=== PATIENT | female | born 1945 | race Caucasian/White ===

== ENCOUNTER 2024-04-10 10:50 | Outpatient (OUT) | payer MEDICARE, SELFPAY ==
--- OUTSIDE RECORDS SUMMARY | 2024-04-10 11:05 | XMS_ITS | CCD ---
Author Organization [facility] Care Team Providers Care Business Intelligence Analyst Name Role Phone MUSTAPHA SPAIN Referring Unavailable DENNISE RUBIN Primary Care Unavailable AL-NSSHALOM DAY Referring Unavailable WASDENNISE CHACKO Primary Care Unavailable Dennise Rubin Primary Care Provider Dennise Rubin DO Primary Care Provider Unavail able Vivek LORD Referring Unavailable WASDENNISE CHACKO Primary Care Unavailable AL-JARET, SHALOM Teran Referring Unavailable WASDENNISE CHACKO Primary Care Unavailable Schlachter FLOOR INSPECTOR-DEPUTY HARBORMASTER, Malcolm Primary Care Provide r MALCOLM DEJESUS Attending Unavailable MALCOLM DEJESUS Referring Unavailable SCHLACHTER, MALCOLM Primary Care Unavailable LIZZETH LO Attending Unavailable MALCOLM DEJESUS Referring Unavailable SCHLACHTER, MALCOLM Primary Care Unavailable SCHMALCOLM MANJARREZ Attending Unavailable SCHCHIKISCHTERMALCOLM Referring Unavailable SCHLACHTER, MALCOLM Primary Care Unavailable MARTITA, ADALGISA P Admitting Unavailable ADALGISA ANDERS Attending Unavailable LEIA BARGER Referring Unavailable SCHLACHTER, MALCOLM Primary Care Unavailable TORITO SIMMS Consulting Unavailable ALE TRENT Consulting Unavailable DENNISE TOVAR Consulting Unavailable PIERO, RASHMI Consulting Unavailable ADALGISA CRESPO Consulting Unavailable ANALY BUTLER Referring Unavailable SCHLACHTER, MALCOLM Primary Care Unavailable FOZIA MCCORMACK Attending Unavailable SCHLACHTER, MALCOLM Primary Care Unavailable MARGARET QUINN Attending Unavailable MARGARET QUINN Referring Unavailable SCHLACHTER, MALCOLM Primary Care Unavailable HARMEET KANG Attending Unavailable HARMEET KANG Referring Unavailable SCHLACHTER, MALCOLM Primary Care Unavailable POTADALGISA MACARIO P Attending Unavailable ADALGISA ANDERS P Referring Unavailable SCHLACHTER, MALCOLM Primary Care Unavailable BISMARK BUSH Admitting Unavailable BISMARK BUSH Attending Unavailable RED SPANGLER Referring Unavailable SCHLACHTER, MALCOLM Primary Care Unavailable NAILA, LIZZETH G Consulting Unavailable ALE TRENT. Consulting Unavailable TORITO SIMMS Consulting Unavailable DENNISE TOVAR Consulting Unavailable LEIA BARGER Referring Unavailable SCHLACHTER, MALCOLM Primary Care Unavailable RED SPANGLER Referring Unavailable SCHLACHTER, MALCOLM Primary Care Unavailable NAILA, LIZZETH G Attending Unavailable NAILA, LIZZETH G Referring Unavailable SCHLACHTER, MALCOLM Primary Care Unavailable NAILA, LIZZETH G Admitting Unavailable ALE TRENT Consulting Unavailable [facility] Unavailable REYNA, ANGELICA Q Consulting Unavailable SHELIA GREWAL Consulting Unavailable ANGIE FERRER Consulting Unavailable TASHI NAIR Attending Unavailable SCHLACHTER, MALCOLM Primary Care Unavailable NAILA, LIZZETH G Attending Unavailable NAILA, LIZZETH G Referring Unavailable SCHLACHTER, MALCOLM Primary Care Unavailable MARIBELL, ANGELICA Q Referring Unavailable SCHLACHTER, MALCOLM Primary Care Unavailable VERHOFFDAVIDN N Attending Unavailable SCHLACHTER, MALCOLM Referring Unavailable SCHLACHTER, MALCOLM Primary Care Unavailable VERHOFF, LILLIAN N Referring Unavailable SCHLACHTER, MALCOLM Primary Care Unavailable SCHLACHTER, MALCOLM Referring Unavailable SCHLACHTER, MALCOLM Primary Care Unavailable VERHODAVID LUTZN N Attending Unavailable VERHOFF, LILLIAN N Referring Unavailable SCHLACHTER, MALCOLM Primary Care Unavailable SCHLACHTER, MALCOLM Referring Unavailable SCHLACHTER, MALCOLM Primary Care Unavailable VERHOFF, LILLIAN N Attending Unavailable VERHOFF, LILLIAN N Referring Unavailable SCHLACHTER, MALCOLM Primary Care Unavailable SCHLACHTER, MALCOLM Referring Unavailable SCHLACHTER, MALCOLM Primary Care Unavailable SCHLACHTER, MALCOLM Referring Unavailable SCHLACHTER, MALCOLM Primary Care Unavailable SCHLACHTER, MALCOLM Referring Unavailable SCHLACHTER, MALCOLM Primary Care Unavailable SCHLACHTER, MALCOLM Primary Care Unavailable SHAHBAZ SAMANIEGO Attending Unavailable CHARBEL, MUHAMID M Admitting Unavailable [facility] Consulting Unavailable SCHLACHTER, MALCOLM Referring Unavailable SCHLACHTER, MALCOLM Primary Care Unavailable SPANGLER, RED Attending Unavailable SPANGLER, RED Attending Unavailable SPANGLER, RED Referring Unavailable SCHLACHTER, MALCOLM Primary Care Unavailable SPANGLER, RED Attending Unavailable SPANGLER, RED Referring Unavailable SCHLACHTER, MALCOLM Primary Care Unavailable SPANGLER, RED Attending Unavailable SPANGLER, RED Referring Unavailable SCHLACHTER, MALCOLM Primary Care Unavailable NAILA, LIZZETH G Admitting Unavailable NAILA, LIZZETH G Attending Unavailable SCHLACHTER, MALCOLM Primary Care Unavailable SIENNALUISED Attending Unavailable SCHLACHTER, MALCOLM Referring Unavailable SCHLACHTER, MALCOLM Primary Care Unavailable Allergies Allergy Classification Reported Allergen(s) Allergy Type Date of Onset Reaction(s) Facility Angiotensin Converting Enzyme (SULEIMAN) Inhibitors (1 source) Lisinopril Drug Allergy 7 [facility] cloNIDine (1 source) cloNIDine Drug Allergy 7 [facility] Opioid Agonists (2 sources) Codeine Drug Allergy 6 Other (See Comments) [facility] Pentazocine (1 source) Pentazocine Drug Allergy 7 Other (See Comments) [facility] tyloxapol (1 source) tyloxapol Drug Allergy 7 [facility] (14 sources) cloNIDine; Translations: [CLONIDINE] Drug Allergy 7 [place], [place] (14 sources) Codeine; Translations: [CODEINE] Drug Allergy 6 Other (See Comments), Swelling [place], [place] (14 sources) Lisinopril; Translations: [LISINOPRIL] Drug Allergy 7 [place], [place] (14 sources) Pentazocine; Translations: [PENTAZOCINE LACTATE] Drug Allergy 7 Other (See Comments) [place], [place] (14 sources) traMADol; Translations: [TRAMADOL] Drug Allergy 7 Other (See Comments), GI Disturbance [place], [place] (14 sources) tyloxapol; Translations: [TYLOXAPOL] Drug Allergy 7 GI Disturbance [facility] [place] [place] (11 sources) Adhesive agent; Translations: [ADHESIVE] Propensity to adverse reactions to drug 9 Rash [facility] (11 sources) Aspirin / Pentazocine; Translations: [TALWIN COMPOUND] Drug Allergy 7 GI Disturbance [facility] (11 sources) clonazePAM; Translations: [CLONAZEPAM] Drug Allergy 9 Other (See Comments) [facility] Medications Current Medications Medication Drug Class(es) Dates Sig (Normalized) Sig (Original) ALPRAZolam 0.5 mg oral tablet (3 sources) Benzodiazepine Start: 04-12-2017 ALPRAZolam (XANAX) 0.5 MG tablet Take 0.5 mg by mouth. 0 04/12/2017 Active amLODIPine 10 mg oral tablet (4 sources) Dihydropyridine Calcium Channel Ej Start: 04-12-2017 amLODIPine (NORVASC) 10 MG tablet Take 10 mg by mouth 0 04/12/2017 Active ascorbic acid 250 mg oral tablet (11 sources) Vitamin C Start: 01-04-2022 take 1 tablet by mouth in the morning ascorbic acid, vitamin C, (VITAMIN C) 250 mg tablet Take 1 tablet (250 mg total) by mouth in the morning. 30 tablet 0 01/04/2022 Active take 1 tablet by mouth once vivien y Ascorbic Acid (VITAMIN C) 250 MG tablet Take 250 mg by mouth daily 0 Active aspirin 81 mg delayed release oral tablet (11 sources) Platelet Aggregation Inhibitor, Nonsteroidal Anti-inflammatory Drug Start: 01-04-2022 take 1 tablet by mouth in the morning aspirin 81 mg Take 1 tablet (81 mg total) by mouth in the morning. 30 tablet 0 01/04/2022 Active Start: 04-12-2017 aspirin 81 MG tablet Take 81 mg by mouth 0 04/12/2017 Active atorvastatin 20 mg oral tablet (7 sources) HMG-CoA Reductase Inhibitor Start: 03-21-2023 take 1 tablet by mouth in the morning atorvastatin (LIPITOR) 20 mg tablet Take 1 tablet (20 mg total) by mouth in the morning. 90 tablet 1 03/21/2023 Active bumetanide 1 mg oral tablet (3 sources) Loop Diuretic Start: 07-12-2017 bumetanide (BU NORBERT) 1 MG tablet calcium ascorbate 500 mg oral tablet (3 sources) Start: 04-12-2017 Calcium Ascorb ate 500 MG TABS Take 500 mg by mouth 0 04/12/2017 Active carvedilol 12.5 mg oral tablet (11 sources) alpha-Adrenergic Ej, beta-Adrenergic Ej Start: 01-04-2022 take 1 tablet by mouth in the morning, then take 1 tablet by mouth at bedtime, then take 2 tablets by mouth twice daily carvediloL (COREG) 12.5 mg tablet Take 1 tablet (12.5 mg total) by mouth in the morning and 1 tablet (12.5 mg total) before bedtime. take 2 tabs 6.25 mg each twice a day by mouth. 60 tablet 0 01/04/2022 Active take 1 tablet by dasha th twice daily at mealtime carvedilol (COREG) 12.5 MG tablet Take 12.5 mg by mouth 2 times daily (with meals) 0 Active chlorthalidone 25 mg oral tablet (8 sources) Thiazide-like Diuretic Start: 01-04-2022 take 1 tablet by mouth once daily chlorthalidone (HYGROTON) 25 mg tablet Take 1 tablet (25 mg total) by mouth daily. 30 tablet 0 01/04/2022 Active take 1 tablet by mouth once vivien y chlorthalidone (HYGROTON) 25 MG tablet Take 25 mg by mouth daily 0 Active cholecalciferol 1.25 mg oral capsule (4 sources) Vitamin D Cholecalciferol (VITAMIN D3) 52321 units CAPS Take by mouth 0 Active clobetasol propionate 0.5 mg/ml topical cream (7 sources) Corticosteroid Start: 023 clobetasoL (TEMOVATE) 0.05 % cream Apply 1 Application topically in the morning and 1 Application before bedtime. 60 g 5 05/10/2023 Active Docosahexaenoate (3 sources) Start: 017 DOCOSAHEXAENOIC ACID PO Take 1 capsule by mouth 0 04/12/2017 Active docosahexaenoic acid 1000 mg / omega-3 acid ethyl esters (fdc) 300 mg delayed release oral capsule (1 source) take 3000 mg by mouth once daily [place]-3 Fatty Acids (FISH OIL) 1000 MG CPDR Take 3,000 mg by mouth daily 0 Active ergocalciferol 1.25 mg oral capsule (7 sources) Provitamin D2 Compound Start: 022 take 1 capsule by mouth every 30 days, then take 1 capsule by mouth every 30 days ergocalciferol (VITAMIN D2) 1,250 mcg (50,000 unit) capsule Take 1 capsule (50,000 Units total) by mouth every 30 (thirty) days. pt. to take one pill by mouth once every 30 days. 1 capsule 0 01/04/2022 Active ferrous sulfate 325 mg oral tablet (11 sources) Start: 022 take 1 tablet by mouth once daily at breakfast, then take 1 tablet by mouth once daily ferrous sulfate 325 (65 FE) mg tablet Take 1 tablet (325 mg total) by mouth daily with breakfast. pt. to take one tablet daily by mouth 30 tablet 0 01/04/2022 Active take 1 tablet by dasha th once daily at breakfast ferrous sulfate 325 (65 Fe) MG tablet Ta ke 325 mg by mouth daily (with breakfast) 0 Active insulin isophane, human 100 unt/ml injectable suspension (12 sources) Start: 08-08-2023 insulin NPH (H umuLIN N NPH U-100 Insulin) 100 unit/mL injection Indications: 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 disease, with long-term current use of insulin ([facility]) Inject 47 units QAM and 23 units QPM 60 mL 3 08/08/2023 Active Start: 03-05-2023 End: 08-08-2023 insulin NPH isoph U-100 darci n (HumuLIN N NPH Insulin KwikPen) 100 unit/mL (3 mL) insulin pen Indications: 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 disease, with long-term current use of insulin ([facility]) Inject 35 units in the morning and 25 units in the evening as directed by Corettat MTM 30 mL 5 03/05/2023 08/08/2023 Discontinued (Alternate therapy) Start: 04-12-2017 insulin NPH (H UMULIN N;NOVOLIN N) 100 UNIT/ML injection vial Inject 36-56 Units into the skin 0 04/12/2017 Active 24 hr isosorbide mononitrate 30 mg extended release oral tablet (11 sources) Nitrate Vasodilator Start: 09-26-2022 take 1 tablet by mouth twice daily isosorbide mononitrate (IMDUR) 30 mg 24 hr tablet Take 1 tablet (30 mg total) by mouth 2 (two) times a day. 180 tablet 3 09/26/2022 Active take 1 tablet by mouth once vivien y isosorbide mononitrate (IMDUR) 30 MG extended release tablet Take 30 mg by mouth daily 0 Active losartan potassium 25 mg oral tablet (7 sources) Angiotensin 2 Receptor Ej take 4 tablets by mouth in the morning losartan (COZAAR) 25 mg tablet Take 4 tablets (100 mg total) by mouth in the morning. 0 Active nitroglycerin 0.4 mg sublingual tablet (6 sources) Nitrate Vasodilator Start: 08-03-19 24 nitroglycerin (NITROSTAT) 0.[address] 1 tablet (0.4 mg total) under the tongue every 5 (five) minutes as needed for chest pain. 90 tablet 0 08/03/2023 Active omega 0-ant-peb-fish oil (FISH OIL) 1,000 mg (120 mg-180 mg) capsule (7 sources) Start: 07-02-19 20 take 1 capsule by mouth once daily omega 4-dxy-gbu-fish oil (FISH OIL) 1,000 mg (120 mg-180 mg) capsule Take 1 capsule by mouth daily. 90 capsule 1 07/02/2019 Active triamcinolone acetonide 10 mg/ml injectable suspension (2 sources) Corticosteroid triamcinolone (KENALOG) 0.1 % lotion Apply topically 3 times daily Apply topically 3 times daily. 0 Active triamcinolone ac etonide (KENALOG) 10 MG/ML injection Inject 10 mg into the articular space once 0 Active vitamin b6 100 mg oral tablet (11 sources) Start: 07-02-2019 take 1 tablet by mouth once daily pyridoxine, vitamin B6, (B-6) 100 mg tablet Take 1 tablet (100 mg total) by mouth daily. 90 tablet 1 07/02/2019 Active Completed/Discontinued Medications Medication Drug Class(es) Dates Sig (Normalized) Sig (Original) dapagliflozin 10 mg oral tablet (2 sources) Sodium-Glucose Cotransporter 2 Inhibitor Start: 01-02-2023 End: 08-03-2023 take 1 tablet by mouth once daily FARXIGA 10 mg tablet 1 tablet Orally Once a day for 90 days 0 01/02/2023 08/03/2023 Discontinued Problems Active Problems Problem Classification Problem Date Documented Da te Episodic/Chronic Acute and unspecified renal failure (3 sources) Acute kidney failure, unspecified; Translations: [Acute kidney failure, unspecified] Onset: 11-19-2023 Episodic Anxiety disorders (7 sources) Anxiety; Translations: [Anxiety disorder, unspecified] Onset: 04-11-2019 04-11-2019 Chronic Calculus of urinary tract (3 sources) Calculus of kidney; Translations: [Calculus of kidney] Onset: 11-27-2023 Episodic Cancer of colon (14 sources) Malignant tumor of colon; Translations: [Malignant neoplasm of colon, unspecified] Onset: 01-23-2017 Resolved: 08-08-2023 01-23-2017 Chronic Cardiac dysrhythmias (1 source) Cardiac arrhythmia, unspecified; Translations: [Cardiac arrhythmia, unspecified] Onset: 11-19-2023 Chronic Chronic kidney disease (13 sources) Chronic kidney disease; Translations: [Chronic kidney disease, unspecified] Onset: 04-11-2019 04-11-2019 Chronic Chronic kidney disease (3 sources) Chronic kidney disease; Translations: [Chronic kidney disease, stage 3 unspecified] Onset: 04-11-2019 Congestive heart failure; nonhypertensive (1 source) Acute on chronic diastolic (congestive) heart failure; Translations: [Acute on chronic diastolic (congestive) heart failure] Onset: 01-18-2024 Chronic Coronary atherosclerosis and other heart disease (5 sources) Coronary arteriosclerosis; Translations: [Atherosclerotic heart disease of [place] coronary artery without angina pectoris] Onset: 08-03-2023 08-03-2023 Chronic Diabetes mellitus with complications (1 source) Type 2 diabetes mellitus with diabetic chronic kidney disease; Translations: [Type 2 diabetes mellitus with diabetic chronic kidney disease] Onset: 04-11-2019 Chronic Diabetes mellitus without complication (10 sources) Type 2 diabetes mellitus; Translations: [Type 2 diabetes mellitus without complications] Onset: [birth year]1977 04-11-2019 Chronic Diseases of white blood cells (1 source) Decreased white blood cell count, unspecified; Translations: [Decreased white blood cell count, unspecified] Onset: 11-19-2023 Chronic Essential hypertension (11 sources) Hypertensive disorder; Translations: [Essential (primary) hypertension] Onset: 04-11-2019 04-11-2019 Chronic Fluid and electrolyte disorders (2 sources) Hyperkalemia; Translations: [Hyperkalemia] Onset: 11-19-2023 Episodic Genitourinary symptoms and ill-defined conditions (1 source) Presence of urogenital implants; Translations: [Presence of urogenital implants] Onset: 02-12-2024 Chronic Malaise and fatigue (8 sources) Asthenia; Translations: [Weakness] Onset: 02-04-2022 02-04-2022 Episodic Nonspecific chest pain (8 sources) Chest pain; Translations: [Chest pain, unspecified] Onset: 11-06-2022 11-17-2022 Episodic Osteoarthritis (2 sources) Osteoarthritis of left hip joint; Translations: [Unilateral primary osteoarthritis, left hip] Onset: 09-05-2023 09-05-2023 Chronic Other circulatory disease (1 source) Device in situ; Translations: [Presence of other vascular implants and grafts] Onset: 06-13-2016 06-13-2016 Chronic Other lower respiratory disease (1 source) Shortness of breath; Translations: [Shortness of breath] Onset: 12-23-2023 Episodic Other lower respiratory disease (1 source) Shortness of breath Onset: 12-23-2023 Episodic Other nervous system disorders (2 sources) Other chronic pain; Translations: [Other chronic pain] Onset: 08-08-2023 Chronic Other nutritional; endocrine; and metabolic disorders (1 source) Body mass index (BMI) 50.0-59.9, adult; Translations: [Body mass index (BMI) 50.0-59.9, adult] Onset: 10-17-2023 Chronic Other screening for suspected conditions (not mental disorders or infectious disease) (9 sources) Cardiovascular stress test abnormal; Translations: [Abnormal result of other cardiovascular function study] Onset: 11-06-2022 11-06-2022 Episodic Residual codes; unclassified (7 sources) Sleep apnea; Translations: [Sleep apnea, unspecified] 12-02-2019 Chronic Residual codes; unclassified (1 source) Obstructive sleep apnea syndrome; Translations: [Obstructive sleep apnea (adult) (pediatric)] 08-08-2023 Chronic Residual codes; unclassified (1 source) Obstructive sleep apnea (adult) (pediatric); Translations: [Obstructive sleep apnea (adult) (pediatric)] Onset: 12-02-2019 Chronic Residual codes; unclassified (3 sources) Device in situ; Translations: [Port-A-Cath in place] Onset: 06-13-2016 06-13-2016 Respiratory failure; insufficiency; arrest (adult) (2 sources) Acute and chronic respiratory failure with hypoxia; Translations: [Acute and chronic respiratory failure with hypoxia] Onset: 12-23-2023 Chronic Respiratory failure; insufficiency; arrest (adult) (2 sources) Respiratory failure, unspecified with hypoxia; Translations: [Acute respiratory failure with hypoxia] Onset: 12-23-2023 Episodic Septicemia (except in labor) (1 source) Sepsis Onset: 11-19-2023 Episodic Spondylosis; intervertebral disc disorders; other back problems (4 sources) Degeneration of lumbar intervertebral disc; Translations: [Other intervertebral disc degeneration, lumbar region] Onset: 09-05-2023 08-08-2023 Chronic Unclassified (1 source) Weakness - Generalized Onset: 11-19-2023 Unclassified (1 source) ILL Onset: 11-19-2023 Past or Other Problems Problem Classification Problem Date Documented Da te Episodic/Chronic Genitourinary symptoms and ill-defined conditions (7 sources) Asymptomatic microscopic hematuria; Translations: [Asymptomatic microscopic hematuria] Onset: 06-13-2022 08-15-2022 Episodic Mood disorders (7 sources) Mood disorders Onset: 01-23-2023 01-23-2023 Non-Hodgkin`s lymphoma (8 sources) Low grade B-cell lymphoma; Translations: [Unspecified B-cell lymphoma, unspecified site] Onset: 06-25-2005 Resolved: 08-08-2023 Chronic Other aftercare (1 source) penitentiary (current) use of insulin; Translations: [manager terminal (current) use of insulin] Onset: 04-11-2019 Episodic Other injuries and conditions due to external causes (7 sources) History of fall; Translations: [History of falling] Onset: 02-04-2022 02-04-2022 Episodic Other nervous system disorders (7 sources) Abnormal gait; Translations: [Unsteadiness on feet] Onset: 02-04-2022 02-04-2022 Episodic Other non-traumatic joint disorders (4 sources) Pain in right knee; Translations: [Pain in joint, lower leg] Onset: 08-08-2023 08-08-2023 Episodic Other non-traumatic joint disorders (2 sources) Pain in left knee; Translations: [Pain in left knee] Onset: 08-08-2023 Episodic Other nutritional; endocrine; and metabolic disorders (8 sources) Body mass index 40+ - severely obese; Translations: [Body mass index (BMI) 50.0-59.9, adult] Onset: 04-02-2019 Resolved: 01-19-2022 01-19-2022 Chronic Skin and subcutaneous tissue infections (14 sources) Cellulitis of left lower limb; Translations: [Cellulitis of left lower limb] Onset: 09-29-2021 09-29-2021 Episodic Spondylosis; intervertebral disc disorders; other back problems (3 sources) Lumbar radiculopathy; Translations: [Radiculopathy, lumbar region] Onset: 09-05-2023 09-05-2023 Episodic Unclassified (7 sources) Onset: 01-23-2023 Resolved: 08-08-2023 01-23-2023 Results Test Name Value Interpretation Reference Range Facility BASIC METABOLIC PANLon 01-31 Anion gap [Moles/Vol] 12 mmol/L Normal 5-15 [facility] Comment on above: Performed By: #### Kaiden NEWMAN PINR, [id number] #### [facility] ([id number]) [address], [address] [place] [address] Calcium [Mass/Vol] 9.8 mg/dL Normal 8.5-10.5 [facility] Comment on above: Performed By: #### Kaiden NEWMAN PINR, [id number] #### [facility] ([id number]) [address], [address] [place] [address] Chloride [Moles/Vol] 94 mmol/L Low 98-[address] [facility] Comment on above: Performed By: #### Kaiden NEWMAN PINR, [id number] #### [facility] ([id number]) [address], [address] [place] [address] CO2 [Moles/Vol] 30 mmol/L Normal 22-32 [facility] Comment on above: Performed By: #### Kaiden NEWMAN PINR, [id number] #### [facility] ([id number]) [address], [address] [place] [address] Creatinine [Mass/Vol] 3.04 mg/dL High 0.40-1.00 [facility] Comment on above: Result Comment: METH OD TRACEABLE TO IDMS STANDARD Performed By: #### YASMEEN HARDY, [id number] #### [facility] ([id number]) [address], [address] [place] [address] GFR/1.73 sq M.predicted among non-blacks MDRD (S/P/Bld) [Vol rate/Area] 15 mL/min/{1.73_m2} Low >59 [facility] Comment on above: Result Comment: Reported eGFR is based on the CKD-EPI 2020 equation that does not use a race coefficient. Performed By: #### YASMEEN HARDY, [id number] #### [facility] ([id number]) [address], [address] [place] [address] Glucose [Mass/Vol] 200 mg/dL High 65-99 [facility] Comment on above: Performed By: #### YASMEEN HARDY, [id number] #### [facility] ([id number]) [address], [address] [place] [address] Potassium [Moles/Vol] 4.2 mmol/L Normal 3.5-5.0 [facility] Comment on above: Performed By: #### YASMEEN HARDY, [id number] #### [facility] ([id number]) [address], [address] [place] [address] Sodium [Moles/Vol] 136 mmol/L Normal 134-146 [facility] Comment on above: Performed By: #### YASMEEN HARDY, [id number] #### [facility] ([id number]) [address], [address] [place] [address] Urea nitrogen [Mass/Vol] 71 mg/dL High 5-27 [facility] Comment on above: Performed By: #### Kaiden NEWMAN PINR, [id number] #### [facility] ([id number]) [address], [address] [place] [address] CBC AND AUTO DIFFon 02-01-20 24 ABSOLUTE BASOPHIL 0.1 X10E9/L Normal 0.0-0.2 [facility] Comment on above: Performed By: #### Kaiden NEWMAN PINJavi, [id number] #### [facility] ([id number]) [address], [address] [place] [address] Band form neutrophils/100 WBC (Bld) 3.0 % Normal [facility] Comment on above: Performed By: #### YASMEEN HARDY, [id number] #### [facility] ([id number]) [address], [address] [place] [address] Basophils/100 WBC (Bld) 3.0 % Normal [facility] Comment on above: Performed By: #### Kaiden NEWMAN PINR, [id number] #### [facility] ([id number]) [address], [address] [place] [address] Eosinophils (Bld) [#/Vol] 0.3 10*3/uL Normal 0.0-0.4 [facility] Comment on above: Performed By: #### YASMEEN HARDY, 47690-0 #### [facility] ([id number]) [address], [address] [place] [address] Eosinophils/100 WBC (Bld) 13.0 % Normal [facility] Comment on above: Performed By: #### Kaiden NEWMAN PINJavi, 21707-3 #### [facility] ([id number]) [address], [address] [place] [address] Erythrocyte distribution width (RBC) [Ratio] 15.7 % High 11.5-15.0 [facility] Comment on above: Performed By: #### Kaiden NEWMAN YASMEEN, 82647-5 #### [facility] ([id number]) [address], [address] [place] [address] Hematocrit (Bld) [Volume fraction] 27.5 % Low 35-47 [facility] Comment on above: Performed By: #### Kaiden NEWMAN PINR, 12775-0 #### [facility] ([id number]) [address], [address] [place] [address] Hemoglobin (Bld) [Mass/Vol] 9.1 g/dL Low 11.7-15.5 [facility] Comment on above: Performed By: #### YASMEEN HARDY, 75373-6 #### [facility] ([id number]) [address], [address] [place] [address] Lymphocytes (Bld) [#/Vol] 1.0 10*3/uL Normal 1.0-3.5 [facility] Comment on above: Performed By: #### Kaiden NEWMAN PINJavi, 90583-3 #### [facility] ([id number]) [address], [address] [place] [address] Lymphocytes/100 WBC (Bld) 38.0 % Normal [facility] Comment on above: Performed By: #### YASMEEN HARDY, 21809-4 #### [facility] ([id number]) [address], [address] [place] [address] MCH (RBC) [Entitic mass] 30.4 pg Normal 27-34 [facility] Comment on above: Performed By: #### Kaiden NEWMAN PINR, 51402-6 #### [facility] ([id number]) [address], [address] [place] [address] MCHC (RBC) [Mass/Vol] 33.2 g/dL Normal 32-36 [facility] Comment on above: Performed By: #### Kaiden NEWMAN PINJavi, 38210-8 #### [facility] ([id number]) [address], [address] [place] [address] MCV (RBC) [Entitic vol] 91 fL Normal 80-100 [facility] Comment on above: Performed By: #### Kaiden NEWMAN PINR, 08579-2 #### [facility] ([id number]) [address], [address] [place] [address] Monocytes (Bld) [#/Vol] 0.4 10*3/uL Normal 0-0.9 [facility] Comment on above: Performed By: #### Kaiden NEWMAN PINR, 29562-1 #### [facility] ([id number]) [address], [address] [place] [address] Monocytes/100 WBC (Bld) 18.0 % Normal [facility] Comment on above: Performed By: #### Kaiden NEWMAN PINR, 29423-9 #### [facility] ([id number]) [address], [address] [place] [address] Neutrophils (Bld) [#/Vol] 0.7 10*3/uL Low 1.5-6.6 [facility] Comment on above: Performed By: #### Kaiden NEWMAN PINR, 03851-5 #### [facility] ([id number]) [address], [address] [place] [address] Platelet mean volume (Bld) [Entitic vol] 8.4 fL Normal 7-12 [facility] Comment on above: Performed By: #### Kaiden NEWMAN PINR, 58121-5 #### [facility] ([id number]) [address], [address] [place] [address] Platelets (Bld) [#/Vol] 367 10*3/uL Normal 150-450 [facility] Comment on above: Performed By: #### Kaiden NEWMAN, PINR, 12028-0 #### [facility] ([id number]) [address], [address] [place] [address] RBC COUNT 3.00 X10E12/L Low 3.80-5.20 [facility] Comment on above: Performed By: #### YASMEEN HARDY, 23150-8 #### [facility] ([id number]) [address], [address] [place] [address] RBC morphology finding Nom (Bld) NORMAL Normal [facility] Comment on above: Performed By: #### YASMEEN HARDY, 57803-8 #### [facility] ([id number]) [address], [address] [place] [address] SEG NEUTROPHIL 25.0 % Normal [facility] Comment on above: Performed By: #### YASMEEN HARDY, 37376-7 #### [facility] ([id number]) [address], [address] [place] [address] WBC (Bld) [#/Vol] 2.5 10*3/uL Low 4.0-11.0 [facility] Comment on above: Performed By: #### YASMEEN HARDY, 43209-1 #### [facility] ([id number]) [address], [address] [place] [address] Glucose Glucometer (BldC) [M ass/Vol]on 02-01-2024 Glucose [Mass/Vol] 340 mg/dL High 65-99 [facility] Glucose [Mass/Vol] 218 mg/dL High 65-99 [facility] MAGNESIUMon 02-01-2024 Magnesium [Mass/Vol] 2.1 mg/dL Normal 1.8-2.[address] [facility] Comment on above: Performed By: #### Kaiden NEWMAN PINR, 95558-7 #### [facility] ([id number]) [address], [address] [place] [address] Magnesium [Mass/Vol] 1.7 mg/dL Low 1.8-2.[address] [facility] Comment on above: Performed By: #### Kaiden NEWMAN, PINR, 76914-0 #### [facility] ([id number]) [address], [address] [place] [address] Natriuretic peptide B [Mass/ Vol]on 02-01-2024 Natriuretic peptide B (Bld) [Mass/Vol] 73 pg/mL Normal <100.0 [facility] Comment on above: Performed By: #### Kaiden NEWMAN, PINR, 81335-6 #### [facility] ([id number]) [address], [address] [place] [address] PHOSPHORUSon 02-01-2024 Phosphate [Mass/Vol] 4.9 mg/dL Normal 2.4-4.[address] [facility] Comment on above: Performed By: #### Kaiden NEWMAN PINR, 26063-6 #### [facility] ([id number]) [address], [address] [place] [address] BASIC METABOLIC PANLon 01-30 Anion gap [Moles/Vol] 11 mmol/L Normal 5-15 [facility] Comment on above: Performed By: #### Kaiden NEWMAN, PINR, 55721-2 #### [facility] ([id number]) [address], [address] [place] [address] Calcium [Mass/Vol] 9.5 mg/dL Normal 8.5-10.5 [facility] Comment on above: Performed By: #### Kaiden NEWMAN, PINR, 09461-9 #### [facility] ([id number]) [address], [address] [place] [address] Chloride [Moles/Vol] 92 mmol/L Low 98-[address] [facility] Comment on above: Performed By: #### Kaiden NEWMAN, PINR, 38348-7 #### [facility] ([id number]) [address] [place] [address] CO2 [Moles/Vol] 31 mmol/L Normal 22-32 [facility] Comment on above: Performed By: #### YASMEEN HARDY, 63868-6 #### [facility] ([id number]) [address], [address] [place] [address] Creatinine [Mass/Vol] 3.45 mg/dL High 0.40-1.00 [facility] Comment on above: Result Comment: METH OD TRACEABLE TO IDMS STANDARD Performed By: #### YASMEEN HARDY, 15021-4 #### [facility] ([id number]) [address], [address] [place] [address] GFR/1.73 sq M.predicted among non-blacks MDRD (S/P/Bld) [Vol rate/Area] 13 mL/min/{1.73_m2} Low >59 [facility] Comment on above: Result Comment: Reported eGFR is based on the CKD-EPI 2020 equation that does not use a race coefficient. Performed By: #### YASMEEN HARDY, 28509-0 #### [facility] ([id number]) [address], [address] [place] [address] Glucose [Mass/Vol] 237 mg/dL High 65-99 [facility] Comment on above: Performed By: #### YASMEEN HARDY, 86828-3 #### [facility] ([id number]) [address], [address] [place] [address] Potassium [Moles/Vol] 4.6 mmol/L Normal 3.5-5.0 [facility] Comment on above: Performed By: #### CHLOE HARDYR, 81588-0 #### [facility] ([id number]) [address], [address] [place] [address] Sodium [Moles/Vol] 134 mmol/L Normal 134-146 [facility] Comment on above: Performed By: #### Kaiden NEWMAN PINJavi, 62861-7 #### [facility] ([id number]) [address], [address] [place] [address] Urea nitrogen [Mass/Vol] 69 mg/dL High 5-27 [facility] Comment on above: Performed By: #### Kaiden NEWMAN, PINR, 65984-0 #### [facility] ([id number]) [address], [address] [place] [address] CBC AND AUTO DIFFon 01-31-20 24 Band form neutrophils/100 WBC (Bld) 6.0 % Normal [facility] Comment on above: Performed By: #### YASMEEN HARDY, 77800-0 #### [facility] ([id number]) [address], [address] [place] [address] Eosinophils (Bld) [#/Vol] 0.2 10*3/uL Normal 0.0-0.4 [facility] Comment on above: Performed By: #### Kaiden NEWMAN PINR, 04948-7 #### [facility] ([id number]) [address], [address] [place] [address] Eosinophils/100 WBC (Bld) 8.0 % Normal [facility] Comment on above: Performed By: #### Kaiden NEWMAN PINR, 82975-1 #### [facility] ([id number]) [address], [address] [place] [address] Erythrocyte distribution width (RBC) [Ratio] 15.2 % High 11.5-15.0 [facility] Comment on above: Performed By: #### Kaiden NEWMAN PINR, 39203-4 #### [facility] ([id number]) [address], [address] [place] [address] Hematocrit (Bld) [Volume fraction] 27.3 % Low 35-47 [facility] Comment on above: Performed By: #### Kaiden NEWMAN PINR, 65874-1 #### [facility] ([id number]) [address], [address] [place] [address] Hemoglobin (Bld) [Mass/Vol] 9.1 g/dL Low 11.7-15.5 [facility] Comment on above: Performed By: #### Kaiden NEWMAN, PINR, 19377-5 #### [facility] ([id number]) [address], [address] [place] [address] Lymphocytes (Bld) [#/Vol] 0.6 10*3/uL Low 1.0-3.5 [facility] Comment on above: Performed By: #### Kaiden NEWMAN, PINR, 28759-0 #### [facility] ([id number]) [address], [facility] [address] [place] [address] Lymphocytes/100 WBC (Bld) 22.0 % Normal [facility] Comment on above: Performed By: #### Kaiden NEWMAN, PINR, 10734-4 #### [facility] ([id number]) [address] [place] [address] MCH (RBC) [Entitic mass] 30.6 pg Normal 27-34 [facility] Comment on above: Performed By: #### Kaiden NEWMAN, PINR, 87549-6 #### [facility] ([id number]) [address], [address] [place] [address] MCHC (RBC) [Mass/Vol] 33.3 g/dL Normal 32-36 [facility] Comment on above: Performed By: #### Kaiden NEWMAN, PINR, 66509-4 #### [facility] ([id number]) [address], [address] [place] [address] MCV (RBC) [Entitic vol] 92 fL Normal 80-100 [facility] Comment on above: Performed By: #### Kaiden NEWMAN, PINR, 48467-5 #### [facility] ([id number]) [address], [address] [place] [address] Monocytes (Bld) [#/Vol] 0.7 10*3/uL Normal 0-0.9 [facility] Comment on above: Performed By: #### YASMEEN HARDY, 21607-2 #### [facility] ([id number]) [address], [address] [place] [address] Monocytes/100 WBC (Bld) 27.0 % Normal [facility] Comment on above: Performed By: #### YASMEEN HARDY, 22160-2 #### [facility] ([id number]) [address], [address] [place] [address] MYELOCYTE 1.0 % Normal [facility] Comment on above: Performed By: #### YASMEEN HARDY, 82706-0 #### [facility] ([id number]) [address], [address] [place] [address] Neutrophils (Bld) [#/Vol] 1.2 10*3/uL Low 1.5-6.6 [facility] Comment on above: Performed By: #### YASMEEN HARDY, 41626-4 #### [facility] ([id number]) [address], [address] [place] [address] Platelet mean volume (Bld) [Entitic vol] 8.0 fL Normal 7-12 [facility] Comment on above: Performed By: #### YASMEEN HARDY, 75335-2 #### [facility] ([id number]) [address], [address] [place] [address] Platelets (Bld) [#/Vol] 346 10*3/uL Normal 150-450 [facility] Comment on above: Performed By: #### YASMEEN HARDY, 49323-1 #### [facility] ([id number]) [address], [address] [place] [address] RBC COUNT 2.97 X10E12/L Low 3.80-5.20 [facility] Comment on above: Performed By: #### Kaiden NEWMAN PINR, 55419-4 #### [facility] ([id number]) [address], [address] [place] [address] RBC morphology finding Nom (Bld) NORMAL Normal [facility] Comment on above: Performed By: #### Kaiden NEWMAN PINR, 97190-8 #### [facility] ([id number]) [address], [address] [place] [address] SEG NEUTROPHIL 36.0 % Normal [facility] Comment on above: Performed By: #### YASMEEN HARDY, 59118-2 #### [facility] ([id number]) [address], [address] [place] [address] WBC (Bld) [#/Vol] 2.7 10*3/uL Low 4.0-11.0 [facility] Comment on above: Performed By: #### Kaiden NEWMAN PINR, 92779-5 #### [facility] ([id number]) [address] [place] [address] Glucose Glucometer (BldC) [M ass/Vol]on 01-31-2024 Glucose [Mass/Vol] 223 mg/dL High 65-99 [facility] Glucose [Mass/Vol] 198 mg/dL High 65-99 [facility] Glucose [Mass/Vol] 258 mg/dL High 65-99 [facility] Glucose [Mass/Vol] 263 mg/dL High 65-99 [facility] MAGNESIUMon 01-31-2024 Magnesium [Mass/Vol] 1.7 mg/dL Low 1.8-2.[address] [facility] Comment on above: Performed By: #### Kaiden NEWMAN, PINR, 08265-8 #### [facility] ([id number]) [address], [address] [place] [address] Natriuretic peptide B [Mass/ Vol]on 01-31-2024 Natriuretic peptide B (Bld) [Mass/Vol] 111 pg/mL High <100.0 [facility] Comment on above: Performed By: #### Kaiden NEWMAN PINR, 93099-6 #### [facility] ([id number]) [address], [address] [place] [address] PHOSPHORUSon 01-31-2024 Phosphate [Mass/Vol] 5.0 mg/dL High 2.4-4.[address] [facility] Comment on above: Performed By: #### C TRENT PINR, 30747-9 #### [facility] ([id number]) [address] [place] [address] XR CHEST 1 VWon 01-31-2024 XR CHEST 1 VW XR CHEST 1 VW Clinical History: Shortness of breath. Portable Upright chest: 01/31/2024 Comparison: 01/29/2024 Findings: A single portable view of the chest was obtained. Vascular prominence persists with hazy central lung opacity. There is slight improved aeration of the mid lungs with persistent retrocardiac density on the left and a left pleural effusion. No pneumothorax is evident. IMPRESSION: Improving vascular congestion and perihilar infiltrates with persistent left basilar infiltrate and pleural effusion. Finalized by Lizzeth George MD on 01/31/2024 2:38 PM Normal [facility] BASIC METABOLIC PANLon 01-29 Anion gap [Moles/Vol] 12 mmol/L Normal 5-15 [facility] Comment on above: Performed By: #### C TRENT PINR, 17402-6 #### [facility] ([id number]) [address], [address] [place] [address] Calcium [Mass/Vol] 9.7 mg/dL Normal 8.5-10.5 [facility] Comment on above: Performed By: #### Kaiden NEWMAN, PINR, 81622-5 #### [facility] ([id number]) [address], [address] [place] [address] Chloride [Moles/Vol] 92 mmol/L Low 98-[address] [facility] Comment on above: Performed By: #### YASMEEN HARDY, 04515-2 #### [facility] ([id number]) [address], [address] [place] [address] CO2 [Moles/Vol] 30 mmol/L Normal 22-32 [facility] Comment on above: Performed By: #### YASMEEN HARDY, 48230-8 #### [facility] ([id number]) [address], [address] [place] [address] Creatinine [Mass/Vol] 3.91 mg/dL High 0.40-1.00 [facility] Comment on above: Result Comment: METH OD TRACEABLE TO IDMS STANDARD Performed By: #### YASMEEN HARDY, 28410-7 #### [facility] ([id number]) [address], [address] [place] [address] GFR/1.73 sq M.predicted among non-blacks MDRD (S/P/Bld) [Vol rate/Area] 11 mL/min/{1.73_m2} Low >59 [facility] Comment on above: Result Comment: Reported eGFR is based on the CKD-EPI 2020 equation that does not use a race coefficient. Performed By: #### YASMEEN HARDY, 18588-6 #### [facility] ([id number]) [address], [address] [place] [address] Glucose [Mass/Vol] 199 mg/dL High 65-99 [facility] Comment on above: Performed By: #### YASMEEN HARDY, 55275-8 #### [facility] ([id number]) [address], [address] [place] [address] Potassium [Moles/Vol] 4.6 mmol/L Normal 3.5-5.0 [facility] Comment on above: Performed By: #### YASMEEN HARDY, 93862-3 #### [facility] ([id number]) [address], [address] [place] [address] Sodium [Moles/Vol] 134 mmol/L Normal 134-146 [facility] Comment on above: Performed By: #### Kaiden NEWMAN, PINR, 85782-5 #### [facility] ([id number]) [address], [address] [place] [address] Urea nitrogen [Mass/Vol] 67 mg/dL High 5-27 [facility] Comment on above: Performed By: #### Kaiden NEWMAN, PINR, 06689-0 #### [facility] ([id number]) [address], [address] [place] [address] CBC AND AUTO DIFFon 01-30-20 24 ABSOLUTE BASOPHIL 0.1 X10E9/L Normal 0.0-0.2 [facility] Comment on above: Performed By: #### Kaiden NEWMAN, PINR, 42560-7 #### [facility] ([id number]) [address], [address] [place] [address] ABSOLUTE NEUTROPHIL 0.6 X10E9/L Low 1.5-6.[address] [facility] Comment on above: Performed By: #### Kaiden NEWMAN, PINR, 94654-7 #### [facility] ([id number]) [address], [address] [place] [address] Basophils/100 WBC (Bld) 3.3 % Normal [facility] Comment on above: Performed By: #### Kaiden NEWMAN, PINR, 07544-9 #### [facility] ([id number]) [address] [address] [place] [address] Eosinophils (Bld) [#/Vol] 0.3 10*3/uL Normal 0.0-0.4 [facility] Comment on above: Performed By: #### Kaiden NEWMAN, PINR, 68544-1 #### [facility] ([id number]) [address], [address] [place] [address] Eosinophils/100 WBC (Bld) 11.5 % Normal [facility] Comment on above: Performed By: #### Kaiden NEWMAN PINR, 68009-4 #### [facility] ([id number]) [address], [address] [place] [address] Erythrocyte distribution width (RBC) [Ratio] 15.9 % High 11.5-15.0 [facility] Comment on above: Performed By: #### Kaiden NEWMAN PINJavi, 38261-5 #### [facility] ([id number]) [address], [address] [place] [address] Hematocrit (Bld) [Volume fraction] 26.6 % Low 35-47 [facility] Comment on above: Performed By: #### Kaiden NEWMAN PINJavi, 10571-3 #### [facility] ([id number]) [address], [address] [place] [address] Hemoglobin (Bld) [Mass/Vol] 8.7 g/dL Low 11.7-15.5 [facility] Comment on above: Performed By: #### Kaiden NEWMAN PINR, 53385-1 #### [facility] ([id number]) [address] [place] [address] Lymphocytes (Bld) [#/Vol] 0.6 10*3/uL Low 1.0-3.5 [facility] Comment on above: Performed By: #### Kaiden NEWMAN PINR, 94950-4 #### [facility] ([id number]) [address] [place] [address] Lymphocytes/100 WBC (Bld) 28.3 % Normal [facility] Comment on above: Performed By: #### Kaiden NEWMAN PINJavi, 88565-9 #### [facility] ([id number]) [address], [address] [place] [address] MCH (RBC) [Entitic mass] 29.9 pg Normal 27-34 [facility] Comment on above: Performed By: #### YASMEEN HARDY, 15151-2 #### [facility] ([id number]) [address], [address] [place] [address] MCHC (RBC) [Mass/Vol] 32.8 g/dL Normal 32-36 [facility] Comment on above: Performed By: #### Kaiden NEWMAN PINJavi, 34038-2 #### [facility] ([id number]) [address], [address] [place] [address] MCV (RBC) [Entitic vol] 91 fL Normal 80-100 [facility] Comment on above: Performed By: #### YASMEEN HARDY, 20868-6 #### [facility] ([id number]) [address] [place] [address] Monocytes (Bld) [#/Vol] 0.7 10*3/uL Normal 0-0.9 [facility] Comment on above: Performed By: #### Kaiden NEWMAN PINR, [id number] #### [facility] ([id number]) [address], [address] [place] [address] Monocytes/100 WBC (Bld) 30.9 % Normal [facility] Comment on above: Performed By: #### Kaiden NEWMAN PINR, [id number] #### [facility] ([id number]) [address], [address] [place] [address] Neutrophils/100 WBC (Bld) 26.0 % Normal [facility] Comment on above: Performed By: #### Kaiden NEWMAN PINR, [id number] #### [facility] ([id number]) [address], [address] [place] [address] Platelet mean volume (Bld) [Entitic vol] 8.5 fL Normal 7-12 [facility] Comment on above: Performed By: #### YASMEEN HARDY, [id number] #### [facility] ([id number]) [address], [address] [place] [address] Platelets (Bld) [#/Vol] 333 10*3/uL Normal 150-450 [facility] Comment on above: Performed By: #### YASMEEN HARDY, [id number] #### [facility] ([id number]) [address], [address] [place] [address] RBC COUNT 2.92 X10E12/L Low 3.80-5.20 [facility] Comment on above: Performed By: #### YASMEEN HARDY, 01136-7 #### [facility] ([id number]) [address], [address] [place] [address] WBC (Bld) [#/Vol] 2.2 10*3/uL Low 4.0-11.0 [facility] Comment on above: Performed By: #### YASMEEN HARDY, [id number] #### [facility] ([id number]) [address], [address] [place] [address] Glucose Glucometer (BldC) [M ass/Vol]on 01-30-2024 Glucose [Mass/Vol] 239 mg/dL High 65-99 [facility] Glucose [Mass/Vol] 257 mg/dL High 65-99 [facility] Glucose [Mass/Vol] 266 mg/dL High 65-99 [facility] Glucose [Mass/Vol] 209 mg/dL High 65-99 [facility] MAGNESIUMon 01-30-2024 Magnesium [Mass/Vol] 1.8 mg/dL Normal 1.8-2.[address] [facility] Comment on above: Performed By: #### YASMEEN HARDY, 47082-4 #### [facility] ([id number]) [address], [address] [place] [address] Natriuretic peptide B [Mass/ Vol]on 01-30-2024 Natriuretic peptide B (Bld) [Mass/Vol] 124 pg/mL High <100.0 [facility] Comment on above: Performed By: #### YASMEEN HARDY, [id number] #### [facility] ([id number]) [address], [address] [place] [address] PHOSPHORUSon 01-30-2024 Phosphate [Mass/Vol] 5.4 mg/dL High 2.4-4.[address] [facility] Comment on above: Performed By: #### YASMEEN HARDY, 63714-9 #### [facility] ([id number]) [address], [address] [place] [address] VENOUS BLOOD GASon EWELINA'S TEST Normal [facility] Comment on above: Performed By: #### YASMEEN HARDY, 95501-2 #### [facility] ([id number]) [address], [address] [place] [address] Base excess Calc (Bld) [Moles/Vol] 7.0 mmol/L High 0.0-2.0 [facility] Comment on above: Performed By: #### YASMEEN HARDY, 97819-5 #### [facility] ([id number]) [address], [address] [place] [address] Body temperature 98.6 [degF] Normal 37.0 [facility] Comment on above: Performed By: #### Kaiden NEWMAN PINR, 75443-3 #### [facility] ([id number]) [address], [address] [place] [address] HCO3 (Bld) [Moles/Vol] 33.3 mmol/L High 20.0-24.0 [facility] Comment on above: Performed By: #### YASMEEN HARDY, 51872-1 #### [facility] ([id number]) [address] [place] [address] INSP. O2 CONC. 28 % Normal [facility] Comment on above: Performed By: #### C TRENT, PINR, [id number] #### [facility] ([id number]) [address], [address] [place] [address] Oxygen saturation in Blood 80.0 % Low >80.0 [facility] Comment on above: Performed By: #### C TRENT, PINR, 52606-2 #### [facility] ([id number]) [address] [place] [address] OXYGEN SOURCE NC Normal [facility] Comment on above: Performed By: #### Kaiden NEWMAN, PINR, 04851-1 #### [facility] ([id number]) [address] [place] [address] PCO2, VENOUS 52.8 MMHG High 35-50 [facility] Comment on above: Performed By: #### Kaiden NEWMAN, PINR, 32882-3 #### [facility] ([id number]) [address] [place] [address] PH, VENOUS 7.408 Normal 7.320-7.420 [facility] Comment on above: Performed By: #### Kaiden NEWMAN, PINR, 40530-6 #### [facility] ([id number]) [address], [address] [place] [address] PO2, VENOUS 45 MMHG Normal 30-50 [facility] Comment on above: Performed By: #### Kaiden NEWMAN, PINR, 20449-7 #### [facility] ([id number]) [address], [address] [place] [address] SAMPLE SITE N/A Normal [facility] Comment on above: Performed By: #### Kaiden NEWMAN, PINR, 52664-1 #### [facility] ([id number]) [address], [address] [place] [address] SAMPLE TYPE VENOUS Normal [facility] Comment on above: Performed By: #### YASMEEN HARDY, 41064-3 #### [facility] ([id number]) [address], [address] [place] [address] AMMONIAon 01-29-2024 Ammonia (P) [Moles/Vol] 21 umol/L Normal 18-72 [facility] Comment on above: Result Comment: NEW REFERENCE RANGE Performed By: #### YASMEEN HARDY, 65594-3 #### [facility] ([id number]) [address], [address] [place] [address] BASIC METABOLIC PANLon 01-28 Anion gap [Moles/Vol] 11 mmol/L Normal 5-15 [facility] Comment on above: Performed By: #### YASMEEN HARDY, 34104-1 #### [facility] ([id number]) [address], [address] [place] [address] Calcium [Mass/Vol] 9.7 mg/dL Normal 8.5-10.5 [facility] Comment on above: Performed By: #### Kaiden NEWMAN PINR, 36880-4 #### [facility] ([id number]) [address], [address] [place] [address] Chloride [Moles/Vol] 93 mmol/L Low 98-[address] [facility] Comment on above: Performed By: #### Kaiden NEWMAN PINR, 07268-5 #### [facility] ([id number]) [address], [address] [place] [address] CO2 [Moles/Vol] 29 mmol/L Normal 22-32 [facility] Comment on above: Performed By: #### Kaiden NEWMAN PINR, 58037-1 #### [facility] ([id number]) [address], [address] [place] [address] Creatinine [Mass/Vol] 3.80 mg/dL High 0.40-1.00 [facility] Comment on above: Result Comment: METH OD TRACEABLE TO IDMS STANDARD Performed By: #### YASMEEN HARDY, 47630-5 #### [facility] ([id number]) [address], [address] [place] [address] GFR/1.73 sq M.predicted among non-blacks MDRD (S/P/Bld) [Vol rate/Area] 12 mL/min/{1.73_m2} Low >59 [facility] Comment on above: Result Comment: Reported eGFR is based on the CKD-EPI 2020 equation that does not use a race coefficient. Performed By: #### YASMEEN HARDY, 32976-0 #### [facility] ([id number]) [address], [address] [place] [address] Glucose [Mass/Vol] 181 mg/dL High 65-99 [facility] Comment on above: Performed By: #### YASMEEN HARDY, 24975-6 #### [facility] ([id number]) [address], [address] [place] [address] Potassium [Moles/Vol] 4.6 mmol/L Normal 3.5-5.0 [facility] Comment on above: Performed By: #### YASMEEN HARDY, 36878-8 #### [facility] ([id number]) [address] [address] [place] [address] Sodium [Moles/Vol] 133 mmol/L Low 134-146 [facility] Comment on above: Performed By: #### YASMEEN HARDY, 50795-6 #### [facility] ([id number]) [address], [address] [place] [address] Urea nitrogen [Mass/Vol] 63 mg/dL High 5-27 [facility] Comment on above: Performed By: #### YASMEEN HARDY, 43631-5 #### [facility] ([id number]) [address], [address] [place] [address] BLOOD CULTUREon 01-29-2024 Bacteria identified Aer cx Nom (Bld) CULTURE RESULTS NO GROWTH 5 DAYS Normal [facility] Bacteria identified Aer cx Nom (Bld) CULTURE RESULTS NO GROWTH 5 DAYS Normal [facility] CBC AND AUTO DIFFon 01-29-20 24 ABSOLUTE BASOPHIL 0.1 X10E9/L Normal 0.0-0.2 [facility] Comment on above: Performed By: #### YASMEEN HARDY, 49102-1 #### [facility] ([id number]) [address], [address] [place] [address] Band form neutrophils/100 WBC (Bld) 10.9 % Normal [facility] Comment on above: Performed By: #### YASMEEN HARDY, 28779-0 #### [facility] ([id number]) [address], [address] [place] [address] Basophils/100 WBC (Bld) 4.0 % Normal [facility] Comment on above: Performed By: #### YASMEEN HARDY, 96676-4 #### [facility] ([id number]) [address], [address] [place] [address] Eosinophils (Bld) [#/Vol] 0.1 10*3/uL Normal 0.0-0.4 [facility] Comment on above: Performed By: #### YASMEEN HARDY, 26660-2 #### [facility] ([id number]) [address], [address] [place] [address] Eosinophils/100 WBC (Bld) 4.0 % Normal [facility] Comment on above: Performed By: #### YASMEEN HARDY, 98067-4 #### [facility] ([id number]) [address], [address] [place] [address] Erythrocyte distribution width (RBC) [Ratio] 15.9 % High 11.5-15.0 [facility] Comment on above: Performed By: #### Kaiden NEWMAN, PINR, 06651-8 #### [facility] ([id number]) [address], [facility] [address] [place] [address] Hematocrit (Bld) [Volume fraction] 25.5 % Low 35-47 [facility] Comment on above: Performed By: #### Kaiden NEWMAN PINR, 73933-7 #### [facility] ([id number]) [address], [facility] [address] [place] [address] Hemoglobin (Bld) [Mass/Vol] 8.6 g/dL Low 11.7-15.5 [facility] Comment on above: Performed By: #### Kaiden NEWMAN PINR, 57468-1 #### [facility] ([id number]) [address], [address] [place] [address] Lymphocytes (Bld) [#/Vol] 0.6 10*3/uL Low 1.0-3.5 [facility] Comment on above: Performed By: #### Kaiden NEWMAN, PINR, 13580-0 #### [facility] ([id number]) [address], [address] [place] [address] Lymphocytes/100 WBC (Bld) 24.8 % Normal [facility] Comment on above: Performed By: #### Kaiden NEWMAN PINR, 14425-2 #### [facility] ([id number]) [address], [address] [place] [address] MCH (RBC) [Entitic mass] 30.7 pg Normal 27-34 [facility] Comment on above: Performed By: #### Kaiden NEWMAN, PINR, 57125-9 #### [facility] ([id number]) [address], [address] [place] [address] MCHC (RBC) [Mass/Vol] 33.6 g/dL Normal 32-36 [facility] Comment on above: Performed By: #### YASMEEN HARDY, 28719-2 #### [facility] ([id number]) [address], [address] [place] [address] MCV (RBC) [Entitic vol] 92 fL Normal 80-100 [facility] Comment on above: Performed By: #### YASMEEN HARDY, 90565-4 #### [facility] ([id number]) [address], [address] [place] [address] Metamyelocytes/100 WBC (Bld) 1.0 % Normal [facility] Comment on above: Performed By: #### YASMEEN HARDY, 66268-8 #### [facility] ([id number]) [address], [address] [place] [address] Monocytes (Bld) [#/Vol] 0.6 10*3/uL Normal 0-0.9 [facility] Comment on above: Performed By: #### YASMEEN HARDY, 91012-9 #### [facility] ([id number]) [address], [address] [place] [address] Monocytes/100 WBC (Bld) 27.6 % Normal [facility] Comment on above: Performed By: #### YASMEEN HARDY, 08227-2 #### [facility] ([id number]) [address], [address] [place] [address] Neutrophils (Bld) [#/Vol] 0.9 10*3/uL Low 1.5-6.6 [facility] Comment on above: Performed By: #### YASMEEN HARDY, 42752-4 #### [facility] ([id number]) [address], [address] [place] [address] Platelet mean volume (Bld) [Entitic vol] 8.8 fL Normal 7-12 [facility] Comment on above: Performed By: #### Kaiden NEWMAN PINR, 61655-2 #### [facility] ([id number]) [address], [address] [place] [address] Platelets (Bld) [#/Vol] 313 10*3/uL Normal 150-450 [facility] Comment on above: Performed By: #### Kaiden NEWMAN PINR, 41707-3 #### [facility] ([id number]) [address], [facility] [address] [place] [address] RBC COUNT 2.79 X10E12/L Low 3.80-5.20 [facility] Comment on above: Performed By: #### Kaiden NEWMAN PINR, 97074-5 #### [facility] ([id number]) [address], [address] [place] [address] SEG NEUTROPHIL 27.7 % Normal [facility] Comment on above: Performed By: #### Kaiden NEWMAN PINR, 24026-2 #### [facility] ([id number]) [address], [address] [place] [address] STOMATOCYTE 2+ Abnormal NONE [facility] Comment on above: Performed By: #### Kaiden NEWMAN PINR, 78010-6 #### [facility] ([id number]) [address], [address] [place] [address] WBC (Bld) [#/Vol] 2.3 10*3/uL Low 4.0-11.0 [facility] Comment on above: Performed By: #### Kaiden NEWMAN, PINR, 81398-8 #### [facility] ([id number]) [address], [address] [place] [address] CT BRAIN WO CONTon 4 CT BRAIN WO CONT CT BRAIN WO CONT HISTORY: A 78-year-old female with the history of the confusion and altered mental status. EXAM/TECHNIQUE: Multidetector spiral CT scan of brain is performed. Multiplanar reconstruction images are reformatted. All CT scans at this facility use dose modulation, iterative reconstruction, and/or weight based dosing when appropriate to reduce radiation dose to as low as reasonably achievable. COMPARISON: Comparison is made with prior CT scan of the brain of 10/24/2021 and MRI examination of the brain of 10/26/2021. FINDINGS: There is generalize cortical atrophy. Ventricular system is normal in size and configuration for the patient's age and generalized atrophy. There is no evidence of intracranial hemorrhage or acute pathology. Again noted a lobulated extra-axial hyperdense mass in the frontal interhemispheric region. It measures 2.2 x 1.9 x 1.7 cm in size. Appearance is consistent with a meningioma. There is mass effect on the adjacent brain parenchyma without evidence of edema. The cerebellum and brainstem are unremarkable. No mass effect, midline shift of the structures or extra-axial fluid collections are noted. The calvarium is intact. The visualized paranasal sinuses are clear. There is a opacification of the mastoid air cells suggestive of chronic mastoiditis. IMPRESSION: * No evidence of intracranial hemorrhage or acute pathology. * Again noted stable 2.2 x 1.9 x 1.7 cm extra-axial hyperdense mass in the frontal interhemispheric region. Appearance is consistent with meningioma. * Bilateral chronic mastoiditis or effusion. Finalized by Camden Lee MD on 01/29/2024 7:50 PM Normal [facility] Glucose Glucometer (dC) [M ass/Vol]on 01-29-2024 Glucose [Mass/Vol] 213 mg/dL High 65-99 [facility] Glucose [Mass/Vol] 200 mg/dL High 65-99 [facility] Glucose [Mass/Vol] 268 mg/dL High 65-99 [facility] Glucose [Mass/Vol] 195 mg/dL High 65-99 [facility] MAGNESIUMon 01-29-2024 Magnesium [Mass/Vol] 1.9 mg/dL Normal 1.8-2.[address] [facility] Comment on above: Performed By: #### C TRENT, PINR, 89810-0 #### [facility] ([id number]) [address], [address] [place] [address] Natriuretic peptide B [Mass/ Vol]on 01-29-2024 Natriuretic peptide B (Bld) [Mass/Vol] 170 pg/mL High <100.0 [facility] Comment on above: Performed By: #### YASMEEN HARDY, 70527-2 #### [facility] ([id number]) [address], [address] [place] [address] PHOSPHORUSon 01-29-2024 Phosphate [Mass/Vol] 4.7 mg/dL Normal 2.4-4.[address] [facility] Comment on above: Performed By: #### YASMEEN HARDY, 74613-7 #### [facility] ([id number]) [address], [address] [place] [address] URINE CULTUREon 01-29-2024 Bacteria identified Cx Nom (U) CULTURE RESULTS 50,000 to 100,000 ORGANISMS/mL CITROBACTER BRAAKII 50,000 to 100,000 ORGANISMS/mL ENTEROCOCCUS FAECALIS [ S = SUSCEPTIBLE R = RESISTANT I = INTERMEDIATE S-DO = Susceptible-dose dependent NS = Non-suscceptible NO = No Interpretation ] Organism: CITROBACTER BRAAKII Antibiotic Interpretation ROMI Status CEFAZOLIN R >=64 F CEFEPIME S <=0.12 F CEFTRIAXONE R >=64 F CIPROFLOXACIN R >=4 F GENTAMICIN R >=16 F LEVOFLOXACIN R >=8 F NITROFURANTOIN S 32 F PIPERACIL/TAZOBACTAM R 32 F TOBRAMYCIN I 4 F TRIMETH/SULFAMETHOXAZ OLE R >=16/304 F [ S = SUSCEPTIBLE R = RESISTANT I = INTERMEDIATE S-DO = Susceptible-dose dependent NS = Non-suscceptible NO = No Interpretation ] Organism: ENTEROCOCCUS FAECALIS Antibiotic Interpretation ROMI Status AMPICILLIN S <=2 F LEVOFLOXACIN S 1 F NITROFURANTOIN S <=16 F VANCOMYCIN S 2 F Susceptible [facility] Comment on above: Performed By: #### YASMEEN HARDY, 29391-4 #### [facility] ([id number]) [address], [address] [place] [address] XR CHEST 1 VWon 01-29-2024 XR CHEST 1 VW XR CHEST 1 VW XR CHEST 1 VW History: Short of breath. Congestion. Follow-up. Chest pain. Renal disease One view study. Comparison: 01/25/2024 Impression: * No significant interval change.Cardiac silhouette remains enlarged. Congestive features persist. There is no pneumothorax. Study is hampered by portable technique and body habitus. Overall, stable exam Finalized by Maite Medel MD on 01/29/2024 2:05 PM Normal [facility] BASIC METABOLIC PANLon 01-27 Anion gap [Moles/Vol] 8 mmol/L Normal 5-15 [facility] Comment on above: Performed By: #### YASMEEN HARDY, 97333-7 #### [facility] ([id number]) [address], [address] [place] [address] Calcium [Mass/Vol] 9.6 mg/dL Normal 8.5-10.5 [facility] Comment on above: Performed By: #### YASMEEN HARDY, 95999-6 #### [facility] ([id number]) [address], [address] [place] [address] Chloride [Moles/Vol] 96 mmol/L Low 98-[address] [facility] Comment on above: Performed By: #### YASMEEN HARDY, 62135-6 #### [facility] ([id number]) [address], [address] [place] [address] CO2 [Moles/Vol] 31 mmol/L Normal 22-32 [facility] Comment on above: Performed By: #### YASMEEN HARDY, 73760-1 #### [facility] ([id number]) [address], [address] [place] [address] Creatinine [Mass/Vol] 3.75 mg/dL High 0.40-1.00 [facility] Comment on above: Result Comment: METH OD TRACEABLE TO IDMS STANDARD Performed By: #### Kaiden NEWMAN PINR, 14212-6 #### [facility] ([id number]) [address], [address] [place] [address] GFR/1.73 sq M.predicted among non-blacks MDRD (S/P/Bld) [Vol rate/Area] 12 mL/min/{1.73_m2} Low >59 [facility] Comment on above: Result Comment: Reported eGFR is based on the CKD-EPI 2020 equation that does not use a race coefficient. Performed By: #### Kaiden NEWMAN PINR, 45992-7 #### [facility] ([id number]) [address], [address] [place] [address] Glucose [Mass/Vol] 147 mg/dL High 65-99 [facility] Comment on above: Performed By: #### Kaiden NEWMAN PINR, 54969-3 #### [facility] ([id number]) [address] [place] [address] Potassium [Moles/Vol] 4.8 mmol/L Normal 3.5-5.0 [facility] Comment on above: Performed By: #### Kaiden NEWMAN PINR, 00174-0 #### [facility] ([id number]) [address], [address] [place] [address] Sodium [Moles/Vol] 135 mmol/L Normal 134-146 [facility] Comment on above: Performed By: #### Kaiden NEWMAN PINR, 09058-1 #### [facility] ([id number]) [address], [address] [place] [address] Urea nitrogen [Mass/Vol] 62 mg/dL High 5-27 [facility] Comment on above: Performed By: #### Kaiden NEWMAN, PINR, 71602-6 #### [facility] ([id number]) [address], [address] [place] [address] CBC AND AUTO DIFFon 01-28-20 24 Band form neutrophils/100 WBC (Bld) 4.0 % Normal [facility] Comment on above: Performed By: #### Kaiden NEWMAN PINR, 20419-9 #### [facility] ([id number]) [address], [facility] [address] [place] [address] Eosinophils (Bld) [#/Vol] 0.1 10*3/uL Normal 0.0-0.4 [facility] Comment on above: Performed By: #### Kaiden NEWMAN PINJavi, 08971-7 #### [facility] ([id number]) [address], [facility] [address] [place] [address] Eosinophils/100 WBC (Bld) 4.0 % Normal [facility] Comment on above: Performed By: #### YASMEEN HARDY, 34430-5 #### [facility] ([id number]) [address], [facility] [address] [place] [address] Erythrocyte distribution width (RBC) [Ratio] 16.0 % High 11.5-15.0 [facility] Comment on above: Performed By: #### Kaiden NEWMAN PINR, 74556-4 #### [facility] ([id number]) [address] [address] [place] [address] Hematocrit (Bld) [Volume fraction] 25.3 % Low 35-47 [facility] Comment on above: Performed By: #### Kaiden NEWMAN PINR, 42168-2 #### [facility] ([id number]) [address], [facility] [address] [place] [address] Hemoglobin (Bld) [Mass/Vol] 8.6 g/dL Low 11.7-15.5 [facility] Comment on above: Performed By: #### Kaiden NEWMAN PINR, 75495-5 #### [facility] ([id number]) [address], [facility] [address] [place] [address] Lymphocytes (Bld) [#/Vol] 1.0 10*3/uL Normal 1.0-3.5 [facility] Comment on above: Performed By: #### YASMEEN HARDY, 61257-5 #### [facility] ([id number]) [address] [place] [address] Lymphocytes/100 WBC (Bld) 39.0 % Normal [facility] Comment on above: Performed By: #### YASMEEN HARDY, 92356-8 #### [facility] ([id number]) [address], [address] [place] [address] MCH (RBC) [Entitic mass] 31.2 pg Normal 27-34 [facility] Comment on above: Performed By: #### YASMEEN HARDY, 75061-3 #### [facility] ([id number]) [address], [address] [place] [address] MCHC (RBC) [Mass/Vol] 34.0 g/dL Normal 32-36 [facility] Comment on above: Performed By: #### YASMEEN HARDY, 06033-7 #### [facility] ([id number]) [address] [place] [address] MCV (RBC) [Entitic vol] 92 fL Normal 80-100 [facility] Comment on above: Performed By: #### YASMEEN HARDY, 20800-8 #### [facility] ([id number]) [address] [place] [address] Monocytes (Bld) [#/Vol] 0.6 10*3/uL Normal 0-0.9 [facility] Comment on above: Performed By: #### YASMEEN HARDY, 15590-0 #### [facility] ([id number]) [address], [address] [place] [address] Monocytes/100 WBC (Bld) 27.0 % Normal [facility] Comment on above: Performed By: #### Kaiden NEWMAN PINR, [id number] #### [facility] ([id number]) [address], [address] [place] [address] Neutrophils (Bld) [#/Vol] 0.7 10*3/uL Low 1.5-6.6 [facility] Comment on above: Performed By: #### Kaiden NEWMAN PINR, 03875-0 #### [facility] ([id number]) [address], [address] [place] [address] Platelet mean volume (Bld) [Entitic vol] 8.3 fL Normal 7-12 [facility] Comment on above: Performed By: #### YASMEEN HARDY, 61760-8 #### [facility] ([id number]) [address], [address] [place] [address] Platelets (Bld) [#/Vol] 303 10*3/uL Normal 150-450 [facility] Comment on above: Performed By: #### YASMEEN HARDY, 01684-9 #### [facility] ([id number]) [address], [address] [place] [address] RBC COUNT 2.76 X10E12/L Low 3.80-5.20 [facility] Comment on above: Performed By: #### Kaiden NEWMAN PINR, 32261-6 #### [facility] ([id number]) [address], [address] [place] [address] RBC morphology finding Nom (Bld) NORMAL Normal [facility] Comment on above: Performed By: #### Kaiden NEWMAN PINR, 79514-2 #### [facility] ([id number]) [address], [address] [place] [address] SEG NEUTROPHIL 26.0 % Normal [facility] Comment on above: Performed By: #### C YASMEEN NEWMAN, 60717-9 #### [facility] ([id number]) [address], [address] [place] [address] WBC (Bld) [#/Vol] 2.4 10*3/uL Low 4.0-11.0 [facility] Comment on above: Performed By: #### YASMEEN HARDY, 51030-5 #### [facility] ([id number]) [address], [address] [place] [address] Creatinine (U) [Mass/Vol]on 01-28-2024 URINE CREATININE,RDM 24.28 mg/dL Normal [facility] Comment on above: Performed By: #### YASMEEN HARYD, 63231-1 #### [facility] ([id number]) [address], [address] [place] [address] Glucose Glucometer (BldC) [M ass/Vol]on 01-28-2024 Glucose [Mass/Vol] 243 mg/dL High 65-99 [facility] Glucose [Mass/Vol] 210 mg/dL High 65-99 [facility] Glucose [Mass/Vol] 241 mg/dL High 65-99 [facility] Glucose [Mass/Vol] 167 mg/dL High 65-99 [facility] Glucose [Mass/Vol] 150 mg/dL High 65-99 [facility] MAGNESIUMon 01-28-2024 Magnesium [Mass/Vol] 2.1 mg/dL Normal 1.8-2.[address] [facility] Comment on above: Performed By: #### YASMEEN HARDY, 24245-8 #### [facility] ([id number]) [address], [address] [place] [address] PHOSPHORUSon 01-28-2024 Phosphate [Mass/Vol] 4.5 mg/dL Normal 2.4-4.[address] [facility] Comment on above: Performed By: #### YASMEEN HARDY, 57565-0 #### [facility] ([id number]) [address], [address] [place] [address] PROTEIN CREAT RATIOon 2023 U/PRO/ZOOLOGY PROFESSOR RATIO CALC 2.57 High <0.[address] [facility] Comment on above: Result Comment: Neph rotic Syndrome is associated with ratios >3.5 Performed By: #### Kaiden BC, PINR, 08779-3 #### [facility] ([id number]) [address], [address] [place] [address] URINE CREATININE,RDM 24.12 mg/dL Normal [facility] Comment on above: Performed By: #### Kaiden NEWMAN, PINR, 47841-5 #### [facility] ([id number]) [address], [address] [place] [address] RANDOM URINE PROTEINon 01-27 RANDOM URINE PROTEIN 620 mg/L High <[address] [facility] Comment on above: Performed By: #### Kaiden NEWMAN, PINR, 95873-1 #### [facility] ([id number]) [address], [address] [place] [address] URINALYSISon 01-28-2024 Bilirubin Ql (U) Negative Normal NEG [facility] Comment on above: Performed By: #### Kaiden BC, PINR, 50818-6 #### [facility] ([id number]) [address], [address] [place] [address] BLOOD/HGB Large Abnormal NEG [facility] Comment on above: Performed By: #### Kaiden BC, PINR, 58938-0 #### [facility] ([id number]) [address], [address] [place] [address] Color (U) YELLOW Normal YELLOW [facility] Comment on above: Performed By: #### Kaiden BC, PINR, 19125-8 #### [facility] ([id number]) [address], [address] [place] [address] Glucose Ql (U) Negative Normal NEG [facility] Comment on above: Performed By: #### Kaiden NEWMAN, PINR, 96570-4 #### [facility] ([id number]) [address], [address] [place] [address] Ketones Ql (U) Negative Normal NEG [facility] Comment on above: Performed By: #### Kaiden NEWMAN, PINR, 89027-4 #### [facility] ([id number]) [address], [address] [place] [address] Leukocyte esterase Test strip Ql (U) Large Abnormal NEG [facility] Comment on above: Performed By: #### Kaiden NEWMAN PINR, 42923-1 #### [facility] ([id number]) [address], [address] [place] [address] Nitrite Ql (U) Positive Abnormal NEG [facility] Comment on above: Performed By: #### Kaiden NEWMAN PINR, 41217-7 #### [facility] ([id number]) [address], [address] [place] [address] pH (U) 6.5 [pH] Normal 5.0-8.5 [facility] Comment on above: Performed By: #### Kaiden NEWMAN, PINR, 36333-7 #### [facility] ([id number]) [address], [address] [place] [address] Protein Ql (U) 50 mg/dL Abnormal NEG [facility] Comment on above: Performed By: #### Kaiden NEWMAN, PINR, 05532-7 #### [facility] ([id number]) [address], [address] [place] [address] R.B.CELLS 174 /hpf High 0-5 [facility] Comment on above: Performed By: #### Kaiden NEWMAN, PINR, 00319-7 #### [facility] ([id number]) [address], [address] [place] [address] Specific gravity (U) [Rel density] 1.008 Normal 1.003-1.035 [facility] Comment on above: Performed By: #### Kaiden NEWMAN PINR, 11847-4 #### [facility] ([id number]) [address], [address] [place] [address] TURBIDITY HAZY Abnormal CLEAR [facility] Comment on above: Performed By: #### Kaiden NEWMAN PINR, 24196-9 #### [facility] ([id number]) [address], [address] [place] [address] Urobilinogen (U) [Mass/Vol] mg/dL Normal <1.1 [facility] Comment on above: Performed By: #### Kaiden NEWMAN PINR, 90109-9 #### [facility] ([id number]) [address], [address] [place] [address] W.B.CELLS 232 /hpf High 0-5 [facility] Comment on above: Performed By: #### Kaiden NEWMAN PINR, 45970-3 #### [facility] ([id number]) [address], [address] [place] [address] URINE SODIUM,RANDOMon 2023 Sodium (U) [Moles/Vol] 104 mmol/L Normal [facility] Comment on above: Performed By: #### Kaiden NEWMAN PINR, 47708-9 #### [facility] ([id number]) [address], [address] [place] [address] BASIC METABOLIC PANLon 01-26 Anion gap [Moles/Vol] 11 mmol/L Normal 5-15 [facility] Comment on above: Performed By: #### C BCA, BMP, 66824-7, 2777-1 ####[facility] ([id number])[address], [address], [place] [address] Calcium [Mass/Vol] 9.5 mg/dL Normal 8.5-10.5 [facility] Comment on above: Performed By: #### C DAVID PAGE, , 2776-06 ####[facility] ([id number])[address], [address], [place] [address] Chloride [Moles/Vol] 95 mmol/L Low 98-[address] [facility] Comment on above: Performed By: #### C DAVID PAGE, , 2776-06 ####[facility] ([id number])[address], [address] [address] CO2 [Moles/Vol] 28 mmol/L Normal 22-32 [facility] Comment on above: Performed By: #### C DAVID PAGE, , 2776-06 ####[facility] ([id number])[address], [address], [place] [address] Creatinine [Mass/Vol] 3.52 mg/dL High 0.40-1.00 [facility] Comment on above: Result Comment: METH OD TRACEABLE TO IDMS STANDARD Performed By: #### C DAVID PAGE, , 2776-06 ####[facility] ([id number])[address], [address] [address] GFR/1.73 sq M.predicted among non-blacks MDRD (S/P/Bld) [Vol rate/Area] 13 mL/min/{1.73_m2} Low >59 [facility] Comment on above: Result Comment: Reported eGFR is based on the CKD-EPI 2020 equation that does not use a race coefficient. Performed By: #### C DAVID PAGE, , 2776-06 ####[facility] ([id number])[address], [address], [place] [address] Glucose [Mass/Vol] 204 mg/dL High 65-99 [facility] Comment on above: Performed By: #### C CAMILO, BMP, , 2776-06 ####[facility] ([id number])[address], [address] [address] Potassium [Moles/Vol] 5.0 mmol/L Normal 3.5-5.0 [facility] Comment on above: Performed By: #### C CAMILO, BMP, , 2776-06 ####[facility] ([id number])[address], [address] [address] Sodium [Moles/Vol] 134 mmol/L Normal 134-146 [facility] Comment on above: Performed By: #### C CAMILO, BMP, , 2776-06 ####[facility] ([id number])[address] [address] [address] Urea nitrogen [Mass/Vol] 61 mg/dL High 5-27 [facility] Comment on above: Performed By: #### C CAMILO, BMP, , 2776-06 ####[facility] ([id number])[address] [address] [address] CBC AND AUTO DIFFon 01-27-20 24 ABSOLUTE BASOPHIL 0.0 X10E9/L Normal 0.0-0.2 [facility] Comment on above: Performed By: #### C CAMILO, BMP, , 2776-06 ####[facility] ([id number])[address] [address] [place] [address] Basophils/100 WBC (Bld) 1.0 % Normal [facility] Comment on above: Performed By: #### C BCA, BMP, , 2776-06 ####[facility] ([id number])[address] [address] [address] Eosinophils (Bld) [#/Vol] 0.4 10*3/uL Normal 0.0-0.4 [facility] Comment on above: Performed By: #### C CAMILO, [place], , 2776-06 ####[facility] ([id number])[address] [address] Eosinophils/100 WBC (Bld) 12.0 % Normal [facility] Comment on above: Performed By: #### C CAMILO, [place], , 2776-06 ####[facility] ([id number])[address] [address] Erythrocyte distribution width (RBC) [Ratio] 15.6 % High 11.5-15.0 [facility] Comment on above: Performed By: #### C CAMILO, [place], , 2776-06 ####[facility] ([id number])[address] [address] Hematocrit (Bld) [Volume fraction] 27.9 % Low 35-47 [facility] Comment on above: Performed By: #### C CAMILO, [place], , 2776-06 ####[facility] ([id number])[address] [address] Hemoglobin (Bld) [Mass/Vol] 9.1 g/dL Low 11.7-15.5 [facility] Comment on above: Performed By: #### C CAMILO, [place], , 2776-06 ####[facility] ([id number])[address] [address] Lymphocytes (Bld) [#/Vol] 0.8 10*3/uL Low 1.0-3.5 [facility] Comment on above: Performed By: #### C CAMILO, BMP, , 2776-06 ####[facility] ([id number])[address] [address] Lymphocytes/100 WBC (Bld) 25.0 % Normal [facility] Comment on above: Performed By: #### C CAMILO BMP, , 2776-06 ####[facility] ([id number])[address] [address] MCH (RBC) [Entitic mass] 30.2 pg Normal 27-34 [facility] Comment on above: Performed By: #### C CAMILO, BMP, , 2776-06 ####[facility] ([id number])[address] [address] MCHC (RBC) [Mass/Vol] 32.6 g/dL Normal 32-36 [facility] Comment on above: Performed By: #### C CAMILO, BMP, , 2776-06 ####[facility] ([id number])[address] [address] MCV (RBC) [Entitic vol] 93 fL Normal 80-100 [facility] Comment on above: Performed By: #### Kaiden PAGE, BMP, , 2776-06 ####[facility] ([id number])[address] [address] [place] [address] Monocytes (Bld) [#/Vol] 0.8 10*3/uL Normal 0-0.9 [facility] Comment on above: Performed By: #### C CAMILO, BMP, , 2776-06 ####[facility] ([id number])[address] [address] [address] Monocytes/100 WBC (Bld) 27.0 % Normal [facility] Comment on above: Performed By: #### C CAMILO, BMP, , 2776-06 ####[facility] ([id number])[address] [address] MYELOCYTE 1.0 % Normal [facility] Comment on above: Performed By: #### C CAMILO, BMP, , 2776-06 ####[facility] ([id number])[address], [place] [address] Neutrophils (Bld) [#/Vol] 1.1 10*3/uL Low 1.5-6.6 [facility] Comment on above: Performed By: #### C CAMILO, BMP, , 2776-06 ####[facility] ([id number])[address] [address] [place] [address] Platelet mean volume (Bld) [Entitic vol] 8.3 fL Normal 7-12 [facility] Comment on above: Performed By: #### Kaiden PAGE, BMP, , 2776-06 ####[facility] ([id number])[address] [address] [place] [address] Platelets (Bld) [#/Vol] 331 10*3/uL Normal 150-450 [facility] Comment on above: Performed By: #### Kaiden PAGE, BMP, , 2776-06 ####[facility] ([id number])[address] [address] [place] [address] RBC COUNT 3.02 X10E12/L Low 3.80-5.20 [facility] Comment on above: Performed By: #### Kaiden PAGE, BMP, , 2776-06 ####[facility] ([id number])[address], [place] [address] RBC morphology finding Nom (Bld) NORMAL Normal [facility] Comment on above: Performed By: #### Kaiden PAGE, BMP, , 2776-06 ####[facility] ([id number])[address] [address] [place] [address] SEG NEUTROPHIL 34.0 % Normal [facility] Comment on above: Performed By: #### C DAVID PAGE, , 2776-06 ####[facility] ([id number])[address], [address] [place] [address] WBC (Bld) [#/Vol] 3.1 10*3/uL Low 4.0-11.0 [facility] Comment on above: Performed By: #### C DAVID PAGE, , 2776-06 ####[facility] ([id number])[address], [address] [place] [address] Glucose Glucometer (BldC) [M ass/Vol]on 01-27-2024 Glucose [Mass/Vol] 154 mg/dL High 65-99 [facility] Glucose [Mass/Vol] 213 mg/dL High 65-99 [facility] Glucose [Mass/Vol] 225 mg/dL High 65-99 [facility] Glucose [Mass/Vol] 183 mg/dL High 65-99 [facility] MAGNESIUMon 01-27-2024 Magnesium [Mass/Vol] 2.1 mg/dL Normal 1.8-2.[address] [facility] Comment on above: Performed By: #### C DAVID PAGE, , 2776-06 ####[facility] ([id number])[address], [address] [place] [address] PHOSPHORUSon 01-27-2024 Phosphate [Mass/Vol] 4.6 mg/dL Normal 2.4-4.[address] [facility] Comment on above: Performed By: #### C DAVID PAGE, , 2776-06 ####[facility] ([id number])[address], [address] [place] [address] BASIC METABOLIC PANLon 01-25 Anion gap [Moles/Vol] 11 mmol/L Normal 5-15 [facility] Comment on above: Performed By: #### C DAVID PAGE, , 2776-06 ####[facility] ([id number])[address] [address] [place] [address] Calcium [Mass/Vol] 9.6 mg/dL Normal 8.5-10.5 [facility] Comment on above: Performed By: #### C BCA, BMP, , 2776-06 ####[facility] ([id number])[address] [address] Chloride [Moles/Vol] 94 mmol/L Low 98-[address] [facility] Comment on above: Performed By: #### C BCA, BMP, , 2776-06 ####[facility] ([id number])[address] [address] [place] [address] CO2 [Moles/Vol] 30 mmol/L Normal 22-32 [facility] Comment on above: Performed By: #### C BCA, BMP, , 2776-06 ####[facility] ([id number])[address] [address] Creatinine [Mass/Vol] 3.30 mg/dL High 0.40-1.00 [facility] Comment on above: Result Comment: METH OD TRACEABLE TO IDMS STANDARD Performed By: #### C BCA, BMP, , 2776-06 ####[facility] ([id number])[address] [address] GFR/1.73 sq M.predicted among non-blacks MDRD (S/P/Bld) [Vol rate/Area] 14 mL/min/{1.73_m2} Low >59 [facility] Comment on above: Result Comment: Reported eGFR is based on the CKD-EPI 2020 equation that does not use a race coefficient. Performed By: #### C BCA, BMP, , 2776-06 ####[facility] ([id number])[address] [address] Glucose [Mass/Vol] 224 mg/dL High 65-99 [facility] Comment on above: Performed By: #### C DAVID PAGE, , 2776-06 ####[facility] ([id number])[address] [address] Potassium [Moles/Vol] 4.7 mmol/L Normal 3.5-5.0 [facility] Comment on above: Performed By: #### C CAMILO, DAVID, , 2776-06 ####[facility] ([id number])[address] [address] Sodium [Moles/Vol] 135 mmol/L Normal 134-146 [facility] Comment on above: Performed By: #### C CAMILO, BMP, , 2776-06 ####[facility] ([id number])[address], [address] [place] [address] Urea nitrogen [Mass/Vol] 55 mg/dL High 5-27 [facility] Comment on above: Performed By: #### C CAMILO, BMP, , 2776-06 ####[facility] ([id number])[address], [address] [place] [address] CBC AND AUTO DIFFon 01-26-20 24 ABSOLUTE BASOPHIL 0.1 X10E9/L Normal 0.0-0.2 [facility] Comment on above: Performed By: #### C CAMILO, BMP, , 2776-06 ####[facility] ([id number])[address], [address] [place] [address] ABSOLUTE NEUTROPHIL 1.7 X10E9/L Normal 1.5-6.[address] [facility] Comment on above: Performed By: #### C CAMILO, BMP, 26208-82776-06 ####[facility] ([id number])[address] [address] Basophils/100 WBC (Bld) 1.9 % Normal [facility] Comment on above: Performed By: #### C CAMILO, BMP, , 2776-06 ####[facility] ([id number])[address] [address] Eosinophils (Bld) [#/Vol] 0.4 10*3/uL Normal 0.0-0.4 [facility] Comment on above: Performed By: #### C CAMILO, BMP, , 2776-06 ####[facility] ([id number])[address] [address] Eosinophils/100 WBC (Bld) 9.2 % Normal [facility] Comment on above: Performed By: #### C CAMILO, [place], , 2776-06 ####[facility] ([id number])[address] [address] [address] Erythrocyte distribution width (RBC) [Ratio] 15.8 % High 11.5-15.0 [facility] Comment on above: Performed By: #### C CAMILO, BMP, , 2776-06 ####[facility] ([id number])[address] [place] [address] Hematocrit (Bld) [Volume fraction] 28.5 % Low 35-47 [facility] Comment on above: Performed By: #### C CAMILO, BMP, , 2776-06 ####[facility] ([id number])[address] [place] [address] Hemoglobin (Bld) [Mass/Vol] 9.3 g/dL Low 11.7-15.5 [facility] Comment on above: Performed By: #### C BCA, BMP, , 2776-06 ####[facility] ([id number])[address] [address] [place] [address] Lymphocytes (Bld) [#/Vol] 0.8 10*3/uL Low 1.0-3.5 [facility] Comment on above: Performed By: #### C CAMILO, [place], , 2776-06 ####[facility] ([id number])[address] [address] [place] [address] Lymphocytes/100 WBC (Bld) 19.7 % Normal [facility] Comment on above: Performed By: #### Kaiden PAGE, [place], , 2776-06 ####[facility] ([id number])[address] [address] MCH (RBC) [Entitic mass] 30.0 pg Normal 27-34 [facility] Comment on above: Performed By: #### Kaiden PAGE [place], , 2776-06 ####[facility] ([id number])[address] [address] MCHC (RBC) [Mass/Vol] 32.8 g/dL Normal 32-36 [facility] Comment on above: Performed By: #### DAVID Richey BCA, , 2776-06 ####[facility] ([id number])[address] [address] MCV (RBC) [Entitic vol] 92 fL Normal 80-100 [facility] Comment on above: Performed By: #### Kaiden PAGE, [place], , 2776-06 ####[facility] ([id number])[address] [address] [place] [address] Monocytes (Bld) [#/Vol] 1.1 10*3/uL High 0-0.9 [facility] Comment on above: Performed By: #### C BCA, BMP, , 2776-06 ####[facility] ([id number])[address] [place] [address] Monocytes/100 WBC (Bld) 27.0 % Normal [facility] Comment on above: Performed By: #### C BCA, BMP, , 2776-06 ####[facility] ([id number])[address] [place] [address] Neutrophils/100 WBC (Bld) 42.2 % Normal [facility] Comment on above: Performed By: #### C BCA, BMP, , 2776-06 ####[facility] ([id number])[address], [address] [address] Platelet mean volume (Bld) [Entitic vol] 8.3 fL Normal 7-12 [facility] Comment on above: Performed By: #### C BCA, BMP, , 2776-06 ####[facility] ([id number])[address] [address] [place] [address] Platelets (Bld) [#/Vol] 398 10*3/uL Normal 150-450 [facility] Comment on above: Performed By: #### Kaiden BCA, BMP, , 2776-06 ####[facility] ([id number])[address], [address] [place] [address] RBC COUNT 3.12 X10E12/L Low 3.80-5.20 [facility] Comment on above: Performed By: #### C BCA, BMP, , 2776-06 ####[facility] ([id number])[address], [address] [place] [address] WBC (Bld) [#/Vol] 4.0 10*3/uL Normal 4.0-11.0 [facility] Comment on above: Performed By: #### C DAVID PAGE, , 2776-06 ####[facility] ([id number])[address], [address] [place] [address] Glucose Glucometer (BldC) [M ass/Vol]on 01-26-2024 Glucose [Mass/Vol] 252 mg/dL High 65-99 [facility] Glucose [Mass/Vol] 240 mg/dL High 65-99 [facility] Glucose [Mass/Vol] 241 mg/dL High 65-99 [facility] Glucose [Mass/Vol] 194 mg/dL High 65-99 [facility] MAGNESIUMon 01-26-2024 Magnesium [Mass/Vol] 2.2 mg/dL Normal 1.8-2.[address] [facility] Comment on above: Performed By: #### C DAVID PAGE, , 2776-06 ####[facility] ([id number])[address], [address] [address] PHOSPHORUSon 01-26-2024 Phosphate [Mass/Vol] 3.9 mg/dL Normal 2.4-4.[address] [facility] Comment on above: Performed By: #### DAVID Richey BCA, , 2776-06 ####[facility] ([id number])[address], [address] [place] [address] BASIC METABOLIC PANLon 01-24 Anion gap [Moles/Vol] 10 mmol/L Normal 5-15 [facility] Comment on above: Performed By: #### DAVID Richey BCA, , 2776-06 ####[facility] ([id number])[address], [address] [place] [address] Calcium [Mass/Vol] 9.3 mg/dL Normal 8.5-10.5 [facility] Comment on above: Performed By: #### DAVID Richey BCA, , 2776-06 ####[facility] ([id number])[address], [address] [address] Chloride [Moles/Vol] 95 mmol/L Low 98-[address] [facility] Comment on above: Performed By: #### C BCA, BMP, , 2776-06 ####[facility] ([id number])[address] [address] [address] CO2 [Moles/Vol] 29 mmol/L Normal 22-32 [facility] Comment on above: Performed By: #### C BCA, BMP, , 2776-06 ####[facility] ([id number])[address] [address] [place] [address] Creatinine [Mass/Vol] 2.97 mg/dL High 0.40-1.00 [facility] Comment on above: Result Comment: METH OD TRACEABLE TO IDMS STANDARD Performed By: #### C BCA, BMP, , 2776-06 ####[facility] ([id number])[address] [address] GFR/1.73 sq M.predicted among non-blacks MDRD (S/P/Bld) [Vol rate/Area] 16 mL/min/{1.73_m2} Low >59 [facility] Comment on above: Result Comment: Reported eGFR is based on the CKD-EPI 2020 equation that does not use a race coefficient. Performed By: #### C BCA, BMP, , 2776-06 ####[facility] ([id number])[address] [address] [address] Glucose [Mass/Vol] 233 mg/dL High 65-99 [facility] Comment on above: Performed By: #### C BCA, BMP, , 2776-06 ####[facility] ([id number])[address] [address] Potassium [Moles/Vol] 4.2 mmol/L Normal 3.5-5.0 [facility] Comment on above: Performed By: #### C DAVID PAGE, , 2776-06 ####[facility] ([id number])[address] [address] Sodium [Moles/Vol] 134 mmol/L Normal 134-146 [facility] Comment on above: Performed By: #### C CAMILO, DAVID, , 2776-06 ####[facility] ([id number])[address] [address] Urea nitrogen [Mass/Vol] 51 mg/dL High 5-27 [facility] Comment on above: Performed By: #### C CAMILO, DAVID, , 2776-06 ####[facility] ([id number])[address] [address] CBC AND AUTO DIFFon 01-25-20 24 Eosinophils (Bld) [#/Vol] 0.1 10*3/uL Normal 0.0-0.4 [facility] Comment on above: Performed By: #### Kaiden PAGE, BMP, , 2776-06 ####[facility] ([id number])[address] [address] Eosinophils/100 WBC (Bld) 4.0 % Normal [facility] Comment on above: Performed By: #### C CAMILO, BMP, , 2776-06 ####[facility] ([id number])[address] [address] Erythrocyte distribution width (RBC) [Ratio] 15.2 % High 11.5-15.0 [facility] Comment on above: Performed By: #### Kaiden PAGE, BMP, , 2776-06 ####[facility] ([id number])[address] [address] [place] [address] Hematocrit (Bld) [Volume fraction] 27.8 % Low 35-47 [facility] Comment on above: Performed By: #### C CAMILO, BMP, , 2776-06 ####[facility] ([id number])[address] [address] [place] [address] Hemoglobin (Bld) [Mass/Vol] 9.1 g/dL Low 11.7-15.5 [facility] Comment on above: Performed By: #### C CAMILO, BMP, , 2776-06 ####[facility] ([id number])[address] [address] [place] [address] Lymphocytes (Bld) [#/Vol] 1.1 10*3/uL Normal 1.0-3.5 [facility] Comment on above: Performed By: #### Kaiden PAGE, BMP, , 2776-06 ####[facility] ([id number])[address] [address] Lymphocytes/100 WBC (Bld) 34.0 % Normal [facility] Comment on above: Performed By: #### Kaiden PAGE, BMP, , 2776-06 ####[facility] ([id number])[address] [address] [place] [address] MCH (RBC) [Entitic mass] 30.1 pg Normal 27-34 [facility] Comment on above: Performed By: #### Kaiden PAGE, BMP, , 2776-06 ####[facility] ([id number])[address] [address] [place] [address] MCHC (RBC) [Mass/Vol] 32.8 g/dL Normal 32-36 [facility] Comment on above: Performed By: #### Kaiden BCA, BMP, , 2776-06 ####[facility] ([id number])[address], [address] [place] [address] MCV (RBC) [Entitic vol] 92 fL Normal 80-100 [facility] Comment on above: Performed By: #### C DAVID PAGE, , 2776-06 ####[facility] ([id number])[address], [address] [place] [address] Monocytes (Bld) [#/Vol] 0.7 10*3/uL Normal 0-0.9 [facility] Comment on above: Performed By: #### Kaiden PAGE, BMP, , 2776-06 ####[facility] ([id number])[address], [address] [address] Monocytes/100 WBC (Bld) 21.0 % Normal [facility] Comment on above: Performed By: #### Kaiden PAGE, BMP, , 2776-06 ####[facility] ([id number])[address], [address] [place] [address] Neutrophils (Bld) [#/Vol] 1.4 10*3/uL Low 1.5-6.6 [facility] Comment on above: Performed By: #### DAVID Richey BCA, , 2776-06 ####[facility] ([id number])[address], [address] [place] [address] Platelet mean volume (Bld) [Entitic vol] 8.0 fL Normal 7-12 [facility] Comment on above: Performed By: #### Kaiden PAGE, BMP, , 2776-06 ####[facility] ([id number])[address], [address] [place] [address] Platelets (Bld) [#/Vol] 361 10*3/uL Normal 150-450 [facility] Comment on above: Performed By: #### C CAMILO, BMP, , 2776-06 ####[facility] ([id number])[address], [address] [place] [address] POLYCHROMASIA 1+ Abnormal NONE [facility] Comment on above: Performed By: #### Kaiden PAGE, BMP, , 2776-06 ####[facility] ([id number])[address], [address] [place] [address] RBC COUNT 3.03 X10E12/L Low 3.80-5.20 [facility] Comment on above: Performed By: #### Kaiden PAGE, BMP, , 2776-06 ####[facility] ([id number])[address], [address] [place] [address] SEG NEUTROPHIL 41.0 % Normal [facility] Comment on above: Performed By: #### Kaiden PAGE, [place], , 2776-06 ####[facility] ([id number])[address], [address] [place] [address] WBC (Bld) [#/Vol] 3.3 10*3/uL Low 4.0-11.0 [facility] Comment on above: Performed By: #### Kaiden PAGE, BMP, , 2776-06 ####[facility] ([id number])[address], [address] [place] [address] Glucose Glucometer (BldC) [M ass/Vol]on 01-25-2024 Glucose [Mass/Vol] 253 mg/dL High 65-99 [facility] Glucose [Mass/Vol] 288 mg/dL High 65-99 [facility] Glucose [Mass/Vol] 278 mg/dL High 65-99 [facility] Glucose [Mass/Vol] 244 mg/dL High 65-99 [facility] MAGNESIUMon 01-25-2024 Magnesium [Mass/Vol] 2.3 mg/dL Normal 1.8-2.[address] [facility] Comment on above: Performed By: #### 1 9123-9 ####[facility] ([id number])[address], [address] [place] [address] Magnesium [Mass/Vol] 1.9 mg/dL Normal 1.8-2.[address] [facility] Comment on above: Performed By: #### C BCA, BMP, 43[address]-7, 2777-1 ####[facility] ([id number])[address] [address] PHOSPHORUSon 01-25-2024 Phosphate [Mass/Vol] 3.4 mg/dL Normal 2.4-4.[address] [facility] Comment on above: Performed By: #### C BCA, BMP, 77908-5, 2777-1 ####[facility] ([id number])[address], [address] [place] [address] US RETROPERITONEAL COMPLETEo n 01-25-2024 US RETROPERITONEAL COMPLETE US RETROPERITONEAL COMPLETE EXAM: Complete retroperitoneal ultrasound. HISTORY: Renal failure.. COMPARISON: 01/23/2024. TECHNIQUE: Transabdominal sonography was performed of the kidneys. 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 The left kidney is normal in size and echogenicity. There is no evidence of mass, dilated collecting structures, or perinephric fluid collection. Left renal cortex is 11 mm in thickness. 2 echogenic foci are seen in the mid left kidney with no definite shadowing measuring 4 mm each and likely represent small renal stones. Bladder appears grossly unremarkable but not fully distended with left ureteral jet not seen.. IMPRESSION: Unremarkable left renal ultrasound except for 2 small nonobstructive renal calculi. 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 Cardiac silhouette is unchanged. Mild congestion and edema. Small left and trace right pleural effusions. No pneumothorax. IMPRESSION: * No significant interval change. Finalized by Jeff Trujillo MD on 01/25/2024 10:02 AM Normal [facility] BASIC METABOLIC PANLon 01-23 Anion gap [Moles/Vol] 9 mmol/L Normal 5-15 [facility] Comment on above: Performed By: #### C TRENT, BMP #### [facility] ([id number]) [address], [address] [place] [address] Calcium [Mass/Vol] 8.7 mg/dL Normal 8.5-10.5 [facility] Comment on above: Performed By: #### Kaiden NEWMAN, BMP #### [facility] ([id number]) [address], [address] [place] [address] Chloride [Moles/Vol] 96 mmol/L Low 98-[address] [facility] Comment on above: Performed By: #### C TRENT, BMP #### [facility] ([id number]) [address], [address] [place] [address] CO2 [Moles/Vol] 29 mmol/L Normal 22-32 [facility] Comment on above: Performed By: #### Kaiden NEWMAN, BMP #### [facility] ([id number]) [address], [address] [place] [address] Creatinine [Mass/Vol] 2.13 mg/dL High 0.40-1.00 [facility] Comment on above: Result Comment: METH OD TRACEABLE TO IDMS STANDARD Performed By: #### C TRENT, BMP #### [facility] ([id number]) [address], [address] [place] [address] GFR/1.73 sq M.predicted among non-blacks MDRD (S/P/Bld) [Vol rate/Area] 23 mL/min/{1.73_m2} Low >59 [facility] Comment on above: Result Comment: Reported eGFR is based on the CKD-EPI 2020 equation that does not use a race coefficient. Performed By: #### Kaiden NEWMAN, BMP #### [facility] ([id number]) [address], [address] [place] [address] Glucose [Mass/Vol] 209 mg/dL High 65-99 [facility] Comment on above: Performed By: #### Kaiden NEWMAN, BMP #### [facility] ([id number]) [address] [address] [place] [address] Potassium [Moles/Vol] 4.1 mmol/L Normal 3.5-5.0 [facility] Comment on above: Performed By: #### Kaiden NEWMAN, BMP #### [facility] ([id number]) [address] [address] [place] [address] Sodium [Moles/Vol] 134 mmol/L Normal 134-146 [facility] Comment on above: Performed By: #### Kaiden NEWMAN, BMP #### [facility] ([id number]) [address] [address] [place] [address] Urea nitrogen [Mass/Vol] 42 mg/dL High 5-27 [facility] Comment on above: Performed By: #### Kaiden NEWMAN, BMP #### [facility] ([id number]) [address] [address] [place] [address] CBC AND AUTO DIFFon 01-24-20 24 ABSOLUTE BASOPHIL 0.1 X10E9/L Normal 0.0-0.2 [facility] Comment on above: Performed By: #### Kaiden NEWMAN, BMP #### [facility] ([id number]) [address] [address] [place] [address] ABSOLUTE NEUTROPHIL 1.0 X10E9/L Low 1.5-6.[address] [facility] Comment on above: Performed By: #### C BC, BMP #### [facility] ([id number]) [address], [address] [place] [address] Basophils/100 WBC (Bld) 2.1 % Normal [facility] Comment on above: Performed By: #### C BC, BMP #### [facility] ([id number]) [address], [address] [place] [address] Eosinophils (Bld) [#/Vol] 0.5 10*3/uL High 0.0-0.4 [facility] Comment on above: Performed By: #### C TRENT, BMP #### [facility] ([id number]) [address], [address] [place] [address] Eosinophils/100 WBC (Bld) 15.1 % Normal [facility] Comment on above: Performed By: #### C TRENT, BMP #### [facility] ([id number]) [address], [address] [place] [address] Erythrocyte distribution width (RBC) [Ratio] 15.2 % High 11.5-15.0 [facility] Comment on above: Performed By: #### C TRENT, BMP #### [facility] ([id number]) [address], [address] [place] [address] Hematocrit (Bld) [Volume fraction] 27.5 % Low 35-47 [facility] Comment on above: Performed By: #### C BC, BMP #### [facility] ([id number]) [address], [address] [place] [address] Hemoglobin (Bld) [Mass/Vol] 8.9 g/dL Low 11.7-15.5 [facility] Comment on above: Performed By: #### C BC, BMP #### [facility] ([id number]) [address], [address] [place] [address] Lymphocytes (Bld) [#/Vol] 0.8 10*3/uL Low 1.0-3.5 [facility] Comment on above: Performed By: #### C TRENT, BMP #### [facility] ([id number]) [address] [place] [address] Lymphocytes/100 WBC (Bld) 27.0 % Normal [facility] Comment on above: Performed By: #### C TRENT, BMP #### [facility] ([id number]) [address], [facility] [address] [place] [address] MCH (RBC) [Entitic mass] 29.5 pg Normal 27-34 [facility] Comment on above: Performed By: #### Kaiden NEWMAN, BMP #### [facility] ([id number]) [address] [place] [address] MCHC (RBC) [Mass/Vol] 32.5 g/dL Normal 32-36 [facility] Comment on above: Performed By: #### Kaiden NEWMAN, BMP #### [facility] ([id number]) [address], [address] [place] [address] MCV (RBC) [Entitic vol] 91 fL Normal 80-100 [facility] Comment on above: Performed By: #### Kaiden NEWMAN, BMP #### [facility] ([id number]) [address] [place] [address] Monocytes (Bld) [#/Vol] 0.7 10*3/uL Normal 0-0.9 [facility] Comment on above: Performed By: #### Kaiden NEWMAN, BMP #### [facility] ([id number]) [address] [place] [address] Monocytes/100 WBC (Bld) 22.2 % Normal [facility] Comment on above: Performed By: #### Kaiden NEWMAN, BMP #### [facility] ([id number]) [address], [address] [place] [address] Neutrophils/100 WBC (Bld) 33.6 % Normal [facility] Comment on above: Performed By: #### Kaiden NEWMAN, BMP #### [facility] ([id number]) [address], [address] [place] [address] Platelet mean volume (Bld) [Entitic vol] 8.1 fL Normal 7-12 [facility] Comment on above: Performed By: #### Kaiden NEWMAN, BMP #### [facility] ([id number]) [address], [address] [place] [address] Platelets (Bld) [#/Vol] 352 10*3/uL Normal 150-450 [facility] Comment on above: Performed By: #### Kaiden NEWMAN, BMP #### [facility] ([id number]) [address] [place] [address] RBC COUNT 3.02 X10E12/L Low 3.80-5.20 [facility] Comment on above: Performed By: #### Kaiden NEWMAN, BMP #### [facility] ([id number]) [address], [address] [place] [address] WBC (Bld) [#/Vol] 3.1 10*3/uL Low 4.0-11.0 [facility] Comment on above: Performed By: #### Kaiden NEWMAN, BMP #### [facility] ([id number]) [address], [address] [place] [address] Glucose Glucometer (dC) [M ass/Vol]on 01-24-2024 Glucose [Mass/Vol] 253 mg/dL High 65-99 [facility] Glucose [Mass/Vol] 266 mg/dL High 65-99 [facility] Glucose [Mass/Vol] 246 mg/dL High 65-99 [facility] Glucose [Mass/Vol] 197 mg/dL High 65-99 [facility] Glucose [Mass/Vol] 218 mg/dL High 65-99 [facility] MAGNESIUMon 01-24-2024 Magnesium [Mass/Vol] 2.0 mg/dL Normal 1.8-2.[address] [facility] Comment on above: Performed By: #### 1 9123-9 ####[facility] ([id number])[address] [address] Magnesium [Mass/Vol] 1.8 mg/dL Normal 1.8-2.[address] [facility] Comment on above: Performed By: #### C BC, BMP #### [facility] ([id number]) [address] [place] [address] PHOSPHORUSon 01-24-2024 Phosphate [Mass/Vol] 2.8 mg/dL Normal 2.4-4.[address] [facility] Comment on above: Performed By: #### C BC, BMP #### [facility] ([id number]) [address], [address] [place] [address] US RETROPERITONEAL COMPLETEo n 01-24-2024 US RETROPERITONEAL COMPLETE US RETROPERITONEAL COMPLETE ULTRASOUND RETROPERITONEAL COMPLETE CLINICAL HISTORY: Acute renal failure COMPARISON: Retroperitoneal ultrasound 04/13/2011, CT abdomen pelvis 12/23/2023 Technique: Multiple real-time grayscale images in transverse and sagittal projections. Color Doppler, and Doppler spectral analysis was performed. FINDINGS: Evaluation is compromised by diminished 100 windows underpenetration. The right kidney is surgically absent. No demonstrated abnormality in the right renal fossa. The left kidney measures 14.3 x 6.6 x 7.9 cm. Renal cortex measures 0.3 cm. No demonstrated mass, calculus or hydronephrosis given poor acoustic windows secondary to body habitus. Urinary bladder decompressed by Jiménez catheter. IMPRESSION: * Unremarkable sonographic appearance of the left kidney within the limitations of this examination. Approved by Resident Shay Caal DO on 01/24/2024 1:39 AM I, Job Gama MD have personally reviewed the image(s) and agree with and/or edited the report Finalized by Job Gama MD on 01/24/2024 1:42 AM Normal [facility] BASIC METABOLIC PANLon 01-22 Anion gap [Moles/Vol] 9 mmol/L Normal 5-15 [facility] Comment on above: Performed By: #### C TRENT, BMP #### [facility] ([id number]) [address], [address] [place] [address] Calcium [Mass/Vol] 9.0 mg/dL Normal 8.5-10.5 [facility] Comment on above: Performed By: #### C TRENT, BMP #### [facility] ([id number]) [address], [address] [place] [address] Chloride [Moles/Vol] 97 mmol/L Low 98-[address] [facility] Comment on above: Performed By: #### C TRENT, BMP #### [facility] ([id number]) [address], [address] [place] [address] CO2 [Moles/Vol] 29 mmol/L Normal 22-32 [facility] Comment on above: Performed By: #### C TRENT, BMP #### [facility] ([id number]) [address], [address] [place] [address] Creatinine [Mass/Vol] 1.68 mg/dL High 0.40-1.00 [facility] Comment on above: Result Comment: METH OD TRACEABLE TO IDMS STANDARD Performed By: #### C TRENT, BMP #### [facility] ([id number]) [address], [address] [place] [address] GFR/1.73 sq M.predicted among non-blacks MDRD (S/P/Bld) [Vol rate/Area] 31 mL/min/{1.73_m2} Low >59 [facility] Comment on above: Result Comment: Reported eGFR is based on the CKD-EPI 2020 equation that does not use a race coefficient. Performed By: #### C TRENT, BMP #### [facility] ([id number]) [address], [address] [place] [address] Glucose [Mass/Vol] 220 mg/dL High 65-99 [facility] Comment on above: Performed By: #### C TRENT, BMP #### [facility] ([id number]) [address] [place] [address] Potassium [Moles/Vol] 3.8 mmol/L Normal 3.5-5.0 [facility] Comment on above: Performed By: #### C TRENT, BMP #### [facility] ([id number]) [address] [facility] [address] Sodium [Moles/Vol] 135 mmol/L Normal 134-146 [facility] Comment on above: Performed By: #### Kaiden NEWMAN, BMP #### [facility] ([id number]) [address] [place] [address] Urea nitrogen [Mass/Vol] 43 mg/dL High 5-27 [facility] Comment on above: Performed By: #### C TRENT, BMP #### [facility] ([id number]) [address] [facility] [place] [address] CBC AND AUTO DIFFon 01-23-20 24 ABSOLUTE BASOPHIL 0.0 X10E9/L Normal 0.0-0.2 [facility] Comment on above: Performed By: #### C TRENT, BMP #### [facility] ([id number]) [address] [place] [address] Band form neutrophils/100 WBC (Bld) 2.0 % Normal [facility] Comment on above: Performed By: #### C TRENT, BMP #### [facility] ([id number]) [address] [place] [address] Basophils/100 WBC (Bld) 1.0 % Normal [facility] Comment on above: Performed By: #### C TRENT, BMP #### [facility] ([id number]) [address] [address] [place] [address] Eosinophils (Bld) [#/Vol] 0.3 10*3/uL Normal 0.0-0.4 [facility] Comment on above: Performed By: #### C TRENT, BMP #### [facility] ([id number]) [address], [facility] [address] [place] [address] Eosinophils/100 WBC (Bld) 11.0 % Normal [facility] Comment on above: Performed By: #### C TRENT, BMP #### [facility] ([id number]) [address] [address] [place] [address] Erythrocyte distribution width (RBC) [Ratio] 15.1 % High 11.5-15.0 [facility] Comment on above: Performed By: #### C TRENT, BMP #### [facility] ([id number]) [address] [address] [place] [address] Hematocrit (Bld) [Volume fraction] 25.9 % Low 35-47 [facility] Comment on above: Performed By: #### C TRENT, BMP #### [facility] ([id number]) [address] [address] [place] [address] Hemoglobin (Bld) [Mass/Vol] 8.5 g/dL Low 11.7-15.5 [facility] Comment on above: Performed By: #### C TRENT, BMP #### [facility] ([id number]) [address] [address] [place] [address] Lymphocytes (Bld) [#/Vol] 0.8 10*3/uL Low 1.0-3.5 [facility] Comment on above: Performed By: #### C TRENT, BMP #### [facility] ([id number]) [address] [place] [address] Lymphocytes/100 WBC (Bld) 31.0 % Normal [facility] Comment on above: Performed By: #### C TRENT, BMP #### [facility] ([id number]) [address] [place] [address] MCH (RBC) [Entitic mass] 29.9 pg Normal 27-34 [facility] Comment on above: Performed By: #### C TRENT, BMP #### [facility] ([id number]) [address] [place] [address] MCHC (RBC) [Mass/Vol] 32.8 g/dL Normal 32-36 [facility] Comment on above: Performed By: #### C TRENT, BMP #### [facility] ([id number]) [address], [address] [place] [address] MCV (RBC) [Entitic vol] 91 fL Normal 80-100 [facility] Comment on above: Performed By: #### Kaiden NEWMAN, BMP #### [facility] ([id number]) [address], [address] [place] [address] Monocytes (Bld) [#/Vol] 0.6 10*3/uL Normal 0-0.9 [facility] Comment on above: Performed By: #### C TRENT, BMP #### [facility] ([id number]) [address] [place] [address] Monocytes/100 WBC (Bld) 21.0 % Normal [facility] Comment on above: Performed By: #### C TRENT, BMP #### [facility] ([id number]) [address], [address] [place] [address] Neutrophils (Bld) [#/Vol] 1.0 10*3/uL Low 1.5-6.6 [facility] Comment on above: Performed By: #### C TRENT, BMP #### [facility] ([id number]) [address], [address] [place] [address] Platelet mean volume (Bld) [Entitic vol] 8.0 fL Normal 7-12 [facility] Comment on above: Performed By: #### C TRENT, BMP #### [facility] ([id number]) [address] [place] [address] Platelets (Bld) [#/Vol] 349 10*3/uL Normal 150-450 [facility] Comment on above: Performed By: #### C TRENT, BMP #### [facility] ([id number]) [address] [place] [address] POLYCHROMASIA 1+ Abnormal NONE [facility] Comment on above: Performed By: #### Kaiden NEWMAN, BMP #### [facility] ([id number]) [address], [address] [place] [address] RBC COUNT 2.85 X10E12/L Low 3.80-5.20 [facility] Comment on above: Performed By: #### Kaiden NEWMAN, BMP #### [facility] ([id number]) [address] [place] [address] SEG NEUTROPHIL 34.0 % Normal [facility] Comment on above: Performed By: #### Kaiden NEWMAN, BMP #### [facility] ([id number]) [address] [place] [address] WBC (Bld) [#/Vol] 2.7 10*3/uL Low 4.0-11.0 [facility] Comment on above: Performed By: #### Kaiden NEWMAN, BMP #### [facility] ([id number]) [address] [place] [address] Glucose Glucometer (BldC) [M ass/Vol]on 01-23-2024 Glucose [Mass/Vol] 243 mg/dL High 65-99 [facility] Glucose [Mass/Vol] 264 mg/dL High 65-99 [facility] Glucose [Mass/Vol] 228 mg/dL High 65-99 [facility] Glucose [Mass/Vol] 221 mg/dL High 65-99 [facility] XR CHEST 1 VWon 01-23-2024 XR CHEST 1 VW XR CHEST 1 VW Single view chest History:Shortness of breath Difficulty breathing, shortness of breath Comparison: 01/22/2024 Findings: Single portable view of the chest. Small bilateral pleural effusions and mild vascular congestion and interstitial edema. Atherosclerotic thoracic aorta. No large effusion or pneumothorax. Impression: Small bilateral pleural effusions and mild vascular congestion and interstitial edema bilateral lower lung atelectasis versus pneumonia, stable. Finalized by Job Gama MD on 01/23/2024 10:11 PM Normal [facility] BASIC METABOLIC PANLon 01-21 Anion gap [Moles/Vol] 10 mmol/L Normal 5-15 [facility] Comment on above: Performed By: #### C CAMILO BMP, , HA1C ####[facility] ([id number])[address], [address] [place] [address] Calcium [Mass/Vol] 9.3 mg/dL Normal 8.5-10.5 [facility] Comment on above: Performed By: #### C CAMILO BMP, , HA1C ####[facility] ([id number])[address] [address] Chloride [Moles/Vol] 102 mmol/L Normal 98-[address] [facility] Comment on above: Performed By: #### C BCA BMP, , HA1C ####[facility] ([id number])[address], [address] [address] CO2 [Moles/Vol] 26 mmol/L Normal 22-32 [facility] Comment on above: Performed By: #### C BCA, BMP, , HA1C ####[facility] ([id number])[address] [address] [address] Creatinine [Mass/Vol] 1.43 mg/dL High 0.40-1.00 [facility] Comment on above: Result Comment: METH OD TRACEABLE TO IDMS STANDARD Performed By: #### C CAMILO BMP, , HA1C ####[facility] ([id number])[address] [address] [address] GFR/1.73 sq M.predicted among non-blacks MDRD (S/P/Bld) [Vol rate/Area] 37 mL/min/{1.73_m2} Low >59 [facility] Comment on above: Result Comment: Reported eGFR is based on the CKD-EPI 2020 equation that does not use a race coefficient. Performed By: #### C BCA, BMP, , HA1C ####[facility] ([id number])[address] [address] [place] [address] Glucose [Mass/Vol] 163 mg/dL High 65-99 [facility] Comment on above: Performed By: #### C CAMILO, BMP, , HA1C ####[facility] ([id number])[address] [address] [address] Potassium [Moles/Vol] 3.9 mmol/L Normal 3.5-5.0 [facility] Comment on above: Performed By: #### C BCA, BMP, , HA1C ####[facility] ([id number])[address] [address] [place] [address] Sodium [Moles/Vol] 138 mmol/L Normal 134-146 [facility] Comment on above: Performed By: #### C BCA, BMP, , HA1C ####[facility] ([id number])[address] [place] [address] Urea nitrogen [Mass/Vol] 42 mg/dL High 5-27 [facility] Comment on above: Performed By: #### C CAMILO BMP, , HA1C ####[facility] ([id number])[address] [address] CBC AND AUTO DIFFon 01-22-20 24 ABSOLUTE BASOPHIL 0.0 X10E9/L Normal 0.0-0.2 [facility] Comment on above: Performed By: #### C CAMILO BMP, , HA1C ####[facility] ([id number])[address] [address] Band form neutrophils/100 WBC (Bld) 5.0 % Normal [facility] Comment on above: Performed By: #### Kaiden PAGE BMP, , HA1C ####[facility] ([id number])[address] [address] [place] [address] Basophils/100 WBC (Bld) 1.0 % Normal [facility] Comment on above: Performed By: #### Kaiden PAGE, BMP, , HA1C ####[facility] ([id number])[address] [address] Eosinophils (Bld) [#/Vol] 0.3 10*3/uL Normal 0.0-0.4 [facility] Comment on above: Performed By: #### C CAMILO, BMP, , HA1C ####[facility] ([id number])[address] [address] Eosinophils/100 WBC (Bld) 13.0 % Normal [facility] Comment on above: Performed By: #### Kaiden BCA, BMP, , HA1C ####[facility] ([id number])[address] [address] Erythrocyte distribution width (RBC) [Ratio] 15.6 % High 11.5-15.0 [facility] Comment on above: Performed By: #### C CAMILO [place], , HA1C ####[facility] ([id number])[address] [address] Hematocrit (Bld) [Volume fraction] 25.0 % Low 35-47 [facility] Comment on above: Performed By: #### C CAMILO [place], , HA1C ####[facility] ([id number])[address] [address] Hemoglobin (Bld) [Mass/Vol] 8.7 g/dL Low 11.7-15.5 [facility] Comment on above: Performed By: #### C CAMILO [place], , HA1C ####[facility] ([id number])[address] [address] Lymphocytes (Bld) [#/Vol] 0.8 10*3/uL Low 1.0-3.5 [facility] Comment on above: Performed By: #### C CAMILO [place], , HA1C ####[facility] ([id number])[address] [address] Lymphocytes/100 WBC (Bld) 34.0 % Normal [facility] Comment on above: Performed By: #### C CAMILO [place], , HA1C ####[facility] ([id number])[address] [address] MCH (RBC) [Entitic mass] 31.8 pg Normal 27-34 [facility] Comment on above: Performed By: #### C CAMILO [place], , HA1C ####[facility] ([id number])[address] [place] [address] MCHC (RBC) [Mass/Vol] 34.9 g/dL Normal 32-36 [facility] Comment on above: Performed By: #### DAVID Richey BCA, , HA1C ####[facility] ([id number])[address] [address] MCV (RBC) [Entitic vol] 91 fL Normal 80-100 [facility] Comment on above: Performed By: #### C DAVID PAGE, , HA1C ####[facility] ([id number])[address] [address] [address] Monocytes (Bld) [#/Vol] 0.7 10*3/uL Normal 0-0.9 [facility] Comment on above: Performed By: #### DAVID Richey BCA, , HA1C ####[facility] ([id number])[address] [address] [address] Monocytes/100 WBC (Bld) 30.0 % Normal [facility] Comment on above: Performed By: #### DAVID Richey BCA, , HA1C ####[facility] ([id number])[address] [address] [address] MYELOCYTE 1.0 % Normal [facility] Comment on above: Performed By: #### DAVID Richey BCA, , HA1C ####[facility] ([id number])[address] [address] [address] Neutrophils (Bld) [#/Vol] 0.5 10*3/uL Low 1.5-6.6 [facility] Comment on above: Performed By: #### DAVID Richey BCA, , HA1C ####[facility] ([id number])[address] [address] Platelet mean volume (Bld) [Entitic vol] 8.1 fL Normal 7-12 [facility] Comment on above: Performed By: #### C DAVID PAGE, , HA1C ####[facility] ([id number])[address] [address] Platelets (Bld) [#/Vol] 334 10*3/uL Normal 150-450 [facility] Comment on above: Performed By: #### C DAVID PAGE, , HA1C ####[facility] ([id number])[address], [facility] [address] [address] RBC COUNT 2.74 X10E12/L Low 3.80-5.20 [facility] Comment on above: Performed By: #### DAVID Richey BCA, , HA1C ####[facility] ([id number])[address] [address] RBC morphology finding Nom (Bld) NORMAL Normal [facility] Comment on above: Performed By: #### DAVID Richey BCA, , HA1C ####[facility] ([id number])[address] [address] [address] SEG NEUTROPHIL 16.0 % Normal [facility] Comment on above: Performed By: #### DAVID Richey BCA, , HA1C ####[facility] ([id number])[address] [address] [address] WBC (Bld) [#/Vol] 2.3 10*3/uL Low 4.0-11.0 [facility] Comment on above: Performed By: #### DAVID Richey BCA, , HA1C ####[facility] ([id number])[address] [address] [address] Glucose Glucometer (BldC) [M ass/Vol]on 01-22-2024 Glucose [Mass/Vol] 239 mg/dL High 65-99 [facility] Glucose [Mass/Vol] 263 mg/dL High 65-99 [facility] Glucose [Mass/Vol] 214 mg/dL High 65-99 [facility] Glucose [Mass/Vol] 154 mg/dL High 65-99 [facility] HGB A1C (GLYCO-HGB)on 2023 Glucose [Mass/Vol] 128 mg/dL Normal [facility] Comment on above: Performed By: #### C TRENT, BMP #### [facility] ([id number]) [address] [address] HbA1c (Bld) [Mass fraction] 6.1 % High 4.4-5.6 [facility] Comment on above: Result Comment: NOTE ADA Guidelines Result HgbA1c Normal : less than 5.7 % Prediabetes : 5.7 % to 6.4 % Diabetes : > 6.4 % Use with caution in patients with abnormal hemoglobin variants as the half-life of red blood cells and in vivo glycation rates are affected. Performed By: #### Kaiden NEWMAN, BMP #### [facility] ([id number]) [address] [address] MAGNESIUMon 01-22-2024 Magnesium [Mass/Vol] 2.1 mg/dL Normal 1.8-2.[address] [facility] Comment on above: Performed By: #### C TRENT, BMP #### [facility] ([id number]) [address] [address] Magnesium [Mass/Vol] 1.5 mg/dL Low 1.8-2.[address] [facility] Comment on above: Performed By: #### Kaiden NEWMAN, BMP #### [facility] ([id number]) [address] [address] [place] [address] XR CHEST 1 VWon 01-22-2024 XR CHEST 1 VW XR CHEST 1 VW XR CHEST 1 VW History: Dyspnea. Renal disease. Diabetes. Hypertension One view study. Comparison: 01/20/2024 Impression: * Increase in the size of the left pleural effusion. Congestive features remain. Underlying pulmonary edema persists. Consider consultation for thoracentesis. No comment regarding the nonaerated lung can't be made. Continued follow-up is requested. No pneumothorax is noted. Finalized by Maite Medel MD on 01/22/2024 11:12 AM Normal [facility] BASIC METABOLIC PANLon 01-20 Anion gap [Moles/Vol] 9 mmol/L Normal 5-15 [facility] Comment on above: Performed By: #### C CAMILO [place], ####[facility] ([id number])[address], [address] [place] [address] Calcium [Mass/Vol] 9.4 mg/dL Normal 8.5-10.5 [facility] Comment on above: Performed By: #### C CAMILO [place], ####[facility] ([id number])[address], [address] [place] [address] Chloride [Moles/Vol] 108 mmol/L Normal 98-[address] [facility] Comment on above: Performed By: #### C CAMILO [place], ####[facility] ([id number])[address] [place] [address] CO2 [Moles/Vol] 22 mmol/L Normal 22-32 [facility] Comment on above: Performed By: #### C CAMILO [place], ####[facility] ([id number])[address], [address] [place] [address] Creatinine [Mass/Vol] 1.65 mg/dL High 0.40-1.00 [facility] Comment on above: Result Comment: METH OD TRACEABLE TO IDMS STANDARD Performed By: #### C DAVID PAGE, ####[facility] ([id number])[address] [address] GFR/1.73 sq M.predicted among non-blacks MDRD (S/P/Bld) [Vol rate/Area] 31 mL/min/{1.73_m2} Low >59 [facility] Comment on above: Result Comment: Reported eGFR is based on the CKD-EPI 2020 equation that does not use a race coefficient. Performed By: #### C DAVID PAGE, ####[facility] ([id number])[address] [address] Glucose [Mass/Vol] 97 mg/dL Normal 65-99 [facility] Comment on above: Performed By: #### DAVID Richey BCA, ####[facility] ([id number])[address] [address] [place] [address] Potassium [Moles/Vol] 4.2 mmol/L Normal 3.5-5.0 [facility] Comment on above: Performed By: #### Kaiden PAGE [place], ####[facility] ([id number])[address] [address] [place] [address] Sodium [Moles/Vol] 139 mmol/L Normal 134-146 [facility] Comment on above: Performed By: #### Kaiden PAGE [place], ####[facility] ([id number])[address] [address] [place] [address] Urea nitrogen [Mass/Vol] 50 mg/dL High 5-27 [facility] Comment on above: Performed By: #### Kaiden PAGE [place], ####[facility] ([id number])[address] [address] CBC AND AUTO DIFFon 01-21-20 24 ABSOLUTE BASOPHIL 0.0 X10E9/L Normal 0.0-0.2 [facility] Comment on above: Performed By: #### C DAVID PAGE, ####[facility] ([id number])[address] [place] [address] ABSOLUTE NEUTROPHIL 0.3 X10E9/L Low 1.5-6.[address] [facility] Comment on above: Performed By: #### DAVID Richey BCA, ####[facility] ([id number])[address] [address] Basophils/100 WBC (Bld) 1.9 % Normal [facility] Comment on above: Performed By: #### DAVID Richey BCA, ####[facility] ([id number])[address] [address] Eosinophils (Bld) [#/Vol] 0.2 10*3/uL Normal 0.0-0.4 [facility] Comment on above: Performed By: #### DAVID Richey BCA, ####[facility] ([id number])[address] [address] Eosinophils/100 WBC (Bld) 9.3 % Normal [facility] Comment on above: Performed By: #### DAVID Richey BCA, ####[facility] ([id number])[address] [address] [address] Erythrocyte distribution width (RBC) [Ratio] 15.4 % High 11.5-15.0 [facility] Comment on above: Performed By: #### DAVID Richey BCA, ####[facility] ([id number])[address] [place] [address] Hematocrit (Bld) [Volume fraction] 25.2 % Low 35-47 [facility] Comment on above: Performed By: #### C CAMILO [place], ####[facility] ([id number])[address] [address] [place] [address] Hemoglobin (Bld) [Mass/Vol] 8.4 g/dL Low 11.7-15.5 [facility] Comment on above: Performed By: #### DAVID Richey BCA, ####[facility] ([id number])[address] [address] [place] [address] Lymphocytes (Bld) [#/Vol] 0.8 10*3/uL Low 1.0-3.5 [facility] Comment on above: Performed By: #### DAVID Richey BCA, ####[facility] ([id number])[address] [address] Lymphocytes/100 WBC (Bld) 36.4 % Normal [facility] Comment on above: Performed By: #### Kaiden PAGE [place], ####[facility] ([id number])[address] [address] MCH (RBC) [Entitic mass] 30.9 pg Normal 27-34 [facility] Comment on above: Performed By: #### DAVID Richey BCA, ####[facility] ([id number])[address] [address] MCHC (RBC) [Mass/Vol] 33.4 g/dL Normal 32-36 [facility] Comment on above: Performed By: #### Kaiden PAGE BMP, ####[facility] ([id number])[address] [address] MCV (RBC) [Entitic vol] 93 fL Normal 80-100 [facility] Comment on above: Performed By: #### DAVID Richey BCA, ####[facility] ([id number])[address], [place] [address] Monocytes (Bld) [#/Vol] 0.9 10*3/uL Normal 0-0.9 [facility] Comment on above: Performed By: #### DAVID Richey BCA, ####[facility] ([id number])[address] [place] [address] Monocytes/100 WBC (Bld) 39.8 % Normal [facility] Comment on above: Performed By: #### Kaiden PAGE, BMP, ####[facility] ([id number])[address] [place] [address] Neutrophils/100 WBC (Bld) 12.6 % Normal [facility] Comment on above: Performed By: #### Kaiden PAGE, BMP, ####[facility] ([id number])[address] [place] [address] Platelet mean volume (Bld) [Entitic vol] 7.9 fL Normal 7-12 [facility] Comment on above: Performed By: #### Kaiden PAGE, BMP, ####[facility] ([id number])[address] [address] [place] [address] Platelets (Bld) [#/Vol] 326 10*3/uL Normal 150-450 [facility] Comment on above: Performed By: #### Kaiden PAGE, BMP, ####[facility] ([id number])[address], [place] [address] RBC COUNT 2.71 X10E12/L Low 3.80-5.20 [facility] Comment on above: Performed By: #### Kaiden PAGE, BMP, ####[facility] ([id number])[address], [place] [address] WBC (Bld) [#/Vol] 2.2 10*3/uL Low 4.0-11.0 [facility] Comment on above: Performed By: #### C CAMILO, DAVID, ####[facility] ([id number])[address], [address] [place] [address] Glucose Glucometer (BldC) [M ass/Vol]on 01-21-2024 Glucose [Mass/Vol] 210 mg/dL High 65-99 [facility] Glucose [Mass/Vol] 196 mg/dL High 65-99 [facility] Glucose [Mass/Vol] 179 mg/dL High 65-99 [facility] Glucose [Mass/Vol] 137 mg/dL High 65-99 [facility] MAGNESIUMon 01-21-2024 Magnesium [Mass/Vol] 2.2 mg/dL Normal 1.8-2.[address] [facility] Comment on above: Performed By: #### C CAMILO, DAVID, ####[facility] ([id number])[address], [address] [place] [address] BASIC METABOLIC PANLon 01-19 Anion gap [Moles/Vol] 10 mmol/L Normal 5-15 [facility] Comment on above: Performed By: #### 3 2132-06, DAVID, ####[facility] ([id number])[address], [address] [place] [address] Calcium [Mass/Vol] 9.4 mg/dL Normal 8.5-10.5 [facility] Comment on above: Performed By: #### 3 2132-06, DAVID, ####[facility] ([id number])[address], [address] [address] Chloride [Moles/Vol] 108 mmol/L Normal 98-[address] [facility] Comment on above: Performed By: #### 3 2132-06, DAVID, ####[facility] ([id number])[address], [address] [place] [address] CO2 [Moles/Vol] 21 mmol/L Low 22-32 [facility] Comment on above: Performed By: #### 3 2132-06, DAVID, ####[facility] ([id number])[address], [address] [place] [address] Creatinine [Mass/Vol] 1.86 mg/dL High 0.40-1.00 [facility] Comment on above: Result Comment: METH OD TRACEABLE TO IDMS STANDARD Performed By: #### 3 2132-06, DAVID, ####[facility] ([id number])[address] [address] [place] [address] GFR/1.73 sq M.predicted among non-blacks MDRD (S/P/Bld) [Vol rate/Area] 27 mL/min/{1.73_m2} Low >59 [facility] Comment on above: Result Comment: Reported eGFR is based on the CKD-EPI 2020 equation that does not use a race coefficient. Performed By: #### 3 2132-06, DAVID, ####[facility] ([id number])[address] [address] [place] [address], [place] [address] Glucose [Mass/Vol] 89 mg/dL Normal 65-99 [facility] Comment on above: Performed By: #### 3 2132-06, DAVID, ####[facility] ([id number])[address] [address] [place] [address] Potassium [Moles/Vol] 4.7 mmol/L Normal 3.5-5.0 [facility] Comment on above: Performed By: #### 3 2132-06, DAVID, ####[facility] ([id number])[address], [place] [address] Sodium [Moles/Vol] 139 mmol/L Normal 134-146 [facility] Comment on above: Performed By: #### 3 2132-, BMP, ####[facility] ([id number])[address], [place] [address] Urea nitrogen [Mass/Vol] 49 mg/dL High 5-27 [facility] Comment on above: Performed By: #### 3 2132-, BMP, ####[facility] ([id number])[address], [place] [address] Anion gap [Moles/Vol] 8 mmol/L Normal 5-15 [facility] Comment on above: Performed By: #### Kaiden NEWMAN PINR, 14846-4 #### [facility] ([id number]) [address], [address] [place] [address] Calcium [Mass/Vol] 9.1 mg/dL Normal 8.5-10.5 [facility] Comment on above: Performed By: #### Kaiden NEWMAN PINR, 99171-0 #### [facility] ([id number]) [address], [address] [place] [address] Chloride [Moles/Vol] 110 mmol/L High 98-[address] [facility] Comment on above: Performed By: #### Kaiden NEWMAN PINR, 63289-5 #### [facility] ([id number]) [address], [address] [place] [address] CO2 [Moles/Vol] 20 mmol/L Low 22-32 [facility] Comment on above: Performed By: #### Kaiden NEWMAN PINR, 76574-4 #### [facility] ([id number]) [address], [address] [place] [address] Creatinine [Mass/Vol] 2.08 mg/dL High 0.40-1.00 [facility] Comment on above: Result Comment: METH OD TRACEABLE TO IDMS STANDARD Performed By: #### YASMEEN HARDY, 16322-1 #### [facility] ([id number]) [address], [address] [place] [address] GFR/1.73 sq M.predicted among non-blacks MDRD (S/P/Bld) [Vol rate/Area] 24 mL/min/{1.73_m2} Low >59 [facility] Comment on above: Result Comment: Reported eGFR is based on the CKD-EPI 2020 equation that does not use a race coefficient. Performed By: #### YASMEEN HARDY, 00042-7 #### [facility] ([id number]) [address], [address] [place] [address] Glucose [Mass/Vol] 122 mg/dL High 65-99 [facility] Comment on above: Performed By: #### YASMEEN HARDY, 70629-4 #### [facility] ([id number]) [address], [address] [place] [address] Potassium [Moles/Vol] 5.5 mmol/L High 3.5-5.0 [facility] Comment on above: Performed By: #### YASMEEN HARDY, 91241-6 #### [facility] ([id number]) [address] [place] [address] Sodium [Moles/Vol] 138 mmol/L Normal 134-146 [facility] Comment on above: Performed By: #### YASMEEN HARDY, 67173-8 #### [facility] ([id number]) [address], [address] [place] [address] Urea nitrogen [Mass/Vol] 59 mg/dL High 5-27 [facility] Comment on above: Performed By: #### YASMEEN HARDY, 83487-7 #### [facility] ([id number]) [address], [address] [place] [address] COMPLETE BLOOD COUNTon 01-19 Erythrocyte distribution width (RBC) [Ratio] 15.8 % High 11.5-15.0 [facility] Comment on above: Performed By: #### Kaiden NEWMAN, PINR, 60989-5 #### [facility] ([id number]) [address], [facility] [address] [place] [address] Hematocrit (Bld) [Volume fraction] 26.1 % Low 35-47 [facility] Comment on above: Performed By: #### Kaiden NEWMAN PINR, 92916-4 #### [facility] ([id number]) [address] [address] [place] [address] Hemoglobin (Bld) [Mass/Vol] 8.4 g/dL Low 11.7-15.5 [facility] Comment on above: Performed By: #### Kaiden NEWMAN PINR, 35429-0 #### [facility] ([id number]) [address], [facility] [address] [place] [address] MCH (RBC) [Entitic mass] 29.7 pg Normal 27-34 [facility] Comment on above: Performed By: #### Kaiden NEWMAN, PINR, 14634-6 #### [facility] ([id number]) [address], [address] [place] [address] MCHC (RBC) [Mass/Vol] 32.1 g/dL Normal 32-36 [facility] Comment on above: Performed By: #### Kaiden NEWMAN PINR, 38841-9 #### [facility] ([id number]) [address] [address] [place] [address] MCV (RBC) [Entitic vol] 93 fL Normal 80-100 [facility] Comment on above: Performed By: #### Kaiden NEWMAN, PINR, 19113-1 #### [facility] ([id number]) [address], [address] [place] [address] Platelet mean volume (Bld) [Entitic vol] 7.8 fL Normal 7-12 [facility] Comment on above: Performed By: #### YASMEEN HARDY, 99801-7 #### [facility] ([id number]) [address], [address] [place] [address] Platelets (Bld) [#/Vol] 345 10*3/uL Normal 150-450 [facility] Comment on above: Performed By: #### YASMEEN HARDY, 56140-9 #### [facility] ([id number]) [address], [address] [place] [address] RBC COUNT 2.82 X10E12/L Low 3.80-5.20 [facility] Comment on above: Performed By: #### YASMEEN HARDY, 02775-4 #### [facility] ([id number]) [address], [address] [place] [address] WBC (Bld) [#/Vol] 2.3 10*3/uL Low 4.0-11.0 [facility] Comment on above: Performed By: #### Kaiden NEWMAN PINR, 75467-7 #### [facility] ([id number]) [address], [address] [place] [address] Glucose Glucometer (dC) [M ass/Vol]on 01-20-2024 Glucose [Mass/Vol] 90 mg/dL Normal 65-99 [facility] Glucose [Mass/Vol] 87 mg/dL Normal 65-99 [facility] Glucose [Mass/Vol] 120 mg/dL High 65-99 [facility] Glucose [Mass/Vol] 137 mg/dL High 65-99 [facility] Glucose [Mass/Vol] 159 mg/dL High 65-99 [facility] Glucose [Mass/Vol] 158 mg/dL High 65-99 [facility] Glucose [Mass/Vol] 175 mg/dL High 65-99 [facility] Glucose [Mass/Vol] 223 mg/dL High 65-99 [facility] Glucose [Mass/Vol] 260 mg/dL High 65-99 [facility] Glucose [Mass/Vol] 140 mg/dL High 65-99 [facility] Lactate (P aleksandar) [Moles/Vol]o n 01-20-2024 LACTATE W/REFLEX 0.7 mmol/L Normal 0.4-2.0 [facility] Comment on above: Result Comment: Result did not trigger repeat Lactate, re-order if needed. Performed By: #### 3 2132-, [place], ####[facility] ([id number])[address], [address] [place] [address] MAGNESIUMon 01-20-2024 Magnesium [Mass/Vol] 1.3 mg/dL Low 1.8-2.[address] [facility] Comment on above: Performed By: #### 3 2132-, [place], ####[facility] ([id number])[address], [address] [place] [address] POTASSIUMon 01-20-2024 Potassium [Moles/Vol] 4.4 mmol/L Normal 3.5-5.0 [facility] Comment on above: Performed By: #### 2 823-3 ####[facility] ([id number])[address], [address] [place] [address] Potassium [Moles/Vol] 4.1 mmol/L Normal 3.5-5.0 [facility] Comment on above: Performed By: #### C BC, PINR, 08289-3 #### [facility] ([id number]) [address], [address] [place] [address] XR ABDOMEN AP 1 VWon 01-19-2 024 XR ABDOMEN AP 1 VW XR ABDOMEN AP 1 VW Abdomen: HISTORY: Abdominal pain and nausea. 4 views of the abdomen were obtained. Left double-J stent in place. Bowel gas pattern nonspecific. No free air. No obvious bowel distention. IMPRESSION: No acute findings. Finalized by Alexis Luna MD on 01/20/2024 7:08 PM Normal [facility] XR CHEST 1 VWon 01-20-2024 XR CHEST 1 VW XR CHEST 1 VW XR CHEST 1 VW HISTORY: Hypoxia COMPARISON: 12/30/2023 TECHNIQUE: Single AP upright view of the chest obtained. FINDINGS: Cardiomegaly with pulmonary vasculature congestion. Patchy bilateral airspace opacities. Small right pleural effusion and possible small left pleural effusion, although the left costophrenic angle is not fully included in the [id number]. No pneumothorax. IMPRESSION: * Cardiomegaly with pulmonary vasculature congestion and right pleural effusion may represent sequelae of congestive heart failure. * Multifocal bilateral patchy airspace opacities may represent atelectasis, edema, or pneumonia. Approved by Resident Angie Noe DO on 01/20/2024 10:35 AM IJob have personally reviewed the image(s) and agree with and/or edited the report Finalized by Job Yeung on 01/20/2024 10:52 AM Normal [facility] BASIC METABOLIC PANLon 01-18 Anion gap [Moles/Vol] 11 mmol/L Normal 5-15 [facility] Comment on above: Performed By: #### C TRENT PINR, [id number] #### [facility] ([id number]) [address], [address] [place] [address] Calcium [Mass/Vol] 9.1 mg/dL Normal 8.5-10.5 [facility] Comment on above: Performed By: #### C TRENT PINR, 47128-8 #### [facility] ([id number]) [address], [address] [place] [address] Chloride [Moles/Vol] 108 mmol/L Normal 98-[address] [facility] Comment on above: Performed By: #### C TRENT PINR, 11341-9 #### [facility] ([id number]) [address], [address] [place] [address] CO2 [Moles/Vol] 19 mmol/L Low 22-32 [facility] Comment on above: Performed By: #### YASMEEN HARDY, 04927-3 #### [facility] ([id number]) [address], [address] [place] [address] Creatinine [Mass/Vol] 2.75 mg/dL High 0.40-1.00 [facility] Comment on above: Result Comment: METH OD TRACEABLE TO IDMS STANDARD Performed By: #### YASMEEN HARDY, 22043-9 #### [facility] ([id number]) [address], [address] [place] [address] GFR/1.73 sq M.predicted among non-blacks MDRD (S/P/Bld) [Vol rate/Area] 17 mL/min/{1.73_m2} Low >59 [facility] Comment on above: Result Comment: Reported eGFR is based on the CKD-EPI 2020 equation that does not use a race coefficient. Performed By: #### YASMEEN HARDY, 98369-5 #### [facility] ([id number]) [address], [address] [place] [address] Glucose [Mass/Vol] 182 mg/dL High 65-99 [facility] Comment on above: Performed By: #### YASMEEN HARDY, 63933-2 #### [facility] ([id number]) [address], [address] [place] [address] Potassium [Moles/Vol] 5.4 mmol/L High 3.5-5.0 [facility] Comment on above: Performed By: #### YASMEEN HARDY, 57865-5 #### [facility] ([id number]) [address], [address] [place] [address] Sodium [Moles/Vol] 138 mmol/L Normal 134-146 [facility] Comment on above: Performed By: #### Kaiden NEWMAN PINR, 16481-5 #### [facility] ([id number]) [address], [address] [place] [address] Urea nitrogen [Mass/Vol] 66 mg/dL High 5-27 [facility] Comment on above: Performed By: #### Kaiden NEWMAN PINR, 84256-5 #### [facility] ([id number]) [address], [address] [place] [address] COMPLETE BLOOD COUNTon 01-18 Erythrocyte distribution width (RBC) [Ratio] 15.6 % High 11.5-15.0 [facility] Comment on above: Performed By: #### Kaiden NEWMAN PINR, 89333-9 #### [facility] ([id number]) [address], [address] [place] [address] Hematocrit (Bld) [Volume fraction] 26.2 % Low 35-47 [facility] Comment on above: Performed By: #### Kaiden NEWMAN PINR, 44592-0 #### [facility] ([id number]) [address], [address] [place] [address] Hemoglobin (Bld) [Mass/Vol] 8.4 g/dL Low 11.7-15.5 [facility] Comment on above: Performed By: #### Kaiden NEWMAN PINR, 89922-6 #### [facility] ([id number]) [address], [address] [place] [address] MCH (RBC) [Entitic mass] 29.8 pg Normal 27-34 [facility] Comment on above: Performed By: #### Kaiden NEWMAN PINR, 93831-4 #### [facility] ([id number]) [address], [address] [place] [address] MCHC (RBC) [Mass/Vol] 32.1 g/dL Normal 32-36 [facility] Comment on above: Performed By: #### Kaiden NEWMAN PINR, 21368-4 #### [facility] ([id number]) [address], [address] [place] [address] MCV (RBC) [Entitic vol] 93 fL Normal 80-100 [facility] Comment on above: Performed By: #### Kaiden NEWMAN PINR, 13983-4 #### [facility] ([id number]) [address], [facility] [address] [place] [address] Platelet mean volume (Bld) [Entitic vol] 8.1 fL Normal 7-12 [facility] Comment on above: Performed By: #### Kaiden NEWMAN PINJavi, 27628-2 #### [facility] ([id number]) [address], [address] [place] [address] Platelets (Bld) [#/Vol] 334 10*3/uL Normal 150-450 [facility] Comment on above: Performed By: #### Kaiden NEWMAN PINR, 75283-5 #### [facility] ([id number]) [address], [facility] [address] [place] [address] RBC COUNT 2.82 X10E12/L Low 3.80-5.20 [facility] Comment on above: Performed By: #### Kaiden NEWMAN PINR, 27588-8 #### [facility] ([id number]) [address], [facility] [address] [place] [address] WBC (Bld) [#/Vol] 2.5 10*3/uL Low 4.0-11.0 [facility] Comment on above: Performed By: #### Kaiden NEWMAN PINR, 28981-6 #### [facility] ([id number]) [address], [address] [place] [address] Glucose Glucometer (BldC) [M ass/Vol]on 01-19-2024 Glucose [Mass/Vol] 153 mg/dL High 65-99 [facility] Glucose [Mass/Vol] 167 mg/dL High 65-99 [facility] Glucose [Mass/Vol] 193 mg/dL High 65-99 [facility] Glucose [Mass/Vol] 213 mg/dL High 65-99 [facility] Glucose [Mass/Vol] 208 mg/dL High 65-99 [facility] Glucose [Mass/Vol] 215 mg/dL High 65-99 [facility] POTASSIUMon 01-19-2024 Potassium [Moles/Vol] 5.1 mmol/L High 3.5-5.0 [facility] Comment on above: Performed By: #### YASMEEN HARDY, 15804-4 #### [facility] ([id number]) [address], [address] [place] [address] Potassium [Moles/Vol] 5.1 mmol/L High 3.5-5.0 [facility] Comment on above: Performed By: #### YASMEEN HARDY, 28561-0 #### [facility] ([id number]) [address], [address] [place] [address] Potassium [Moles/Vol] 5.2 mmol/L High 3.5-5.0 [facility] Comment on above: Performed By: #### YASMEEN HARDY, 90195-2 #### [facility] ([id number]) [address] [place] [address] Potassium [Moles/Vol] 5.5 mmol/L High 3.5-5.0 [facility] Comment on above: Performed By: #### AYSMEEN HARDY, 33165-7 #### [facility] ([id number]) [address] [place] [address] BASIC METABOLIC PANLon 01-17 Anion gap [Moles/Vol] 10 mmol/L Normal 5-15 [facility] Comment on above: Performed By: #### Kaiden NEWMAN, BMP #### [facility] ([id number]) [address], [address] [place] [address] Calcium [Mass/Vol] 8.8 mg/dL Normal 8.5-10.5 [facility] Comment on above: Performed By: #### C TRENT, BMP #### [facility] ([id number]) [address], [address] [place] [address] Chloride [Moles/Vol] 108 mmol/L Normal 98-[address] [facility] Comment on above: Performed By: #### C TRENT, BMP #### [facility] ([id number]) [address], [address] [place] [address] CO2 [Moles/Vol] 20 mmol/L Low 22-32 [facility] Comment on above: Performed By: #### C TRENT, BMP #### [facility] ([id number]) [address], [address] [place] [address] Creatinine [Mass/Vol] 3.21 mg/dL High 0.40-1.00 [facility] Comment on above: Result Comment: METH OD TRACEABLE TO IDMS STANDARD Performed By: #### C TRENT, BMP #### [facility] ([id number]) [address], [address] [place] [address] GFR/1.73 sq M.predicted among non-blacks MDRD (S/P/Bld) [Vol rate/Area] 14 mL/min/{1.73_m2} Low >59 [facility] Comment on above: Result Comment: Reported eGFR is based on the CKD-EPI 2020 equation that does not use a race coefficient. Performed By: #### C TRENT, BMP #### [facility] ([id number]) [address], [address] [place] [address] Glucose [Mass/Vol] 116 mg/dL High 65-99 [facility] Comment on above: Performed By: #### C TRENT, BMP #### [facility] ([id number]) [address], [address] [place] [address] Potassium [Moles/Vol] 4.9 mmol/L Normal 3.5-5.0 [facility] Comment on above: Performed By: #### C BC, BMP #### [facility] ([id number]) [address], [address] [place] [address] Sodium [Moles/Vol] 138 mmol/L Normal 134-146 [facility] Comment on above: Performed By: #### C TRENT, BMP #### [facility] ([id number]) [address], [address] [place] [address] Urea nitrogen [Mass/Vol] 64 mg/dL High 5-27 [facility] Comment on above: Performed By: #### C TRENT, BMP #### [facility] ([id number]) [address] [place] [address] COMPLETE BLOOD COUNTon 01-17 Erythrocyte distribution width (RBC) [Ratio] 15.6 % High 11.5-15.0 [facility] Comment on above: Performed By: #### C TRENT, BMP #### [facility] ([id number]) [address], [address] [place] [address] Hematocrit (Bld) [Volume fraction] 26.0 % Low 35-47 [facility] Comment on above: Performed By: #### C TRENT, BMP #### [facility] ([id number]) [address], [address] [place] [address] Hemoglobin (Bld) [Mass/Vol] 8.7 g/dL Low 11.7-15.5 [facility] Comment on above: Performed By: #### C TRENT, BMP #### [facility] ([id number]) [address], [address] [place] [address] MCH (RBC) [Entitic mass] 30.7 pg Normal 27-34 [facility] Comment on above: Performed By: #### C TRENT, BMP #### [facility] ([id number]) [address] [place] [address] MCHC (RBC) [Mass/Vol] 33.6 g/dL Normal 32-36 [facility] Comment on above: Performed By: #### C TRENT, BMP #### [facility] ([id number]) [address], [address] [place] [address] MCV (RBC) [Entitic vol] 91 fL Normal 80-100 [facility] Comment on above: Performed By: #### Kaiden NEWMAN, BMP #### [facility] ([id number]) [address], [address] [place] [address] Platelet mean volume (Bld) [Entitic vol] 8.1 fL Normal 7-12 [facility] Comment on above: Performed By: #### Kaiden NEWMAN, BMP #### [facility] ([id number]) [address] [place] [address] Platelets (Bld) [#/Vol] 348 10*3/uL Normal 150-450 [facility] Comment on above: Performed By: #### Kaiden NEWMAN, BMP #### [facility] ([id number]) [address] [place] [address] RBC COUNT 2.84 X10E12/L Low 3.80-5.20 [facility] Comment on above: Performed By: #### C TRENT, BMP #### [facility] ([id number]) [address], [address] [place] [address] WBC (Bld) [#/Vol] 3.5 10*3/uL Low 4.0-11.0 [facility] Comment on above: Performed By: #### Kaiden NEWMAN, BMP #### [facility] ([id number]) [address] [place] [address] Erythrocyte distribution width (RBC) [Ratio] 15.6 % High 11.5-15.0 [facility] Comment on above: Performed By: #### Kaiden NEWMAN, PINR, 31599-4 #### [facility] ([id number]) [address] [place] [address] Hematocrit (Bld) [Volume fraction] 28.5 % Low 35-47 [facility] Comment on above: Performed By: #### Kaiden NEWMAN, PINR, 64182-9 #### [facility] ([id number]) [address], [address] [place] [address] Hemoglobin (Bld) [Mass/Vol] 9.5 g/dL Low 11.7-15.5 [facility] Comment on above: Performed By: #### Kaiden NEWMAN, PINR, 98476-1 #### [facility] ([id number]) [address], [address] [place] [address] MCH (RBC) [Entitic mass] 30.5 pg Normal 27-34 [facility] Comment on above: Performed By: #### Kaiden NEWMAN, PINR, [id number] #### [facility] ([id number]) [address], [address] [place] [address] MCHC (RBC) [Mass/Vol] 33.2 g/dL Normal 32-36 [facility] Comment on above: Performed By: #### Kaiden NEWMAN, PINR, 80785-4 #### [facility] ([id number]) [address], [address] [place] [address] MCV (RBC) [Entitic vol] 92 fL Normal 80-100 [facility] Comment on above: Performed By: #### Kaiden NEWMAN, PINR, 85589-8 #### [facility] ([id number]) [address], [address] [place] [address] Platelet mean volume (Bld) [Entitic vol] 7.8 fL Normal 7-12 [facility] Comment on above: Performed By: #### C CHLOE NEWMANR, 03054-2 #### [facility] ([id number]) [address] [address] Platelets (Bld) [#/Vol] 402 10*3/uL Normal 150-450 [facility] Comment on above: Performed By: #### Kaiden NEWMAN PINR, 45903-4 #### [facility] ([id number]) [address] [address] RBC COUNT 3.10 X10E12/L Low 3.80-5.20 [facility] Comment on above: Performed By: #### CHLOE HARDYR, 75266-9 #### [facility] ([id number]) [address] [address] WBC (Bld) [#/Vol] 2.7 10*3/uL Low 4.0-11.0 [facility] Comment on above: Performed By: #### Kaiden NEWMAN PINR, 88925-4 #### [facility] ([id number]) [address] [address] [place] FLUOROSCOPY UP TO 1 HOURo n 01-18-2024 FL FLUOROSCOPY UP TO 1 HOUR FL FLUOROSCOPY UP TO 1 HOUR History: left perc neph and stent exchange. Exam/Technique: This dictation is to confirm the use of intraoperative fluoroscopy by the primary service. Total fluoro time: 29 seconds , cumulative air Kerma radiation dose 13.81 mGy and images. Images obtained at the different phase of the surgical procedure with placement of the percutaneous nephrostomy catheter with large percutaneous sheath for ureteroscope and final placement of 30 Namibian sheath with satisfactory position of the anchoring disc No radiologist was present during the procedure. IMPRESSION: Please refer to the operative note for clinical correlation. Finalized by Geovanna Warner MD on 01/18/2024 5:30 PM Normal [facility] Glucose Glucometer (BldC) [M ass/Vol]on 01-18-2024 Glucose [Mass/Vol] 222 mg/dL High 65-99 [facility] Glucose [Mass/Vol] 145 mg/dL High 65-99 [facility] Glucose [Mass/Vol] 92 mg/dL Normal 65-99 [facility] IR NEPHROURETERAL CATH LT + NGRAM + S AND Ion 01-18-2024 IR NEPHROURETERAL CATH LT + NGRAM + S AND I IR NEPHROURETERAL CATH LT + NGRAM + S&I 1. Ultrasound guided puncture of left renal collecting system. 2. Left nephrostogram 3. Fluoroscopic guided placement of left 5 Namibian nephroureteral catheter. CLINICAL INDICATION: Ureteral obstruction secondary to renal calculus. Patient presents for left ureteral access in preparation for nephro lithotomy. CONSENT: The risks, benefits, and expectations of the procedure were eplained to the patient who signed a written consent. SEDATION: 100 mcg fentanyl. 10 mL 1% lidocaine. PROCEDURE: All elements of maximal sterile barrier techniques followed including: cap and mask and sterile gown and sterile gloves and a large sterile sheet and hand hygiene and 2% chlorhexidine for cutaneous antiseptics; in addition, sterile ultrasound techniques including sterile gel and sterile probe per hospital policy followed. Patient received 2 g Ancef intravenously within one hour of the procedure starting time. the patient was placed on the fluoroscopy table in the prone position, and the left flank was prepped and draped in a sterile fashion. Evaluation of the left kidney with ultrasound is mild hydronephrosis Ultrasound revealed a good window for percutaneous access . Therefore, the skin was infiltrated with 1% lidocaine, and a small skin ron with an 11 blade was made. Using real-time ultrasound guidance A 21-gauge Chiba needle was advanced percutaneously into a posterior calyx of the left kidney during direct ultrasound needle visualization, and an ultrasound sales representative aircraft image was obtained and saved in PACS. An 018 wire was successfully introduced through the needle into the renal pelvis, then over the wire, the tract was dilated using an AccuStick set and the dilator was placed in the left renal pelvis. Contrast was injected confirming positioning. Therefore, over a Bentson wire, a 5 Namibian Kumpe catheter was suggested central collecting system. Kumpe catheter and Bentson wire were advanced through the ureter into the bladder. A fluoroscopic spot image was obtained and saved in PACS. The catheter was sutured to the skin with 2.0 Prolene sutures and connected to dependent drainage Reference Air Kerma = 153 mGy Fluoroscopy time: 3.1 minutes Saved images: 2 Estimated blood loss: Minimal Respiratory Therapy Aide: None. Complications: None. IMPRESSION: Successful fluoroscopic guided placement of left 5 Namibian nephroureteral catheter in preparation for nephrolithotomy. Finalized by Bolivar Whitfield on 01/18/2024 1:40 PM Normal [facility] KIDNEY STONE ANALYSISon 12-24 RESULT COMMENT See Note Normal [facility] Comment on above: Result Comment: NOTE For stones containing calcium oxalate, calcium phosphate, and/or uric acid, a 24 hr urinary supersaturation test may help detect underlying risk factors for this type of stone formation and provide guidance for a stone prevention strategy. ADDITIONAL INFORMATION This test was developed and its performance characteristics determined by [facility] in a manner consistent with CLIA requirements. This test has not been cleared or approved by the U.S. Food and Drug Administration. Test Performed by: [place] [address] Pathology Teacher: Tera Logan Ph.D.; CLIA# [id number] SOURCE: LEFT KIDNEY STONES Normal [facility] Stone Interpretation 100% Uric acid. Normal [facility] PROTIME AND INRon 01-18-2024 INR Coag (PPP) [Relative time] 1.1 {INR} Normal 0.8-1.1 [facility] Comment on above: Performed By: #### C TRENT, PINR, [id number] #### [facility] ([id number]) [address], [address] [place] [address] PT Coag (PPP) [Time] 13.0 s Normal 9.8-13.[address] [facility] Comment on above: Performed By: #### C BC, PINR, 94671-1 #### [facility] ([id number]) [address], [address] [place] [address] aPTT Coag (PPP) [Time]on aPTT Coag (Bld) [Time] 30 s Normal 26-37 [facility] Comment on above: Performed By: #### C BC, PINR, 72363-2 #### [facility] ([id number]) [address], [address] [place] [address] CBC AND AUTO DIFFon 01-02-20 ABSOLUTE BASOPHIL 0.1 X10E9/L Normal 0.0-0.2 [facility] Comment on above: Performed By: #### 3 274-8, CBCA, CMP, 7-6, 74156-4, 28762-2 #### [facility] ([id number]) [address] [place] [address] Basophils/100 WBC (Bld) 3.0 % Normal [facility] Comment on above: Performed By: #### 3 274-8, CBCA, CMP, 2156-6, 32776-3, 73593-9 #### [facility] ([id number]) [address] [place] [address] Eosinophils (Bld) [#/Vol] 0.7 10*3/uL High 0.0-0.4 [facility] Comment on above: Performed By: #### 3 274-8, CBCA, CMP, 7-6, 21985-6, 96790-4 #### [facility] ([id number]) [address] [place] [address] Eosinophils/100 WBC (Bld) 21.8 % Normal [facility] Comment on above: Performed By: #### 3 274-8, CBCA, CMP, 7-6, 82572-2, 98203-3 #### [facility] ([id number]) [address] [place] [address] Erythrocyte distribution width (RBC) [Ratio] 14.8 % Normal 11.5-15.0 [facility] Comment on above: Performed By: #### 3 274-8, CBCA, CMP, 2157-6, 77801-8, 86370-9 #### [facility] ([id number]) [address] [place] [address] Hematocrit (Bld) [Volume fraction] 26.7 % Low 35-47 [facility] Comment on above: Performed By: #### 3 274-8, CBCA, CMP, 2157-6, 38642-0, 59871-0 #### [facility] ([id number]) [address] [place] [address] Hemoglobin (Bld) [Mass/Vol] 9.0 g/dL Low 11.7-15.5 [facility] Comment on above: Performed By: #### 3 274-8, CBCA, CMP, 2157-6, 43808-2, 40722-9 #### [facility] ([id number]) [address] [place] [address] Lymphocytes (Bld) [#/Vol] 0.9 10*3/uL Low 1.0-3.5 [facility] Comment on above: Performed By: #### 3 274-8, CBCA, CMP, 2157-6, 16690-1, 30356-0 #### [facility] ([id number]) [address] [place] [address] Lymphocytes/100 WBC (Bld) 26.7 % Normal [facility] Comment on above: Performed By: #### 3 274-8, CBCA, CMP, 2157-6, 77259-7, 26082-5 #### [facility] ([id number]) [address] [place] [address] MCH (RBC) [Entitic mass] 31.1 pg Normal 27-34 [facility] Comment on above: Performed By: #### 3 274-8, CBCA, CMP, 2157-6, 57230-4, 21998-3 #### [facility] ([id number]) [address] [place] [address] MCHC (RBC) [Mass/Vol] 33.8 g/dL Normal 32-36 [facility] Comment on above: Performed By: #### 3 274-8, CBCA, CMP, 7-6, 91542-8, 77832-5 #### [facility] ([id number]) [address] [place] [address] MCV (RBC) [Entitic vol] 92 fL Normal 80-100 [facility] Comment on above: Performed By: #### 3 274-8, CBCA, CMP, 7-6, 56611-8, 92830-6 #### [facility] ([id number]) [address] [place] [address] Monocytes (Bld) [#/Vol] 0.5 10*3/uL Normal 0-0.9 [facility] Comment on above: Performed By: #### 3 274-8, CBCA, CMP, 7-6, 87653-4, 83736-8 #### [facility] ([id number]) [address] [place] [address] Monocytes/100 WBC (Bld) 14.9 % Normal [facility] Comment on above: Performed By: #### 3 274-8, CBCA, CMP, 2156-6, 55700-9, 34697-9 #### [facility] ([id number]) [address] [place] [address] Neutrophils (Bld) [#/Vol] 1.1 10*3/uL Low 1.5-6.6 [facility] Comment on above: Performed By: #### 3 274-8, CBCA, CMP, 2156-6, 80548-0, 52673-1 #### [facility] ([id number]) [address] [place] [address] Platelet mean volume (Bld) [Entitic vol] 8.3 fL Normal 7-12 [facility] Comment on above: Performed By: #### 3 274-8, CBCA, CMP, 7-6, 48756-4, 10597-2 #### [facility] ([id number]) [address] [place] [address] Platelets (Bld) [#/Vol] 322 10*3/uL Normal 150-450 [facility] Comment on above: Performed By: #### 3 274-8, CBCA, CMP, 2157-6, 34979-5, 71616-5 #### [facility] ([id number]) [address] [place] [address] RBC COUNT 2.91 X10E12/L Low 3.80-5.20 [facility] Comment on above: Performed By: #### 3 274-8, CBCA, CMP, 2157-6, 29954-6, 92839-9 #### [facility] ([id number]) [address] [place] [address] RBC morphology finding Nom (Bld) REVIEWED Normal [facility] Comment on above: Performed By: #### 3 274-8, CBCA, CMP, 2157-6, 88409-9, 13824-2 #### [facility] ([id number]) [address] [place] [address] SEG NEUTROPHIL 33.6 % Normal [facility] Comment on above: Performed By: #### 3 274-8, CBCA, CMP, 2157-6, 51710-3, 13012-0 #### [facility] ([id number]) [address] [place] [address] WBC (Bld) [#/Vol] 3.4 10*3/uL Low 4.0-11.0 [facility] Comment on above: Performed By: #### 3 274-8, CBCA, CMP, 2157-6, 05415-2, 90322-3 #### [facility] ([id number]) [address] [place] [address] COMPREHENSIVE METABOLIC PANE Gurdeep 01-02-2024 Albumin [Mass/Vol] 2.6 g/dL Low 3.2-5.3 [facility] Comment on above: Performed By: #### 3 274-8, CBCA, CMP, 2157-6, 89115-2, 44059-0 #### [facility] ([id number]) [address] [place] [address] ALP [Catalytic activity/Vol] 37 U/L Low 39-130 [facility] Comment on above: Performed By: #### 3 274-8, CBCA, CMP, 2157-6, 28083-8, 90297-4 #### [facility] ([id number]) [address] [place] [address] ALT [Catalytic activity/Vol] 20 U/L Normal 0-31 [facility] Comment on above: Performed By: #### 3 274-8, CBCA, CMP, 2157-6, 80214-7, 83679-3 #### [facility] ([id number]) [address] [place] [address] Anion gap [Moles/Vol] 9 mmol/L Normal 5-15 [facility] Comment on above: Performed By: #### 3 274-8, CBCA, CMP, 2157-6, 78085-5, 94601-7 #### [facility] ([id number]) [address] [place] [address] AST [Catalytic activity/Vol] 20 U/L Normal 0-41 [facility] Comment on above: Performed By: #### 3 274-8, CBCA, CMP, 2157-6, 69269-8, 73882-9 #### [facility] ([id number]) [address] [place] [address] Bilirubin [Mass/Vol] 0.8 mg/dL Normal 0.3-1.2 [facility] Comment on above: Performed By: #### 3 274-8, CBCA, CMP, 2157-6, 93978-6, 95443-3 #### [facility] ([id number]) [address] [place] [address] Calcium [Mass/Vol] 8.9 mg/dL Normal 8.5-10.5 [facility] Comment on above: Performed By: #### 3 274-8, CBCA, CMP, 2157-6, 82755-1, 87642-1 #### [facility] ([id number]) [address] [place] [address] Chloride [Moles/Vol] 101 mmol/L Normal 98-109 [facility] Comment on above: Performed By: #### 3 274-8, CBCA, CMP, 7-6, 51961-3, 18372-3 #### [facility] ([id number]) [address] [place] [address] CO2 [Moles/Vol] 28 mmol/L Normal 22-32 [facility] Comment on above: Performed By: #### 3 274-8, CBCA, CMP, 7-6, 43703-5, 93381-1 #### [facility] ([id number]) [address] [place] [address] Creatinine [Mass/Vol] 1.64 mg/dL High 0.40-1.00 [facility] Comment on above: Result Comment: METH OD TRACEABLE TO IDMS STANDARD Performed By: #### 3 274-8, CBCA, CMP, 2156-6, 50266-8, 00555-4 #### [facility] ([id number]) [address] [place] [address] GFR/1.73 sq M.predicted among non-blacks MDRD (S/P/Bld) [Vol rate/Area] 32 mL/min/{1.73_m2} Low >59 [facility] Comment on above: Result Comment: Reported eGFR is based on the CKD-EPI 1 equation that does not use a race coefficient. Performed By: #### 3 274-8, CBCA, CMP, 7-6, 49110-4, 57711-7 #### [facility] ([id number]) [address] [place] [address] Glucose [Mass/Vol] 163 mg/dL High 65-99 [facility] Comment on above: Performed By: #### 3 274-8, CBCA, CMP, 2157-6, 99699-9, 85026-9 #### [facility] ([id number]) [address] [place] [address] Potassium [Moles/Vol] 4.0 mmol/L Normal 3.5-5.0 [facility] Comment on above: Performed By: #### 3 274-8, CBCA, CMP, 2156-6, 47995-1, 92640-2 #### [facility] ([id number]) [address] [place] [address] Protein [Mass/Vol] 6.0 g/dL Normal 6.0-8.0 [facility] Comment on above: Performed By: #### 3 274-8, CBCA, CMP, 2156-, 49416-4, 10086-3 #### [facility] ([id number]) [address] [place] [address] Sodium [Moles/Vol] 138 mmol/L Normal 134-146 [facility] Comment on above: Performed By: #### 3 274-8, CBCA, CMP, 2156-, 10259-3, 03324-9 #### [facility] ([id number]) [address] [place] [address] Urea nitrogen [Mass/Vol] 63 mg/dL High 5-27 [facility] Comment on above: Performed By: #### 3 274-8, CBCA, CMP, 2156-, 64734-3, 18029-9 #### [facility] ([id number]) [address] [place] [address] Glucose Glucometer (dC) [M ass/Vol]on 01-02-2024 Glucose [Mass/Vol] 249 mg/dL High 65-99 [facility] Glucose [Mass/Vol] 201 mg/dL High 65-99 [facility] Glucose [Mass/Vol] 171 mg/dL High 65-99 [facility] MAGNESIUMon 01-02-2024 Magnesium [Mass/Vol] 2.0 mg/dL Normal 1.8-2.6 [facility] Comment on above: Performed By: #### 3 274-8, CBCA, CMP, 2156-6, 79665-2, 00898-4 #### [facility] ([id number]) [address] [place] [address] CBC AND AUTO DIFFon 01-01-20 24 ABSOLUTE BASOPHIL 0.2 X10E9/L Normal 0.0-0.2 [facility] Comment on above: Performed By: #### 3 274-8, CBCA, CMP, 2156-, 47566-8, 65416-9 #### [facility] ([id number]) [address] [place] [address] ABSOLUTE NEUTROPHIL 1.3 X10E9/L Low 1.5-6.6 [facility] Comment on above: Performed By: #### 3 274-8, CBCA, CMP, 2156-, 44632-0, 31005-2 #### [facility] ([id number]) [address] [place] [address] Basophils/100 WBC (Bld) 4.5 % Normal [facility] Comment on above: Performed By: #### 3 274-8, CBCA, CMP, 2156-, 41624-2, 86694-5 #### [facility] ([id number]) [address] [place] [address] Eosinophils (Bld) [#/Vol] 0.6 10*3/uL High 0.0-0.4 [facility] Comment on above: Performed By: #### 3 274-8, CBCA, CMP, 7-6, 23670-6, 44788-2 #### [facility] ([id number]) [address] [place] [address] Eosinophils/100 WBC (Bld) 15.7 % Normal [facility] Comment on above: Performed By: #### 3 274-8, CBCA, CMP, 2156-6, 21143-6, 08139-9 #### [facility] ([id number]) [address] [place] [address] Erythrocyte distribution width (RBC) [Ratio] 15.0 % Normal 11.5-15.0 [facility] Comment on above: Performed By: #### 3 274-8, CBCA, CMP, 2157-6, 99920-5, 55525-3 #### [facility] ([id number]) [address] [place] [address] Hematocrit (Bld) [Volume fraction] 29.3 % Low 35-47 [facility] Comment on above: Performed By: #### 3 274-8, CBCA, CMP, 2157-6, 02482-3, 43472-2 #### [facility] ([id number]) [address] [place] [address] Hemoglobin (Bld) [Mass/Vol] 9.6 g/dL Low 11.7-15.5 [facility] Comment on above: Performed By: #### 3 274-8, CBCA, CMP, 7-6, 33210-1, 86010-9 #### [facility] ([id number]) [address] [place] [address] Lymphocytes (Bld) [#/Vol] 1.0 10*3/uL Normal 1.0-3.5 [facility] Comment on above: Performed By: #### 3 274-8, CBCA, CMP, 7-6, 38481-0, 86428-2 #### [facility] ([id number]) [address] [place] [address] Lymphocytes/100 WBC (Bld) 25.5 % Normal [facility] Comment on above: Performed By: #### 3 274-8, CBCA, CMP, 2157-6, 39026-7, 40977-3 #### [facility] ([id number]) [address] [place] [address] MCH (RBC) [Entitic mass] 30.3 pg Normal 27-34 [facility] Comment on above: Performed By: #### 3 274-8, CBCA, CMP, 2157-6, 86818-4, 61229-0 #### [facility] ([id number]) [address] [place] [address] MCHC (RBC) [Mass/Vol] 32.9 g/dL Normal 32-36 [facility] Comment on above: Performed By: #### 3 274-8, CBCA, CMP, 2157-6, 75340-9, 90199-5 #### [facility] ([id number]) [address] [place] [address] MCV (RBC) [Entitic vol] 92 fL Normal 80-100 [facility] Comment on above: Performed By: #### 3 274-8, CBCA, CMP, 2157-6, 84386-0, 33826-1 #### [facility] ([id number]) [address] [place] [address] Monocytes (Bld) [#/Vol] 0.8 10*3/uL Normal 0-0.9 [facility] Comment on above: Performed By: #### 3 274-8, CBCA, CMP, 2157-6, 97961-4, 62320-8 #### [facility] ([id number]) [address] [place] [address] Monocytes/100 WBC (Bld) 20.4 % Normal [facility] Comment on above: Performed By: #### 3 274-8, CBCA, CMP, 2157-6, 45150-6, 35034-0 #### [facility] ([id number]) [address] [place] [address] Neutrophils/100 WBC (Bld) 33.9 % Normal [facility] Comment on above: Performed By: #### 3 274-8, CBCA, CMP, 2157-6, 61172-5, 22508-1 #### [facility] ([id number]) [address] [place] [address] Platelet mean volume (Bld) [Entitic vol] 8.3 fL Normal 7-12 [facility] Comment on above: Performed By: #### 3 274-8, CBCA, CMP, 2157-6, 20135-6, 08669-9 #### [facility] ([id number]) [address] [place] [address] Platelets (Bld) [#/Vol] 355 10*3/uL Normal 150-450 [facility] Comment on above: Performed By: #### 3 274-8, CBCA, CMP, 2157-6, 01769-5, 11575-4 #### [facility] ([id number]) [address] [place] [address] RBC COUNT 3.18 X10E12/L Low 3.80-5.20 [facility] Comment on above: Performed By: #### 3 274-8, CBCA, CMP, 2157-6, 21787-7, 51138-8 #### [facility] ([id number]) [address] [place] [address] RBC morphology finding Nom (Bld) REVIEWED Normal [facility] Comment on above: Performed By: #### 3 274-8, CBCA, CMP, 2157-6, 22370-9, 61821-2 #### [facility] ([id number]) [address] [place] [address] WBC (Bld) [#/Vol] 3.8 10*3/uL Low 4.0-11.0 [facility] Comment on above: Performed By: #### 3 274-8, CBCA, CMP, 2157-6, 91032-2, 48254-0 #### [facility] ([id number]) [address] [place] [address] COMPREHENSIVE METABOLIC PANE Gurdeep 01-01-2024 Albumin [Mass/Vol] 2.7 g/dL Low 3.2-5.3 [facility] Comment on above: Performed By: #### 3 274-8, CBCA, CMP, 2157-6, 96536-7, 90939-3 #### [facility] ([id number]) [address] [place] [address] ALP [Catalytic activity/Vol] 40 U/L Normal 39-130 [facility] Comment on above: Performed By: #### 3 274-8, CBCA, CMP, 2157-6, 21328-0, 47730-4 #### [facility] ([id number]) [address] [place] [address] ALT [Catalytic activity/Vol] 21 U/L Normal 0-31 [facility] Comment on above: Performed By: #### 3 274-8, CBCA, CMP, 2156-6, 91200-4, 39370-6 #### [facility] ([id number]) [address] [place] [address] Anion gap [Moles/Vol] 9 mmol/L Normal 5-15 [facility] Comment on above: Performed By: #### 3 274-8, CBCA, CMP, 2156-, 19682-4, 71440-7 #### [facility] ([id number]) [address] [place] [address] AST [Catalytic activity/Vol] 18 U/L Normal 0-41 [facility] Comment on above: Performed By: #### 3 274-8, CBCA, CMP, 2156-, 02892-9, 64599-5 #### [facility] ([id number]) [address] [place] [address] Bilirubin [Mass/Vol] 0.4 mg/dL Normal 0.3-1.2 [facility] Comment on above: Performed By: #### 3 274-8, CBCA, CMP, 2156-, 30934-6, 65874-9 #### [facility] ([id number]) [address] [place] [address] Calcium [Mass/Vol] 9.1 mg/dL Normal 8.5-10.5 [facility] Comment on above: Performed By: #### 3 274-8, CBCA, CMP, 2156-, , 60470-5 #### [facility] ([id number]) [address] [place] [address] Chloride [Moles/Vol] 102 mmol/L Normal 98-109 [facility] Comment on above: Performed By: #### 3 274-8, CBCA, CMP, 2156-, 58695-6, 66560-7 #### [facility] ([id number]) [address] [place] [address] CO2 [Moles/Vol] 27 mmol/L Normal 22-32 [facility] Comment on above: Performed By: #### 3 274-8, CBCA, CMP, 2157-6, 05644-4, 61162-5 #### [facility] ([id number]) [address] [place] [address] Creatinine [Mass/Vol] 1.45 mg/dL High 0.40-1.00 [facility] Comment on above: Result Comment: METH OD TRACEABLE TO IDMS STANDARD Performed By: #### 3 274-8, CBCA, CMP, 2156-6, 25233-3, 16431-7 #### [facility] ([id number]) [address] [place] [address] GFR/1.73 sq M.predicted among non-blacks MDRD (S/P/Bld) [Vol rate/Area] 37 mL/min/{1.73_m2} Low >59 [facility] Comment on above: Result Comment: Reported eGFR is based on the CKD-EPI 2020 equation that does not use a race coefficient. Performed By: #### 3 274-8, CBCA, CMP, 7-6, 77653-7, 33665-1 #### [facility] ([id number]) [address] [place] [address] Glucose [Mass/Vol] 142 mg/dL High 65-99 [facility] Comment on above: Performed By: #### 3 274-8, CBCA, CMP, 7-6, 13483-4, 42151-3 #### [facility] ([id number]) [address] [place] [address] Potassium [Moles/Vol] 4.1 mmol/L Normal 3.5-5.0 [facility] Comment on above: Performed By: #### 3 274-8, CBCA, CMP, 2156-6, 42089-9, 13464-5 #### [facility] ([id number]) [address] [place] [address] Protein [Mass/Vol] 6.3 g/dL Normal 6.0-8.0 [facility] Comment on above: Performed By: #### 3 274-8, CBCA, CMP, 7-6, 59477-5, 25835-7 #### [facility] ([id number]) [address] [place] [address] Sodium [Moles/Vol] 138 mmol/L Normal 134-146 [facility] Comment on above: Performed By: #### 3 274-8, CBCA, CMP, 2156-6, 57578-8, 40845-6 #### [facility] ([id number]) [address] [place] [address] Urea nitrogen [Mass/Vol] 56 mg/dL High 5-27 [facility] Comment on above: Performed By: #### 3 274-8, CBCA, CMP, 2156-, 28000-4, 55768-4 #### [facility] ([id number]) [address] [place] [address] Glucose Glucometer (dC) [M ass/Vol]on 01-01-2024 Glucose [Mass/Vol] 246 mg/dL High 65-99 [facility] Glucose [Mass/Vol] 313 mg/dL High 65-99 [facility] Glucose [Mass/Vol] 266 mg/dL High 65-99 [facility] Glucose [Mass/Vol] 158 mg/dL High 65-99 [facility] MAGNESIUMon 01-01-2024 Magnesium [Mass/Vol] 2.1 mg/dL Normal 1.8-2.6 [facility] Comment on above: Performed By: #### 3 274-8, CBCA, CMP, 2156-, 41592-8, 65735-7 #### [facility] ([id number]) [address] [place] [address] Magnesium [Mass/Vol] 1.7 mg/dL Low 1.8-2.6 [facility] Comment on above: Performed By: #### 3 274-8, CBCA, CMP, 7-6, 10943-4, 18637-4 #### [facility] ([id number]) [address] [place] [address] CBC AND AUTO DIFFon 12-31-19 24 ABSOLUTE BASOPHIL 0.2 X10E9/L Normal 0.0-0.2 [facility] Comment on above: Performed By: #### 3 274-8, CBCA, CMP, 2156-, 43973-0, 45271-1 #### [facility] ([id number]) [address] [place] [address] Basophilic stippling LM Ql (Bld) 1+ Abnormal NONE [facility] Comment on above: Performed By: #### 3 274-8, CBCA, CMP, 2156-, 20516-4, 65703-8 #### [facility] ([id number]) [address] [place] [address] Basophils/100 WBC (Bld) 5.8 % Normal [facility] Comment on above: Performed By: #### 3 274-8, CBCA, CMP, 2156-, 82316-3, 06323-2 #### [facility] ([id number]) [address] [place] [address] Eosinophils (Bld) [#/Vol] 0.4 10*3/uL Normal 0.0-0.4 [facility] Comment on above: Performed By: #### 3 274-8, CBCA, CMP, 7-6, 19557-3, 13499-4 #### [facility] ([id number]) [address] [place] [address] Eosinophils/100 WBC (Bld) 9.7 % Normal [facility] Comment on above: Performed By: #### 3 274-8, CBCA, CMP, 7-6, 57605-0, 24795-5 #### [facility] ([id number]) [address] [place] [address] Erythrocyte distribution width (RBC) [Ratio] 15.1 % High 11.5-15.0 [facility] Comment on above: Performed By: #### 3 274-8, CBCA, CMP, 2156-, 54499-7, 35744-5 #### [facility] ([id number]) [address] [place] [address] Hematocrit (Bld) [Volume fraction] 28.1 % Low 35-47 [facility] Comment on above: Performed By: #### 3 274-8, CBCA, CMP, 2156-6, 33036-7, 00017-6 #### [facility] ([id number]) [address] [place] [address] Hemoglobin (Bld) [Mass/Vol] 9.3 g/dL Low 11.7-15.5 [facility] Comment on above: Performed By: #### 3 274-8, CBCA, CMP, 2156-6, 26355-9, 83864-8 #### [facility] ([id number]) [address] [place] [address] LYMPHOCYTE, ATYPICAL 1.0 % Normal [facility] Comment on above: Performed By: #### 3 274-8, CBCA, CMP, 2156-, 01563-0, 52759-5 #### [facility] ([id number]) [address] [place] [address] Lymphocytes (Bld) [#/Vol] 0.9 10*3/uL Low 1.0-3.5 [facility] Comment on above: Performed By: #### 3 274-8, CBCA, CMP, 2156-, 24625-4, 75741-3 #### [facility] ([id number]) [address] [place] [address] Lymphocytes/100 WBC (Bld) 21.4 % Normal [facility] Comment on above: Performed By: #### 3 274-8, CBCA, CMP, 2157-6, 48717-8, 34189-2 #### [facility] ([id number]) [address] [place] [address] MCH (RBC) [Entitic mass] 30.2 pg Normal 27-34 [facility] Comment on above: Performed By: #### 3 274-8, CBCA, CMP, 2157-6, 66713-0, 90056-8 #### [facility] ([id number]) [address] [place] [address] MCHC (RBC) [Mass/Vol] 33.0 g/dL Normal 32-36 [facility] Comment on above: Performed By: #### 3 274-8, CBCA, CMP, 2157-6, 93363-5, 39856-8 #### [facility] ([id number]) [address] [place] [address] MCV (RBC) [Entitic vol] 91 fL Normal 80-100 [facility] Comment on above: Performed By: #### 3 274-8, CBCA, CMP, 7-6, 63044-3, 98673-5 #### [facility] ([id number]) [address] [place] [address] Monocytes (Bld) [#/Vol] 0.6 10*3/uL Normal 0-0.9 [facility] Comment on above: Performed By: #### 3 274-8, CBCA, CMP, 2157-6, 67499-9, 68355-4 #### [facility] ([id number]) [address] [place] [address] Monocytes/100 WBC (Bld) 15.5 % Normal [facility] Comment on above: Performed By: #### 3 274-8, CBCA, CMP, 2157-6, 79982-1, 97177-7 #### [facility] ([id number]) [address] [place] [address] MYELOCYTE 1.0 % Normal [facility] Comment on above: Performed By: #### 3 274-8, CBCA, CMP, 2157-6, 73508-2, 50116-9 #### [facility] ([id number]) [address] [place] [address] Neutrophils (Bld) [#/Vol] 1.8 10*3/uL Normal 1.5-6.6 [facility] Comment on above: Performed By: #### 3 274-8, CBCA, CMP, 2157-6, 48025-0, 65955-2 #### [facility] ([id number]) [address] [place] [address] Platelet mean volume (Bld) [Entitic vol] 8.1 fL Normal 7-12 [facility] Comment on above: Performed By: #### 3 274-8, CBCA, CMP, 2157-6, 75184-8, 89345-1 #### [facility] ([id number]) [address] [place] [address] Platelets (Bld) [#/Vol] 359 10*3/uL Normal 150-450 [facility] Comment on above: Performed By: #### 3 274-8, CBCA, CMP, 2157-6, 70528-3, 75644-9 #### [facility] ([id number]) [address] [place] [address] RBC COUNT 3.07 X10E12/L Low 3.80-5.20 [facility] Comment on above: Performed By: #### 3 274-8, CBCA, CMP, 2157-6, 93887-1, 04670-0 #### [facility] ([id number]) [address] [place] [address] SEG NEUTROPHIL 45.6 % Normal [facility] Comment on above: Performed By: #### 3 274-8, CBCA, CMP, 2157-6, 23457-0, 24466-4 #### [facility] ([id number]) [address] [place] [address] WBC (Bld) [#/Vol] 4.0 10*3/uL Normal 4.0-11.0 [facility] Comment on above: Performed By: #### 3 274-8, CBCA, CMP, 2157-6, 16453-3, 23699-1 #### [facility] ([id number]) [address] [place] [address] COMPREHENSIVE METABOLIC PANE Gurdeep 12-31-2023 Albumin [Mass/Vol] 2.5 g/dL Low 3.2-5.3 [facility] Comment on above: Performed By: #### 3 274-8, CBCA, CMP, 2157-6, 82153-3, 50848-7 #### [facility] ([id number]) [address] [place] [address] ALP [Catalytic activity/Vol] 36 U/L Low 39-130 [facility] Comment on above: Performed By: #### 3 274-8, CBCA, CMP, 2157-6, 57578-2, 29951-0 #### [facility] ([id number]) [address] [place] [address] ALT [Catalytic activity/Vol] 21 U/L Normal 0-31 [facility] Comment on above: Performed By: #### 3 274-8, CBCA, CMP, 2157-6, 74454-2, 43780-4 #### [facility] ([id number]) [address] [place] [address] Anion gap [Moles/Vol] 7 mmol/L Normal 5-15 [facility] Comment on above: Performed By: #### 3 274-8, CBCA, CMP, 2157-6, 45985-8, 28067-5 #### [facility] ([id number]) [address] [place] [address] AST [Catalytic activity/Vol] 18 U/L Normal 0-41 [facility] Comment on above: Performed By: #### 3 274-8, CBCA, CMP, 2157-6, 23155-1, 57819-3 #### [facility] ([id number]) [address] [place] [address] Bilirubin [Mass/Vol] 0.4 mg/dL Normal 0.3-1.2 [facility] Comment on above: Performed By: #### 3 274-8, CBCA, CMP, 2157-6, 49632-7, 36433-3 #### [facility] ([id number]) [address] [place] [address] Calcium [Mass/Vol] 9.2 mg/dL Normal 8.5-10.5 [facility] Comment on above: Performed By: #### 3 274-8, CBCA, CMP, 7-6, 76321-6, 48673-2 #### [facility] ([id number]) [address] [place] [address] Chloride [Moles/Vol] 105 mmol/L Normal 98-109 [facility] Comment on above: Performed By: #### 3 274-8, CBCA, CMP, 2156-6, 69102-1, 58579-9 #### [facility] ([id number]) [address] [place] [address] CO2 [Moles/Vol] 28 mmol/L Normal 22-32 [facility] Comment on above: Performed By: #### 3 274-8, CBCA, CMP, 2156-6, 61840-6, 77148-8 #### [facility] ([id number]) [address] [place] [address] Creatinine [Mass/Vol] 1.41 mg/dL High 0.40-1.00 [facility] Comment on above: Result Comment: METH OD TRACEABLE TO IDMS STANDARD Performed By: #### 3 274-8, CBCA, CMP, 7-6, 02494-8, 19744-6 #### [facility] ([id number]) [address] [place] [address] GFR/1.73 sq M.predicted among non-blacks MDRD (S/P/Bld) [Vol rate/Area] 38 mL/min/{1.73_m2} Low >59 [facility] Comment on above: Result Comment: Reported eGFR is based on the CKD-EPI 2020 equation that does not use a race coefficient. Performed By: #### 3 274-8, CBCA, CMP, 2157-6, 33429-8, 68976-3 #### [facility] ([id number]) [address] [place] [address] Glucose [Mass/Vol] 127 mg/dL High 65-99 [facility] Comment on above: Performed By: #### 3 274-8, CBCA, CMP, 2157-6, 89292-0, 28299-0 #### [facility] ([id number]) [address] [place] [address] Potassium [Moles/Vol] 4.0 mmol/L Normal 3.5-5.0 [facility] Comment on above: Performed By: #### 3 274-8, CBCA, CMP, 7-6, 84388-4, 96716-7 #### [facility] ([id number]) [address] [place] [address] Protein [Mass/Vol] 6.2 g/dL Normal 6.0-8.0 [facility] Comment on above: Performed By: #### 3 274-8, CBCA, CMP, 2156-6, 69226-6, 35022-1 #### [facility] ([id number]) [address] [place] [address] Sodium [Moles/Vol] 140 mmol/L Normal 134-146 [facility] Comment on above: Performed By: #### 3 274-8, CBCA, CMP, 2157-6, 09776-1, 34736-5 #### [facility] ([id number]) [address] [place] [address] Urea nitrogen [Mass/Vol] 58 mg/dL High 5-27 [facility] Comment on above: Performed By: #### 3 274-8, CBCA, CMP, 2156-6, 28210-4, 42296-6 #### [facility] ([id number]) [address] [place] [address] Glucose Glucometer (BldC) [M ass/Vol]on 12-31-2023 Glucose [Mass/Vol] 238 mg/dL High 65-99 [facility] Glucose [Mass/Vol] 315 mg/dL High 65-99 [facility] Glucose [Mass/Vol] 200 mg/dL High 65-99 [facility] Glucose [Mass/Vol] 133 mg/dL High 65-99 [facility] MAGNESIUMon 12-31-2023 Magnesium [Mass/Vol] 2.1 mg/dL Normal 1.8-2.6 [facility] Comment on above: Performed By: #### 3 274-8, CBCA, CMP, 2156-, , 07564-5 #### [facility] ([id number]) [address] [place] [address] Natriuretic peptide B [Mass/ Vol]on 12-31-2023 Natriuretic peptide B (Bld) [Mass/Vol] 216 pg/mL High <100.0 [facility] Comment on above: Performed By: #### 3 274-8, CBCA, CMP, 2156-, , 09982-4 #### [facility] ([id number]) [address] [place] [address] Procalcitonin IA [Mass/Vol]o n 12-31-2023 PROCALCITONIN 0.29 ng/mL High <0.05 [facility] Comment on above: Result Comment: NOTE <0.50 ng/mL - Low risk of severe sepsis and/or septic shock. <2.00 ng/mL - Recommend retesting within 6-24 hours. >2.00 ng/mL - High risk of sepsis and/or septic shock. Performed By: #### 3 274-8, CBCA, CMP, 2156-, , 57514-6 #### [facility] ([id number]) [address] [place] [address] CBC AND AUTO DIFFon 12-30-19 ABSOLUTE BASOPHIL 0.0 X10E9/L Normal 0.0-0.2 [facility] Comment on above: Performed By: #### 3 274-8, CBCA, CMP, 2156-, 54221-4, 34769-5 #### [facility] ([id number]) [address] [place] [address] ABSOLUTE NEUTROPHIL 3.2 X10E9/L Normal 1.5-6.6 [facility] Comment on above: Performed By: #### 3 274-8, CBCA, CMP, 7-6, 14481-6, 12695-6 #### [facility] ([id number]) [address] [place] [address] Basophils/100 WBC (Bld) 0.3 % Normal [facility] Comment on above: Performed By: #### 3 274-8, CBCA, CMP, 7-6, 02968-8, 45962-5 #### [facility] ([id number]) [address] [place] [address] Eosinophils (Bld) [#/Vol] 0.3 10*3/uL Normal 0.0-0.4 [facility] Comment on above: Performed By: #### 3 274-8, CBCA, CMP, 7-6, 24252-6, 29784-2 #### [facility] ([id number]) [address] [place] [address] Eosinophils/100 WBC (Bld) 5.5 % Normal [facility] Comment on above: Performed By: #### 3 274-8, CBCA, CMP, 7-6, 40591-4, 23086-2 #### [facility] ([id number]) [address] [place] [address] Erythrocyte distribution width (RBC) [Ratio] 14.6 % Normal 11.5-15.0 [facility] Comment on above: Performed By: #### 3 274-8, CBCA, CMP, 7-6, 72870-0, 57985-8 #### [facility] ([id number]) [address] [place] [address] Hematocrit (Bld) [Volume fraction] 26.4 % Low 35-47 [facility] Comment on above: Performed By: #### 3 274-8, CBCA, CMP, 2157-6, 02226-3, 37995-5 #### [facility] ([id number]) [address] [place] [address] Hemoglobin (Bld) [Mass/Vol] 8.8 g/dL Low 11.7-15.5 [facility] Comment on above: Performed By: #### 3 274-8, CBCA, CMP, 2157-6, 32099-3, 58307-6 #### [facility] ([id number]) [address] [place] [address] Lymphocytes (Bld) [#/Vol] 1.1 10*3/uL Normal 1.0-3.5 [facility] Comment on above: Performed By: #### 3 274-8, CBCA, CMP, 2157-6, 80064-3, 93078-9 #### [facility] ([id number]) [address] [place] [address] Lymphocytes/100 WBC (Bld) 19.9 % Normal [facility] Comment on above: Performed By: #### 3 274-8, CBCA, CMP, 2157-6, 66595-3, 51756-7 #### [facility] ([id number]) [address] [place] [address] MCH (RBC) [Entitic mass] 30.6 pg Normal 27-34 [facility] Comment on above: Performed By: #### 3 274-8, CBCA, CMP, 2157-6, 92928-6, 98979-7 #### [facility] ([id number]) [address] [place] [address] MCHC (RBC) [Mass/Vol] 33.4 g/dL Normal 32-36 [facility] Comment on above: Performed By: #### 3 274-8, CBCA, CMP, 2157-6, 23655-3, 84539-0 #### [facility] ([id number]) [address] [place] [address] MCV (RBC) [Entitic vol] 92 fL Normal 80-100 [facility] Comment on above: Performed By: #### 3 274-8, CBCA, CMP, 2157-6, 07301-1, 76867-5 #### [facility] ([id number]) [address] [place] [address] Monocytes (Bld) [#/Vol] 0.8 10*3/uL Normal 0-0.9 [facility] Comment on above: Performed By: #### 3 274-8, CBCA, CMP, 2157-6, 66381-9, 00257-9 #### [facility] ([id number]) [address] [place] [address] Monocytes/100 WBC (Bld) 14.9 % Normal [facility] Comment on above: Performed By: #### 3 274-8, CBCA, CMP, 2157-6, 59909-0, 69675-2 #### [facility] ([id number]) [address] [place] [address] Neutrophils/100 WBC (Bld) 59.4 % Normal [facility] Comment on above: Performed By: #### 3 274-8, CBCA, CMP, 2157-6, 05223-2, 93072-4 #### [facility] ([id number]) [address] [place] [address] Platelet mean volume (Bld) [Entitic vol] 8.3 fL Normal 7-12 [facility] Comment on above: Performed By: #### 3 274-8, CBCA, CMP, 2157-6, 93544-2, 37402-1 #### [facility] ([id number]) [address] [place] [address] Platelets (Bld) [#/Vol] 359 10*3/uL Normal 150-450 [facility] Comment on above: Performed By: #### 3 274-8, CBCA, CMP, 2157-6, 29797-4, 43216-9 #### [facility] ([id number]) [address] [place] [address] RBC COUNT 2.88 X10E12/L Low 3.80-5.20 [facility] Comment on above: Performed By: #### 3 274-8, CBCA, CMP, 2157-6, 32791-4, 81272-7 #### [facility] ([id number]) [address] [place] [address] WBC (Bld) [#/Vol] 5.3 10*3/uL Normal 4.0-11.0 [facility] Comment on above: Performed By: #### 3 274-8, CBCA, CMP, 2157-6, 94781-9, 17633-1 #### [facility] ([id number]) [address] [place] [address] COMPREHENSIVE METABOLIC PANE [facility] 12-30-2023 Albumin [Mass/Vol] 2.5 g/dL Low 3.2-5.3 [facility] Comment on above: Performed By: #### 3 274-8, CBCA, CMP, 7-6, 25611-7, 09914-4 #### [facility] ([id number]) [address] [place] [address] ALP [Catalytic activity/Vol] 37 U/L Low 39-130 [facility] Comment on above: Performed By: #### 3 274-8, CBCA, CMP, 2157-6, 50020-0, 24072-7 #### [facility] ([id number]) [address] [place] [address] ALT [Catalytic activity/Vol] 23 U/L Normal 0-31 [facility] Comment on above: Performed By: #### 3 274-8, CBCA, CMP, 2157-6, 29735-6, 54397-7 #### [facility] ([id number]) [address] [place] [address] Anion gap [Moles/Vol] 4 mmol/L Low 5-15 [facility] Comment on above: Performed By: #### 3 274-8, CBCA, CMP, 2157-6, 52410-5, 73733-5 #### [facility] ([id number]) [address] [place] [address] AST [Catalytic activity/Vol] 21 U/L Normal 0-41 [facility] Comment on above: Performed By: #### 3 274-8, CBCA, CMP, 7-6, 87652-5, 22227-9 #### [facility] ([id number]) [address] [place] [address] Bilirubin [Mass/Vol] 0.2 mg/dL Low 0.3-1.2 [facility] Comment on above: Performed By: #### 3 274-8, CBCA, CMP, 2156-6, 61996-7, 89701-5 #### [facility] ([id number]) [address] [place] [address] Calcium [Mass/Vol] 9.1 mg/dL Normal 8.5-10.5 [facility] Comment on above: Performed By: #### 3 274-8, CBCA, CMP, 7-6, 11560-8, 30769-6 #### [facility] ([id number]) [address] [place] [address] Chloride [Moles/Vol] 107 mmol/L Normal 98-109 [facility] Comment on above: Performed By: #### 3 274-8, CBCA, CMP, 2156-6, 12331-9, 64215-5 #### [facility] ([id number]) [address] [place] [address] CO2 [Moles/Vol] 28 mmol/L Normal 22-32 [facility] Comment on above: Performed By: #### 3 274-8, CBCA, CMP, 2156-, 38944-1, 98286-9 #### [facility] ([id number]) [address] [place] [address] Creatinine [Mass/Vol] 1.55 mg/dL High 0.40-1.00 [facility] Comment on above: Result Comment: METH OD TRACEABLE TO IDMS STANDARD Performed By: #### 3 274-8, CBCA, CMP, 2157-6, 28569-5, 39267-9 #### [facility] ([id number]) [address] [place] [address] GFR/1.73 sq M.predicted among non-blacks MDRD (S/P/Bld) [Vol rate/Area] 34 mL/min/{1.73_m2} Low >59 [facility] Comment on above: Result Comment: Reported eGFR is based on the CKD-EPI 2020 equation that does not use a race coefficient. Performed By: #### 3 274-8, CBCA, CMP, 2157-6, 36786-7, 46881-1 #### [facility] ([id number]) [address] [place] [address] Glucose [Mass/Vol] 164 mg/dL High 65-99 [facility] Comment on above: Performed By: #### 3 274-8, CBCA, CMP, 2156-6, 93579-0, 57166-2 #### [facility] ([id number]) [address] [place] [address] Potassium [Moles/Vol] 4.1 mmol/L Normal 3.5-5.0 [facility] Comment on above: Performed By: #### 3 274-8, CBCA, CMP, 2157-6, 74510-1, 24483-6 #### [facility] ([id number]) [address] [place] [address] Protein [Mass/Vol] 6.1 g/dL Normal 6.0-8.0 [facility] Comment on above: Performed By: #### 3 274-8, CBCA, CMP, 2156-6, 34242-7, 72559-6 #### [facility] ([id number]) [address] [place] [address] Sodium [Moles/Vol] 139 mmol/L Normal 134-146 [facility] Comment on above: Performed By: #### 3 274-8, CBCA, CMP, 2156-6, 53800-3, 53632-7 #### [facility] ([id number]) [address] [place] [address] Urea nitrogen [Mass/Vol] 62 mg/dL High 5-27 [facility] Comment on above: Performed By: #### 3 274-8, CBCA, CMP, 2157-6, 73528-5, 33665-6 #### [facility] ([id number]) [address] [place] [address] Glucose Glucometer (dC) [M ass/Vol]on 12-30-2023 Glucose [Mass/Vol] 142 mg/dL High 65-99 [facility] Glucose [Mass/Vol] 236 mg/dL High 65-99 [facility] Glucose [Mass/Vol] 169 mg/dL High 65-99 [facility] Glucose [Mass/Vol] 168 mg/dL High 65-99 [facility] LEGIONELLA URINE AGon 2023 L. pneumophila Ag IA Ql (U) LEGIONELLA URINE AG Negative (qualifier value) NEGATIVE FOR L.PNEUMOPHILA SEROGROUP 1 ANTIGEN Normal [facility] Comment on above: Performed By: #### 3 274-8, CBCA, CMP, 2156-11, 98273-8, 11309-0 #### [facility] ([id number]) [address] [place] [address] MAGNESIUMon 12-30-2023 Magnesium [Mass/Vol] 2.5 mg/dL Normal 1.8-2.6 [facility] Comment on above: Performed By: #### 3 274-8, CBCA, CMP, 2156-, 59595-1, 51898-6 #### [facility] ([id number]) [address] [place] [address] Magnesium [Mass/Vol] 1.6 mg/dL Low 1.8-2.6 [facility] Comment on above: Performed By: #### 3 274-8, CBCA, CMP, 2156-, 69372-3, 45079-9 #### [facility] ([id number]) [address] [place] [address] S PNEUMONIAE AG Uon 12-30-19 S. pneumoniae Ag Ql (U) Negative Normal NEG [facility] Comment on above: Performed By: #### 3 274-8, CBCA, CMP, 2156-11, 32908-8, 15518-2 #### [facility] ([id number]) [address] [place] [address] URINALYSISon 12-30-2023 Bilirubin Ql (U) Negative Normal NEG [facility] Comment on above: Performed By: #### 3 274-8, CBCA, CMP, 2157-6, 18337-7, 32163-5 #### [facility] ([id number]) [address] [place] [address] BLOOD/HGB Large Abnormal NEG [facility] Comment on above: Performed By: #### 3 274-8, CBCA, CMP, 2157-6, 96676-9, 11746-8 #### [facility] ([id number]) [address] [place] [address] Color (U) PINK Abnormal YELLOW [facility] Comment on above: Performed By: #### 3 274-8, CBCA, CMP, 2157-6, 64282-9, 40615-7 #### [facility] ([id number]) [address] [place] [address] Glucose Ql (U) Negative Normal [facility] Comment on above: Performed By: #### 3 274-8, CBCA, CMP, 2157-6, 51396-3, 57860-0 #### [facility] ([id number]) [address] [place] [address] Ketones Ql (U) Negative Normal NEG [facility] Comment on above: Performed By: #### 3 274-8, CBCA, CMP, 2157-6, 26334-6, 02157-4 #### [facility] ([id number]) [address] [place] [address] Leukocyte esterase Test strip Ql (U) Large Abnormal NEG [facility] Comment on above: Performed By: #### 3 274-8, CBCA, CMP, 2157-6, 02178-0, 52012-8 #### [facility] ([id number]) [address] [place] [address] Nitrite Ql (U) Negative Normal NEG [facility] Comment on above: Performed By: #### 3 274-8, CBCA, CMP, 2157-6, 89373-0, 67762-8 #### [facility] ([id number]) [address] [place] [address] pH (U) 5.5 [pH] Normal 5.0-8.5 [facility] Comment on above: Performed By: #### 3 274-8, CBCA, CMP, 2157-6, 68805-2, 85347-5 #### [facility] ([id number]) [address] [place] [address] Protein Ql (U) Negative Normal NEG [facility] Comment on above: Performed By: #### 3 274-8, CBCA, CMP, 7-6, 76712-2, 79109-6 #### [facility] ([id number]) [address] [place] [address] R.B.CELLS >100 High 0-5 [facility] Comment on above: Performed By: #### 3 274-8, CBCA, CMP, 7-6, 26868-3, 00572-3 #### [facility] ([id number]) [address] [place] [address] Specific gravity (U) [Rel density] 1.010 Normal 1.003-1.035 [facility] Comment on above: Performed By: #### 3 274-8, CBCA, CMP, 7-6, 38562-4, 98234-7 #### [facility] ([id number]) [address] [place] [address] SQUAMOUS EPITHELIUM 4 /hpf Normal 0-5 [facility] Comment on above: Performed By: #### 3 274-8, CBCA, CMP, 2157-6, 96087-9, 65024-1 #### [facility] ([id number]) [address] [place] [address] TRANSITIONAL EPITH 1 /hpf High 0 [facility] Comment on above: Performed By: #### 3 274-8, CBCA, CMP, 2157-6, 03824-3, 71983-8 #### [facility] ([id number]) [address] [place] [address] TURBIDITY HAZY Abnormal CLEAR [facility] Comment on above: Performed By: #### 3 274-8, CBCA, CMP, 2157-6, 92390-6, 73367-8 #### [facility] ([id number]) [address] [place] [address] Urobilinogen Qn (U) 0.2 {Yan'U}/dL Normal <1.1 [facility] Comment on above: Performed By: #### 3 274-8, CBCA, CMP, 7-6, 19348-2, 33709-7 #### [facility] ([id number]) [address] [place] [address] W.B.CELLS 45 /hpf High 0-5 [facility] Comment on above: Performed By: #### 3 274-8, CBCA, CMP, 2157-6, 55927-1, 71539-2 #### [facility] ([id number]) [address] [place] [address] URINE CULTUREon 12-30-2023 Bacteria identified Cx Nom (U) CULTURE RESULTS NO GROWTH AT <1000 CFU/mL Normal [facility] Comment on above: Performed By: #### 3 274-8, CBCA, CMP, 7-6, 31438-9, 23265-5 #### [facility] ([id number]) [address] [place] [address] XR CHEST 1 VWon 12-30-2023 XR CHEST 1 VW XR CHEST 1 VW Single view chest History:follow-up; shortness of breath Difficulty breathing, shortness of breath Comparison: 12/28/2023 Findings: Single portable view of the chest. Mild vascular congestion and edema. There is right mid and right lower lung and left lower lung atelectasis or pneumonia. Small pleural effusions. Impression: No significant interval change. Finalized by Job Gama MD on 12/30/2023 2:10 PM Normal [facility] CBC AND AUTO DIFFon 12-29-19 24 ABSOLUTE BASOPHIL 0.0 X10E9/L Normal 0.0-0.2 [facility] Comment on above: Performed By: #### 3 274-8, CBCA, CMP, 2157-6, 56451-4, 20762-8 #### [facility] ([id number]) [address] [place] [address] ABSOLUTE NEUTROPHIL 3.8 X10E9/L Normal 1.5-6.6 [facility] Comment on above: Performed By: #### 3 274-8, CBCA, CMP, 7-6, 33340-6, 30540-9 #### [facility] ([id number]) [address] [place] [address] Basophils/100 WBC (Bld) 0.5 % Normal [facility] Comment on above: Performed By: #### 3 274-8, CBCA, CMP, 2156-6, 98728-1, 59659-6 #### [facility] ([id number]) [address] [place] [address] Eosinophils (Bld) [#/Vol] 0.0 10*3/uL Normal 0.0-0.4 [facility] Comment on above: Performed By: #### 3 274-8, CBCA, CMP, 7-6, 26862-9, 28930-6 #### [facility] ([id number]) [address] [place] [address] Eosinophils/100 WBC (Bld) 0.2 % Normal [facility] Comment on above: Performed By: #### 3 274-8, CBCA, CMP, 7-6, 40343-7, 04414-5 #### [facility] ([id number]) [address] [place] [address] Erythrocyte distribution width (RBC) [Ratio] 14.3 % Normal 11.5-15.0 [facility] Comment on above: Performed By: #### 3 274-8, CBCA, CMP, 7-6, 86928-5, 61549-5 #### [facility] ([id number]) [address] [place] [address] Hematocrit (Bld) [Volume fraction] 27.3 % Low 35-47 [facility] Comment on above: Performed By: #### 3 274-8, CBCA, CMP, 2157-6, 66524-4, 51173-9 #### [facility] ([id number]) [address] [place] [address] Hemoglobin (Bld) [Mass/Vol] 9.0 g/dL Low 11.7-15.5 [facility] Comment on above: Performed By: #### 3 274-8, CBCA, CMP, 7-6, 99765-0, 26482-9 #### [facility] ([id number]) [address] [place] [address] Lymphocytes (Bld) [#/Vol] 0.7 10*3/uL Low 1.0-3.5 [facility] Comment on above: Performed By: #### 3 274-8, CBCA, CMP, 2157-6, 42878-2, 27225-9 #### [facility] ([id number]) [address] [place] [address] Lymphocytes/100 WBC (Bld) 13.9 % Normal [facility] Comment on above: Performed By: #### 3 274-8, CBCA, CMP, 2157-6, 65008-5, 71891-1 #### [facility] ([id number]) [address] [place] [address] MCH (RBC) [Entitic mass] 30.3 pg Normal 27-34 [facility] Comment on above: Performed By: #### 3 274-8, CBCA, CMP, 7-6, 05250-9, 07620-9 #### [facility] ([id number]) [address] [place] [address] MCHC (RBC) [Mass/Vol] 33.0 g/dL Normal 32-36 [facility] Comment on above: Performed By: #### 3 274-8, CBCA, CMP, 2157-6, 31777-8, 05838-3 #### [facility] ([id number]) [address] [place] [address] MCV (RBC) [Entitic vol] 92 fL Normal 80-100 [facility] Comment on above: Performed By: #### 3 274-8, CBCA, CMP, 2157-6, 52604-5, 02789-3 #### [facility] ([id number]) [address] [place] [address] Monocytes (Bld) [#/Vol] 0.6 10*3/uL Normal 0-0.9 [facility] Comment on above: Performed By: #### 3 274-8, CBCA, CMP, 2157-6, 91319-1, 93711-9 #### [facility] ([id number]) [address] [place] [address] Monocytes/100 WBC (Bld) 11.8 % Normal [facility] Comment on above: Performed By: #### 3 274-8, CBCA, CMP, 2157-6, 76781-4, 60045-7 #### [facility] ([id number]) [address] [place] [address] Neutrophils/100 WBC (Bld) 73.6 % Normal [facility] Comment on above: Performed By: #### 3 274-8, CBCA, CMP, 2157-6, 12788-8, 34996-3 #### [facility] ([id number]) [address] [place] [address] Platelet mean volume (Bld) [Entitic vol] 8.4 fL Normal 7-12 [facility] Comment on above: Performed By: #### 3 274-8, CBCA, CMP, 2157-6, 66710-3, 95509-5 #### [facility] ([id number]) [address] [place] [address] Platelets (Bld) [#/Vol] 352 10*3/uL Normal 150-450 [facility] Comment on above: Performed By: #### 3 274-8, CBCA, CMP, 2157-6, 32381-9, 40613-2 #### [facility] ([id number]) [address] [place] [address] RBC COUNT 2.97 X10E12/L Low 3.80-5.20 [facility] Comment on above: Performed By: #### 3 274-8, CBCA, CMP, 7-6, 37277-6, 83785-6 #### [facility] ([id number]) [address] [place] [address] WBC (Bld) [#/Vol] 5.2 10*3/uL Normal 4.0-11.0 [facility] Comment on above: Performed By: #### 3 274-8, CBCA, CMP, 7-6, 05503-2, 78756-5 #### [facility] ([id number]) [address] [place] [address] COMPREHENSIVE METABOLIC PANE Gurdeep 12-29-2023 Albumin [Mass/Vol] 2.5 g/dL Low 3.2-5.3 [facility] Comment on above: Performed By: #### 3 274-8, CBCA, CMP, 7-6, 78263-8, 88948-6 #### [facility] ([id number]) [address] [place] [address] ALP [Catalytic activity/Vol] 35 U/L Low 39-130 [facility] Comment on above: Performed By: #### 3 274-8, CBCA, CMP, 2157-6, 05479-9, 69683-1 #### [facility] ([id number]) [address] [place] [address] ALT [Catalytic activity/Vol] 20 U/L Normal 0-31 [facility] Comment on above: Performed By: #### 3 274-8, CBCA, CMP, 2157-6, 13095-7, 64347-7 #### [facility] ([id number]) [address] [place] [address] Anion gap [Moles/Vol] 6 mmol/L Normal 5-15 [facility] Comment on above: Performed By: #### 3 274-8, CBCA, CMP, 7-6, 30914-8, 86248-3 #### [facility] ([id number]) [address] [place] [address] AST [Catalytic activity/Vol] 17 U/L Normal 0-41 [facility] Comment on above: Performed By: #### 3 274-8, CBCA, CMP, 2156-6, 84162-8, 48573-4 #### [facility] ([id number]) [address] [place] [address] Bilirubin [Mass/Vol] 0.4 mg/dL Normal 0.3-1.2 [facility] Comment on above: Performed By: #### 3 274-8, CBCA, CMP, 2156-6, 84270-9, 51213-3 #### [facility] ([id number]) [address] [place] [address] Calcium [Mass/Vol] 9.1 mg/dL Normal 8.5-10.5 [facility] Comment on above: Performed By: #### 3 274-8, CBCA, CMP, 2156-6, 46460-1, 99274-7 #### [facility] ([id number]) [address] [place] [address] Chloride [Moles/Vol] 106 mmol/L Normal 98-109 [facility] Comment on above: Performed By: #### 3 274-8, CBCA, CMP, 7-6, 68948-3, 74325-5 #### [facility] ([id number]) [address] [place] [address] CO2 [Moles/Vol] 26 mmol/L Normal 22-32 [facility] Comment on above: Performed By: #### 3 274-8, CBCA, CMP, 2157-6, 56670-7, 44898-0 #### [facility] ([id number]) [address] [place] [address] Creatinine [Mass/Vol] 1.45 mg/dL High 0.40-1.00 [facility] Comment on above: Result Comment: METH OD TRACEABLE TO IDMS STANDARD Performed By: #### 3 274-8, CBCA, CMP, 2156-, 20489-2, 15868-2 #### [facility] ([id number]) [address] [place] [address] GFR/1.73 sq M.predicted among non-blacks MDRD (S/P/Bld) [Vol rate/Area] 37 mL/min/{1.73_m2} Low >59 [facility] Comment on above: Result Comment: Reported eGFR is based on the CKD-EPI 2020 equation that does not use a race coefficient. Performed By: #### 3 274-8, CBCA, CMP, 2156-, , 30925-2 #### [facility] ([id number]) [address] [place] [address] Glucose [Mass/Vol] 236 mg/dL High 65-99 [facility] Comment on above: Performed By: #### 3 274-8, CBCA, CMP, 2156-, 20033-2, 83163-5 #### [facility] ([id number]) [address] [place] [address] Potassium [Moles/Vol] 4.4 mmol/L Normal 3.5-5.0 [facility] Comment on above: Performed By: #### 3 274-8, CBCA, CMP, 2156-, 96561-0, 56074-5 #### [facility] ([id number]) [address] [place] [address] Protein [Mass/Vol] 6.3 g/dL Normal 6.0-8.0 [facility] Comment on above: Performed By: #### 3 274-8, CBCA, CMP, 2156-, 33104-3, 05648-5 #### [facility] ([id number]) [address] [place] [address] Sodium [Moles/Vol] 138 mmol/L Normal 134-146 [facility] Comment on above: Performed By: #### 3 274-8, CBCA, CMP, 2157-6, 55601-5, 00601-7 #### [facility] ([id number]) [address] [place] [address] Urea nitrogen [Mass/Vol] 59 mg/dL High 5-27 [facility] Comment on above: Performed By: #### 3 274-8, CBCA, CMP, 2156-6, 35738-2, 73002-3 #### [facility] ([id number]) [address] [place] [address] Glucose Glucometer (BldC) [M ass/Vol]on 12-29-2023 Glucose [Mass/Vol] 252 mg/dL High 65-99 [facility] Glucose [Mass/Vol] 233 mg/dL High 65-99 [facility] Glucose [Mass/Vol] 183 mg/dL High 65-99 [facility] Glucose [Mass/Vol] 222 mg/dL High 65-99 [facility] MAGNESIUMon 12-29-2023 Magnesium [Mass/Vol] 1.9 mg/dL Normal 1.8-2.6 [facility] Comment on above: Performed By: #### 3 274-8, CBCA, CMP, 7-6, 77570-5, 12985-3 #### [facility] ([id number]) [address] [place] [address] XR ABDOMEN AP 1 VWon 024 XR ABDOMEN AP 1 VW XR ABDOMEN AP 1 VW HISTORY: Constipation, recent stent placement COMPARISON: Abdominal x-ray 05/26/2013, CT abdomen and pelvis 12/23/2023 FINDINGS: AP supine views of the abdomen were obtained. Left ureteral stent is present. Nonobstructive bowel gas pattern. No significant dilated loops of bowel. Moderate stool burden. Multiple surgical clips in the right upper quadrant. Airspace opacities in the right and left lung bases. Trace bilateral pleural effusions. IMPRESSION: * Multifocal airspace disease concerning for pneumonia. * Trace bilateral pleural effusions * Nonobstructive bowel gas pattern with moderate stool burden. Finalized by Jeff Trujillo MD on 12/29/2023 8:45 PM Normal [facility] CBC AND AUTO DIFFon 12-28-19 ABSOLUTE BASOPHIL 0.0 X10E9/L Normal 0.0-0.2 [facility] Comment on above: Performed By: #### 3 274-8, CBCA, CMP, 2156-, 22330-0, 36097-7 #### [facility] ([id number]) [address] [place] [address] ABSOLUTE NEUTROPHIL 3.6 X10E9/L Normal 1.5-6.6 [facility] Comment on above: Performed By: #### 3 274-8, CBCA, CMP, 2156-, 33151-3, 38939-8 #### [facility] ([id number]) [address] [place] [address] Basophils/100 WBC (Bld) 0.5 % Normal [facility] Comment on above: Performed By: #### 3 274-8, CBCA, CMP, 2156-, 80118-0, 83117-2 #### [facility] ([id number]) [address] [place] [address] Eosinophils (Bld) [#/Vol] 0.0 10*3/uL Normal 0.0-0.4 [facility] Comment on above: Performed By: #### 3 274-8, CBCA, CMP, 2156-, 15311-7, 29711-8 #### [facility] ([id number]) [address] [place] [address] Eosinophils/100 WBC (Bld) 0.1 % Normal [facility] Comment on above: Performed By: #### 3 274-8, CBCA, CMP, 2156-, 68010-3, 11991-4 #### [facility] ([id number]) [address] [place] [address] Erythrocyte distribution width (RBC) [Ratio] 14.5 % Normal 11.5-15.0 [facility] Comment on above: Performed By: #### 3 274-8, CBCA, CMP, 7-6, 45837-6, 74742-5 #### [facility] ([id number]) [address] [place] [address] Hematocrit (Bld) [Volume fraction] 28.0 % Low 35-47 [facility] Comment on above: Performed By: #### 3 274-8, CBCA, CMP, 7-6, 96444-4, 54493-3 #### [facility] ([id number]) [address] [place] [address] Hemoglobin (Bld) [Mass/Vol] 9.2 g/dL Low 11.7-15.5 [facility] Comment on above: Performed By: #### 3 274-8, CBCA, CMP, 7-6, 00699-7, 19833-2 #### [facility] ([id number]) [address] [place] [address] Lymphocytes (Bld) [#/Vol] 0.4 10*3/uL Low 1.0-3.5 [facility] Comment on above: Performed By: #### 3 274-8, CBCA, CMP, 7-6, 20745-3, 17040-7 #### [facility] ([id number]) [address] [place] [address] Lymphocytes/100 WBC (Bld) 10.1 % Normal [facility] Comment on above: Performed By: #### 3 274-8, CBCA, CMP, 7-6, 64435-5, 62155-3 #### [facility] ([id number]) [address] [place] [address] MCH (RBC) [Entitic mass] 30.4 pg Normal 27-34 [facility] Comment on above: Performed By: #### 3 274-8, CBCA, CMP, 7-6, 39492-7, 54301-5 #### [facility] ([id number]) [address] [place] [address] MCHC (RBC) [Mass/Vol] 32.8 g/dL Normal 32-36 [facility] Comment on above: Performed By: #### 3 274-8, CBCA, CMP, 2157-6, 57150-8, 18939-7 #### [facility] ([id number]) [address] [place] [address] MCV (RBC) [Entitic vol] 93 fL Normal 80-100 [facility] Comment on above: Performed By: #### 3 274-8, CBCA, CMP, 2157-6, 10711-7, 59893-3 #### [facility] ([id number]) [address] [place] [address] Monocytes (Bld) [#/Vol] 0.1 10*3/uL Normal 0-0.9 [facility] Comment on above: Performed By: #### 3 274-8, CBCA, CMP, 2157-6, 97691-7, 18041-3 #### [facility] ([id number]) [address] [place] [address] Monocytes/100 WBC (Bld) 2.1 % Normal [facility] Comment on above: Performed By: #### 3 274-8, CBCA, CMP, 2157-6, 02273-9, 40339-0 #### [facility] ([id number]) [address] [place] [address] Neutrophils/100 WBC (Bld) 87.2 % Normal [facility] Comment on above: Performed By: #### 3 274-8, CBCA, CMP, 2157-6, 06475-4, 56549-5 #### [facility] ([id number]) [address] [place] [address] Platelet mean volume (Bld) [Entitic vol] 8.4 fL Normal 7-12 [facility] Comment on above: Performed By: #### 3 274-8, CBCA, CMP, 2157-6, 11179-5, 20687-0 #### [facility] ([id number]) [address] [place] [address] Platelets (Bld) [#/Vol] 307 10*3/uL Normal 150-450 [facility] Comment on above: Performed By: #### 3 274-8, CBCA, CMP, 2157-6, 50160-6, 06343-2 #### [facility] ([id number]) [address] [place] [address] RBC COUNT 3.03 X10E12/L Low 3.80-5.20 [facility] Comment on above: Performed By: #### 3 274-8, CBCA, CMP, 2157-6, 29120-6, 95823-0 #### [facility] ([id number]) [address] [place] [address] WBC (Bld) [#/Vol] 4.1 10*3/uL Normal 4.0-11.0 [facility] Comment on above: Performed By: #### 3 274-8, CBCA, CMP, 2157-6, 66632-6, 42524-2 #### [facility] ([id number]) [address] [place] [address] COMPREHENSIVE METABOLIC PANE [facility] 12-28-2023 Albumin [Mass/Vol] 2.4 g/dL Low 3.2-5.3 [facility] Comment on above: Performed By: #### 3 274-8, CBCA, CMP, 2157-6, 82070-5, 83276-8 #### [facility] ([id number]) [address] [place] [address] ALP [Catalytic activity/Vol] 36 U/L Low 39-130 [facility] Comment on above: Performed By: #### 3 274-8, CBCA, CMP, 2157-6, 08865-6, 63175-0 #### [facility] ([id number]) [address] [place] [address] ALT [Catalytic activity/Vol] 21 U/L Normal 0-31 [facility] Comment on above: Performed By: #### 3 274-8, CBCA, CMP, 2157-6, 64903-9, 20908-0 #### [facility] ([id number]) [address] [place] [address] Anion gap [Moles/Vol] 9 mmol/L Normal 5-15 [facility] Comment on above: Performed By: #### 3 274-8, CBCA, CMP, 2157-6, 08794-0, 71196-7 #### [facility] ([id number]) [address] [place] [address] AST [Catalytic activity/Vol] 17 U/L Normal 0-41 [facility] Comment on above: Performed By: #### 3 274-8, CBCA, CMP, 2157-6, 19001-7, 68261-5 #### [facility] ([id number]) [address] [place] [address] Bilirubin [Mass/Vol] 0.5 mg/dL Normal 0.3-1.2 [facility] Comment on above: Performed By: #### 3 274-8, CBCA, CMP, 2157-6, 13050-7, 14276-1 #### [facility] ([id number]) [address] [place] [address] Calcium [Mass/Vol] 8.9 mg/dL Normal 8.5-10.5 [facility] Comment on above: Performed By: #### 3 274-8, CBCA, CMP, 2157-6, 77599-8, 39088-0 #### [facility] ([id number]) [address] [place] [address] Chloride [Moles/Vol] 107 mmol/L Normal 98-109 [facility] Comment on above: Performed By: #### 3 274-8, CBCA, CMP, 2157-6, 13173-9, 98974-1 #### [facility] ([id number]) [address] [place] [address] CO2 [Moles/Vol] 21 mmol/L Low 22-32 [facility] Comment on above: Performed By: #### 3 274-8, CBCA, CMP, 2157-6, 64607-5, 20373-2 #### [facility] ([id number]) [address] [place] [address] Creatinine [Mass/Vol] 1.77 mg/dL High 0.40-1.00 [facility] Comment on above: Result Comment: METH OD TRACEABLE TO IDMS STANDARD Performed By: #### 3 274-8, CBCA, CMP, 2157-6, 62582-7, 63399-5 #### [facility] ([id number]) [address] [place] [address] GFR/1.73 sq M.predicted among non-blacks MDRD (S/P/Bld) [Vol rate/Area] 29 mL/min/{1.73_m2} Low >59 [facility] Comment on above: Result Comment: Reported eGFR is based on the CKD-EPI 2020 equation that does not use a race coefficient. Performed By: #### 3 274-8, CBCA, CMP, 2157-6, 98627-3, 02843-8 #### [facility] ([id number]) [address] [place] [address] Glucose [Mass/Vol] 243 mg/dL High 65-99 [facility] Comment on above: Performed By: #### 3 274-8, CBCA, CMP, 2157-6, 77584-6, 66584-3 #### [facility] ([id number]) [address] [place] [address] Potassium [Moles/Vol] 5.0 mmol/L Normal 3.5-5.0 [facility] Comment on above: Performed By: #### 3 274-8, CBCA, CMP, 2157-6, 13296-5, 83993-8 #### [facility] ([id number]) [address] [place] [address] Protein [Mass/Vol] 6.4 g/dL Normal 6.0-8.0 [facility] Comment on above: Performed By: #### 3 274-8, CBCA, CMP, 2157-6, 76225-7, 00673-6 #### [facility] ([id number]) [address] [place] [address] Sodium [Moles/Vol] 137 mmol/L Normal 134-146 [facility] Comment on above: Performed By: #### 3 274-8, CBCA, CMP, 2156-11, , 95812-7 #### [facility] ([id number]) [address] [place] [address] Urea nitrogen [Mass/Vol] 51 mg/dL High 5-27 [facility] Comment on above: Performed By: #### 3 274-8, CBCA, CMP, 2156-11, , 38678-2 #### [facility] ([id number]) [address] [place] [address] Fibrin D-dimer DDU (PPP) [Ma ss/Vol]on 12-28-2023 D DIMER 870 ng/mL DDU High <255 [facility] Comment on above: Result Comment: Results >=255ng/mL DDU: Results may be indicative of the presence of VTE. The use of the Wells score and further diagnostic tests should be considered. Elevated D-Dimer levels can also be associated with DIC, neoplasm, , trauma and liver disease. Elevated levels of rheumatoid factor may lead to an overestimation of the D-Dimer level. Performed By: #### 3 274-8, CBCA, CMP, 2156-11, , 84768-9 #### [facility] ([id number]) [address] [place] [address] Glucose Glucometer (BldC) [M ass/Vol]on 12-28-2023 Glucose [Mass/Vol] 354 mg/dL High 65-99 [facility] Glucose [Mass/Vol] 375 mg/dL High 65-99 [facility] Glucose [Mass/Vol] 292 mg/dL High 65-99 [facility] Glucose [Mass/Vol] 277 mg/dL High 65-99 [facility] MAGNESIUMon 12-28-2023 Magnesium [Mass/Vol] 2.0 mg/dL Normal 1.8-2.6 [facility] Comment on above: Performed By: #### 3 274-8, CBCA, CMP, 2156-6, 84898-1, 23864-8 #### [facility] ([id number]) [address] [facility] [place] [address] NM VENTILATION PERFUSION EDDIE G SCANon 12-28-2023 NM VENTILATION PERFUSION LUNG SCAN NM VENTILATION PERFUSION LUNG SCAN HISTORY: A 78-year-old female with the history of the cough, diabetes, hypertension, hypoxemia and increase in oxygen demand. Positive D-dimer test. PE is suspected. TECHNIQUE: Radionuclide pulmonary ventilation and perfusion imaging. COMPARISON: Comparison is made with chest radiograph of 12/28/2023.. FINDINGS: The ventilation study is performed by using 0.8 mCi of technetium 99m DTPA aerosol inhalation. There is a heterogeneous uptake in both lungs. No ventilation defects are identified. The pulmonary perfusion imaging is performed in multiple projections after the intravenous administration of 6.0mCi of technetium 99m MAA. There is heterogeneous uptake in both lungs. No segmental or lobar perfusion defects are seen. Chest radiographs reveal bilateral pleural effusions and parenchymal opacities in the medial lower lung stevens. There are no VQ mismatched defects. IMPRESSION: * Overall probability of pulmonary embolization is low. * Bilateral pleural effusions and parenchymal opacities in the lower lungs on the chest radiographs performed on the same day. Finalized by Camden Lee MD on 12/28/2023 4:06 PM Normal [facility] XR CHEST 2 VWSon 12-28-2023 XR CHEST 2 VWS XR CHEST 2 VWS Clinical history: Increased oxygen demand. Comparisons: 11/12/2023 through 12/27/2023. Findings: AP upright and lateral chest radiograph obtained 2:36 PM. Heart size is mildly enlarged and pulmonary vasculature is increased with venous redistribution to the upper lungs. There are small to moderate bilateral pleural effusions with central and lower lung airspace disease. No pneumothorax. I believe a left-sided PICC is now present, tip of which terminates at the expected location of RA/SVC junction IMPRESSION: 1. Persistent congestive changes as above. Finalized by Sanjiv Dye MD on 12/28/2023 2:56 PM Normal [facility] CBC AND AUTO DIFFon 12-27-19 24 ABSOLUTE BASOPHIL 0.1 X10E9/L Normal 0.0-0.2 [facility] Comment on above: Performed By: #### Kaiden PAGE [facility], ####[facility] ([id number])[address] [place] [address] ABSOLUTE NEUTROPHIL 3.7 X10E9/L Normal 1.5-6.6 [facility] Comment on above: Performed By: #### Kaiden PAGE [facility], ####[facility] ([id number])[address] [place] [address] Basophils/100 WBC (Bld) 1.2 % Normal [facility] Comment on above: Performed By: #### Kaiden PAGE [facility], ####[facility] ([id number])[address] [place] [address] Eosinophils (Bld) [#/Vol] 0.3 10*3/uL Normal 0.0-0.4 [facility] Comment on above: Performed By: #### Kaiden PAGE [facility], ####[facility] ([id number])[address] [place] [address] Eosinophils/100 WBC (Bld) 4.7 % Normal [facility] Comment on above: Performed By: #### Kaiden PAGE, [facility], ####[facility] ([id number])[address] [place] [address] Erythrocyte distribution width (RBC) [Ratio] 14.9 % Normal 11.5-15.0 [facility] Comment on above: Performed By: #### Kaiden PAGE, [facility], ####[facility] ([id number])[address] [place] [address] Hematocrit (Bld) [Volume fraction] 28.8 % Low 35-47 [facility] Comment on above: Performed By: #### Kaiden BCA, [facility], ####[facility] ([id number])[address] [place] [address] Hemoglobin (Bld) [Mass/Vol] 9.6 g/dL Low 11.7-15.5 [facility] Comment on above: Performed By: #### C CAMILO [facility], ####[facility] ([id number])[address] [place] [address] Lymphocytes (Bld) [#/Vol] 0.8 10*3/uL Low 1.0-3.5 [facility] Comment on above: Performed By: #### Kaiden PAGE [facility], ####[facility] ([id number])[address] [place] [address] Lymphocytes/100 WBC (Bld) 14.3 % Normal [facility] Comment on above: Performed By: #### Kaiden PAGE [facility], ####[facility] ([id number])[address] [place] [address] MCH (RBC) [Entitic mass] 30.7 pg Normal 27-34 [facility] Comment on above: Performed By: #### Kaiden PAGE [facility], ####[facility] ([id number])[address] [place] [address] MCHC (RBC) [Mass/Vol] 33.5 g/dL Normal 32-36 [facility] Comment on above: Performed By: #### Kaiden PAGE [facility], ####[facility] ([id number])[address] [place] [address] MCV (RBC) [Entitic vol] 92 fL Normal 80-100 [facility] Comment on above: Performed By: #### C CAMILO [facility], ####[facility] ([id number])[address] [place] [address] Monocytes (Bld) [#/Vol] 0.8 10*3/uL Normal 0-0.9 [facility] Comment on above: Performed By: #### Kaiden PAGE, [facility], ####[facility] ([id number])[address] [place] [address] Monocytes/100 WBC (Bld) 14.0 % Normal [facility] Comment on above: Performed By: #### C CAMILO CMP, ####[facility] ([id number])[address] [place] [address] Neutrophils/100 WBC (Bld) 65.8 % Normal [facility] Comment on above: Performed By: #### Kaiden PAGE CMP, ####[facility] ([id number])[address] [place] [address] Platelet mean volume (Bld) [Entitic vol] 8.7 fL Normal 7-12 [facility] Comment on above: Performed By: #### Kaiden PAGE CMP, ####[facility] ([id number])[address] [place] [address] Platelets (Bld) [#/Vol] 314 10*3/uL Normal 150-450 [facility] Comment on above: Performed By: #### Kaiden PAGE CMP, ####[facility] ([id number])[address] [place] [address] RBC COUNT 3.14 X10E12/L Low 3.80-5.20 [facility] Comment on above: Performed By: #### Kaiden PAGE, CMP, ####[facility] ([id number])[address] [place] [address] WBC (Bld) [#/Vol] 5.6 10*3/uL Normal 4.0-11.0 [facility] Comment on above: Performed By: #### C CAMILO, CMP, ####[facility] ([id number])[address] [place] [address] COMPREHENSIVE METABOLIC PANE Gurdeep 12-27-2023 Albumin [Mass/Vol] 2.5 g/dL Low 3.2-5.3 [facility] Comment on above: Performed By: #### Kaiden BCA, CMP, ####[facility] ([id number])[address] [place] [address] ALP [Catalytic activity/Vol] 36 U/L Low 39-130 [facility] Comment on above: Performed By: #### C BCA, CMP, ####[facility] ([id number])[address] [facility] [place] [address] ALT [Catalytic activity/Vol] 25 U/L Normal 0-31 [facility] Comment on above: Performed By: #### C BCA, CMP, ####[facility] ([id number])[address] [facility] [place] [address] Anion gap [Moles/Vol] 2 mmol/L Low 5-15 [facility] Comment on above: Performed By: #### C BCA, [facility], ####[facility] ([id number])[address] [facility] [address] AST [Catalytic activity/Vol] 21 U/L Normal 0-41 [facility] Comment on above: Performed By: #### C BCA, [facility], ####[facility] ([id number])[address] [facility] [address] Bilirubin [Mass/Vol] 0.5 mg/dL Normal 0.3-1.2 [facility] Comment on above: Performed By: #### C BCA, CMP, ####[facility] ([id number])[address] [place] [place] [address] Calcium [Mass/Vol] 8.6 mg/dL Normal 8.5-10.5 [facility] Comment on above: Performed By: #### C BCA, [facility], ####[facility] ([id number])[address] [facility] [place] [address] Chloride [Moles/Vol] 112 mmol/L High 98-109 [facility] Comment on above: Performed By: #### C BCA, CMP, ####[facility] ([id number])[address] [facility] [place] [address] CO2 [Moles/Vol] 24 mmol/L Normal 22-32 [facility] Comment on above: Performed By: #### C CAMILO [facility], ####[facility] ([id number])[address] [place] [address] Creatinine [Mass/Vol] 1.77 mg/dL High 0.40-1.00 [facility] Comment on above: Result Comment: METH OD TRACEABLE TO IDMS STANDARD Performed By: #### C CAMILO [facility], ####[facility] ([id number])[address] [place] [address] GFR/1.73 sq M.predicted among non-blacks MDRD (S/P/Bld) [Vol rate/Area] 29 mL/min/{1.73_m2} Low >59 [facility] Comment on above: Result Comment: Reported eGFR is based on the CKD-EPI 2020 equation that does not use a race coefficient. Performed By: #### C CAMILO [facility], ####[facility] ([id number])[address] [place] [address] Glucose [Mass/Vol] 178 mg/dL High 65-99 [facility] Comment on above: Performed By: #### C CAMILO [facility], ####[facility] ([id number])[address] [place] [address] Potassium [Moles/Vol] 4.3 mmol/L Normal 3.5-5.0 [facility] Comment on above: Performed By: #### C CAMILO [facility], ####[facility] ([id number])[address] [place] [address] Protein [Mass/Vol] 6.3 g/dL Normal 6.0-8.0 [facility] Comment on above: Performed By: #### C CAMILO [facility], ####[facility] ([id number])[address] [place] [address] Sodium [Moles/Vol] 138 mmol/L Normal 134-146 [facility] Comment on above: Performed By: #### C SARATH PAGE, 76391-8 ####[facility] ([id number])[address] [place] [address] Urea nitrogen [Mass/Vol] 50 mg/dL High 5-27 [facility] Comment on above: Performed By: #### C SARATH PAGE, 02144-7 ####[facility] ([id number])[address] [place] [address] Glucose Glucometer (BldC) [M ass/Vol]on 12-27-2023 Glucose [Mass/Vol] 151 mg/dL High 65-99 [facility] Glucose [Mass/Vol] 167 mg/dL High 65-99 [facility] Glucose [Mass/Vol] 258 mg/dL High 65-99 [facility] Glucose [Mass/Vol] 171 mg/dL High 65-99 [facility] MAGNESIUMon 12-27-2023 Magnesium [Mass/Vol] 2.0 mg/dL Normal 1.8-2.6 [facility] Comment on above: Performed By: #### 1 9123-9 ####[facility] ([id number])[address] [place] [address] Magnesium [Mass/Vol] 1.8 mg/dL Normal 1.8-2.6 [facility] Comment on above: Performed By: #### C SARATH PAGE, 73131-8 ####[facility] ([id number])[address] [place] [address] XR CHEST 2 VWSon 12-27-2023 XR CHEST 2 VWS XR CHEST 2 VWS Chest 2 views History: increased SOB Comparison: 12/26/2023 Findings: Chest 2 views. Mild vascular congestion edema with small bilateral pleural effusions with bilateral lower lung atelectasis versus pneumonia. Evaluation is compromised by technique. Impression: Small bilateral pleural effusions with mild vascular congestion and edema and bilateral lower lung atelectasis versus pneumonia. Finalized by Job Gama MD on 12/27/2023 5:42 AM Normal [facility] XR HAND LT 2 VWSon 4 XR HAND LT 2 VWS XR HAND LT 2 VWS XR HAND LT 2 VWS Clinical history:pain Comparison: 08/11/2003 Findings: Severe degenerative changes of the first carpometacarpal joint. There is osteopenia demineralization with scattered interphalangeal joint degenerative changes. Impression: Degenerative changes most process of the first carpometacarpal joint. No acute process. Finalized by Job Gama MD on 12/27/2023 4:41 PM Normal [facility] CBC AND AUTO DIFFon 12-26-19 24 ABSOLUTE BASOPHIL 0.0 X10E9/L Normal 0.0-0.2 [facility] Comment on above: Performed By: #### C CAMILO [facility], ####[facility] ([id number])[address] [place] [address] ABSOLUTE NEUTROPHIL 3.2 X10E9/L Normal 1.5-6.6 [facility] Comment on above: Performed By: #### C CAMILO [facility], ####[facility] ([id number])[address] [place] [address] Basophils/100 WBC (Bld) 1.0 % Normal [facility] Comment on above: Performed By: #### C CAMILO [facility], ####[facility] ([id number])[address] [place] [address] Eosinophils (Bld) [#/Vol] 0.3 10*3/uL Normal 0.0-0.4 [facility] Comment on above: Performed By: #### C CAMILO, [facility], ####[facility] ([id number])[address] [place] [address] Eosinophils/100 WBC (Bld) 5.6 % Normal [facility] Comment on above: Performed By: #### C CAMILO, [facility], ####[facility] ([id number])[address] [place] [address] Erythrocyte distribution width (RBC) [Ratio] 14.7 % Normal 11.5-15.0 [facility] Comment on above: Performed By: #### Kaiden PAGE [facility], ####[facility] ([id number])[address] [place] [address] Hematocrit (Bld) [Volume fraction] 25.7 % Low 35-47 [facility] Comment on above: Performed By: #### Kaiden PAGE [facility], ####[facility] ([id number])[address] [place] [address] Hemoglobin (Bld) [Mass/Vol] 8.5 g/dL Low 11.7-15.5 [facility] Comment on above: Performed By: #### Kaiden PAGE [facility], ####[facility] ([id number])[address] [place] [address] Lymphocytes (Bld) [#/Vol] 0.9 10*3/uL Low 1.0-3.5 [facility] Comment on above: Performed By: #### Kaiden PAGE [facility], ####[facility] ([id number])[address] [place] [address] Lymphocytes/100 WBC (Bld) 17.2 % Normal [facility] Comment on above: Performed By: #### Kaiden PAGE [facility], ####[facility] ([id number])[address] [place] [address] MCH (RBC) [Entitic mass] 30.6 pg Normal 27-34 [facility] Comment on above: Performed By: #### Kaiden PAGE [facility], ####[facility] ([id number])[address] [place] [address] MCHC (RBC) [Mass/Vol] 33.1 g/dL Normal 32-36 [facility] Comment on above: Performed By: #### Kaiden PAGE [facility], ####[facility] ([id number])[address] [place] [address] MCV (RBC) [Entitic vol] 93 fL Normal 80-100 [facility] Comment on above: Performed By: #### Kaiden PAGE [facility], ####[facility] ([id number])[address] [place] [address] Monocytes (Bld) [#/Vol] 0.7 10*3/uL Normal 0-0.9 [facility] Comment on above: Performed By: #### Kaiden PAGE [facility], ####[facility] ([id number])[address] [place] [address] Monocytes/100 WBC (Bld) 14.1 % Normal [facility] Comment on above: Performed By: #### Kaiden PAGE [facility], ####[facility] ([id number])[address] [place] [address] Neutrophils/100 WBC (Bld) 62.1 % Normal [facility] Comment on above: Performed By: #### Kaiden PAGE [facility], ####[facility] ([id number])[address] [place] [address] Platelet mean volume (Bld) [Entitic vol] 8.2 fL Normal 7-12 [facility] Comment on above: Performed By: #### Kaiden PAGE [facility], ####[facility] ([id number])[address] [place] [address] Platelets (Bld) [#/Vol] 265 10*3/uL Normal 150-450 [facility] Comment on above: Performed By: #### Kaiden PAGE [facility], ####[facility] ([id number])[address] [place] [address] RBC COUNT 2.78 X10E12/L Low 3.80-5.20 [facility] Comment on above: Performed By: #### Kaiden PAGE, [facility], ####[facility] ([id number])[address] [place] [address] WBC (Bld) [#/Vol] 5.2 10*3/uL Normal 4.0-11.0 [facility] Comment on above: Performed By: #### C BCA, CMP, ####[facility] ([id number])[address] [place] [address] COMPREHENSIVE METABOLIC PANE Gurdeep 12-26-2023 Albumin [Mass/Vol] 2.3 g/dL Low 3.2-5.3 [facility] Comment on above: Performed By: #### C BCA, CMP, ####[facility] ([id number])[address] [place] [address] ALP [Catalytic activity/Vol] 37 U/L Low 39-130 [facility] Comment on above: Performed By: #### C BCA, CMP, ####[facility] ([id number])[address] [place] [address] ALT [Catalytic activity/Vol] 24 U/L Normal 0-31 [facility] Comment on above: Performed By: #### C BCA, CMP, ####[facility] ([id number])[address] [place] [address] Anion gap [Moles/Vol] 2 mmol/L Low 5-15 [facility] Comment on above: Performed By: #### C BCA, CMP, ####[facility] ([id number])[address] [place] [address] AST [Catalytic activity/Vol] 26 U/L Normal 0-41 [facility] Comment on above: Performed By: #### C BCA, CMP, ####[facility] ([id number])[address] [place] [address] Bilirubin [Mass/Vol] 0.4 mg/dL Normal 0.3-1.2 [facility] Comment on above: Performed By: #### C BCA, CMP, ####[facility] ([id number])[address] [place] [address] Calcium [Mass/Vol] 8.3 mg/dL Low 8.5-10.5 [facility] Comment on above: Performed By: #### C CAMILO [facility], ####[facility] ([id number])[address] [place] [address] Chloride [Moles/Vol] 112 mmol/L High 98-109 [facility] Comment on above: Performed By: #### C CAMILO [facility], ####[facility] ([id number])[address] [place] [address] CO2 [Moles/Vol] 24 mmol/L Normal 22-32 [facility] Comment on above: Performed By: #### C CAMILO [facility], ####[facility] ([id number])[address] [place] [address] Creatinine [Mass/Vol] 1.73 mg/dL High 0.40-1.00 [facility] Comment on above: Result Comment: METH OD TRACEABLE TO IDMS STANDARD Performed By: #### C CAMILO [facility], ####[facility] ([id number])[address] [place] [address] GFR/1.73 sq M.predicted among non-blacks MDRD (S/P/Bld) [Vol rate/Area] 30 mL/min/{1.73_m2} Low >59 [facility] Comment on above: Result Comment: Reported eGFR is based on the CKD-EPI 1 equation that does not use a race coefficient. Performed By: #### C CAMILO [facility], ####[facility] ([id number])[address] [place] [address] Glucose [Mass/Vol] 173 mg/dL High 65-99 [facility] Comment on above: Performed By: #### C CAMILO [facility], ####[facility] ([id number])[address] [place] [address] Potassium [Moles/Vol] 4.3 mmol/L Normal 3.5-5.0 [facility] Comment on above: Performed By: #### C CAMILO [facility], ####[facility] ([id number])[address] [place] [address] Protein [Mass/Vol] 5.9 g/dL Low 6.0-8.0 [facility] Comment on above: Performed By: #### Kaiden PAGE [facility], ####[facility] ([id number])[address] [place] [address] Sodium [Moles/Vol] 138 mmol/L Normal 134-146 [facility] Comment on above: Performed By: #### Kaiden PAGE [facility], ####[facility] ([id number])[address] [place] [address] Urea nitrogen [Mass/Vol] 52 mg/dL High 5-27 [facility] Comment on above: Performed By: #### Kaiden PAGE CMP, ####[facility] ([id number])[address] [place] [address] Glucose Glucometer (BldC) [M ass/Vol]on 12-26-2023 Glucose [Mass/Vol] 194 mg/dL High 65-99 [facility] Glucose [Mass/Vol] 229 mg/dL High 65-99 [facility] Glucose [Mass/Vol] 208 mg/dL High 65-99 [facility] Glucose [Mass/Vol] 196 mg/dL High 65-99 [facility] MAGNESIUMon 12-26-2023 Magnesium [Mass/Vol] 2.0 mg/dL Normal 1.8-2.6 [facility] Comment on above: Performed By: #### C SARATH PAGE, ####[facility] ([id number])[address] [place] [address] XR CHEST 2 VWSon 12-26-2023 XR CHEST 2 VWS XR CHEST 2 VWS CLINICAL INFORMATION: . left thorocentesis follow up. TECHNIQUE/PROCEDURE: Two view chest. COMPARISON: 12/23/2023 FINDINGS: No tracheal deviation. Enlarged cardiac silhouette. Bilateral pleural effusions similar to the prior study. No pneumothorax. Vascular congestion/edema. IMPRESSION: * Bilateral pleural effusions with no postprocedural pneumothorax. * Vascular congestion/edema. Finalized by Siddhartha Grossman MD on 12/26/2023 9:02 AM Normal [facility] BF CELL CT AND DIFFon 2023 BODY FLUID COMMENT Interpreta t ion-------- Normal [facility] Comment on above: Result Comment: Refe rence values for this fluid type are undefined, as fluid accumulation is considered abnormal. Performed By: #### B FCT ####[facility] ([id number])[address] [address] FLUID CLARITY HAZY Normal [facility] Comment on above: Performed By: #### B FCT ####[facility] ([id number])[address] [address] [address] FLUID COLOR MARTA Normal [facility] Comment on above: Performed By: #### B FCT ####[facility] ([id number])[address] [address] FLUID EOSINOPHIL 1 % Normal [facility] Comment on above: Performed By: #### B FCT ####[facility] ([id number])[address] [address] FLUID LYMPHOCYTE 85 % Normal [facility] Comment on above: Performed By: #### B FCT ####[facility] ([id number])[address], [address] [address] FLUID MESOTHELIAL 1 % Normal [facility] Comment on above: Performed By: #### B FCT ####[facility] ([id number])[address], [address] [address] FLUID NEUTROPHILS 6 % Normal [facility] Comment on above: Performed By: #### B FCT ####[facility] ([id number])[address], [address] [place] [address] 8414 /uL Normal [facility] Comment on above: Performed By: #### B FCT ####[facility] ([id number])[address], [address] [address] FLUID SPECIMEN TYPE PLEURAL FLUID Normal [facility] Comment on above: Result Comment: LEFT Corrected on 12/24 AT 1845: Previously reported as LEFT PLEURAL FLUID Performed By: #### B FCT ####[facility] ([id number])[address], [address] [address] MACROPHAGES 7 % Normal [facility] Comment on above: Performed By: #### B FCT ####[facility] ([id number])[address], [address] [address] 53 /uL Normal [facility] Comment on above: Performed By: #### B FCT ####[facility] ([id number])[address], [address] [place] [address] CBC AND AUTO DIFFon 12-25-19 24 ABSOLUTE BASOPHIL 0.1 X10E9/L Normal 0.0-0.2 [facility] Comment on above: Performed By: #### C BCA, PINR, 67873-8, CMP, 06791-8 ####[facility] ([id number])[address] [place] [address] Basophils/100 WBC (Bld) 3.9 % Normal [facility] Comment on above: Performed By: #### C BCA, PINR, 87584-2, CMP, 11379-5 ####[facility] ([id number])[address] [place] [address] Eosinophils (Bld) [#/Vol] 0.1 10*3/uL Normal 0.0-0.4 [facility] Comment on above: Performed By: #### C BCA, PINR, , CMP, ####[facility] ([id number])[address] [place] [address] Eosinophils/100 WBC (Bld) 3.9 % Normal [facility] Comment on above: Performed By: #### C BCA, PINR, , [facility], ####[facility] ([id number])[address] [place] [address] Erythrocyte distribution width (RBC) [Ratio] 14.9 % Normal 11.5-15.0 [facility] Comment on above: Performed By: #### C BCA, PINR, , [facility], ####[facility] ([id number])[address] [place] [address] Hematocrit (Bld) [Volume fraction] 25.1 % Low 35-47 [facility] Comment on above: Performed By: #### C BCA, PINR, , [facility], ####[facility] ([id number])[address] [place] [address] Hemoglobin (Bld) [Mass/Vol] 8.4 g/dL Low 11.7-15.5 [facility] Comment on above: Performed By: #### Kaiden BCA, PINR, , [facility], ####[facility] ([id number])[address] [place] [address] HYPOCHROMIA 1+ Abnormal NONE [facility] Comment on above: Performed By: #### C BCA, PINR, , CMP, ####[facility] ([id number])[address] [place] [address] Lymphocytes (Bld) [#/Vol] 0.8 10*3/uL Low 1.0-3.5 [facility] Comment on above: Performed By: #### C BCA, PINR, 06456-4, CMP, ####[facility] ([id number])[address] [place] [address] Lymphocytes/100 WBC (Bld) 21.6 % Normal [facility] Comment on above: Performed By: #### C BCA, PINR, 78377-3, CMP, ####[facility] ([id number])[address] [place] [address] MCH (RBC) [Entitic mass] 30.9 pg Normal 27-34 [facility] Comment on above: Performed By: #### C BCA, PINR, 42682-5, CMP, ####[facility] ([id number])[address] [place] [address] MCHC (RBC) [Mass/Vol] 33.6 g/dL Normal 32-36 [facility] Comment on above: Performed By: #### C BCA, PINR, 91464-2, CMP, ####[facility] ([id number])[address] [place] [address] MCV (RBC) [Entitic vol] 92 fL Normal 80-100 [facility] Comment on above: Performed By: #### C BCA, PINR, 60432-7, CMP, ####[facility] ([id number])[address] [place] [address] Monocytes (Bld) [#/Vol] 0.5 10*3/uL Normal 0-0.9 [facility] Comment on above: Performed By: #### C BCA, PINR, 36750-2, CMP, ####[facility] ([id number])[address] [place] [address] Monocytes/100 WBC (Bld) 14.7 % Normal [facility] Comment on above: Performed By: #### C BCA, PINR, 41188-8, CMP, ####[facility] ([id number])[address] [place] [address] Neutrophils (Bld) [#/Vol] 2.0 10*3/uL Normal 1.5-6.6 [facility] Comment on above: Performed By: #### C BCA, PINR, 94855-8, CMP, ####[facility] ([id number])[address] [place] [address] Platelet mean volume (Bld) [Entitic vol] 8.4 fL Normal 7-12 [facility] Comment on above: Performed By: #### C BCA, PINR, 74571-8, CMP, ####[facility] ([id number])[address] [place] [address] Platelets (Bld) [#/Vol] 271 10*3/uL Normal 150-450 [facility] Comment on above: Performed By: #### C BCA, PINR, 30580-0, CMP, ####[facility] ([id number])[address] [place] [address] RBC COUNT 2.73 X10E12/L Low 3.80-5.20 [facility] Comment on above: Performed By: #### C BCA, PINR, 12229-0, CMP, ####[facility] ([id number])[address] [place] [address] SEG NEUTROPHIL 55.9 % Normal [facility] Comment on above: Performed By: #### C BCA, PINR, 88508-8, CMP, ####[facility] ([id number])[address] [place] [address] WBC (Bld) [#/Vol] 3.5 10*3/uL Low 4.0-11.0 [facility] Comment on above: Performed By: #### C BCA, PINR, 19780-9, CMP, ####[facility] ([id number])[address] [place] [address] COMPREHENSIVE METABOLIC PANE Gurdeep 12-25-2023 Albumin [Mass/Vol] 2.2 g/dL Low 3.2-5.3 [facility] Comment on above: Performed By: #### 3 274-8 #### [facility] ([id number]) [address] [place] [address] ALP [Catalytic activity/Vol] 35 U/L Low 39-130 [facility] Comment on above: Performed By: #### 3 274-8 #### [facility] ([id number]) [address] [place] [address] ALT [Catalytic activity/Vol] 22 U/L Normal 0-31 [facility] Comment on above: Performed By: #### 3 274-8 #### [facility] ([id number]) [address] [place] [address] Anion gap [Moles/Vol] 4 mmol/L Low 5-15 [facility] Comment on above: Performed By: #### 3 274-8 #### [facility] ([id number]) [address] [place] [address] AST [Catalytic activity/Vol] 24 U/L Normal 0-41 [facility] Comment on above: Performed By: #### 3 274-8 #### [facility] ([id number]) [address] [place] [address] Bilirubin [Mass/Vol] 0.4 mg/dL Normal 0.3-1.2 [facility] Comment on above: Performed By: #### 3 274-8 #### [facility] ([id number]) [address] [place] [address] Calcium [Mass/Vol] 8.2 mg/dL Low 8.5-10.5 [facility] Comment on above: Performed By: #### 3 274-8 #### [facility] ([id number]) [address] [place] [address] Chloride [Moles/Vol] 111 mmol/L High 98-109 [facility] Comment on above: Performed By: #### 3 274-8 #### [facility] ([id number]) [address] [place] [address] CO2 [Moles/Vol] 23 mmol/L Normal 22-32 [facility] Comment on above: Performed By: #### 3 274-8 #### [facility] ([id number]) [address] [place] [address] Creatinine [Mass/Vol] 1.94 mg/dL High 0.40-1.00 [facility] Comment on above: Result Comment: METH OD TRACEABLE TO IDMS STANDARD Performed By: #### 3 274-8 #### [facility] ([id number]) [address] [place] [address] GFR/1.73 sq M.predicted among non-blacks MDRD (S/P/Bld) [Vol rate/Area] 26 mL/min/{1.73_m2} Low >59 [facility] Comment on above: Result Comment: Reported eGFR is based on the CKD-EPI 2020 equation that does not use a race coefficient. Performed By: #### 3 274-8 #### [facility] ([id number]) [address] [place] [address] Glucose [Mass/Vol] 179 mg/dL High 65-99 [facility] Comment on above: Performed By: #### 3 274-8 #### [facility] ([id number]) [address] [place] [address] Potassium [Moles/Vol] 4.2 mmol/L Normal 3.5-5.0 [facility] Comment on above: Performed By: #### 3 274-8 #### [facility] ([id number]) [address] [place] [address] Protein [Mass/Vol] 5.7 g/dL Low 6.0-8.0 [facility] Comment on above: Performed By: #### 3 274-8 #### [facility] ([id number]) [address] [place] [address] Sodium [Moles/Vol] 138 mmol/L Normal 134-146 [facility] Comment on above: Performed By: #### 3 274-8 #### [facility] ([id number]) [address] [place] [address] Urea nitrogen [Mass/Vol] 48 mg/dL High 5-27 [facility] Comment on above: Performed By: #### 3 274-8 #### [facility] ([id number]) [address] [place] [address] Cytologyon 12-25-2023 Cytology Normal [facility] Comment on above: Result Comment: [facility] [address] [place] [address] Cytology Consultation Patient Name:RIAZ KEARNEY:1945 (Age: 78)Gender:FTaken:4Reported:01/04/2024 13:06Physician(s):Parris Mccarthy [employer]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 Rec. #:[id number]: #[id number] Final Cytologic Diagnosis Left pleural fluid: No malignant cells identified. k/01/04/2024 Interpretation performed at [facility], [address] [place] [address], License number: [id number].Electronically Signed Out By La Nena Soliz MD Clinical History Pleural effusion/PNA LLL. Hypoxic respiratory failure (CMS-HCC) (J96.91). Gross Description Received was 500 mL of bloody fluid unfixed labeled as [place], left pleural fluid . CytoLyt added in lab. Specimen placed in formalin at 10:00 and had a total fixation time of 15 hours. 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[employer] Fee Code(s): 1; 88646, 59405 FERRITINon 12-25-2023 Ferritin [Mass/Vol] 785 ng/mL High 11-307 [facility] Comment on above: Performed By: #### 3 274-8 #### [facility] ([id number]) [address] [place] [address] FLUID CULTUREon 12-25-2023 Bacteria identified Aer cx Nom (Body fld) GRAM STAIN WHITE BLOOD CELLS PRESENT NO ORGANISMS SEEN ON CONCENTRATED SMEAR CULTURE RESULTS NO GROWTH 5 DAYS Normal [facility] Comment on above: Performed By: #### 6 10-6 ####[facility] ([id number])[address], [address] [address] FLUID GLUCOSEon 12-25-2023 FLUID GLUCOSE 190 mg/dL Normal [facility] Comment on above: Result Comment: The reference interval and other method performance specifications are unavailable for this body fluid. Comparison of this result to serum or plasma is recommended. Performed By: #### 3 274-8 #### [facility] ([id number]) [address] [place] [address] GLU SPECIMEN TYPE PLEURAL FLUID Normal [facility] Comment on above: Result Comment: LEFT Corrected on 12/24 AT 1845: Previously reported as LEFT PLEURAL FLUID Performed By: #### 3 274-8 #### [facility] ([id number]) [address] [place] [address] FLUID LDHon 12-25-2023 FLUID LDH 95 U/L Normal [facility] Comment on above: Result Comment: The reference interval and other method performance specifications are unavailable for this body fluid. Comparison of this result to serum or plasma is recommended. Performed By: #### F GLU, FLD, FTP ####[facility] ([id number])[address], [address] [address] LD SPECIMEN TYPE PLEURAL FLUID Normal [facility] Comment on above: Result Comment: LEFT Corrected on 12/24 AT 1845: Previously reported as LEFT PLEURAL FLUID Performed By: #### F GLU, FLD, FTP ####[facility] ([id number])[address] [address] FLUID T. PROTEINon 4 FLUID TOT. PROTEIN 2.0 g/dL Normal [facility] Comment on above: Result Comment: The reference interval and other method performance specifications are unavailable for this body fluid. Comparison of this result to serum or plasma is recommended. Performed By: #### F GLU, FLD, FTP ####[facility] ([id number])[address], [address] [place] [address] TP SPECIMEN TYPE PLEURAL FLUID Normal [facility] Comment on above: Result Comment: LEFT Corrected on 12/24 AT 1845: Previously reported as LEFT PLEURAL FLUID Performed By: #### F GLU FLD, FTP ####[facility] ([id number])[address], [address] [address] Glucose Glucometer (BldC) [M ass/Vol]on 12-25-2023 Glucose [Mass/Vol] 221 mg/dL High 65-99 [facility] Glucose [Mass/Vol] 302 mg/dL High 65-99 [facility] Glucose [Mass/Vol] 211 mg/dL High 65-99 [facility] Glucose [Mass/Vol] 166 mg/dL High 65-99 [facility] IRON PROFILEon 12-25-2023 Iron [Mass/Vol] 29 ug/dL Low 50-170 [facility] Comment on above: Performed By: #### 3 274-8 #### [facility] ([id number]) [address] [place] [address] IRON BINDING 188 ug/dL Low 250-425 [facility] Comment on above: Performed By: #### 3 274-8 #### [facility] ([id number]) [place] [address] IRON SATURATION 15 % SATURATION Normal 15-50 [facility] Comment on above: Performed By: #### 3 274-8 #### [facility] ([id number]) [address] [place] [address] MAGNESIUMon 12-25-2023 Magnesium [Mass/Vol] 2.1 mg/dL Normal 1.8-2.6 [facility] Comment on above: Performed By: #### 3 274-8 #### [facility] ([id number]) [address] [place] [address] PROTIME AND INRon 12-25-2023 INR Coag (PPP) [Relative time] 1.1 {INR} Normal 0.8-1.1 [facility] Comment on above: Performed By: #### C BCA, PINR, 98817-1, CMP, 68359-9 ####[facility] ([id number])[address] [place] [address] PT Coag (PPP) [Time] 13.2 s Normal 9.8-13.2 [facility] Comment on above: Performed By: #### C BCA, PINR, 40337-9, CMP, 76216-6 ####[facility] ([id number])[address] [place] [address] aPTT Coag (PPP) [Time]on aPTT Coag (Bld) [Time] 30 s Normal 26-[address] [facility] Comment on above: Performed By: #### C BCA, PINR, 48737-2, CMP, 31852-3 ####[facility] ([id number])[address] [place] [address] CBC AND AUTO DIFFon 12-24-19 24 ABSOLUTE BASOPHIL 0.1 X10E9/L Normal 0.0-0.2 [facility] Comment on above: Performed By: #### 3 274-8, CBCA, CMP, 2156-11, 46644-1, 51276-6 #### [facility] ([id number]) [address] [place] [address] ABSOLUTE NEUTROPHIL 2.6 X10E9/L Normal 1.5-6.6 [facility] Comment on above: Performed By: #### 3 274-8, CBCA, CMP, 2156-11, 68311-7, 29173-9 #### [facility] ([id number]) [address] [place] [address] Basophils/100 WBC (Bld) 1.4 % Normal [facility] Comment on above: Performed By: #### 3 274-8, CBCA, CMP, 2157-6, 59495-0, 04507-2 #### [facility] ([id number]) [address] [place] [address] Eosinophils (Bld) [#/Vol] 0.1 10*3/uL Normal 0.0-0.4 [facility] Comment on above: Performed By: #### 3 274-8, CBCA, CMP, 2157-6, 71766-7, 10688-1 #### [facility] ([id number]) [address] [place] [address] Eosinophils/100 WBC (Bld) 2.4 % Normal [facility] Comment on above: Performed By: #### 3 274-8, CBCA, CMP, 2157-6, 31790-4, 31059-1 #### [facility] ([id number]) [address] [place] [address] Erythrocyte distribution width (RBC) [Ratio] 14.7 % Normal 11.5-15.0 [facility] Comment on above: Performed By: #### 3 274-8, CBCA, CMP, 2157-6, 51384-1, 54027-9 #### [facility] ([id number]) [address] [place] [address] Hematocrit (Bld) [Volume fraction] 27.4 % Low 35-47 [facility] Comment on above: Performed By: #### 3 274-8, CBCA, CMP, 2157-6, 82881-6, 04499-2 #### [facility] ([id number]) [address] [place] [address] Hemoglobin (Bld) [Mass/Vol] 9.1 g/dL Low 11.7-15.5 [facility] Comment on above: Performed By: #### 3 274-8, CBCA, CMP, 2157-6, 07293-3, 85226-7 #### [facility] ([id number]) [address] [place] [address] Lymphocytes (Bld) [#/Vol] 0.7 10*3/uL Low 1.0-3.5 [facility] Comment on above: Performed By: #### 3 274-8, CBCA, CMP, 2156-, 25630-7, 39328-7 #### [facility] ([id number]) [address] [place] [address] Lymphocytes/100 WBC (Bld) 16.5 % Normal [facility] Comment on above: Performed By: #### 3 274-8, CBCA, CMP, 2156-, 29326-2, 38544-7 #### [facility] ([id number]) [address] [place] [address] MCH (RBC) [Entitic mass] 30.8 pg Normal 27-34 [facility] Comment on above: Performed By: #### 3 274-8, CBCA, CMP, 2156-6, 12604-0, 05783-4 #### [facility] ([id number]) [address] [place] [address] MCHC (RBC) [Mass/Vol] 33.4 g/dL Normal 32-36 [facility] Comment on above: Performed By: #### 3 274-8, CBCA, CMP, 2156-, 34968-5, 42499-3 #### [facility] ([id number]) [address] [place] [address] MCV (RBC) [Entitic vol] 92 fL Normal 80-100 [facility] Comment on above: Performed By: #### 3 274-8, CBCA, CMP, 2156-, 13692-7, 77615-8 #### [facility] ([id number]) [address] [place] [address] Monocytes (Bld) [#/Vol] 0.8 10*3/uL Normal 0-0.9 [facility] Comment on above: Performed By: #### 3 274-8, CBCA, CMP, 2157-6, 23441-2, 22002-0 #### [facility] ([id number]) [address] [place] [address] Monocytes/100 WBC (Bld) 18.5 % Normal [facility] Comment on above: Performed By: #### 3 274-8, CBCA, CMP, 2157-6, 94614-6, 09223-4 #### [facility] ([id number]) [address] [place] [address] Neutrophils/100 WBC (Bld) 61.2 % Normal [facility] Comment on above: Performed By: #### 3 274-8, CBCA, CMP, 2157-6, 48881-0, 30947-9 #### [facility] ([id number]) [address] [place] [address] Platelet mean volume (Bld) [Entitic vol] 8.3 fL Normal 7-12 [facility] Comment on above: Performed By: #### 3 274-8, CBCA, CMP, 2157-6, 27735-5, 47915-0 #### [facility] ([id number]) [address] [place] [address] Platelets (Bld) [#/Vol] 265 10*3/uL Normal 150-450 [facility] Comment on above: Performed By: #### 3 274-8, CBCA, CMP, 2157-6, 26950-3, 79442-8 #### [facility] ([id number]) [address] [place] [address] RBC COUNT 2.97 X10E12/L Low 3.80-5.20 [facility] Comment on above: Performed By: #### 3 274-8, CBCA, CMP, 2157-6, 59839-4, 47192-8 #### [facility] ([id number]) [address] [place] [address] RBC morphology finding Nom (Bld) REVIEWED Normal [facility] Comment on above: Performed By: #### 3 274-8, CBCA, CMP, 2157-6, 24317-4, 78194-6 #### [facility] ([id number]) [address] [place] [address] WBC (Bld) [#/Vol] 4.3 10*3/uL Normal 4.0-11.0 [facility] Comment on above: Performed By: #### 3 274-8, CBCA, CMP, 2157-6, 10898-4, 41605-6 #### [facility] ([id number]) [address] [place] [address] COMPREHENSIVE METABOLIC PANE Gurdeep 12-24-2023 Albumin [Mass/Vol] 2.5 g/dL Low 3.2-5.3 [facility] Comment on above: Performed By: #### 3 274-8, CBCA, CMP, 2157-6, 73929-3, 84478-4 #### [facility] ([id number]) [address] [place] [address] ALP [Catalytic activity/Vol] 38 U/L Low 39-130 [facility] Comment on above: Performed By: #### 3 274-8, CBCA, CMP, 2157-6, 61073-1, 61980-8 #### [facility] ([id number]) [address] [place] [address] ALT [Catalytic activity/Vol] 19 U/L Normal 0-31 [facility] Comment on above: Performed By: #### 3 274-8, CBCA, CMP, 2157-6, 65439-8, 37537-8 #### [facility] ([id number]) [address] [place] [address] Anion gap [Moles/Vol] 9 mmol/L Normal 5-15 [facility] Comment on above: Performed By: #### 3 274-8, CBCA, CMP, 2157-6, 62992-1, 89665-8 #### [facility] ([id number]) [address] [place] [address] AST [Catalytic activity/Vol] 19 U/L Normal 0-41 [facility] Comment on above: Performed By: #### 3 274-8, CBCA, CMP, 2156-6, 82519-4, 09466-5 #### [facility] ([id number]) [address] [place] [address] Bilirubin [Mass/Vol] 0.6 mg/dL Normal 0.3-1.2 [facility] Comment on above: Performed By: #### 3 274-8, CBCA, CMP, 2156-, 35110-8, 77236-6 #### [facility] ([id number]) [address] [place] [address] Calcium [Mass/Vol] 8.6 mg/dL Normal 8.5-10.5 [facility] Comment on above: Performed By: #### 3 274-8, CBCA, CMP, 2156-6, 37339-2, 23558-0 #### [facility] ([id number]) [address] [place] [address] Chloride [Moles/Vol] 111 mmol/L High 98-109 [facility] Comment on above: Performed By: #### 3 274-8, CBCA, CMP, 2156-6, 19365-3, 59138-9 #### [facility] ([id number]) [address] [place] [address] CO2 [Moles/Vol] 20 mmol/L Low 22-32 [facility] Comment on above: Performed By: #### 3 274-8, CBCA, CMP, 2156-6, 41566-8, 81738-1 #### [facility] ([id number]) [address] [place] [address] Creatinine [Mass/Vol] 1.82 mg/dL High 0.40-1.00 [facility] Comment on above: Result Comment: METH OD TRACEABLE TO IDMS STANDARD Performed By: #### 3 274-8, CBCA, CMP, 2157-6, 91507-9, 99862-6 #### [facility] ([id number]) [address] [place] [address] GFR/1.73 sq M.predicted among non-blacks MDRD (S/P/Bld) [Vol rate/Area] 28 mL/min/{1.73_m2} Low >59 [facility] Comment on above: Result Comment: Reported eGFR is based on the CKD-EPI 2020 equation that does not use a race coefficient. Performed By: #### 3 274-8, CBCA, CMP, 7-6, 40237-1, 86506-3 #### [facility] ([id number]) [address] [place] [address] Glucose [Mass/Vol] 61 mg/dL Low 65-99 [facility] Comment on above: Performed By: #### 3 274-8, CBCA, CMP, 2156-, 14133-2, 53207-7 #### [facility] ([id number]) [address] [place] [address] Potassium [Moles/Vol] 4.4 mmol/L Normal 3.5-5.0 [facility] Comment on above: Performed By: #### 3 274-8, CBCA, CMP, 2156-6, 21914-5, 28593-1 #### [facility] ([id number]) [address] [place] [address] Protein [Mass/Vol] 6.2 g/dL Normal 6.0-8.0 [facility] Comment on above: Performed By: #### 3 274-8, CBCA, CMP, 2156-6, 61782-7, 45670-6 #### [facility] ([id number]) [address] [place] [address] Sodium [Moles/Vol] 140 mmol/L Normal 134-146 [facility] Comment on above: Performed By: #### 3 274-8, CBCA, CMP, 215-6, 22563-6, 86282-9 #### [facility] ([id number]) [address] [place] [address] Urea nitrogen [Mass/Vol] 49 mg/dL High 5-27 [facility] Comment on above: Performed By: #### 3 274-8, CBCA, CMP, 2156-11, , 15971-8 #### [facility] ([id number]) [address] [place] [address] Glucose Glucometer (BldC) [M ass/Vol]on 12-24-2023 Glucose [Mass/Vol] 178 mg/dL High 65-99 [facility] Glucose [Mass/Vol] 146 mg/dL High 65-99 [facility] Glucose [Mass/Vol] 129 mg/dL High 65-99 [facility] Glucose [Mass/Vol] 90 mg/dL Normal 65-99 [facility] Glucose [Mass/Vol] 60 mg/dL Low 65-99 [facility] MAGNESIUMon 12-24-2023 Magnesium [Mass/Vol] 2.1 mg/dL Normal 1.8-2.6 [facility] Comment on above: Performed By: #### 1 9123-9 ####[facility] ([id number])[address] [place] [address] Magnesium [Mass/Vol] 1.5 mg/dL Low 1.8-2.6 [facility] Comment on above: Performed By: #### 3 274-8, CBCA, CMP, 2156-11, , 45677-5 #### [facility] ([id number]) [address] [place] [address] Procalcitonin IA [Mass/Vol]o n 12-24-2023 PROCALCITONIN 0.62 ng/mL High <0.05 [facility] Comment on above: Result Comment: NOTE <0.50 ng/mL - Low risk of severe sepsis and/or septic shock. <2.00 ng/mL - Recommend retesting within 6-24 hours. >2.00 ng/mL - High risk of sepsis and/or septic shock. Performed By: #### C BCA, CMP, , 08071-4 ####[facility] ([id number])[address] [place] [address] ARTERIAL BLOOD GASon 024 EWELINA'S TEST Pass Normal [facility] Comment on above: Performed By: #### A BG ####[facility] ([id number])[address] [place] [address], [place] [address] BASE,DEFICIT 4.0 MMOL/L High 0.0-2.0 [facility] Comment on above: Performed By: #### A BG ####[facility] ([id number])[address] [place] [address], [place] [address] Body temperature 98.6 [degF] Normal 37.0 [facility] Comment on above: Performed By: #### A BG ####[facility] ([id number])[address] [place] [address] [place] [address] HCO3 (Bld) [Moles/Vol] 21.4 mmol/L Low 22-26 [facility] Comment on above: Performed By: #### A BG ####[facility] ([id number])[address] [place] [address], [place] [address] INSP. O2 CONC. 45 % Normal [facility] Comment on above: Performed By: #### A BG ####[facility] ([id number])[address] [place] [address], [place] [address] Oxygen (Bld) [Partial pressure] 75 mm[Hg] Low 80-100 [facility] Comment on above: Performed By: #### A BG ####[facility] ([id number])[address] [place] [address] [place] [address] Oxygen saturation in Blood 94.0 % Normal >90 [facility] Comment on above: Performed By: #### A BG ####[facility] ([id number])[address] [place] [address], [place] [address] OXYGEN SOURCE NPPV Normal [facility] Comment on above: Performed By: #### A BG ####[facility] ([id number])[address] [place] [address] [place] [address] PCO2 39.3 MMHG Normal 35-45 [facility] Comment on above: Performed By: #### A BG ####[facility] ([id number])[address] [place] [address] pH (Bld) 7.343 [pH] Low 7.350-7.450 [facility] Comment on above: Performed By: #### A BG ####[facility] ([id number])[address] [place] [address] SAMPLE SITE LRad Normal [facility] Comment on above: Performed By: #### A BG ####[facility] ([id number])[address] [place] [address] SAMPLE TYPE ARTERIAL Normal [facility] Comment on above: Performed By: #### A BG ####[facility] ([id number])[address] [place] [address] BLOOD CULTUREon 12-23-2023 Bacteria identified Aer cx Nom (Bld) SPECIMEN NOTES SUBOPTIMAL VOLUME OF BLOOD COLLECTED, RESULTS MAY BE AFFECTED. CULTURE RESULTS NO GROWTH 5 DAYS Normal [facility] Comment on above: Performed By: #### 1 7928-3 ####[facility] ([id number])[address], [address] [address] Bacteria identified Aer cx Nom (Bld) SPECIMEN NOTES SUBOPTIMAL VOLUME OF BLOOD COLLECTED, RESULTS MAY BE AFFECTED. CULTURE RESULTS NO GROWTH 5 DAYS Normal [facility] Comment on above: Performed By: #### 1 7928-3 ####[facility] ([id number])[address], [address] [place] [address] CBC AND AUTO DIFFon 12-23-19 24 ABSOLUTE BASOPHIL 0.1 X10E9/L Normal 0.0-0.2 [facility] Comment on above: Performed By: #### M ALBU #### [facility] ([id number]) [address], [address] [place] [address] ABSOLUTE NEUTROPHIL 4.9 X10E9/L Normal 1.5-6.6 [facility] Comment on above: Performed By: #### M ALBU #### [facility] ([id number]) [address], [address] [place] [address] Basophils/100 WBC (Bld) 1.0 % Normal [facility] Comment on above: Performed By: #### M ALBU #### [facility] ([id number]) [address], [address] [place] [address] Eosinophils (Bld) [#/Vol] 0.1 10*3/uL Normal 0.0-0.4 [facility] Comment on above: Performed By: #### M ALBU #### [facility] ([id number]) [address], [address] [place] [address] Eosinophils/100 WBC (Bld) 1.8 % Normal [facility] Comment on above: Performed By: #### M ALBU #### [facility] ([id number]) [address], [address] [place] [address] Erythrocyte distribution width (RBC) [Ratio] 14.8 % Normal 11.5-15.0 [facility] Comment on above: Performed By: #### M ALBU #### [facility] ([id number]) [address], [address] [place] [address] Hematocrit (Bld) [Volume fraction] 29.8 % Low 35-47 [facility] Comment on above: Performed By: #### M ALBU #### [facility] ([id number]) [address], [address] [place] [address] Hemoglobin (Bld) [Mass/Vol] 10.0 g/dL Low 11.7-15.5 [facility] Comment on above: Performed By: #### M ALBU #### [facility] ([id number]) [address], [address] [place] [address] Lymphocytes (Bld) [#/Vol] 0.9 10*3/uL Low 1.0-3.5 [facility] Comment on above: Performed By: #### M ALBU #### [facility] ([id number]) [address], [address] [place] [address] Lymphocytes/100 WBC (Bld) 12.9 % Normal [facility] Comment on above: Performed By: #### M ALBU #### [facility] ([id number]) [address], [address] [place] [address] MCH (RBC) [Entitic mass] 30.4 pg Normal 27-34 [facility] Comment on above: Performed By: #### M ALBU #### [facility] ([id number]) [address], [address] [place] [address] MCHC (RBC) [Mass/Vol] 33.4 g/dL Normal 32-36 [facility] Comment on above: Performed By: #### M ALBU #### [facility] ([id number]) [address], [address] [place] [address] MCV (RBC) [Entitic vol] 91 fL Normal 80-100 [facility] Comment on above: Performed By: #### M ALBU #### [facility] ([id number]) [address], [address] [place] [address] Monocytes (Bld) [#/Vol] 1.1 10*3/uL High 0-0.9 [facility] Comment on above: Performed By: #### M ALBU #### [facility] ([id number]) [address], [address] [place] [address] Monocytes/100 WBC (Bld) 14.9 % Normal [facility] Comment on above: Performed By: #### M ALBU #### [facility] ([id number]) [address], [address] [place] [address] Neutrophils/100 WBC (Bld) 69.4 % Normal [facility] Comment on above: Performed By: #### M ALBU #### [facility] ([id number]) [address], [address] [place] [address] Platelet mean volume (Bld) [Entitic vol] 8.0 fL Normal 7-12 [facility] Comment on above: Performed By: #### M ALBU #### [facility] ([id number]) [address], [address] [place] [address] Platelets (Bld) [#/Vol] 348 10*3/uL Normal 150-450 [facility] Comment on above: Performed By: #### M ALBU #### [facility] ([id number]) [address], [address] [place] [address] RBC COUNT 3.27 X10E12/L Low 3.80-5.20 [facility] Comment on above: Performed By: #### M ALBU #### [facility] ([id number]) [address], [address] [place] [address] WBC (Bld) [#/Vol] 7.1 10*3/uL Normal 4.0-11.0 [facility] Comment on above: Performed By: #### M ALBU #### [facility] ([id number]) [address], [address] [place] [address] COMPREHENSIVE METABOLIC PANE Gurdeep 12-23-2023 Albumin [Mass/Vol] 2.8 g/dL Low 3.2-5.3 [facility] Comment on above: Performed By: #### M ALBU #### [facility] ([id number]) [address], [address] [place] [address] ALP [Catalytic activity/Vol] 45 U/L Normal 39-130 [facility] Comment on above: Performed By: #### M ALBU #### [facility] ([id number]) [address], [address] [place] [address] ALT [Catalytic activity/Vol] 26 U/L Normal 0-31 [facility] Comment on above: Performed By: #### M ALBU #### [facility] ([id number]) [address], [address] [place] [address] Anion gap [Moles/Vol] 4 mmol/L Low 5-15 [facility] Comment on above: Performed By: #### M ALBU #### [facility] ([id number]) [address], [address] [place] [address] AST [Catalytic activity/Vol] 22 U/L Normal 0-41 [facility] Comment on above: Performed By: #### M ALBU #### [facility] ([id number]) [address], [address] [place] [address] Bilirubin [Mass/Vol] 0.5 mg/dL Normal 0.3-1.2 [facility] Comment on above: Performed By: #### M ALBU #### [facility] ([id number]) [address], [address] [place] [address] Calcium [Mass/Vol] 8.6 mg/dL Normal 8.5-10.5 [facility] Comment on above: Performed By: #### M ALBU #### [facility] ([id number]) [address], [address] [place] [address] Chloride [Moles/Vol] 112 mmol/L High 98-109 [facility] Comment on above: Performed By: #### M ALBU #### [facility] ([id number]) [address], [address] [place] [address] CO2 [Moles/Vol] 23 mmol/L Normal 22-32 [facility] Comment on above: Performed By: #### M ALBU #### [facility] ([id number]) [address], [address] [place] [address] Creatinine [Mass/Vol] 2.07 mg/dL High 0.40-1.00 [facility] Comment on above: Result Comment: METH OD TRACEABLE TO IDMS STANDARD Performed By: #### M ALBU #### [facility] ([id number]) [address], [address] [place] [address] GFR/1.73 sq M.predicted among non-blacks MDRD (S/P/Bld) [Vol rate/Area] 24 mL/min/{1.73_m2} Low >59 [facility] Comment on above: Result Comment: Reported eGFR is based on the CKD-EPI 2020 equation that does not use a race coefficient. Performed By: #### M ALBU #### [facility] ([id number]) [address], [address] [place] [address] Glucose [Mass/Vol] 58 mg/dL Low 65-99 [facility] Comment on above: Performed By: #### M ALBU #### [facility] ([id number]) [address] [place] [address] Potassium [Moles/Vol] 4.3 mmol/L Normal 3.5-5.0 [facility] Comment on above: Performed By: #### M ALBU #### [facility] ([id number]) [address], [address] [place] [address] Protein [Mass/Vol] 6.9 g/dL Normal 6.0-8.0 [facility] Comment on above: Performed By: #### M ALBU #### [facility] ([id number]) [address] [place] [address] Sodium [Moles/Vol] 139 mmol/L Normal 134-146 [facility] Comment on above: Performed By: #### M ALBU #### [facility] ([id number]) [address] [place] [address] Urea nitrogen [Mass/Vol] 54 mg/dL High - [facility] Comment on above: Performed By: #### M ALBU #### [facility] ([id number]) [address] [place] [address] CT ABDOMEN AND PELVIS WO CON Ton 12-23-2023 CT ABDOMEN AND PELVIS WO CONT CT ABDOMEN AND PELVIS WO CONT CLINICAL INFORMATION: Abdominal/flank pain, stone suspected. TECHNIQUE: CT Abdomen and Pelvis without intravenous contrast. All CT scans at this facility use dose modulation, iterative reconstruction, and/or weight based dosing when appropriate to reduce radiation dose to as low as reasonably achievable. COMPARISON: 11/19/2023 FINDINGS: Lung bases: Left larger than right effusions with moderate burden of nonspecific airspace disease left lung base. Bony structures: T11 anterior wedge compression noted not significant change from previous. Abdomen: Prior cholecystectomy. Trace subcapsular fluid along the anterior liver margin. No gross biliary dilatation. The pancreas, spleen and left adrenal gland are stable. Prior right nephrectomy. Stable 2 cm calculus left renal pelvis with mild calyceal prominence similar to previous. Interval placement of double-J ureteral stent. No calculi along the course of the ureter. Nonobstructive bowel gas pattern. No free air. Left abdomen ostomy site appears uncomplicated. Additional right periumbilical abdominal wall hernia containing uncomplicated large bowel. No obvious bowel inflammation or distention. Pelvis: Poor definition of the anorectal complex. Difficult to exclude inflammation or fluid collection. Urinary bladder is decompressed with a Jiménez catheter in place. Atherosclerotic disease of normal size aorta. No retroperitoneal hematoma or adenopathy. IMPRESSION: * Progressive left basilar airspace density and effusion compared to previous month. * Persistent 2 cm calculus left renal pelvis with mild caliectasis. Ureteral stents in place. * Poor definition of the anorectal complex. Potentially redundant bowel however difficult to exclude inflammation or fluid collection. Finalized by Cruzito Dubose DO on 12/23/2023 12:57 PM Normal [facility] CT CHEST WO CONTon 4 CT CHEST WO CONT CT CHEST WO CONT CT CHEST WO CONT CLINICAL INFORMATION: 78 years old Female with shortness of breath. TECHNIQUE/PROCEDURE: CT chest without intravenous contrast. All CT scans at this facility use dose modulation, iterative reconstruction, and/or weight based dosing when appropriate to reduce radiation dose to as low as reasonably achievable. Some structures are not well evaluated due to the lack of IV contrast. Computer aided detection for pulmonary nodules?was performed utilizing [employer] software.? COMPARISON: CT chest dated 06/03/[address] abdomen pelvis dated 11/19/2023. FINDINGS: Diagnostic quality: Satisfactory Lower neck: Unremarkable. Mediastinum: Unremarkable. Central airways: Patent. Lung: No pneumothorax. Moderate sized left pleural effusion with near complete atelectasis of the left lower lobe and moderate atelectasis of the left upper lobe. Small right pleural effusion with mild adjacent compressive atelectasis of the right lower lobe. Pulmonary artery: Non-ectatic pulmonary trunk. Intraluminal evaluation is compromised due to lack of IV contrast. Aorta: Unremarkable. Three-vessel aortic arch. Intraluminal evaluation is compromised due to lack of IV contrast. Cardiac: Heavy calcification of the coronary vessels. Chest wall: Unremarkable. Osseous: Greater than 50% vertebral body height loss of the T11 vertebral body unchanged from exam dated 11/19/2023. Upper abdomen: Please see report for same day CT abdomen pelvis for evaluation of those structures. IMPRESSION: * Significant loss of left lung volume with moderate sized left pleural effusion and near complete atelectasis/consolida tion of the left lower lobe and moderate atelectasis of the left upper lobe. * Small right pleural effusion. Approved by Resident Siddhartha Valentine DO on 12/23/2023 12:33 PM Geovanna Medellin MD have personally reviewed the image(s) and agree with and/or edited the report Finalized by Geovanna Warner MD on 12/23/2023 1:19 PM Normal [facility] Glucose Glucometer (BldC) [M ass/Vol]on 12-23-2023 Glucose [Mass/Vol] 70 mg/dL Normal 65-99 [facility] Glucose [Mass/Vol] 44 mg/dL Critically low 65-99 [facility] LIPASEon 12-23-2023 Lipase [Catalytic activity/Vol] 24 U/L Normal 17-40 [facility] Comment on above: Performed By: #### C CAMILO CMP, 3040-3, 02723-3, 33852-2, 97383- 4 ####[facility] ([id number])[address] [place] [address] Lactate (P aleksandar) [Moles/Vol]o n 12-23-2023 LACTATE W/REFLEX 0.5 mmol/L Normal 0.4-2.0 [facility] Comment on above: Result Comment: Result did not trigger repeat Lactate, re-order if needed. Performed By: #### C CAMILO CMP, 3040-3, 23760-3, 16707-8, 58500-2 ####[facility] ([id number])[address] [place] [address] Natriuretic peptide B [Mass/ Vol]on 12-23-2023 Natriuretic peptide B (Bld) [Mass/Vol] 595 pg/mL High <100.0 [facility] Comment on above: Performed By: #### C CAMILO, CMP, 3040-3, 12010-4, 88296-9, 41625- 4 ####[facility] ([id number])[address] [place] [address] SARS/FLU A+B/RSV by NAAT/Mol ecularon 12-23-2023 SARS/FLU A+B/RSV by NAAT/Molecular FLU A PCR Negative (qualifier value) FLU B PCR Negative (qualifier value) RSV by PCR Negative (qualifier value) SARS CoV 2 Not detected (qualifier value) NOTE The Xpert Xpress SARS-CoV-2/Flu/RSV Plus test is a rapid, multiplexed real-time RT-PCR test intended for the simultaneous qualitative detection and differentiation of SARS-CoV-2, influenza A, influenza B and respiratory syncytial virus (RSV) viral RNA from individuals suspected of respiratory viral infection consistent with COVID-19 by their healthcare provider. This test has not been validated in asymptomatic patients. The Xpert Xpress SARS-CoV-2 test is intended for use by qualified and trained operators who are performing tests using either [employer] or [employer] systems and is limited to laboratories that meet the CLIA requirements to perform high and moderate complexity tests. The Xpert Xpress SARS-CoV-2/Flu/RSV Plus is only for use under the Food and Drug Administration's Emergency Use Authorization. Results are for the simultaneous detection and differentiation of SARS-CoV-2, influenza A, influenza B and RSV nucleic acids in clinical specimens. SARS-CoV-2, influenza A, influenza B and RSV RNA identified by this test are generally detectable in upper respiratory samples during the acute phase of infection. Positive results are indicative of the presence of the identified virus, but do not rule out bacterial infection or co-infection with other pathogens not detected by this test. Clinical correlation with patient history and other diagnostic information is necessary to determine patient infection status. The agent detected may not be the definite cause of disease. Negative results do not preclude SARS-CoV-2, influenza A, influenza B and RSV infection and should not be used as the sole basis for treatment or other patient management decisions. Negative results must be combined with clinical observations, patient history and epidemiological information. An Invalid result may occur with specimen-associated inhibition unable to be resolved with specimen repeat. Fact Sheet for Healthcare Providers: https://www.fda.gov/m edia/028496/download Fact Sheet for Patients: https://www.fda.gov/m edia/364448/download Normal [facility] Comment on above: Performed By: #### C OVFLR ####[facility] ([id number])[address] [place] [address] Troponin I.cardiac High sens itivity method [Mass/Vol]on 12-23-2023 1 HOUR TROP I, HIGH SENSITIVITY 22 ng/L High <16 [facility] Comment on above: Result Comment: Elevations of hs-Troponin may be due to causes other than myocardial ischemia. Recommend serial hs-Troponin testing be performed. For the initial evaluation and management of chest pain patients, refer to the algorithms linked below. Emergency Patient: [email or web address] Inpatient: [email or web address] Performed By: #### 8 9579-7 ####[facility] ([id number])[address] [place] [address] TROPONIN I, HIGH SENSITIVITY 24 ng/L High <16 [facility] Comment on above: Result Comment: Elevations of hs-Troponin may be due to causes other than myocardial ischemia. Recommend serial hs-Troponin testing be performed. For the initial evaluation and management of chest pain patients, refer to the algorithms linked below. Emergency Patient: [email or web address] Inpatient: [email or web address] Performed By: #### C BCA, CMP, 3040-3, 03813-1, 87791-0, 20045-2 ####[facility] ([id number])[address] [place] [address] URINE CULTUREon 12-23-2023 Bacteria identified Cx Nom (U) CULTURE RESULTS >100,000 ORGANISMS/mL ESCHERICHIA COLI 50,000 to 100,000 ORGANISMS/mL ESCHERICHIA COLI VARIANT [ S = SUSCEPTIBLE R = RESISTANT I = INTERMEDIATE S-DO = Susceptible-dose dependent NS = Non-suscceptible NO = No Interpretation ] Organism: ESCHERICHIA COLI Antibiotic Interpretation ROMI Status AMPICILLIN S 8 F AMP/SULBACTAM S 8/4 F CEFAZOLIN S <=4 F CEFTRIAXONE S <=1 F CIPROFLOXACIN R >=4 F GENTAMICIN S <=1 F LEVOFLOXACIN R >=8 F NITROFURANTOIN S <=16 F TOBRAMYCIN S <=1 F TRIMETH/SULFAMETHOXAZ OLE S <=/19 F [ S = SUSCEPTIBLE R = RESISTANT I = INTERMEDIATE S-DO = Susceptible-dose dependent NS = Non-suscceptible NO = No Interpretation ] Organism: ESCHERICHIA COLI Antibiotic Interpretation ROMI Status PIPERACIL/TAZOBACTAM S F [ S = SUSCEPTIBLE R = RESISTANT I = INTERMEDIATE S-DO = Susceptible-dose dependent NS = Non-suscceptible NO = No Interpretation ] Organism: ESCHERICHIA COLI Antibiotic Interpretation ROMI Status AMPICILLIN S 4 F AMP/SULBACTAM S 4/2 F CEFAZOLIN S <=4 F CEFTRIAXONE S <=1 F CIPROFLOXACIN R >=4 F GENTAMICIN S <=1 F LEVOFLOXACIN R >=8 F NITROFURANTOIN S <=16 F PIPERACIL/TAZOBACTAM S <=4 F TOBRAMYCIN S <=1 F TRIMETH/SULFAMETHOXAZ OLE S <=07/13 F Susceptible [facility] Comment on above: Performed By: #### 6 30-4 ####[facility] ([id number])[address], [place] [address] URN MACROSCOPIC NURon 2023 BILIRUBIN CALE Negative Normal NEG [facility] Comment on above: Performed By: #### M ALBU #### [facility] ([id number]) [address], [address] [place] [address] BLOOD/HGB CALE MODERATE Abnormal NEG [facility] Comment on above: Performed By: #### M ALBU #### [facility] ([id number]) [address] [place] [address] GLUCOSE CALE Negative Normal NEG [facility] Comment on above: Performed By: #### M ALBU #### [facility] ([id number]) [address] [place] [address] KETONES CALE Negative Normal NEG [facility] Comment on above: Performed By: #### M ALBU #### [facility] ([id number]) [address], [address] [place] [address] LEUKOCYTE ESTERASE CALE Large Abnormal NEG Pr [facility] Comment on above: Performed By: #### M ALBU #### [facility] ([id number]) [address], [address] [place] [address] NITRITE CALE Positive Abnormal NEG [facility] Comment on above: Performed By: #### M ALBU #### [facility] ([id number]) [address], [address] [place] [address] PH CALE 5.5 Normal 5.0-8.5 [facility] Comment on above: Performed By: #### M ALBU #### [facility] ([id number]) [address], [address] [place] [address] PROTEIN CALE 100 mg/dL Abnormal NEG [facility] Comment on above: Performed By: #### M ALBU #### [facility] ([id number]) [address], [address] [place] [address] SPECIFIC GRAVITY CALE 1.025 Normal 1.003-1.035 [facility] Comment on above: Performed By: #### M ALBU #### [facility] ([id number]) [address], [address] [place] [address] UROBILINOGEN CALE 0.2 eu/dL Normal <1.1 [facility] Comment on above: Performed By: #### M ALBU #### [facility] ([id number]) [address], [address] [place] [address] XR CHEST 1 VWon 12-23-2023 XR CHEST 1 VW XR CHEST 1 VW XR CHEST 1 VW REASON FOR EXAM: 78 years old Female with shortness of breath. TECHNIQUE: Single portable AP view of the chest. COMPARISON: Chest radiograph dated 11/12/2023. FINDINGS: Mediastinum is unchanged. Mild calcific Heavy calcification of the aortic arch. No pneumothorax. Congested central pulmonary vasculature with prominent interstitial lung markings. Consolidative opacity in the left mid and lower lung. Mild opacity in the right lower lung, similar previous exam. Small left pleural effusion. IMPRESSION: * Lingular/left basilar opacities, suspicious for pneumonia in the appropriate context. Follow-up to resolution recommended. * Similar right perihilar/basilar opacities. Background interstitial edema with small effusions. . Approved by Resident Siddhartha Valentine DO on 12/23/2023 11:43 AM IJob MD have personally reviewed the image(s) and agree with and/or edited the report Finalized by Job Luna MD on 12/23/2023 11:52 AM Normal [facility] CBC AND AUTO DIFFon 11-24-19 24 Band form neutrophils/100 WBC (Bld) 1.9 % Normal [facility] Comment on above: Performed By: #### 3 274-8, CBCA, CMP, 7-6, 83335-8, 28375-3 #### [facility] ([id number]) [address] [place] [address] Eosinophils (Bld) [#/Vol] 0.7 10*3/uL High 0.0-0.4 [facility] Comment on above: Performed By: #### 3 274-8, CBCA, CMP, 2157-6, 89176-1, 57152-5 #### [facility] ([id number]) [address] [place] [place] [address] Eosinophils/100 WBC (Bld) 9.5 % Normal [facility] Comment on above: Performed By: #### 3 274-8, CBCA, CMP, 2157-6, 44144-0, 91430-1 #### [facility] ([id number]) [address] [place] [place] [address] Erythrocyte distribution width (RBC) [Ratio] 13.7 % Normal 11.5-15.0 [facility] Comment on above: Performed By: #### 3 274-8, CBCA, CMP, 2157-6, 67655-5, 03901-9 #### [facility] ([id number]) [address] [place] [address] Hematocrit (Bld) [Volume fraction] 30.4 % Low 35-47 [facility] Comment on above: Performed By: #### 3 274-8, CBCA, CMP, 2157-6, 30233-4, 31115-0 #### [facility] ([id number]) [address] [place] [address] Hemoglobin (Bld) [Mass/Vol] 10.3 g/dL Low 11.7-15.5 [facility] Comment on above: Performed By: #### 3 274-8, CBCA, CMP, 7-6, 53688-3, 07775-2 #### [facility] ([id number]) [address] [place] [address] Lymphocytes (Bld) [#/Vol] 0.3 10*3/uL Low 1.0-3.5 [facility] Comment on above: Performed By: #### 3 274-8, CBCA, CMP, 2157-6, 43206-5, 28907-0 #### [facility] ([id number]) [address] [place] [address] Lymphocytes/100 WBC (Bld) 4.8 % Normal [facility] Comment on above: Performed By: #### 3 274-8, CBCA, CMP, 2157-6, 91060-4, 86635-8 #### [facility] ([id number]) [address] [place] [address] MCH (RBC) [Entitic mass] 31.2 pg Normal 27-34 [facility] Comment on above: Performed By: #### 3 274-8, CBCA, CMP, 2157-6, 47611-8, 57022-1 #### [facility] ([id number]) [address] [place] [address] MCHC (RBC) [Mass/Vol] 33.9 g/dL Normal 32-36 [facility] Comment on above: Performed By: #### 3 274-8, CBCA, CMP, 2157-6, 97530-7, 45165-2 #### [facility] ([id number]) [address] [place] [address] MCV (RBC) [Entitic vol] 92 fL Normal 80-100 [facility] Comment on above: Performed By: #### 3 274-8, CBCA, CMP, 2157-6, 44202-1, 17823-9 #### [facility] ([id number]) [address] [place] [address] Metamyelocytes/100 WBC (Bld) 1.0 % Normal [facility] Comment on above: Performed By: #### 3 274-8, CBCA, CMP, 2157-6, 88567-3, 82565-2 #### [facility] ([id number]) [address] [place] [address] Monocytes (Bld) [#/Vol] 0.6 10*3/uL Normal 0-0.9 [facility] Comment on above: Performed By: #### 3 274-8, CBCA, CMP, 2157-6, 27757-0, 71289-0 #### [facility] ([id number]) [address] [place] [address] Monocytes/100 WBC (Bld) 8.6 % Normal [facility] Comment on above: Performed By: #### 3 274-8, CBCA, CMP, 2157-6, 49011-0, 25949-8 #### [facility] ([id number]) [address] [place] [address] MYELOCYTE 1.9 % Normal [facility] Comment on above: Performed By: #### 3 274-8, CBCA, CMP, 2157-6, 72519-2, 81751-9 #### [facility] ([id number]) [address] [place] [address] Neutrophils (Bld) [#/Vol] 5.2 10*3/uL Normal 1.5-6.6 [facility] Comment on above: Performed By: #### 3 274-8, CBCA, CMP, 2157-6, 73080-3, 31060-1 #### [facility] ([id number]) [address] [place] [address] Platelet mean volume (Bld) [Entitic vol] 9.3 fL Normal 7-12 [facility] Comment on above: Performed By: #### 3 274-8, CBCA, CMP, 2157-6, 54085-4, 87732-0 #### [facility] ([id number]) [address] [place] [address] Platelets (Bld) [#/Vol] 143 10*3/uL Low 150-450 [facility] Comment on above: Performed By: #### 3 274-8, CBCA, CMP, 2157-6, 18804-6, 30270-9 #### [facility] ([id number]) [address] [place] [address] PROMYELOCYTE 1.0 % Normal [facility] Comment on above: Performed By: #### 3 274-8, CBCA, CMP, 2157-6, 48461-1, 88145-2 #### [facility] ([id number]) [address] [place] [address] RBC COUNT 3.31 X10E12/L Low 3.80-5.20 [facility] Comment on above: Performed By: #### 3 274-8, CBCA, CMP, 2157-6, 62263-5, 10753-9 #### [facility] ([id number]) [address] [place] [address] SEG NEUTROPHIL 71.3 % Normal [facility] Comment on above: Performed By: #### 3 274-8, CBCA, CMP, 2157-6, 06633-9, 53154-8 #### [facility] ([id number]) [address] [place] [address] WBC (Bld) [#/Vol] 7.2 10*3/uL Normal 4.0-11.0 [facility] Comment on above: Performed By: #### 3 274-8, CBCA, CMP, 2157-6, 99605-0, 74423-7 #### [facility] ([id number]) [address] [place] [address] COMPREHENSIVE METABOLIC PANE Gurdeep 11-24-2023 Albumin [Mass/Vol] 2.3 g/dL Low 3.2-5.3 [facility] Comment on above: Performed By: #### 3 274-8, CBCA, CMP, 2157-6, 06937-5, 43931-1 #### [facility] ([id number]) [address] [place] [address] ALP [Catalytic activity/Vol] 42 U/L Normal 39-130 [facility] Comment on above: Performed By: #### 3 274-8, CBCA, CMP, 2157-6, 04822-9, 71737-7 #### [facility] ([id number]) [address] [place] [address] ALT [Catalytic activity/Vol] 32 U/L High 0-31 [facility] Comment on above: Performed By: #### 3 274-8, CBCA, CMP, 2157-6, 54962-6, 88332-2 #### [facility] ([id number]) [address] [place] [address] Anion gap [Moles/Vol] 6 mmol/L Normal 5-15 [facility] Comment on above: Performed By: #### 3 274-8, CBCA, CMP, 2157-6, 16310-2, 52095-6 #### [facility] ([id number]) [address] [place] [address] AST [Catalytic activity/Vol] 16 U/L Normal 0-41 [facility] Comment on above: Performed By: #### 3 274-8, CBCA, CMP, 2157-6, 41503-4, 18905-4 #### [facility] ([id number]) [address] [place] [address] Bilirubin [Mass/Vol] 0.8 mg/dL Normal 0.3-1.2 [facility] Comment on above: Performed By: #### 3 274-8, CBCA, CMP, 2157-6, 95268-6, 53399-1 #### [facility] ([id number]) [address] [place] [address] Calcium [Mass/Vol] 8.4 mg/dL Low 8.5-10.5 [facility] Comment on above: Performed By: #### 3 274-8, CBCA, CMP, 2157-6, 44637-5, 55556-7 #### [facility] ([id number]) [address] [place] [address] Chloride [Moles/Vol] 108 mmol/L Normal 98-109 [facility] Comment on above: Performed By: #### 3 274-8, CBCA, CMP, 2157-6, 83592-8, 24009-2 #### [facility] ([id number]) [address] [place] [address] CO2 [Moles/Vol] 25 mmol/L Normal 22-32 [facility] Comment on above: Performed By: #### 3 274-8, CBCA, CMP, 7-6, 35676-9, 15308-2 #### [facility] ([id number]) [address] [place] [address] Creatinine [Mass/Vol] 1.48 mg/dL High 0.40-1.00 [facility] Comment on above: Result Comment: METH OD TRACEABLE TO IDMS STANDARD Performed By: #### 3 274-8, CBCA, CMP, 2157-6, 00005-8, 65862-9 #### [facility] ([id number]) [address] [place] [address] GFR/1.73 sq M.predicted among non-blacks MDRD (S/P/Bld) [Vol rate/Area] 36 mL/min/{1.73_m2} Low >59 [facility] Comment on above: Result Comment: Reported eGFR is based on the CKD-EPI 2020 equation that does not use a race coefficient. Performed By: #### 3 274-8, CBCA, CMP, 2157-6, 44771-2, 18920-0 #### [facility] ([id number]) [address] [place] [address] Glucose [Mass/Vol] 186 mg/dL High 65-99 [facility] Comment on above: Performed By: #### 3 274-8, CBCA, CMP, 2157-6, 82418-4, 55703-3 #### [facility] ([id number]) [address] [place] [address] Potassium [Moles/Vol] 3.7 mmol/L Normal 3.5-5.0 [facility] Comment on above: Performed By: #### 3 274-8, CBCA, CMP, 2157-6, 48970-2, 25759-6 #### [facility] ([id number]) [address] [place] [address] Protein [Mass/Vol] 5.8 g/dL Low 6.0-8.0 [facility] Comment on above: Performed By: #### 3 274-8, CBCA, CMP, 2157-6, 89796-6, 52413-6 #### [facility] ([id number]) [address] [place] [address] Sodium [Moles/Vol] 139 mmol/L Normal 134-146 [facility] Comment on above: Performed By: #### 3 274-8, CBCA, CMP, 2157-6, 79178-5, 99006-9 #### [facility] ([id number]) [address] [place] [address] Urea nitrogen [Mass/Vol] 47 mg/dL High 5-27 [facility] Comment on above: Performed By: #### 3 274-8, CBCA, CMP, 2157-6, 96327-3, 97416-2 #### [facility] ([id number]) [address] [place] [address] Glucose Glucometer (BldC) [M ass/Vol]on 11-24-2023 Glucose [Mass/Vol] 188 mg/dL High 65-99 [facility] Glucose [Mass/Vol] 203 mg/dL High 65-99 [facility] MAGNESIUMon 11-24-2023 Magnesium [Mass/Vol] 1.7 mg/dL Low 1.8-2.6 [facility] Comment on above: Performed By: #### 3 274-8, CBCA, CMP, 7-6, 90013-3, 21309-0 #### [facility] ([id number]) [address] [place] [address] CBC AND AUTO DIFFon 11-23-19 24 Band form neutrophils/100 WBC (Bld) 1.0 % Normal [facility] Comment on above: Performed By: #### 3 274-8, CBCA, CMP, 2156-6, 75938-3, 66827-6 #### [facility] ([id number]) [address] [place] [address] Eosinophils (Bld) [#/Vol] 0.4 10*3/uL Normal 0.0-0.4 [facility] Comment on above: Performed By: #### 3 274-8, CBCA, CMP, 7-6, 00927-9, 51212-0 #### [facility] ([id number]) [address] [place] [address] Eosinophils/100 WBC (Bld) 4.8 % Normal [facility] Comment on above: Performed By: #### 3 274-8, CBCA, CMP, 2156-6, 82046-9, 77232-9 #### [facility] ([id number]) [address] [place] [address] Erythrocyte distribution width (RBC) [Ratio] 13.8 % Normal 11.5-15.0 [facility] Comment on above: Performed By: #### 3 274-8, CBCA, CMP, 2156-6, 02410-7, 86884-8 #### [facility] ([id number]) [address] [place] [address] Hematocrit (Bld) [Volume fraction] 30.5 % Low 35-47 [facility] Comment on above: Performed By: #### 3 274-8, CBCA, CMP, 7-6, 27880-9, 21102-3 #### [facility] ([id number]) [address] [place] [address] Hemoglobin (Bld) [Mass/Vol] 10.0 g/dL Low 11.7-15.5 [facility] Comment on above: Performed By: #### 3 274-8, CBCA, CMP, 2156-, 78412-1, 19215-6 #### [facility] ([id number]) [address] [place] [address] Lymphocytes (Bld) [#/Vol] 0.7 10*3/uL Low 1.0-3.5 [facility] Comment on above: Performed By: #### 3 274-8, CBCA, CMP, 2156-6, 23513-9, 44275-1 #### [facility] ([id number]) [address] [place] [address] Lymphocytes/100 WBC (Bld) 7.7 % Normal [facility] Comment on above: Performed By: #### 3 274-8, CBCA, CMP, 2156-, 30453-9, 94361-0 #### [facility] ([id number]) [address] [place] [address] MCH (RBC) [Entitic mass] 30.6 pg Normal 27-34 [facility] Comment on above: Performed By: #### 3 274-8, CBCA, CMP, 2156-6, 33423-5, 13201-3 #### [facility] ([id number]) [address] [place] [address] MCHC (RBC) [Mass/Vol] 32.9 g/dL Normal 32-36 [facility] Comment on above: Performed By: #### 3 274-8, CBCA, CMP, 7-6, 23117-5, 31050-7 #### [facility] ([id number]) [address] [place] [address] MCV (RBC) [Entitic vol] 93 fL Normal 80-100 [facility] Comment on above: Performed By: #### 3 274-8, CBCA, CMP, 2157-6, 62014-8, 58017-9 #### [facility] ([id number]) [address] [place] [address] Monocytes (Bld) [#/Vol] 0.9 10*3/uL Normal 0-0.9 [facility] Comment on above: Performed By: #### 3 274-8, CBCA, CMP, 2157-6, 15920-4, 33660-6 #### [facility] ([id number]) [address] [place] [address] Monocytes/100 WBC (Bld) 10.6 % Normal [facility] Comment on above: Performed By: #### 3 274-8, CBCA, CMP, 2157-6, 45957-9, 81571-6 #### [facility] ([id number]) [address] [place] [address] Neutrophils (Bld) [#/Vol] 6.9 10*3/uL High 1.5-6.6 [facility] Comment on above: Performed By: #### 3 274-8, CBCA, CMP, 2157-6, 52535-3, 01874-8 #### [facility] ([id number]) [address] [place] [address] Platelet mean volume (Bld) [Entitic vol] 9.5 fL Normal 7-12 [facility] Comment on above: Performed By: #### 3 274-8, CBCA, CMP, 2157-6, 45857-0, 45779-9 #### [facility] ([id number]) [address] [place] [address] Platelets (Bld) [#/Vol] 132 10*3/uL Low 150-450 [facility] Comment on above: Performed By: #### 3 274-8, CBCA, CMP, 2157-6, 15625-1, 67543-5 #### [facility] ([id number]) [address] [place] [address] RBC COUNT 3.28 X10E12/L Low 3.80-5.20 [facility] Comment on above: Performed By: #### 3 274-8, CBCA, CMP, 2157-6, 40945-8, 09147-3 #### [facility] ([id number]) [address] [place] [address] RBC morphology finding Nom (Bld) NORMAL Normal [facility] Comment on above: Performed By: #### 3 274-8, CBCA, CMP, 2157-6, 43281-4, 22119-9 #### [facility] ([id number]) [address] [place] [address] SEG NEUTROPHIL 75.9 % Normal [facility] Comment on above: Performed By: #### 3 274-8, CBCA, CMP, 2157-6, 64505-2, 87393-9 #### [facility] ([id number]) [address] [place] [address] TOXIC GRANULATION 1+ Abnormal NONE [facility] Comment on above: Performed By: #### 3 274-8, CBCA, CMP, 2157-6, 10458-1, 03387-5 #### [facility] ([id number]) [address] [place] [address] WBC (Bld) [#/Vol] 8.9 10*3/uL Normal 4.0-11.0 [facility] Comment on above: Performed By: #### 3 274-8, CBCA, CMP, 2157-6, 29415-3, 02221-6 #### [facility] ([id number]) [address] [place] [address] COMPREHENSIVE METABOLIC PANE Gurdeep 11-23-2023 Albumin [Mass/Vol] 2.3 g/dL Low 3.2-5.3 [facility] Comment on above: Performed By: #### 3 274-8, CBCA, CMP, 2157-6, 48496-7, 71981-1 #### [facility] ([id number]) [address] [place] [address] ALP [Catalytic activity/Vol] 37 U/L Low 39-130 [facility] Comment on above: Performed By: #### 3 274-8, CBCA, CMP, 2157-6, 53154-4, 36108-3 #### [facility] ([id number]) [address] [place] [address] ALT [Catalytic activity/Vol] 37 U/L High 0-31 [facility] Comment on above: Performed By: #### 3 274-8, CBCA, CMP, 2157-6, 75246-1, 43046-9 #### [facility] ([id number]) [address] [place] [address] Anion gap [Moles/Vol] 7 mmol/L Normal 5-15 [facility] Comment on above: Performed By: #### 3 274-8, CBCA, CMP, 2157-6, 26567-9, 07476-6 #### [facility] ([id number]) [address] [place] [address] AST [Catalytic activity/Vol] 23 U/L Normal 0-41 [facility] Comment on above: Performed By: #### 3 274-8, CBCA, CMP, 2157-6, 42565-4, 06186-9 #### [facility] ([id number]) [address] [place] [address] Bilirubin [Mass/Vol] 0.5 mg/dL Normal 0.3-1.2 [facility] Comment on above: Performed By: #### 3 274-8, CBCA, CMP, 2157-6, 03227-9, 59167-7 #### [facility] ([id number]) [address] [place] [address] Calcium [Mass/Vol] 8.6 mg/dL Normal 8.5-10.5 [facility] Comment on above: Performed By: #### 3 274-8, CBCA, CMP, 2157-6, 33932-2, 49573-3 #### [facility] ([id number]) [address] [place] [address] Chloride [Moles/Vol] 110 mmol/L High 98-109 [facility] Comment on above: Performed By: #### 3 274-8, CBCA, CMP, 2157-6, 34958-0, 62051-7 #### [facility] ([id number]) [address] [place] [address] CO2 [Moles/Vol] 25 mmol/L Normal 22-32 [facility] Comment on above: Performed By: #### 3 274-8, CBCA, CMP, 2157-6, 67525-6, 15282-4 #### [facility] ([id number]) [address] [place] [address] Creatinine [Mass/Vol] 1.77 mg/dL High 0.40-1.00 [facility] Comment on above: Result Comment: METH OD TRACEABLE TO IDMS STANDARD Performed By: #### 3 274-8, CBCA, CMP, 7-6, 96525-4, 88192-6 #### [facility] ([id number]) [address] [place] [address] GFR/1.73 sq M.predicted among non-blacks MDRD (S/P/Bld) [Vol rate/Area] 29 mL/min/{1.73_m2} Low >59 [facility] Comment on above: Result Comment: Reported eGFR is based on the CKD-EPI 2020 equation that does not use a race coefficient. Performed By: #### 3 274-8, CBCA, CMP, 2157-6, 04949-1, 92711-2 #### [facility] ([id number]) [address] [place] [address] Glucose [Mass/Vol] 176 mg/dL High 65-99 [facility] Comment on above: Performed By: #### 3 274-8, CBCA, CMP, 2157-6, 18362-4, 68372-8 #### [facility] ([id number]) [address] [place] [address] Potassium [Moles/Vol] 3.5 mmol/L Normal 3.5-5.0 [facility] Comment on above: Performed By: #### 3 274-8, CBCA, CMP, 2156-11, , 14646-9 #### [facility] ([id number]) [address] [place] [address] Protein [Mass/Vol] 5.7 g/dL Low 6.0-8.0 [facility] Comment on above: Performed By: #### 3 274-8, CBCA, CMP, 2156-11, , 37035-7 #### [facility] ([id number]) [address] [place] [address] Sodium [Moles/Vol] 142 mmol/L Normal 134-146 [facility] Comment on above: Performed By: #### 3 274-8, CBCA, CMP, 2156-11, , 74275-2 #### [facility] ([id number]) [address] [place] [address] Urea nitrogen [Mass/Vol] 62 mg/dL High 5-27 [facility] Comment on above: Performed By: #### 3 274-8, CBCA, CMP, 2156-11, , 73460-3 #### [facility] ([id number]) [address] [place] [address] Glucose Glucometer (dC) [M ass/Vol]on 11-23-2023 Glucose [Mass/Vol] 184 mg/dL High 65-99 [facility] Glucose [Mass/Vol] 231 mg/dL High 65-99 [facility] Glucose [Mass/Vol] 197 mg/dL High 65-99 [facility] Glucose [Mass/Vol] 176 mg/dL High 65-99 [facility] MAGNESIUMon 11-23-2023 Magnesium [Mass/Vol] 2.1 mg/dL Normal 1.8-2.6 [facility] Comment on above: Performed By: #### 3 274-8, CBCA, CMP, 2156-11, , 95296-2 #### [facility] ([id number]) [address] [place] [address] POTASSIUMon 11-23-2023 Potassium [Moles/Vol] 3.7 mmol/L Normal 3.5-5.0 [facility] Comment on above: Performed By: #### 3 274-8, CBCA, CMP, 2156-11, , 41785-3 #### [facility] ([id number]) [address] [place] [address] Potassium [Moles/Vol] 3.5 mmol/L Normal 3.5-5.0 [facility] Comment on above: Performed By: #### 3 274-8, CBCA, CMP, 2156-11, , 70887-2 #### [facility] ([id number]) [address] [place] [address] CBC AND AUTO DIFFon 11-22-19 24 Band form neutrophils/100 WBC (Bld) 2.9 % Normal [facility] Comment on above: Performed By: #### 3 274-8, CBCA, CMP, 2156-11, , 23532-6 #### [facility] ([id number]) [address] [place] [address] Erythrocyte distribution width (RBC) [Ratio] 13.5 % Normal 11.5-15.0 [facility] Comment on above: Performed By: #### 3 274-8, CBCA, CMP, 2156-11, , 13283-2 #### [facility] [facility] ([id number]) [address] [place] [address] Hematocrit (Bld) [Volume fraction] 28.0 % Low 35-47 [facility] Comment on above: Performed By: #### 3 274-8, CBCA, CMP, 2156-11, , 41737-1 #### [facility] ([id number]) [address] [place] [address] Hemoglobin (Bld) [Mass/Vol] 9.4 g/dL Low 11.7-15.5 [facility] Comment on above: Performed By: #### 3 274-8, CBCA, CMP, 2157-6, 38256-0, 25723-1 #### [facility] ([id number]) [address] [place] [address] Lymphocytes (Bld) [#/Vol] 0.5 10*3/uL Low 1.0-3.5 [facility] Comment on above: Performed By: #### 3 274-8, CBCA, CMP, 2157-6, 70517-0, 16804-2 #### [facility] ([id number]) [address] [place] [address] Lymphocytes/100 WBC (Bld) 7.8 % Normal [facility] Comment on above: Performed By: #### 3 274-8, CBCA, CMP, 2157-6, 16650-7, 46415-9 #### [facility] ([id number]) [address] [place] [address] MCH (RBC) [Entitic mass] 30.7 pg Normal 27-34 [facility] Comment on above: Performed By: #### 3 274-8, CBCA, CMP, 2157-6, 09511-2, 89055-2 #### [facility] ([id number]) [address] [place] [address] MCHC (RBC) [Mass/Vol] 33.6 g/dL Normal 32-36 [facility] Comment on above: Performed By: #### 3 274-8, CBCA, CMP, 2157-6, 82148-6, 45551-7 #### [facility] ([id number]) [address] [place] [address] MCV (RBC) [Entitic vol] 92 fL Normal 80-100 [facility] Comment on above: Performed By: #### 3 274-8, CBCA, CMP, 2157-6, 02995-6, 80018-6 #### [facility] ([id number]) [address] [place] [address] Monocytes (Bld) [#/Vol] 0.1 10*3/uL Normal 0-0.9 [facility] Comment on above: Performed By: #### 3 274-8, CBCA, CMP, 2157-6, 13646-6, 20655-5 #### [facility] ([id number]) [address] [place] [address] Monocytes/100 WBC (Bld) 1.9 % Normal [facility] Comment on above: Performed By: #### 3 274-8, CBCA, CMP, 2157-6, 00333-2, 49959-7 #### [facility] ([id number]) [address] [place] [address] Neutrophils (Bld) [#/Vol] 6.3 10*3/uL Normal 1.5-6.6 [facility] Comment on above: Performed By: #### 3 274-8, CBCA, CMP, 7-6, 54023-7, 40182-2 #### [facility] ([id number]) [address] [place] [address] Platelet mean volume (Bld) [Entitic vol] 10.1 fL Normal 7-12 [facility] Comment on above: Performed By: #### 3 274-8, CBCA, CMP, 7-6, 12724-3, 08053-6 #### [facility] ([id number]) [address] [place] [address] Platelets (Bld) [#/Vol] 117 10*3/uL Low 150-450 [facility] Comment on above: Performed By: #### 3 274-8, CBCA, CMP, 2157-6, 18093-7, 09911-2 #### [facility] ([id number]) [address] [place] [address] RBC COUNT 3.05 X10E12/L Low 3.80-5.20 [facility] Comment on above: Performed By: #### 3 274-8, CBCA, CMP, 2157-6, 09936-5, 09871-0 #### [facility] ([id number]) [address] [place] [address] RBC morphology finding Nom (Bld) NORMAL Normal [facility] Comment on above: Performed By: #### 3 274-8, CBCA, CMP, 2157-6, 01159-7, 30710-5 #### [facility] ([id number]) [address] [place] [address] SEG NEUTROPHIL 87.4 % Normal [facility] Comment on above: Performed By: #### 3 274-8, CBCA, CMP, 2157-6, 35011-4, 14236-1 #### [facility] ([id number]) [address] [place] [address] TOXIC GRANULATION 2+ Abnormal NONE [facility] Comment on above: Performed By: #### 3 274-8, CBCA, CMP, 2157-6, 20854-8, 97168-9 #### [facility] ([id number]) [address] [place] [address] WBC (Bld) [#/Vol] 7.0 10*3/uL Normal 4.0-11.0 [facility] Comment on above: Performed By: #### 3 274-8, CBCA, CMP, 2157-6, 73283-7, 71052-4 #### [facility] ([id number]) [address] [place] [address] COMPREHENSIVE METABOLIC PANE Gurdeep 11-22-2023 Albumin [Mass/Vol] 2.0 g/dL Low 3.2-5.3 [facility] Comment on above: Performed By: #### 3 274-8, CBCA, CMP, 2157-6, 58900-8, 40307-5 #### [facility] ([id number]) [address] [place] [address] ALP [Catalytic activity/Vol] 30 U/L Low 39-130 [facility] Comment on above: Performed By: #### 3 274-8, CBCA, CMP, 2157-6, 90632-1, 08367-0 #### [facility] ([id number]) [address] [place] [address] ALT [Catalytic activity/Vol] 41 U/L High 0-31 [facility] Comment on above: Performed By: #### 3 274-8, CBCA, CMP, 2157-6, 21272-5, 16675-0 #### [facility] ([id number]) [address] [place] [address] Anion gap [Moles/Vol] 8 mmol/L Normal 5-15 [facility] Comment on above: Performed By: #### 3 274-8, CBCA, CMP, 2157-6, 86540-6, 96837-4 #### [facility] ([id number]) [address] [place] [address] AST [Catalytic activity/Vol] 26 U/L Normal 0-41 [facility] Comment on above: Performed By: #### 3 274-8, CBCA, CMP, 2157-6, 22947-2, 31356-1 #### [facility] ([id number]) [address] [place] [address] Bilirubin [Mass/Vol] 0.6 mg/dL Normal 0.3-1.2 [facility] Comment on above: Performed By: #### 3 274-8, CBCA, CMP, 2157-6, 32433-8, 16073-4 #### [facility] ([id number]) [address] [place] [address] Calcium [Mass/Vol] 7.6 mg/dL Low 8.5-10.5 [facility] Comment on above: Performed By: #### 3 274-8, CBCA, CMP, 2157-6, 19057-6, 65970-1 #### [facility] ([id number]) [address] [place] [address] Chloride [Moles/Vol] 102 mmol/L Normal 98-109 [facility] Comment on above: Performed By: #### 3 274-8, CBCA, CMP, 2157-6, 30573-2, 13846-0 #### [facility] ([id number]) [address] [place] [address] CO2 [Moles/Vol] 27 mmol/L Normal 22-32 [facility] Comment on above: Performed By: #### 3 274-8, CBCA, CMP, 2157-6, 40394-6, 26236-5 #### [facility] ([id number]) [address] [place] [address] Creatinine [Mass/Vol] 2.08 mg/dL High 0.40-1.00 [facility] Comment on above: Result Comment: METH OD TRACEABLE TO IDMS STANDARD Performed By: #### 3 274-8, CBCA, CMP, 2156-, 87549-2, 61253-6 #### [facility] ([id number]) [address] [place] [address] GFR/1.73 sq M.predicted among non-blacks MDRD (S/P/Bld) [Vol rate/Area] 24 mL/min/{1.73_m2} Low >59 [facility] Comment on above: Result Comment: Reported eGFR is based on the CKD-EPI 2020 equation that does not use a race coefficient. Performed By: #### 3 274-8, CBCA, CMP, 2156-6, 99902-9, 36269-8 #### [facility] ([id number]) [address] [place] [address] Glucose [Mass/Vol] 395 mg/dL High 65-99 [facility] Comment on above: Performed By: #### 3 274-8, CBCA, CMP, 2157-6, 77346-3, 53268-3 #### [facility] ([id number]) [address] [place] [address] Potassium [Moles/Vol] 2.7 mmol/L Critically low 3.5-5.0 [facility] Comment on above: Performed By: #### 3 274-8, CBCA, CMP, 2157-6, 63946-0, 20223-4 #### [facility] ([id number]) [address] [place] [address] Protein [Mass/Vol] 5.2 g/dL Low 6.0-8.0 [facility] Comment on above: Performed By: #### 3 274-8, CBCA, CMP, 2157-6, 78096-4, 47410-4 #### [facility] ([id number]) [address] [place] [address] Sodium [Moles/Vol] 137 mmol/L Normal 134-146 [facility] Comment on above: Performed By: #### 3 274-8, CBCA, CMP, 2156-6, 82432-9, 01294-9 #### [facility] ([id number]) [address] [place] [address] Urea nitrogen [Mass/Vol] 66 mg/dL High 5-27 [facility] Comment on above: Performed By: #### 3 274-8, CBCA, CMP, 2156-, , 13823-1 #### [facility] ([id number]) [address] [place] [address] Glucose Glucometer (BldC) [M ass/Vol]on 11-22-2023 Glucose [Mass/Vol] 277 mg/dL High 65-99 [facility] Glucose [Mass/Vol] 260 mg/dL High 65-99 [facility] Glucose [Mass/Vol] 229 mg/dL High 65-99 [facility] Glucose [Mass/Vol] 239 mg/dL High 65-99 [facility] Heparin unfractionated Chrom ogenic method Qn (PPP)on 11-22-2023 ANTI XA UFH 0.87 IU/mL High 0.30-0.70 [facility] Comment on above: Result Comment: Opti mal time for testing is 6 hrs post dosage This test is specific for monitoring patients on UFH, and is not recommended for use with other Anti-Xa medications. Performed By: #### 3 274-8, CBCA, CMP, 2157-6, 50053-2, 63110-1 #### [facility] ([id number]) [address] [place] [address] MAGNESIUMon 11-22-2023 Magnesium [Mass/Vol] 2.2 mg/dL Normal 1.8-2.6 [facility] Comment on above: Performed By: #### 3 274-8, CBCA, CMP, 2156-6, 69819-4, 39410-3 #### [facility] ([id number]) [address] [place] [address] Magnesium [Mass/Vol] 1.9 mg/dL Normal 1.8-2.6 [facility] Comment on above: Performed By: #### 3 274-8, CBCA, CMP, 2156-, 91212-6, 56223-0 #### [facility] ([id number]) [address] [place] [address] POTASSIUMon 11-22-2023 Potassium [Moles/Vol] 3.7 mmol/L Normal 3.5-5.0 [facility] Comment on above: Performed By: #### 3 274-8, CBCA, CMP, 2156-, 04948-1, 08413-7 #### [facility] ([id number]) [address] [place] [address] CBC AND AUTO DIFFon 11-21-19 24 Band form neutrophils/100 WBC (Bld) 10.2 % Normal [facility] Comment on above: Performed By: #### 3 274-8, CBCA, CMP, 2156-, 23165-7, 02837-5 #### [facility] ([id number]) [address] [place] [address] Erythrocyte distribution width (RBC) [Ratio] 14.0 % Normal 11.5-15.0 [facility] Comment on above: Performed By: #### 3 274-8, CBCA, CMP, 2156-, 42380-4, 03239-8 #### [facility] ([id number]) [address] [place] [address] Hematocrit (Bld) [Volume fraction] 30.5 % Low 35-47 [facility] Comment on above: Performed By: #### 3 274-8, CBCA, CMP, 7-6, 87132-6, 45134-8 #### [facility] ([id number]) [address] [place] [address] Hemoglobin (Bld) [Mass/Vol] 10.3 g/dL Low 11.7-15.5 [facility] Comment on above: Performed By: #### 3 274-8, CBCA, CMP, 2156-6, 01747-9, 64332-8 #### [facility] ([id number]) [address] [place] [address] Lymphocytes (Bld) [#/Vol] 0.2 10*3/uL Low 1.0-3.5 [facility] Comment on above: Performed By: #### 3 274-8, CBCA, CMP, 2156-, 26420-8, 52648-2 #### [facility] ([id number]) [address] [place] [address] Lymphocytes/100 WBC (Bld) 5.6 % Normal [facility] Comment on above: Performed By: #### 3 274-8, CBCA, CMP, 2156-, 35632-0, 02876-3 #### [facility] ([id number]) [address] [place] [address] MCH (RBC) [Entitic mass] 31.0 pg Normal 27-34 [facility] Comment on above: Performed By: #### 3 274-8, CBCA, CMP, 2156-6, 05225-5, 68931-9 #### [facility] ([id number]) [address] [place] [address] MCHC (RBC) [Mass/Vol] 33.6 g/dL Normal 32-36 [facility] Comment on above: Performed By: #### 3 274-8, CBCA, CMP, 7-6, 29613-7, 62545-5 #### [facility] ([id number]) [address] [place] [address] MCV (RBC) [Entitic vol] 92 fL Normal 80-100 [facility] Comment on above: Performed By: #### 3 274-8, CBCA, CMP, 2157-6, 88639-3, 17923-7 #### [facility] ([id number]) [address] [place] [address] Metamyelocytes/100 WBC (Bld) 0.9 % Normal [facility] Comment on above: Performed By: #### 3 274-8, CBCA, CMP, 2157-6, 77334-2, 02787-5 #### [facility] ([id number]) [address] [place] [address] Monocytes (Bld) [#/Vol] 0.6 10*3/uL Normal 0-0.9 [facility] Comment on above: Performed By: #### 3 274-8, CBCA, CMP, 2157-6, 02635-4, 35426-5 #### [facility] ([id number]) [address] [place] [address] Monocytes/100 WBC (Bld) 13.9 % Normal [facility] Comment on above: Performed By: #### 3 274-8, CBCA, CMP, 7-6, 04184-7, 07594-0 #### [facility] ([id number]) [address] [place] [address] Neutrophils (Bld) [#/Vol] 3.2 10*3/uL Normal 1.5-6.6 [facility] Comment on above: Performed By: #### 3 274-8, CBCA, CMP, 2157-6, 19070-4, 07725-0 #### [facility] ([id number]) [address] [place] [address] Platelet mean volume (Bld) [Entitic vol] 9.6 fL Normal 7-12 [facility] Comment on above: Performed By: #### 3 274-8, CBCA, CMP, 2157-6, 41138-1, 15360-9 #### [facility] ([id number]) [address] [place] [address] Platelets (Bld) [#/Vol] 115 10*3/uL Low 150-450 [facility] Comment on above: Performed By: #### 3 274-8, CBCA, CMP, 2157-6, 18154-4, 49654-4 #### [facility] ([id number]) [address] [place] [address] POLYCHROMASIA 1+ Abnormal NONE [facility] Comment on above: Performed By: #### 3 274-8, CBCA, CMP, 2157-6, 86493-8, 24399-1 #### [facility] ([id number]) [address] [place] [address] RBC COUNT 3.31 X10E12/L Low 3.80-5.20 [facility] Comment on above: Performed By: #### 3 274-8, CBCA, CMP, 7-6, 87439-8, 03157-4 #### [facility] ([id number]) [address] [place] [address] SEG NEUTROPHIL 69.4 % Normal [facility] Comment on above: Performed By: #### 3 274-8, CBCA, CMP, 7-6, 91212-0, 81667-2 #### [facility] ([id number]) [address] [place] [address] TOXIC GRANULATION 1+ Abnormal NONE [facility] Comment on above: Performed By: #### 3 274-8, CBCA, CMP, 2157-6, 03165-9, 81653-3 #### [facility] ([id number]) [address] [place] [address] WBC (Bld) [#/Vol] 4.0 10*3/uL Normal 4.0-11.0 [facility] Comment on above: Performed By: #### 3 274-8, CBCA, CMP, 2157-6, 97149-5, 64105-1 #### [facility] ([id number]) [address] [place] [address] COMPREHENSIVE METABOLIC PANE Gurdeep 11-21-2023 Albumin [Mass/Vol] 2.3 g/dL Low 3.2-5.3 [facility] Comment on above: Performed By: #### 3 274-8, CBCA, CMP, 2157-6, 60612-3, 99047-8 #### [facility] ([id number]) [address] [place] [address] ALP [Catalytic activity/Vol] 30 U/L Low 39-130 [facility] Comment on above: Performed By: #### 3 274-8, CBCA, CMP, 2157-6, 87968-5, 91404-5 #### [facility] ([id number]) [address] [place] [address] ALT [Catalytic activity/Vol] 42 U/L High 0-31 [facility] Comment on above: Performed By: #### 3 274-8, CBCA, CMP, 2157-6, 64002-5, 96804-5 #### [facility] ([id number]) [address] [place] [address] Anion gap [Moles/Vol] 10 mmol/L Normal 5-15 [facility] Comment on above: Performed By: #### 3 274-8, CBCA, CMP, 2157-6, 63562-1, 55804-2 #### [facility] ([id number]) [address] [place] [address] AST [Catalytic activity/Vol] 40 U/L Normal 0-41 [facility] Comment on above: Performed By: #### 3 274-8, CBCA, CMP, 2157-6, 93169-6, 44583-3 #### [facility] ([id number]) [address] [place] [address] Bilirubin [Mass/Vol] 0.7 mg/dL Normal 0.3-1.2 [facility] Comment on above: Performed By: #### 3 274-8, CBCA, CMP, 2157-6, 59189-2, 75351-3 #### [facility] ([id number]) [address] [place] [address] Calcium [Mass/Vol] 7.8 mg/dL Low 8.5-10.5 [facility] Comment on above: Performed By: #### 3 274-8, CBCA, CMP, 7-6, 99772-6, 88469-6 #### [facility] ([id number]) [address] [place] [address] Chloride [Moles/Vol] 108 mmol/L Normal 98-109 [facility] Comment on above: Performed By: #### 3 274-8, CBCA, CMP, 2156-6, 91454-5, 16265-7 #### [facility] ([id number]) [address] [place] [address] CO2 [Moles/Vol] 19 mmol/L Low 22-32 [facility] Comment on above: Performed By: #### 3 274-8, CBCA, CMP, 2156-, 68163-7, 65402-5 #### [facility] ([id number]) [address] [place] [address] Creatinine [Mass/Vol] 3.10 mg/dL High 0.40-1.00 [facility] Comment on above: Result Comment: METH OD TRACEABLE TO IDMS STANDARD Performed By: #### 3 274-8, CBCA, CMP, 7-6, 88001-1, 45811-6 #### [facility] ([id number]) [address] [place] [address] GFR/1.73 sq M.predicted among non-blacks MDRD (S/P/Bld) [Vol rate/Area] 15 mL/min/{1.73_m2} Low >59 [facility] Comment on above: Result Comment: Reported eGFR is based on the CKD-EPI 2020 equation that does not use a race coefficient. Performed By: #### 3 274-8, CBCA, CMP, 2157-6, 65361-4, 69022-2 #### [facility] ([id number]) [address] [place] [address] Glucose [Mass/Vol] 181 mg/dL High 65-99 [facility] Comment on above: Performed By: #### 3 274-8, CBCA, CMP, 2156-, 94418-6, 54183-0 #### [facility] ([id number]) [address] [place] [address] Potassium [Moles/Vol] 3.4 mmol/L Low 3.5-5.0 [facility] Comment on above: Performed By: #### 3 274-8, CBCA, CMP, 2156-, 62341-9, 42251-2 #### [facility] ([id number]) [address] [place] [address] Protein [Mass/Vol] 5.9 g/dL Low 6.0-8.0 [facility] Comment on above: Performed By: #### 3 274-8, CBCA, CMP, 2156-, 21402-1, 28090-3 #### [facility] ([id number]) [address] [place] [address] Sodium [Moles/Vol] 137 mmol/L Normal 134-146 [facility] Comment on above: Performed By: #### 3 274-8, CBCA, CMP, 2156-11, 35794-2, 60188-2 #### [facility] ([id number]) [address] [place] [address] Urea nitrogen [Mass/Vol] 73 mg/dL High 5-27 [facility] Comment on above: Performed By: #### 3 274-8, CBCA, CMP, 2156-, 16470-1, 11624-9 #### [facility] ([id number]) [address] [place] [address] Glucose Glucometer ([facility]) [M ass/Vol]on 11-21-2023 Glucose [Mass/Vol] 247 mg/dL High 65-99 [facility] Glucose [Mass/Vol] 253 mg/dL High 65-99 [facility] Glucose [Mass/Vol] 264 mg/dL High 65-99 [facility] Glucose [Mass/Vol] 185 mg/dL High 65-99 [facility] Heparin unfractionated Chrom ogenic method Qn (PPP)on 11-21-2023 ANTI XA UFH 1.19 IU/mL Critically high 0.30-0.[address] [facility] Comment on above: Result Comment: Opti mal time for testing is 6 hrs post dosage This test is specific for monitoring patients on UFH, and is not recommended for use with other Anti-Xa medications. Performed By: #### 3 274-8, CBCA, CMP, 2156-11, 08550-8, 20230-1 #### [facility] ([id number]) [address] [place] [address] ANTI XA UFH 0.11 IU/mL Low 0.30-0.70 [facility] Comment on above: Result Comment: Opti mal time for testing is 6 hrs post dosage This test is specific for monitoring patients on UFH, and is not recommended for use with other Anti-Xa medications. Performed By: #### 3 274-8, CBCA, CMP, 2156-11, 63498-6, 49659-1 #### [facility] ([id number]) [address] [place] [address] ANTI XA UFH 0.06 IU/mL Low 0.30-0.70 [facility] Comment on above: Result Comment: Opti mal time for testing is 6 hrs post dosage This test is specific for monitoring patients on UFH, and is not recommended for use with other Anti-Xa medications. Performed By: #### 3 274-8, CBCA, CMP, 2156-11, 10243-8, 36079-4 #### [facility] ([id number]) [address] [place] [address] MAGNESIUMon 11-21-2023 Magnesium [Mass/Vol] 2.3 mg/dL Normal 1.8-2.6 [facility] Comment on above: Performed By: #### 3 274-8, CBCA, CMP, 2156-11, 02380-3, 17143-6 #### [facility] ([id number]) [address] [place] [address] Troponin I.cardiac High sens itivity method [Mass/Vol]on 11-21-2023 TROPONIN I, HIGH SENSITIVITY 69 ng/L High <16 [facility] Comment on above: Result Comment: Elevations of hs-Troponin may be due to causes other than myocardial ischemia. Recommend serial hs-Troponin testing be performed. For the initial evaluation and management of chest pain patients, refer to the algorithms linked below. Emergency Patient: [email or web address] Inpatient: [email or web address] Performed By: #### 3 274-8, CBCA, CMP, 7-6, 94096-0, 09126-3 #### [facility] ([id number]) [address] [place] [address] CBC AND AUTO DIFFon 11-20-19 24 ABSOLUTE BASOPHIL 0.1 X10E9/L Normal 0.0-0.2 [facility] Comment on above: Performed By: #### 3 274-8, CBCA, CMP, 2156-, 31138-3, 99637-6 #### [facility] ([id number]) [address] [place] [address] Band form neutrophils/100 WBC (Bld) 14.0 % Normal [facility] Comment on above: Performed By: #### 3 274-8, CBCA, CMP, 7-6, 66320-9, 31275-9 #### [facility] ([id number]) [address] [place] [address] Basophils/100 WBC (Bld) 1.0 % Normal [facility] Comment on above: Performed By: #### 3 274-8, CBCA, CMP, 2156-, 51694-4, 79102-6 #### [facility] ([id number]) [address] [place] [address] Eosinophils (Bld) [#/Vol] 0.1 10*3/uL Normal 0.0-0.4 [facility] Comment on above: Performed By: #### 3 274-8, CBCA, CMP, 2157-6, 70866-4, 10736-8 #### [facility] ([id number]) [address] [place] [address] Eosinophils/100 WBC (Bld) 1.0 % Normal [facility] Comment on above: Performed By: #### 3 274-8, CBCA, CMP, 2157-6, 14801-8, 44118-0 #### [facility] ([id number]) [address] [place] [address] Erythrocyte distribution width (RBC) [Ratio] 14.5 % Normal 11.5-15.0 [facility] Comment on above: Performed By: #### 3 274-8, CBCA, CMP, 7-6, 46365-0, 77180-1 #### [facility] ([id number]) [address] [place] [address] Hematocrit (Bld) [Volume fraction] 31.8 % Low 35-47 [facility] Comment on above: Performed By: #### 3 274-8, CBCA, CMP, 7-6, 03534-8, 17958-9 #### [facility] ([id number]) [address] [place] [address] Hemoglobin (Bld) [Mass/Vol] 10.5 g/dL Low 11.7-15.5 [facility] Comment on above: Performed By: #### 3 274-8, CBCA, CMP, 2157-6, 23665-7, 48988-8 #### [facility] ([id number]) [address] [place] [address] Lymphocytes (Bld) [#/Vol] 0.6 10*3/uL Low 1.0-3.5 [facility] Comment on above: Performed By: #### 3 274-8, CBCA, CMP, 2157-6, 74604-9, 95936-7 #### [facility] ([id number]) [address] [place] [address] Lymphocytes/100 WBC (Bld) 7.0 % Normal [facility] Comment on above: Performed By: #### 3 274-8, CBCA, CMP, 2157-6, 61676-1, 53307-4 #### [facility] ([id number]) [address] [place] [address] MCH (RBC) [Entitic mass] 31.0 pg Normal 27-34 [facility] Comment on above: Performed By: #### 3 274-8, CBCA, CMP, 2157-6, 00398-4, 37107-6 #### [facility] ([id number]) [address] [place] [address] MCHC (RBC) [Mass/Vol] 33.1 g/dL Normal 32-36 [facility] Comment on above: Performed By: #### 3 274-8, CBCA, CMP, 2157-6, 49639-6, 33031-5 #### [facility] ([id number]) [address] [place] [address] MCV (RBC) [Entitic vol] 94 fL Normal 80-100 [facility] Comment on above: Performed By: #### 3 274-8, CBCA, CMP, 2157-6, 35187-5, 13418-9 #### [facility] ([id number]) [address] [place] [address] Metamyelocytes/100 WBC (Bld) 1.0 % Normal [facility] Comment on above: Performed By: #### 3 274-8, CBCA, CMP, 2157-6, 81871-1, 60092-4 #### [facility] ([id number]) [address] [place] [address] Monocytes (Bld) [#/Vol] 0.8 10*3/uL Normal 0-0.9 [facility] Comment on above: Performed By: #### 3 274-8, CBCA, CMP, 2157-6, 58664-8, 63293-3 #### [facility] ([id number]) [address] [place] [address] Monocytes/100 WBC (Bld) 9.0 % Normal [facility] Comment on above: Performed By: #### 3 274-8, CBCA, CMP, 2157-6, 58704-9, 03619-0 #### [facility] ([id number]) [address] [place] [address] NEUTROPHIL VACUOLES 1+ Abnormal NONE [facility] Comment on above: Performed By: #### 3 274-8, CBCA, CMP, 2157-6, 05943-5, 60497-9 #### [facility] ([id number]) [address] [place] [address] Neutrophils (Bld) [#/Vol] 6.8 10*3/uL High 1.5-6.6 [facility] Comment on above: Performed By: #### 3 274-8, CBCA, CMP, 2156-6, 00698-8, 22390-3 #### [facility] ([id number]) [address] [place] [address] Platelet mean volume (Bld) [Entitic vol] 9.4 fL Normal 7-12 [facility] Comment on above: Performed By: #### 3 274-8, CBCA, CMP, 7-6, 24272-1, 07334-0 #### [facility] ([id number]) [address] [place] [address] Platelets (Bld) [#/Vol] 139 10*3/uL Low 150-450 [facility] Comment on above: Performed By: #### 3 274-8, CBCA, CMP, 7-6, 93547-7, 03744-1 #### [facility] ([id number]) [address] [place] [address] RBC COUNT 3.40 X10E12/L Low 3.80-5.20 [facility] Comment on above: Performed By: #### 3 274-8, CBCA, CMP, 7-6, 41942-2, 09133-8 #### [facility] ([id number]) [address] [place] [address] RBC morphology finding Nom (Bld) REVIEWED Normal [facility] Comment on above: Performed By: #### 3 274-8, CBCA, CMP, 2157-6, 70551-6, 97500-9 #### [facility] ([id number]) [address] [place] [address] SEG NEUTROPHIL 67.0 % Normal [facility] Comment on above: Performed By: #### 3 274-8, CBCA, CMP, 2157-6, 15650-3, 84148-9 #### [facility] ([id number]) [address] [place] [address] WBC (Bld) [#/Vol] 8.5 10*3/uL Normal 4.0-11.0 [facility] Comment on above: Performed By: #### 3 274-8, CBCA, CMP, 2157-6, 80336-3, 84605-6 #### [facility] ([id number]) [address] [place] [address] CK [Catalytic activity/Vol]o n 11-20-2023 CPK 597 U/L High 24-170 [facility] Comment on above: Performed By: #### 3 274-8, CBCA, CMP, 2157-6, 76469-6, 91774-5 #### [facility] ([id number]) [address] [place] [address] COMPREHENSIVE METABOLIC PANE Gurdeep 11-20-2023 Albumin [Mass/Vol] 2.4 g/dL Low 3.2-5.3 [facility] Comment on above: Performed By: #### 3 274-8, CBCA, CMP, 2157-6, 20355-0, 10576-6 #### [facility] ([id number]) [address] [place] [address] ALP [Catalytic activity/Vol] 31 U/L Low 39-130 [facility] Comment on above: Performed By: #### 3 274-8, CBCA, CMP, 2157-6, 76616-2, 79972-7 #### [facility] ([id number]) [address] [place] [address] ALT [Catalytic activity/Vol] 35 U/L High 0-31 [facility] Comment on above: Performed By: #### 3 274-8, CBCA, CMP, 2157-6, 91642-3, 94125-6 #### [facility] ([id number]) [address] [place] [address] Anion gap [Moles/Vol] 10 mmol/L Normal 5-15 [facility] Comment on above: Performed By: #### 3 274-8, CBCA, CMP, 2156-6, 03654-0, 93122-8 #### [facility] ([id number]) [address] [place] [address] AST [Catalytic activity/Vol] 51 U/L High 0-41 [facility] Comment on above: Performed By: #### 3 274-8, CBCA, CMP, 2156-6, 10314-5, 00683-1 #### [facility] ([id number]) [address] [place] [address] Bilirubin [Mass/Vol] 0.9 mg/dL Normal 0.3-1.2 [facility] Comment on above: Performed By: #### 3 274-8, CBCA, CMP, 2156-6, 12357-6, 85185-7 #### [facility] ([id number]) [address] [place] [address] Calcium [Mass/Vol] 7.4 mg/dL Low 8.5-10.5 [facility] Comment on above: Performed By: #### 3 274-8, CBCA, CMP, 2156-6, 26767-7, 67178-0 #### [facility] ([id number]) [address] [place] [address] Chloride [Moles/Vol] 105 mmol/L Normal 98-109 [facility] Comment on above: Performed By: #### 3 274-8, CBCA, CMP, 2157-6, 14227-7, 74379-7 #### [facility] ([id number]) [address] [place] [address] CO2 [Moles/Vol] 17 mmol/L Low 22-32 [facility] Comment on above: Performed By: #### 3 274-8, CBCA, CMP, 2157-6, 93787-5, 19360-0 #### [facility] ([id number]) [address] [place] [address] Creatinine [Mass/Vol] 3.93 mg/dL High 0.40-1.00 [facility] Comment on above: Result Comment: METH OD TRACEABLE TO IDMS STANDARD Performed By: #### 3 274-8, CBCA, CMP, 2157-6, 52868-5, 31399-3 #### [facility] ([id number]) [address] [place] [address] GFR/1.73 sq M.predicted among non-blacks MDRD (S/P/Bld) [Vol rate/Area] 11 mL/min/{1.73_m2} Low >59 [facility] Comment on above: Result Comment: Reported eGFR is based on the CKD-EPI 2020 equation that does not use a race coefficient. Performed By: #### 3 274-8, CBCA, CMP, 2157-6, 70594-5, 03093-8 #### [facility] ([id number]) [address] [place] [address] Glucose [Mass/Vol] 198 mg/dL High 65-99 [facility] Comment on above: Performed By: #### 3 274-8, CBCA, CMP, 2157-6, 06290-5, 77478-5 #### [facility] ([id number]) [address] [place] [address] Potassium [Moles/Vol] 4.5 mmol/L Normal 3.5-5.0 [facility] Comment on above: Performed By: #### 3 274-8, CBCA, CMP, 2157-6, 89927-6, 24425-0 #### [facility] ([id number]) [address] [place] [address] Protein [Mass/Vol] 6.0 g/dL Normal 6.0-8.0 [facility] Comment on above: Performed By: #### 3 274-8, CBCA, CMP, 2156-6, 01601-5, 58336-8 #### [facility] ([id number]) [address] [place] [address] Sodium [Moles/Vol] 132 mmol/L Low 134-146 [facility] Comment on above: Performed By: #### 3 274-8, CBCA, CMP, 2156-, 92373-2, 86850-1 #### [facility] ([id number]) [address] [place] [address] Urea nitrogen [Mass/Vol] 75 mg/dL High 5-27 [facility] Comment on above: Performed By: #### 3 274-8, CBCA, CMP, 2156-, 64918-5, 90721-0 #### [facility] ([id number]) [address] [place] [address] CYSTO BLADDER CULTUREon 10-24 Bacteria identified Cx Nom (U) CULTURE RESULTS >100,000 ORGANISMS/mL ESCHERICHIA COLI [ S = SUSCEPTIBLE R = RESISTANT I = INTERMEDIATE S-DO = Susceptible-dose dependent NS = Non-suscceptible NO = No Interpretation ] Organism: ESCHERICHIA COLI Antibiotic Interpretation ORMI Status AMPICILLIN S 8 F AMP/SULBACTAM S 8/4 F CEFAZOLIN S <=4 F CEFTRIAXONE S <=1 F CIPROFLOXACIN R >=4 F GENTAMICIN S <=1 F LEVOFLOXACIN R >=8 F NITROFURANTOIN I 64 F TOBRAMYCIN S <=1 F Susceptible [facility] Comment on above: Performed By: #### 3 274-8, CBCA, CMP, 2156-11, , 71306-3 #### [facility] ([id number]) [address] [place] [address] Creatinine (U) [Mass/Vol]on 11-20-2023 URINE CREATININE,RDM <10.00 Normal [facility] Comment on above: Performed By: #### 3 274-8, CBCA, CMP, 2156-11, , 01074-2 #### [facility] ([id number]) [address] [place] [address] Glucose Glucometer (BldC) [M ass/Vol]on 11-20-2023 Glucose [Mass/Vol] 150 mg/dL High 65-99 [facility] Glucose [Mass/Vol] 141 mg/dL High 65-99 [facility] Glucose [Mass/Vol] 179 mg/dL High 65-99 [facility] Glucose [Mass/Vol] 179 mg/dL High 65-99 [facility] Heparin unfractionated Chrom ogenic method Qn (PPP)on 11-20-2023 ANTI XA UFH 0.36 IU/mL Normal 0.30-0.70 [facility] Comment on above: Result Comment: Opti mal time for testing is 6 hrs post dosage This test is specific for monitoring patients on UFH, and is not recommended for use with other Anti-Xa medications. Performed By: #### 3 274-8 #### [facility] ([id number]) [address] [place] [address] ANTI XA UFH 0.39 IU/mL Normal 0.30-0.70 [facility] Comment on above: Result Comment: Opti mal time for testing is 6 hrs post dosage This test is specific for monitoring patients on UFH, and is not recommended for use with other Anti-Xa medications. Performed By: #### 3 274-8, CBCA, CMP, 2156-11, 54779-0, 70027-8 #### [facility] ([id number]) [address] [place] [address] MAGNESIUMon 11-20-2023 Magnesium [Mass/Vol] 1.8 mg/dL Normal 1.8-2.6 [facility] Comment on above: Performed By: #### 3 274-8, CBCA, CMP, 2156-11, 33840-9, 61950-1 #### [facility] ([id number]) [address] [place] [address] Magnesium [Mass/Vol] 1.7 mg/dL Low 1.8-2.6 [facility] Comment on above: Performed By: #### 3 274-8, CBCA, CMP, 2157-6, 16859-5, 40681-5 #### [facility] ([id number]) [address] [place] [address] Natriuretic peptide B [Mass/ Vol]on 11-20-2023 Natriuretic peptide B (Bld) [Mass/Vol] 952 pg/mL High <100.0 [facility] Comment on above: Performed By: #### 3 274-8, CBCA, CMP, 7-6, 62638-2, 14604-5 #### [facility] ([id number]) [address] [place] [address] Troponin I.cardiac High sens itivity method [Mass/Vol]on 11-20-2023 TROPONIN I, HIGH SENSITIVITY 114 ng/L High <16 [facility] Comment on above: Result Comment: Elevations of hs-Troponin may be due to causes other than myocardial ischemia. Recommend serial hs-Troponin testing be performed. For the initial evaluation and management of chest pain patients, refer to the algorithms linked below. Emergency Patient: [email or web address] Inpatient: [email or web address] Performed By: #### 3 274-8, CBCA, CMP, 7-6, 42798-7, 06437-0 #### [facility] ([id number]) [address] [place] [address] URINALYSISon 11-20-2023 Bilirubin Ql (U) Negative Normal NEG [facility] Comment on above: Performed By: #### 3 274-8, CBCA, CMP, 2157-6, 32733-1, 41630-8 #### [facility] ([id number]) [address] [place] [address] BLOOD/HGB Large Abnormal NEG [facility] Comment on above: Performed By: #### 3 274-8, CBCA, CMP, 2157-6, 12600-3, 66620-8 #### [facility] ([id number]) [address] [place] [address] Color (U) YELLOW Normal YELLOW [facility] Comment on above: Performed By: #### 3 274-8, CBCA, CMP, 2157-6, 57422-1, 51644-3 #### [facility] ([id number]) [address] [place] [address] Glucose Ql (U) Negative Normal NEG [facility] Comment on above: Performed By: #### 3 274-8, CBCA, CMP, 2157-6, 69566-2, 33717-4 #### [facility] ([id number]) [address] [place] [address] Ketones Ql (U) Negative Normal NEG [facility] Comment on above: Performed By: #### 3 274-8, CBCA, CMP, 2157-6, 38860-3, 15441-2 #### [facility] ([id number]) [address] [place] [address] Leukocyte esterase Test strip Ql (U) Large Abnormal NEG [facility] Comment on above: Performed By: #### 3 274-8, CBCA, CMP, 2157-6, 37891-5, 28330-0 #### [facility] ([id number]) [address] [place] [address] Nitrite Ql (U) Negative Normal NEG [facility] Comment on above: Performed By: #### 3 274-8, CBCA, CMP, 2157-6, 80420-6, 02531-4 #### [facility] ([id number]) [address] [place] [address] pH (U) 6.0 [pH] Normal 5.0-8.5 [facility] Comment on above: Performed By: #### 3 274-8, CBCA, CMP, 2157-6, 37986-8, 24652-1 #### [facility] ([id number]) [address] [place] [address] Protein Ql (U) Negative Normal NEG [facility] Comment on above: Performed By: #### 3 274-8, CBCA, CMP, 2157-6, 70424-0, 68961-7 #### [facility] ([id number]) [address] [place] [address] R.B.CELLS 10 /hpf High 0-5 [facility] Comment on above: Performed By: #### 3 274-8, CBCA, CMP, 2157-6, 22017-8, 96985-6 #### [facility] ([id number]) [address] [place] [address] Specific gravity (U) [Rel density] 1.025 Normal 1.003-1.035 [facility] Comment on above: Performed By: #### 3 274-8, CBCA, CMP, 2157-6, 85212-3, 93049-2 #### [facility] ([id number]) [address] [place] [address] SQUAMOUS EPITHELIUM 0 /hpf Normal 0-5 [facility] Comment on above: Performed By: #### 3 274-8, CBCA, CMP, 2157-6, 43237-1, 46818-6 #### [facility] ([id number]) [address] [place] [address] TURBIDITY HAZY Abnormal CLEAR [facility] Comment on above: Performed By: #### 3 274-8, CBCA, CMP, 2157-6, 06541-4, 27647-0 #### [facility] ([id number]) [address] [place] [address] Urobilinogen Qn (U) 0.2 {Yan'U}/dL Normal <1.1 [facility] Comment on above: Performed By: #### 3 274-8, CBCA, CMP, 2157-6, 63159-8, 75190-2 #### [facility] ([id number]) [address] [place] [address] W.B.CELLS >100 High 0-5 [facility] Comment on above: Performed By: #### 3 274-8, CBCA, CMP, 2156-11, 91302-3, 22905-9 #### [facility] ([id number]) [address] [place] [address] URINE SODIUM,RANDOMon 2023 Sodium (U) [Moles/Vol] 137 mmol/L Normal [facility] Comment on above: Performed By: #### 3 274-8, CBCA, CMP, 2156-11, , 45049-7 #### [facility] ([id number]) [address] [place] [place] [address] XR CHEST 1 VWon 11-20-2023 XR CHEST 1 VW XR CHEST 1 VW History: Left PICC placement Exam/Technique: Single AP view of the chest was obtained Comparison: Chest x-ray 11/19/2023 Findings: Left arm PICC tip is overlying the central aspect of the SVC. Cardiac size stable with mild cardiomegaly, central vascular congestion and interstitial infiltration. There is minimal bilateral basal opacities likely atelectasis versus consolidation. IMPRESSION: [place] arm PICC tip [place] the [facility] [place] Finalized by Geovanna Warner MD on 11/20/2023 4:00 PM Normal [facility] ARTERIAL BLOOD GASon 024 EWELINA'S TEST Pass Normal [facility] Comment on above: Performed By: #### C BC, CMP, 09519-3 #### [facility] ([id number]) [address], [address] [place] [address] BASE,DEFICIT 9.0 MMOL/L High 0.0-2.0 [facility] Comment on above: Performed By: #### C BC, CMP, 91095-0 #### [facility] ([id number]) [address], [address] [place] [address] Body temperature 98.6 [degF] Normal 37.0 [facility] Comment on above: Performed By: #### Kaiden NEWMAN [facility], #### [facility] ([id number]) [address], [address] [place] [address] HCO3 (Bld) [Moles/Vol] 15.2 mmol/L Low 22-26 [facility] Comment on above: Performed By: #### Kaiden NEWMAN [facility], #### [facility] ([id number]) [address], [address] [place] [address] Oxygen (Bld) [Partial pressure] 62 mm[Hg] Low 80-100 [facility] Comment on above: Performed By: #### Kaiden NEWMAN CMP, #### [facility] ([id number]) [address], [address] [place] [address] Oxygen saturation in Blood 91.0 % Normal >90 [facility] Comment on above: Performed By: #### Kaiden NEWMAN [facility], #### [facility] ([id number]) [address], [address] [place] [address] OXYGEN SOURCE NC Normal [facility] Comment on above: Performed By: #### Kaiden NEWMAN CMP, #### [facility] ([id number]) [address], [address] [place] [address] PCO2 27.5 MMHG Low 35-45 [facility] Comment on above: Performed By: #### Kaiden NEWMAN CMP, #### [facility] ([id number]) [address], [address] [place] [address] pH (Bld) 7.351 [pH] Normal 7.350-7.450 [facility] Comment on above: Performed By: #### Kaiden NEWMAN CMP, #### [facility] ([id number]) [address], [address] [place] [address] SAMPLE SITE LRad Normal [facility] Comment on above: Performed By: #### Kaiden NEWMAN CMP, 71162-3 #### [facility] ([id number]) [address], [address] [place] [address] SAMPLE TYPE ARTERIAL Normal [facility] Comment on above: Performed By: #### Kaiden NEWMAN CMP, #### [facility] ([id number]) [address], [address] [place] [address] BASIC METABOLIC PANLon 11-18 Anion gap [Moles/Vol] 7 mmol/L Normal 5-15 [facility] Comment on above: Performed By: #### Kaiden NEWMAN CMP, #### [facility] ([id number]) [address] [place] [address] Calcium [Mass/Vol] 7.6 mg/dL Low 8.5-10.5 [facility] Comment on above: Performed By: #### Kaiden NEWMAN [facility], #### [facility] ([id number]) [address], [address] [place] [address] Chloride [Moles/Vol] 110 mmol/L High 98-109 [facility] Comment on above: Performed By: #### Kaiden NEWMAN CMP, #### [facility] ([id number]) [address] [place] [address] CO2 [Moles/Vol] 19 mmol/L Low 22-32 [facility] Comment on above: Performed By: #### Kaiden NEWMAN CMP, 42032-4 #### [facility] ([id number]) [address], [address] [place] [address] Creatinine [Mass/Vol] 3.11 mg/dL High 0.40-1.00 [facility] Comment on above: Result Comment: METH OD TRACEABLE TO IDMS STANDARD Performed By: #### Kaiden NEWMAN [facility], #### [facility] ([id number]) [address], [address] [place] [address] GFR/1.73 sq M.predicted among non-blacks MDRD (S/P/Bld) [Vol rate/Area] 15 mL/min/{1.73_m2} Low >59 [facility] Comment on above: Result Comment: Reported eGFR is based on the CKD-EPI 2020 equation that does not use a race coefficient. Performed By: #### Kaiden NEWMAN CMP, #### [facility] ([id number]) [address], [address] [place] [address] Glucose [Mass/Vol] 96 mg/dL Normal 65-99 [facility] Comment on above: Performed By: #### Kaiden NEWMAN [facility], #### [facility] ([id number]) [address] [place] [address] Potassium [Moles/Vol] 4.2 mmol/L Normal 3.5-5.0 [facility] Comment on above: Performed By: #### Kaiden NEWMAN [facility], #### [facility] ([id number]) [address], [address] [place] [address] Sodium [Moles/Vol] 136 mmol/L Normal 134-146 [facility] Comment on above: Performed By: #### Kaiden NEWMAN [facility], #### [facility] ([id number]) [address] [address] [place] [address] Urea nitrogen [Mass/Vol] 71 mg/dL High 5-27 [facility] Comment on above: Performed By: #### Kaiden NEWMAN C[facility], #### [facility] ([id number]) [address] [address] [place] [address] Anion gap [Moles/Vol] 10 mmol/L Normal 5-15 [facility] Comment on above: Performed By: #### B JACQUI SORENSEN #### [facility] ([id number]) [address] [place] [address] Calcium [Mass/Vol] 9.0 mg/dL Normal 8.5-10.5 [facility] Comment on above: Performed By: #### B EDU, CBCA #### [facility] ([id number]) [address] [place] [address] Chloride [Moles/Vol] 105 mmol/L Normal 98-109 [facility] Comment on above: Performed By: #### B EDU, CBCA #### [facility] ([id number]) [address] [place] [address] CO2 [Moles/Vol] 21 mmol/L Low 22-32 [facility] Comment on above: Performed By: #### B JACQUI SORENSEN #### [facility] ([id number]) [address] [place] [address] Creatinine [Mass/Vol] 2.55 mg/dL High 0.40-1.00 [facility] Comment on above: Result Comment: METH OD TRACEABLE TO IDMS STANDARD Performed By: #### B EDU, CBCA #### [facility] ([id number]) [address] [place] [address] GFR/1.73 sq M.predicted among non-blacks MDRD (S/P/Bld) [Vol rate/Area] 19 mL/min/{1.73_m2} Low >59 [facility] Comment on above: Result Comment: Reported eGFR is based on the CKD-EPI 2020 equation that does not use a race coefficient. Performed By: #### B JACQUI SORENSEN #### [facility] ([id number]) [address] [place] [address] Glucose [Mass/Vol] 130 mg/dL High 65-99 [facility] Comment on above: Performed By: #### B MP, CBCA #### [facility] ([id number]) [address] [place] [address] Potassium [Moles/Vol] 5.5 mmol/L High 3.5-5.0 [facility] Comment on above: Performed By: #### B MP, CBCA #### [facility] ([id number]) [address] [place] [address] Sodium [Moles/Vol] 136 mmol/L Normal 134-146 [facility] Comment on above: Performed By: #### B EDU, CBCA #### [facility] ([id number]) [address] [place] [address] Urea nitrogen [Mass/Vol] 67 mg/dL High 5-27 [facility] Comment on above: Performed By: #### B MP, CBCA #### [facility] ([id number]) [address] [place] [address] BLOOD CULTUREon 11-19-2023 Bacteria identified Aer cx Nom (Bld) SPECIMEN NOTES RIGHT WRIST CULTURE RESULTS MICROCOCCUS LUTEUS POSSIBLE COLLECTION CONTAMINATION. SINGLE POSITIVE CULTURE IS OF UNCERTAIN CLINICAL SIGNIFICANCE. SUGGEST CONTINUED MONITORING OF REMAINING BLOOD CULTURES. CONTACT MICROBIOLOGY IF FURTHER INFORMATION IS REQUIRED. No Staphylococcus species, Streptococcus species, Entercoccus feacalis, or E.faecium detected by PCR. Abnormal [facility] Comment on above: Performed By: #### M ALBU #### [facility] ([id number]) [address], [address] [place] [address] Bacteria identified Aer cx Nom (Bld) SPECIMEN NOTES RIGHT HAND CULTURE RESULTS NO GROWTH 5 DAYS Normal [facility] Comment on above: Performed By: #### M ALBU #### [facility] ([id number]) [address], [address] [place] [address] CBC AND AUTO DIFFon 11-19-19 ABSOLUTE BASOPHIL 0.1 X10E9/L Normal 0.0-0.2 [facility] Comment on above: Performed By: #### Kaiden BC, CMP, #### [facility] ([id number]) [address], [facility] [address] [place] [address] Band form neutrophils/100 WBC (Bld) 33.0 % Normal [facility] Comment on above: Performed By: #### Kaiden NEWMAN, [facility], #### [facility] ([id number]) [address], [facility] [address] [place] [address] Basophils/100 WBC (Bld) 1.0 % Normal [facility] Comment on above: Performed By: #### Kaiden NEWMAN, [facility], #### [facility] ([id number]) [address], [facility] [address] [place] [address] Erythrocyte distribution width (RBC) [Ratio] 14.0 % Normal 11.5-15.0 [facility] Comment on above: Performed By: #### Kaiden BC, [facility], #### [facility] ([id number]) [address] [address] [place] [address] Hematocrit (Bld) [Volume fraction] 32.1 % Low 35-47 [facility] Comment on above: Performed By: #### Kaiden BC, [facility], #### [facility] ([id number]) [address], [facility] [address] [place] [address] Hemoglobin (Bld) [Mass/Vol] 10.9 g/dL Low 11.7-15.5 [facility] Comment on above: Performed By: #### Kaiden BC, CMP, #### [facility] ([id number]) [address], [facility] [address] [place] [address] Lymphocytes (Bld) [#/Vol] 0.6 10*3/uL Low 1.0-3.5 [facility] Comment on above: Performed By: #### Kaiden NEWMAN CMP, #### [facility] ([id number]) [address], [address] [place] [address] Lymphocytes/100 WBC (Bld) 6.0 % Normal [facility] Comment on above: Performed By: #### Kaiden NEWMAN [facility], #### [facility] ([id number]) [address], [address] [place] [address] MCH (RBC) [Entitic mass] 31.4 pg Normal 27-34 [facility] Comment on above: Performed By: #### Kaiden NEWMAN CMP, #### [facility] ([id number]) [address], [address] [place] [address] MCHC (RBC) [Mass/Vol] 33.9 g/dL Normal 32-36 [facility] Comment on above: Performed By: #### Kaiden NEWMAN [facility], #### [facility] ([id number]) [address], [address] [place] [address] MCV (RBC) [Entitic vol] 93 fL Normal 80-100 [facility] Comment on above: Performed By: #### Kaiden NEWMAN CMP, #### [facility] ([id number]) [address], [address] [place] [address] Metamyelocytes/100 WBC (Bld) 9.0 % Normal [facility] Comment on above: Performed By: #### Kaiden NEWMAN CMP, #### [facility] ([id number]) [address], [address] [place] [address] Monocytes (Bld) [#/Vol] 0.7 10*3/uL Normal 0-0.9 [facility] Comment on above: Performed By: #### Kaiden NEWMAN CMP, #### [facility] ([id number]) [address], [address] [place] [address] Monocytes/100 WBC (Bld) 7.0 % Normal [facility] Comment on above: Performed By: #### Kaiden NEWMAN, CMP, #### [facility] ([id number]) [address], [address] [place] [address] Neutrophils (Bld) [#/Vol] 7.5 10*3/uL High 1.5-6.6 [facility] Comment on above: Performed By: #### Kaiden NEWMAN CMP, #### [facility] ([id number]) [address], [address] [place] [address] Platelet mean volume (Bld) [Entitic vol] 9.3 fL Normal 7-12 [facility] Comment on above: Performed By: #### Kaiden NEWMAN CMP, #### [facility] ([id number]) [address], [address] [place] [address] Platelets (Bld) [#/Vol] 172 10*3/uL Normal 150-450 [facility] Comment on above: Performed By: #### Kaiden NEWMAN CMP, #### [facility] ([id number]) [address], [address] [place] [address] RBC COUNT 3.48 X10E12/L Low 3.80-5.20 [facility] Comment on above: Performed By: #### Kaiden BC, CMP, #### [facility] ([id number]) [address], [address] [place] [address] RBC morphology finding Nom (Bld) REVIEWED Normal [facility] Comment on above: Performed By: #### Kaiden BC, CMP, #### [facility] ([id number]) [address], [address] [place] [address] SEG NEUTROPHIL 44.0 % Normal [facility] Comment on above: Performed By: #### C BC, CMP, 42229-5 #### [facility] ([id number]) [address], [address] [place] [address] WBC (Bld) [#/Vol] 9.8 10*3/uL Normal 4.0-11.0 [facility] Comment on above: Performed By: #### C BC, [facility], 62000-8 #### [facility] ([id number]) [address] [place] [address] ABSOLUTE BASOPHIL 0.0 X10E9/L Normal 0.0-0.2 [facility] Comment on above: Performed By: #### B EDU, CBCA #### [facility] ([id number]) [address] [place] [address] ABSOLUTE NEUTROPHIL 1.8 X10E9/L Normal 1.5-6.6 [facility] Comment on above: Performed By: #### B MP, CBCA #### [facility] ([id number]) [address] [place] [address] Basophils/100 WBC (Bld) 0.7 % Normal [facility] Comment on above: Performed By: #### B MP, CBCA #### [facility] ([id number]) [address] [place] [address] Eosinophils (Bld) [#/Vol] 0.0 10*3/uL Normal 0.0-0.4 [facility] Comment on above: Performed By: #### B MP, CBCA #### [facility] ([id number]) [address] [place] [address] Eosinophils/100 WBC (Bld) 1.1 % Normal [facility] Comment on above: Performed By: #### B MP, CBCA #### [facility] ([id number]) [address] [place] [address] Erythrocyte distribution width (RBC) [Ratio] 14.1 % Normal 11.5-15.0 [facility] Comment on above: Performed By: #### B MP, CBCA #### [facility] ([id number]) [address] [place] [address] Hematocrit (Bld) [Volume fraction] 38.2 % Normal 35-47 [facility] Comment on above: Performed By: #### B MP, CBCA #### [facility] ([id number]) [address] [place] [address] Hemoglobin (Bld) [Mass/Vol] 12.8 g/dL Normal 11.7-15.5 [facility] Comment on above: Performed By: #### B MP, CBCA #### [facility] ([id number]) [address] [place] [address] Lymphocytes (Bld) [#/Vol] 0.2 10*3/uL Low 1.0-3.5 [facility] Comment on above: Performed By: #### B MP, CBCA #### [facility] ([id number]) [address] [place] [address] Lymphocytes/100 WBC (Bld) 11.5 % Normal [facility] Comment on above: Performed By: #### B MP, CBCA #### [facility] ([id number]) [address] [place] [address] MCH (RBC) [Entitic mass] 31.5 pg Normal 27-34 [facility] Comment on above: Performed By: #### B MP, CBCA #### [facility] ([id number]) [address] [place] [address] MCHC (RBC) [Mass/Vol] 33.4 g/dL Normal 32-36 [facility] Comment on above: Performed By: #### B MP, CBCA #### [facility] ([id number]) [address] [place] [address] MCV (RBC) [Entitic vol] 94 fL Normal 80-100 [facility] Comment on above: Performed By: #### B MP, CBCA #### [facility] ([id number]) [address] [place] [address] Monocytes (Bld) [#/Vol] 0.0 10*3/uL Normal 0-0.9 [facility] Comment on above: Performed By: #### B EDU, CBCA #### [facility] ([id number]) [address] [place] [address] Monocytes/100 WBC (Bld) 0.6 % Normal [facility] Comment on above: Performed By: #### B EDU, CBCA #### [facility] ([id number]) [address] [place] [address] Neutrophils/100 WBC (Bld) 86.1 % Normal [facility] Comment on above: Performed By: #### B EDU, CBCA #### [facility] ([id number]) [address] [place] [address] Platelet mean volume (Bld) [Entitic vol] 9.5 fL Normal 7-12 [facility] Comment on above: Performed By: #### B MP, CBCA #### [facility] ([id number]) [address] [place] [address] Platelets (Bld) [#/Vol] 184 10*3/uL Normal 150-450 [facility] Comment on above: Performed By: #### B MP, CBCA #### [facility] ([id number]) [address] [place] [address] RBC COUNT 4.06 X10E12/L Normal 3.80-5.20 [facility] Comment on above: Performed By: #### B MP, CBCA #### [facility] ([id number]) [address] [place] [address] WBC (Bld) [#/Vol] 2.1 10*3/uL Low 4.0-11.0 [facility] Comment on above: Performed By: #### B MP, CBCA #### [facility] ([id number]) [address] [place] [address] COMPLEMENT PROFILEon 024 COMPLEMENT C3 120 mg/dL Normal 86-184 [facility] Comment on above: Performed By: #### Kaiden BC, CMP, 86086-6 #### [facility] ([id number]) [address], [address] [place] [address] COMPLEMENT C4 47 mg/dL Normal 16-47 [facility] Comment on above: Performed By: #### Kaiden BC, CMP, 57745-8 #### [facility] ([id number]) [address], [address] [place] [address] COMPREHENSIVE METABOLIC PANE Gurdeep 11-19-2023 Albumin [Mass/Vol] 2.7 g/dL Low 3.2-5.3 [facility] Comment on above: Performed By: #### Kaiden BC, CMP, 51381-5 #### [facility] ([id number]) [address], [address] [place] [address] ALP [Catalytic activity/Vol] 31 U/L Low 39-130 [facility] Comment on above: Performed By: #### C BC, CMP, 12490-3 #### [facility] ([id number]) [address], [address] [place] [address] ALT [Catalytic activity/Vol] 38 U/L High 0-31 [facility] Comment on above: Performed By: #### Kaiden NEWMAN [facility], 74409-0 #### [facility] ([id number]) [address], [address] [place] [address] Anion gap [Moles/Vol] 9 mmol/L Normal 5-15 [facility] Comment on above: Performed By: #### Kaiden NEWMAN [facility], #### [facility] ([id number]) [address], [address] [place] [address] AST [Catalytic activity/Vol] 55 U/L High 0-41 [facility] Comment on above: Performed By: #### Kaiden NEWMAN [facility], #### [facility] ([id number]) [address], [address] [place] [address] Bilirubin [Mass/Vol] 0.6 mg/dL Normal 0.3-1.2 [facility] Comment on above: Performed By: #### Kaiden NEWMAN [facility], #### [facility] ([id number]) [address], [address] [place] [address] Calcium [Mass/Vol] 7.3 mg/dL Low 8.5-10.5 [facility] Comment on above: Performed By: #### Kaiden NEWMAN [facility], #### [facility] ([id number]) [address], [address] [place] [address] Chloride [Moles/Vol] 108 mmol/L Normal 98-109 [facility] Comment on above: Performed By: #### Kaiden NEWMAN [facility], #### [facility] ([id number]) [address], [address] [place] [address] CO2 [Moles/Vol] 16 mmol/L Low 22-32 [facility] Comment on above: Performed By: #### Kaiden NEWMAN [facility], 28903-4 #### [facility] ([id number]) [address] [address] [place] [address] Creatinine [Mass/Vol] 3.42 mg/dL High 0.40-1.00 [facility] Comment on above: Result Comment: METH OD TRACEABLE TO IDMS STANDARD Performed By: #### Kaiden NEWMAN [facility], #### [facility] ([id number]) [address], [address] [place] [address] GFR/1.73 sq M.predicted among non-blacks MDRD (S/P/Bld) [Vol rate/Area] 13 mL/min/{1.73_m2} Low >59 [facility] Comment on above: Result Comment: Reported eGFR is based on the CKD-EPI 2020 equation that does not use a race coefficient. Performed By: #### Kaiden NEWMAN [facility], #### [facility] ([id number]) [address], [address] [place] [address] Glucose [Mass/Vol] 148 mg/dL High 65-99 [facility] Comment on above: Performed By: #### Kaiden NEWMAN [facility], 26352-9 #### [facility] ([id number]) [address] [address] [place] [address] Potassium [Moles/Vol] 4.3 mmol/L Normal 3.5-5.0 [facility] Comment on above: Performed By: #### Kaiden NEWMAN [facility], #### [facility] ([id number]) [address] [place] [address] Protein [Mass/Vol] 6.1 g/dL Normal 6.0-8.0 [facility] Comment on above: Performed By: #### Kaiden NEWMAN [facility], #### [facility] ([id number]) [address] [place] [address] Sodium [Moles/Vol] 133 mmol/L Low 134-146 [facility] Comment on above: Performed By: #### Kaiden NEWMAN [facility], 58312-3 #### [facility] ([id number]) [address], [address] [place] [address] Urea nitrogen [Mass/Vol] 73 mg/dL High 11-18 [facility] Comment on above: Performed By: #### Kaiden NEWMAN [facility], 15656-4 #### [facility] ([id number]) [address] [place] [address] CRP [Mass/Vol]on 11-19-2023 C REACTIVE PROTEIN 5.5 mg/dL High 0.000-0.744 [facility] Comment on above: Performed By: #### Kaiden NWEMAN [facility], 29323-9 #### [facility] ([id number]) [address], [address] [place] [address] CT ABDOMEN AND PELVIS WO CON Ton 11-19-2023 CT ABDOMEN AND PELVIS WO CONT CT ABDOMEN AND PELVIS WO CONT CLINICAL INFORMATION: Sepsis. TECHNIQUE: CT Abdomen and Pelvis without intravenous contrast. All CT scans at this facility use dose modulation, iterative reconstruction, and/or weight based dosing when appropriate to reduce radiation dose to as low as reasonably achievable. COMPARISON: 07/24/2022 FINDINGS: Lack of intravenous contrast limits evaluation of the viscera and vessels. LOWER THORAX: Bibasilar segmental consolidations with air bronchograms.. Mitral Valve prosthesis. Mild cardiomegaly. HEPATOBILIARY: No focal aggressive appearing hepatic lesions. Mild dilatation of the common bile duct, with upstream tapering of the intrahepatic biliary tree, in a pattern suggestive of reservoir effect. Gallbladder surgically absent. SPLEEN: Unremarkable. PANCREAS: Grossly normal for technique. ADRENALS: No exophytic adrenal nodules. KIDNEYS/URETERS: Status post right nephrectomy. No aggressive appearing exophytic mass lesion. 2.2 cm left renal pelvis calculus causing cnot-ck-urbklfmn upstream collecting system dilatation. Bladder: Decompressed, jiménez catheter in situ. PELVIC ORGANS: Status post hysterectomy. GI TRACT: Left lower quadrant colostomy. No acute bowel obstruction. Status post appendectomy. LYMPH NODES: No enlarged lymph nodes within limitations of noncontrast technique. VESSELS: No abdominal aortic aneurysm. BONES AND SOFT TISSUES: No suspicious osseous lesion. . Similar appearance of a moderate T11 wedge compression fracture. PERITONEUM/RETROPERIT ONEUM: No free air or significant free fluid. Calcified peritoneal this body. ABDOMINAL WALL: Ventral abdominal wall bowel containing hernia. IMPRESSION: * 2.2 cm left renal pelvis calculus causing gjpt-sw-bsthyiar upstream collecting system dilatation. Urologic consultation is recommended in this patient with single kidney. * Bibasilar segmental consolidations with air bronchograms. Infection may be possible in the appropriate clinical setting. Clinically significant results were instructed to call for clinical service on 11/19/2023 at 7:50 PM. Finalized by Jeremy Andrea on 11/19/2023 7:50 PM Normal [facility] ESR Photometric method (Bld) [Velocity]on 11-19-2023 ESR, ERYTHROCYTE SEDIMENTATION RATE 11 mm/h Normal 0-30 [facility] Comment on above: Performed By: #### C BC, [facility], 58520-8 #### [facility] ([id number]) [address], [address] [place] [address] Glomerular basement membrane IgG Qn (S)on 11-19-2023 GBM IgG Ab <0.2 Normal <1.0 [facility] Comment on above: Performed By: #### M ALBU #### [facility] ([id number]) [address], [address] [place] [address] Glucose Glucometer (BldC) [M ass/Vol]on 11-19-2023 Glucose [Mass/Vol] 154 mg/dL High 65-99 [facility] Glucose [Mass/Vol] 117 mg/dL High 65-99 [facility] Glucose [Mass/Vol] 80 mg/dL Normal 65-99 [facility] Glucose [Mass/Vol] 116 mg/dL High 65-99 [facility] Glucose [Mass/Vol] 38 mg/dL Critically low 65-99 [facility]ucose [Mass/Vol] 45 mg/dL Critically low 65-99 Pr [facility] Lactate (P aleksandar) [Moles/Vol]o n 11-19-2023 Lactate [Moles/Vol] 1.4 mmol/L Normal 0.4-2.0 [facility] Comment on above: Performed By: #### Kaiden NEWMAN [facility], 85742-1 #### [facility] ([id number]) [address], [address] [place] [address] Lactate [Moles/Vol] 1.9 mmol/L Normal 0.4-2.0 [facility] Comment on above: Performed By: #### Kaiden NEWMAN [facility], 17755-7 #### [facility] ([id number]) [address], [address] [place] [address] LACTATE W/REFLEX 2.5 mmol/L High 0.4-2.0 [facility] Comment on above: Performed By: #### Kaiden NEWMAN [facility], #### [facility] ([id number]) [address] [place] [address] LACTATE W/REFLEX 3.4 mmol/L High 0.4-2.0 [facility] Comment on above: Performed By: #### Kaiden NEWMAN [facility], 98382-3 #### [facility] ([id number]) [address], [address] [place] [address] MAGNESIUMon 11-19-2023 Magnesium [Mass/Vol] 1.6 mg/dL Low 1.8-2.6 [facility] Comment on above: Performed By: #### Kaiden NEWMAN [facility], #### [facility] ([id number]) [address], [address] [place] [address] Myeloperoxidase Ab Qn (S)on 11-19-2023 Myeloperoxidase Ab <0.2 Normal <1.0 [facility] Comment on above: Performed By: #### M ALBU #### [facility] ([id number]) [address] [place] [address] Nuclear Ab IA Ql (S)on 11-18 YAHAIRA Screen w/reflex Negative Normal NEG [facility] Comment on above: Result Comment: Testing performed using multiplex flow immunoassay. Eleven different antigens associated with systemic autoimmune diseases (dsDNA,Sm,Sm/ADMINISTRATIVE HEARING OFFICER,ADMINISTRATIVE HEARING OFFICER,Chromatin, SSA,SSB,Johana-1,Scl70,Ribo P,Centromere B) are included in this screening test. Performed By: #### M ALBU #### [facility] ([id number]) [address] [place] [address] PHOSPHORUSon 11-19-2023 Phosphate [Mass/Vol] 2.5 mg/dL Normal 2.4-4.9 [facility] Comment on above: Performed By: #### Kaiden NEWMAN CMP, 45056-8 #### [facility] ([id number]) [address] [place] [address] PROTIME AND INRon 11-19-2023 INR Coag (PPP) [Relative time] 1.3 {INR} High 0.8-1.1 [facility] Comment on above: Performed By: #### Kaiden NEWMAN CMP, 22154-2 #### [facility] ([id number]) [address] [address] [place] [address] PT Coag (PPP) [Time] 15.0 s High 9.8-13.2 [facility] Comment on above: Result Comment: NEW REFERENCE RANGE Performed By: #### Kaiden NEWMAN, CMP, 96227-8 #### [facility] ([id number]) [address] [place] [address] Procalcitonin IA [Mass/Vol]o n 11-19-2023 PROCALCITONIN 128.60 ng/mL High <0.05 [facility] Comment on above: Result Comment: NOTE <0.50 ng/mL - Low risk of severe sepsis and/or septic shock. <2.00 ng/mL - Recommend retesting within 6-24 hours. >2.00 ng/mL - High risk of sepsis and/or septic shock. Performed By: #### C TRENT [facility], 50579-4 #### [facility] ([id number]) [address] [place] [address] PROCALCITONIN 78.36 ng/mL High <0.05 [facility] Comment on above: Result Comment: NOTE <0.50 ng/mL - Low risk of severe sepsis and/or septic shock. <2.00 ng/mL - Recommend retesting within 6-24 hours. >2.00 ng/mL - High risk of sepsis and/or septic shock. Performed By: #### Kaiden [facility] [place], [address]-0 #### [facility] ([id number]) [address] [address], [address] [place] [address] Proteinase 3 Ab Qn (S)on Proteinase 3 IgG Ab <0.2 Normal <1.0 [facility] Comment on above: Performed By: #### M ALBU #### [facility] ([id number]) [address], [address] [place] [address] SERUM PROTEIN ELECTROPHORESI Son 11-19-2023 Albumin [Mass/Vol] 2.5 g/dL Low 3.4-5.3 [facility] Comment on above: Performed By: #### M ALBU #### [facility] ([id number]) [address], [address] [place] [address] ALPHA 1 GLOBULIN 0.4 g/dL Normal 0.1-0.4 [facility] Comment on above: Performed By: #### M ALBU #### [facility] ([id number]) [address], [address] [place] [address] ALPHA 2 GLOBULIN 0.8 g/dL Normal 0.4-1.1 [facility] Comment on above: Performed By: #### M ALBU #### [facility] ([id number]) [address], [address] [place] [address] BETA GLOBULIN 1.0 g/dL Normal 0.5-1.2 [facility] Comment on above: Performed By: #### M ALBU #### [facility] ([id number]) [address], [address] [place] [address] GAMMA GLOBULIN 1.0 g/dL Normal 0.5-1.6 [facility] Comment on above: Performed By: #### M ALBU #### [facility] ([id number]) [address], [address] [place] [address] PROT. ELECTROPHORESIS INTERP Unremarkable protein distribution, no monoclonal bands. Normal [facility] Comment on above: Performed By: #### M ALBU #### [facility] ([id number]) [address], [address] [place] [address] Protein [Mass/Vol] 5.6 g/dL Low 6.0-8.0 [facility] Comment on above: Performed By: #### M ALBU #### [facility] ([id number]) [address], [address] [place] [address] TSH WITH REFLEXon 11-19-2023 TSH 1.29 uIU/mL Normal 0.49-4.67 [facility] Comment on above: Performed By: #### C BC, CMP, 00093-9 #### [facility] ([id number]) [address], [address] [place] [address] Troponin I.cardiac High sens itivity method [Mass/Vol]on 11-19-2023 3 HOUR TROP I, HIGH SENSITIVITY 142 ng/L High <16 [facility] Comment on above: Result Comment: Elevations of hs-Troponin may be due to causes other than myocardial ischemia. Recommend serial hs-Troponin testing be performed. For the initial evaluation and management of chest pain patients, refer to the algorithms linked below. Emergency Patient: [email or web address] Inpatient: [email or web address] [email or web address] Performed By: #### C BC, [facility], [address]0143-3 #### [facility] ([id number]) [address] [place] [address], [address] [place] [address] 1 HOUR TROP I, HIGH SENSITIVITY 110 ng/L High <16 [facility] Comment on above: Result Comment: Elevations of hs-Troponin may be due to causes other than myocardial ischemia. Recommend serial hs-Troponin testing be performed. For the initial evaluation and management of chest pain patients, refer to the algorithms linked below. Emergency Patient: [email or web address] Inpatient: [email or web address] [email or web address] Performed By: #### C BC, [facility], 69797-6 #### [facility] ([id number]) [address] [place] [address], [address] [place] [address] TROPONIN I, HIGH SENSITIVITY 101 ng/L High <16 [facility] Comment on above: Result Comment: Elevations of hs-Troponin may be due to causes other than myocardial ischemia. Recommend serial hs-Troponin testing be performed. For the initial evaluation and management of chest pain patients, refer to the algorithms linked below. Emergency Patient: [email or web address] [email or web address] Inpatient: [email or web address] [email or web address] Performed By: #### C BC, CMP, 74546-3 #### [facility] ([id number]) [address], [address] [place] [address] XR CHEST 1 VWon 11-19-2023 XR CHEST 1 VW XR CHEST 1 VW History: Hypoxia EXAM: Chest AP portable upright 9:18 AM COMPARISON: 6:40 AM FINDINGS: Stable cardiac silhouette. Mild vascular congestion. No pneumothorax. No infiltrates or large pleural effusions. IMPRESSION: No significant change. Finalized by Gianluca Brambila MD on 11/19/2023 9:35 AM Normal [facility] XR CHEST 1 VW XR CHEST 1 VW HISTORY: A 78-year-old female with the history of the shortness of breath and generalized weakness. TECHNIQUE: Portable upright AP view of chest: One view COMPARISON: Comparison is made with the chest radiograph of 10/27/2021. FINDINGS: Patient is rotated and tilted to the left. There is cardiomegaly. Mediastinum is otherwise unremarkable. There is a prominence of the markings suggestive of vascular congestion. No pneumonic consolidation is identified. Costophrenic angles are clear. Hemidiaphragms are normal in position and contour. IMPRESSION: * Cardiomegaly with vascular congestion. * No evidence of pneumonic consolidation or pleural effusions. Finalized by Camden Lee MD on 11/19/2023 7:03 AM Normal [facility] aPTT Coag (PPP) [Time]on aPTT Coag (Bld) [Time] 30 s Normal 26-37 Pr [facility] Comment on above: Result Comment: NEW REFERENCE RANGE Performed By: #### C TRENT, CMP, 23757-1 #### [facility] ([id number]) [address], [address] [place] [address] MR LUMBAR SPINE W WO CONTon 09-22-2023 MR LUMBAR SPINE W WO CONT MR LUMBAR SPINE W WO CONT HISTORY: A 78-year-old female with the history of the chronic low back pain and pain in the left leg with radiculopathy. TECHNIQUE: Multiplanar and multisequence MRI examination of the lumbar spine is performed without and with intravenous contrast administration.. COMPARISON: Comparison is made with the CT scan of the abdomen and pelvis of 07/24/2022 and plain film radiographs of the lumbar spine of 09/12/2023. FINDINGS: Again noted is severe compression deformity with fracture of the superior endplate of the T11. There is approximately 80% decrease in its height. Appearance is suggestive of old compression fracture. Lumbar vertebrae are normal in heights. There is some minimal anterolisthesis at L4-L5. There are diffuse degenerative changes in the lower thoracic and lumbar spine. There is a heterogeneous marrow signal from degenerative arthritis. Changes could be from hemopoietic hyperplasia. No acute bony pathology is identified. Both sacroiliac joints are intact. No significant paravertebral soft tissue abnormality seen. At L1-L2, there is no evidence of disc herniation, spinal stenosis or narrowing of the neural foramina. At L2-L3 and L3-L4, there is a severe disc degenerative disease and disc bulging. Facet arthropathy seen bilaterally. There is a severe degree of central canal narrowing or narrowing of the neural foramina bilaterally. At L4-L5, there is a grade 1 spondylolisthesis. Associated broad-based disc bulging is seen. Facet arthropathy seen bilaterally with severe degree of spinal stenosis and narrowing of the neural foramina. At L5-S1, there is a minimal disc bulging. Facet arthropathy seen bilaterally. There is no evidence of significant spinal stenosis or narrowing of the neural foramina. Conus is seen at the level of T12-L1. No intrathecal signal abnormality is identified. Postcontrast examination reveals no evidence of abnormal enhancing pathology in the spinal canal. IMPRESSION: * There is an old compression fracture with deformity of the T11. 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 Associated disc bulging is seen at a few levels. Various degrees of spinal stenosis and narrowing of the neural foramina has described above. * Grade 1 spondylolisthesis at L4-L5. Finalized by Camden Lee MD on 09/22/2023 11:20 AM Normal [facility] XR HIP LT 2-3 VIEWS W OR WO PELVISon 09-13-2023 XR HIP LT 2-3 VIEWS W OR WO PELVIS XR HIP LT 2-3 VIEWS W OR WO PELVIS XR HIP LT 2-3 VIEWS W OR WO PELVIS CLINICAL HISTORY: Left hip pain COMPARISON: 11/25/2021 FINDINGS: Frontal view of the pelvis and 2 views of the left hip are obtained. Soft tissues: Large amount of fecal residue mixed with air within the rectum and colon. Osseous structures: No acute fracture. No destructive osseous lesion. Joints: No dislocation or malalignment. Mild bony spurring and subchondral sclerosis in the left hip suggesting mild left more than right hip degenerative arthritis. Lower lumbar spondylosis with disc space narrowing and bony spurring. Metallic clips adjacent to L4 on the right side from prior surgery. IMPRESSION: * No acute fracture or malalignment. * Mild bilateral hip degenerative arthritis; left more than right. Finalized by Katya Alejo MD on 09/13/2023 7:46 PM Normal [facility] COMPLETE BLOOD COUNTon 09-11 Erythrocyte distribution width (RBC) [Ratio] 14.4 % Normal 11.5-15.0 [facility] Comment on above: Performed By: #### C TRENT [facility], 27607-7 #### [facility] ([id number]) [address] [address] [place] [address] Hematocrit (Bld) [Volume fraction] 40.9 % Normal 35-47 [facility] Comment on above: Performed By: #### Kaiden NEWMAN CMP, 20900-9 #### [facility] ([id number]) [address] [address] [place] [address] Hemoglobin (Bld) [Mass/Vol] 13.6 g/dL Normal 11.7-15.5 [facility] Comment on above: Performed By: #### Kaiden NEWMAN CMP, 46871-2 #### [facility] ([id number]) [address] [address] [place] [address] MCH (RBC) [Entitic mass] 31.4 pg Normal 27-34 [facility] Comment on above: Performed By: #### Kaiden NEWMAN CMP, 87899-2 #### [facility] ([id number]) [address], [address] [place] [address] MCHC (RBC) [Mass/Vol] 33.4 g/dL Normal 32-36 [facility] Comment on above: Performed By: #### Kaiden BC, CMP, 89243-9 #### [facility] ([id number]) [address], [address] [place] [address] MCV (RBC) [Entitic vol] 94 fL Normal 80-100 [facility] Comment on above: Performed By: #### Kaiden BC, CMP, #### [facility] ([id number]) [address], [address] [place] [address] Platelet mean volume (Bld) [Entitic vol] 10.1 fL Normal 7-12 [facility] Comment on above: Performed By: #### Kaiden NEWMAN, CMP, #### [facility] ([id number]) [address], [address] [place] [address] Platelets (Bld) [#/Vol] 234 10*3/uL Normal 150-450 [facility] Comment on above: Performed By: #### Kaiden BC, CMP, #### [facility] ([id number]) [address], [address] [place] [address] RBC COUNT 4.34 X10E12/L Normal 3.80-5.20 [facility] Comment on above: Performed By: #### Kaiden BC, CMP, #### [facility] ([id number]) [address], [address] [place] [address] WBC (Bld) [#/Vol] 2.5 10*3/uL Low 4.0-11.0 [facility] Comment on above: Performed By: #### Kaiden BC, CMP, #### [facility] ([id number]) [address], [address] [place] [address] COMPREHENSIVE METABOLIC PANE Gurdeep 09-12-2023 Albumin [Mass/Vol] 3.7 g/dL Normal 3.2-5.3 [facility] Comment on above: Performed By: #### Kaiden NEWMAN, CMP, #### [facility] ([id number]) [address], [address] [place] [address] ALP [Catalytic activity/Vol] 40 U/L Normal 39-130 [facility] Comment on above: Performed By: #### Kaiden NEWMAN CMP, #### [facility] ([id number]) [address], [address] [place] [address] ALT [Catalytic activity/Vol] 18 U/L Normal 0-31 [facility] Comment on above: Performed By: #### Kaiden NEWMAN CMP, #### [facility] ([id number]) [address], [address] [place] [address] Anion gap [Moles/Vol] 6 mmol/L Normal 5-15 [facility] Comment on above: Performed By: #### Kaiden NEWMAN CMP, #### [facility] ([id number]) [address], [address] [place] [address] AST [Catalytic activity/Vol] 17 U/L Normal 0-41 [facility] Comment on above: Performed By: #### Kaiden NEWMAN CMP, #### [facility] ([id number]) [address], [address] [place] [address] Bilirubin [Mass/Vol] 0.6 mg/dL Normal 0.3-1.2 [facility] Comment on above: Performed By: #### Kaiden BC CMP, #### [facility] ([id number]) [address], [address] [place] [address] Calcium [Mass/Vol] 9.7 mg/dL Normal 8.5-10.5 [facility] Comment on above: Performed By: #### Kaiden NEWMAN [facility], 93720-4 #### [facility] ([id number]) [address], [address] [place] [address] Chloride [Moles/Vol] 110 mmol/L High 98-109 [facility] Comment on above: Performed By: #### Kaiden NEWMAN [facility], 49495-3 #### [facility] ([id number]) [address], [address] [place] [address] CO2 [Moles/Vol] 26 mmol/L Normal 22-32 [facility] Comment on above: Performed By: #### Kaiden NEWMAN [facility], 10872-2 #### [facility] ([id number]) [address], [address] [place] [address] Creatinine [Mass/Vol] 1.55 mg/dL High 0.40-1.00 [facility] Comment on above: Result Comment: METH OD TRACEABLE TO IDMS STANDARD Performed By: #### Kaiden NEWMAN [facility], 94675-5 #### [facility] ([id number]) [address], [address] [place] [address] GFR/1.73 sq M.predicted among non-blacks MDRD (S/P/Bld) [Vol rate/Area] 34 mL/min/{1.73_m2} Low >59 [facility] Comment on above: Result Comment: Reported eGFR is based on the CKD-EPI 2020 equation that does not use a race coefficient. Performed By: #### Kaiden NEWMAN CMP, 80394-8 #### [facility] ([id number]) [address], [address] [place] [address] Glucose [Mass/Vol] 133 mg/dL High 65-99 [facility] Comment on above: Performed By: #### Kaiden NEWMAN CMP, #### [facility] ([id number]) [address], [address] [place] [address] Potassium [Moles/Vol] 4.9 mmol/L Normal 3.5-5.0 [facility] Comment on above: Performed By: #### Kaiden NEWMAN [facility], 19844-9 #### [facility] ([id number]) [address], [address] [place] [address] Protein [Mass/Vol] 6.9 g/dL Normal 6.0-8.0 [facility] Comment on above: Performed By: #### Kaiden NEWMAN [facility], 35459-0 #### [facility] ([id number]) [address], [address] [place] [address] Sodium [Moles/Vol] 142 mmol/L Normal 134-146 [facility] Comment on above: Performed By: #### Kaiden NEWMAN [facility], 91816-0 #### [facility] ([id number]) [address], [address] [place] [address] Urea nitrogen [Mass/Vol] 45 mg/dL High 5-27 [facility] Comment on above: Performed By: #### Kaiden NEWMAN [facility], 28966-2 #### [facility] ([id number]) [address], [address] [place] [address] HGB A1C (GLYCO-HGB)on 2023 Glucose [Mass/Vol] 160 mg/dL Normal [facility] Comment on above: Performed By: #### Kaiden NEWMAN, [facility], 01496-3 #### [facility] ([id number]) [address], [address] [place] [address] HbA1c (Bld) [Mass fraction] 7.2 % High 4.4-5.6 [facility] Comment on above: Result Comment: NOTE ADA Guidelines Result HgbA1c Normal : less than 5.7 % Prediabetes : 5.7 % to 6.4 % Diabetes : > 6.4 % Use with caution in patients with abnormal hemoglobin variants as the half-life of red blood cells and in vivo glycation rates are affected. Performed By: #### Kaiden NEWMAN [facility], 50055-6 #### [facility] ([id number]) [address], [address] [place] [address] MAGNESIUMon 09-12-2023 Magnesium [Mass/Vol] 1.7 mg/dL Low 1.8-2.6 [facility] Comment on above: Performed By: #### Kaiden NEWMAN [facility], 99835-3 #### [facility] ([id number]) [address] [address] MICROALBUMIN - ALBUMIN:CREAT ININE URINE RATIOon 09-12-2023 ALB/CREAT RATIO 88.9 mg/g creat High 0.0-30.0 [facility] Comment on above: Performed By: #### M ALBU #### [facility] ([id number]) [address] [address] [place] [address] Albumin DL <= 20 mg/L (U) [Mass/Vol] 8.3 mg/dL High 0.0-1.9 [facility] Comment on above: Performed By: #### M ALBU #### [facility] ([id number]) [address] [address] URINE CREAT 93.37 mg/dL Normal [facility] Comment on above: Performed By: #### M ALBU #### [facility] ([id number]) [address] [address] [place] [address] XR SPINE LUMBAR 2 OR 3 VWSon 09-12-2023 XR SPINE LUMBAR 2 OR 3 VWS XR SPINE LUMBAR 2 OR 3 VWS XR SPINE LUMBAR 2 OR 3 VWS History: Degenerative disc disease, lumbar; Lumbar radiculopathy, chronic Impression: * No acute findings. * No fracture or destructive lesion. Mild anterior subluxation of L4 on L5. * Diffuse disc disease and facet arthritis. . Findings are similar to October 24, 2021 * Consider MRI if you suspect occult process Finalized by Cameron Morse MD on 09/12/2023 7:35 PM Normal [facility] IR REMOVE TUNNELED CVAD W SQ PORT/PUMP INSERTon 01-09-2020 IR REMOVE TUNNELED CVAD W SQ PORT/PUMP INSERT PROCEDURE: SUBCUTANEOUS PORT-A-CATH REMOVAL 01/09/2020 12:35 pm. HISTORY: ORDERING SYSTEM PROVIDED HISTORY: Malignant neoplasm of colon, unspecified part of colon (HCC) SEDATION: Local anesthesia FLUOROSCOPY DOSE OR TIME/IMAGES: Fluoroscopy time-0.8 seconds D AP-15 centigrays cm squared TECHNIQUE: Informed consent was obtained after a detailed explanation of the procedure including risks, benefits, and alternatives. [place] protocol was followed. The patient's chest was prepped and draped in sterile fashion using maximum sterile barrier technique and local anesthesia was achieved with lidocaine. An incision was made in the right chest wall and the patient's Port-A-Cath was removed using blunt and sharp dissection. Hemostasis was achieved. The skin was closed using 2-0 and 4 0 Vicryl suture and tissue adhesive. The patient tolerated the procedure well. IMPRESSION: Successful subcutaneous Port-A-Cath removal, as above. Interpreted by: Cuauhtemoc Burks MD Signed by: Cuauhtemoc Burks MD 01/09/20 Final result Normal [facility] Successful subcutaneous Port-A-Cath removal, as above. [place] PROCEDURE: SUBCUTANEOUS PORT-A-CATH REMOVAL 01/09/2020 12:35 pm. HISTORY: ORDERING SYSTEM PROVIDED HISTORY: Malignant neoplasm of colon, unspecified part of colon (HCC) SEDATION: Local anesthesia FLUOROSCOPY DOSE OR TIME/IMAGES: Fluoroscopy time-0.8 seconds D AP-15 centigrays cm squared TECHNIQUE: Informed consent was obtained after a detailed explanation of the procedure including risks, benefits, and alternatives. [place] protocol was followed. The patient's chest was prepped and draped in sterile fashion using maximum sterile barrier technique and local anesthesia was achieved with lidocaine. An incision was made in the right chest wall and the patient's Port-A-Cath was removed using blunt and sharp dissection. Hemostasis was achieved. The skin was closed using 2-0 and 4 0 Vicryl suture and tissue adhesive. The patient tolerated the procedure well. [place], [place] Sudhakar, Mhpn Incoming Radiant Results From [employer] - 01/09/2020 4:04 PM EDT PROCEDURE: SUBCUTANEOUS PORT-A-CATH REMOVAL 01/09/2020 12:35 pm. HISTORY: ORDERING SYSTEM PROVIDED HISTORY: Malignant neoplasm of colon, unspecified part of colon (HCC) SEDATION: Local anesthesia FLUOROSCOPY DOSE OR TIME/IMAGES: Fluoroscopy time-0.8 seconds D AP-15 centigrays cm squared TECHNIQUE: Informed consent was obtained after a detailed explanation of the procedure including risks, benefits, and alternatives. [place] protocol was followed. The patient's chest was prepped and draped in sterile fashion using maximum sterile barrier technique and local anesthesia was achieved with lidocaine. An incision was made in the right chest wall and the patient's Port-A-Cath was removed using blunt and sharp dissection. Hemostasis was achieved. The skin was closed using 2-0 and 4 0 Vicryl suture and tissue adhesive. The patient tolerated the procedure well. IMPRESSION: Successful subcutaneous Port-A-Cath removal, as above. [place], [place] COVID-19on 01-07-2020 SARS-CoV-2 [place] SARS-CoV-2, PCR Not Detected Not Detected [place], [place] Comment on above: (NOTE) The Sher RealTime SARS-CoV-2 assay is a real-time (rt) reverse transcriptase (RT) polymerase chain reaction (PCR) test intended for the Marcandi000 system. The SARS-CoV-2 primer and probe sets are designed to detect RNA from SARS-CoV-2 in nasopharyngeal (IDENTIFICATION OFFICER) and oropharyngeal (OP) swabs from patients with signs and symptoms of infection who are suspected of COVID-19. Results are for the identification of SARS-CoV-2 RNA. The SARS-CoV-2 RNA is generally detectable in a nasopharyngeal and oropharyngeal swabs during the acute phase of infection. The Sher RealTime SARS-CoV-2 assay is intended for use by qualified and trained clinical laboratory personnel specifically instructed and trained in the techniques of real-time PCR and in vitro diagnostic procedures. The Sher RealTime SARS-CoV-2 assay is only for use under the Food and Drug Administration Emergency Use Authorization. Testing is limited to laboratories certified under the Clinical Laboratory Improvement Amendments of 1988 (CLIA), 42 U.S.C. 263a, to perform high complexity tests. Not Detected: Not detected does not preclude SARS-CoV-2 infection and should not be used as the sole basis for patient management decisions. Not detected results must be combined with clinical observations, patient history, and epidemiological information. The above 1 analytes were performed by [address] [address] SARS-CoV-2, Rapid [place], [place] Source .NASOPHARYNGEAL SWAB [place], [place] [id number] 01-07-2020 SARS-CoV-2 Not Detected Normal Not Detected [facility] Comment on above: Result Comment: (NOT E) The Sher RealTime SARS-CoV-2 assay is a real-time (rt) reverse transcriptase (RT) polymerase chain reaction (PCR) test intended for the Elpas system. The SARS-CoV-2 primer and probe sets are designed to detect RNA from SARS-CoV-2 in nasopharyngeal (IDENTIFICATION OFFICER) and oropharyngeal (OP) swabs from patients with signs and symptoms of infection who are suspected of COVID-19. Results are for the identification of SARS-CoV-2 RNA. The SARS-CoV-2 RNA is generally detectable in a nasopharyngeal and oropharyngeal swabs during the acute phase of infection. The Sher RealTime SARS-CoV-2 assay is intended for use by qualified and trained clinical laboratory personnel specifically instructed and trained in the techniques of real-time PCR and in vitro diagnostic procedures. The Sher RealTime SARS-CoV-2 assay is only for use under the Food and Drug Administration Emergency Use Authorization. Testing is limited to laboratories certified under the Clinical Laboratory Improvement Amendments of 1988 (CLIA), 42 U.S.C. 263a, to perform high complexity tests. Not Detected: Not detected does not preclude SARS-CoV-2 infection and should not be used as the sole basis for patient management decisions. Not detected results must be combined with clinical observations, patient history, and epidemiological information. The above 1 analytes were performed by [address] [address] Performed By: #### C OVID #### [address] [address] Pathology Teacher: Alexy Chambers MD [facility] [address] [place] [address] Pathology Teacher: Sanjiv Molina MD [id number] 01-06-2020 SARS-CoV-2,Rapid Normal [facility] Comment on above: Performed By: #### C OVID #### [facility] [address] [place] [address] Pathology Teacher: Alexy Chambers MD [facility] [address] [place] [address] Pathology Teacher: Sanjiv Molina MD SARS-CoV-2 [facility] Comment on above: Performed By: #### C OVID #### [facility] [address] [place] [address] Pathology Teacher: Alexy Chambers MD [facility] [address] [place] [address] Pathology Teacher: Sanjiv Molina MD SARS-CoV-2 Source .NASOPHARYNGEAL SWAB Normal [facility] Comment on above: Performed By: #### C OVID #### [address] [address] Pathology Teacher: Alexy Chambers MD [facility] [address] [place] [address] Pathology Teacher: Sanjiv Molina MD Vital Signs Date Time Vital Sign Value Performing Clinician Facility 01-30-2024 16:11-0400 SaO2% (BldA) [Mass fraction] 96 % [facility] Comment on above: Performed By: #### CBC, PINR, [id number] ## ## [facility] ([id number]) [address], [address] [place] [address] 12-23-2023 11:23-0400 SaO2% (BldA) [Mass fraction] 96 % [facility] Comment on above: Performed By: #### ABG ####[facility] ([id number])715 [place] [address] 09-05-2023 10:20-0400 Body height 161.3 cm Lillian Verhoff PA-C Work Phone: [facility] 09-05-2023 10:20-0400 Body mass index (BMI) [Ratio] 52.83 kg/m2 Lillian Verhoff PA-C Work Phone: [facility] 09-05-2023 10:20-0400 Body weight 137.44 kg Lillian Verhoff PA-C [facility] Phone[facility] 09-05-2023 10:20-0400 Diastolic blood pressure 75 mm[Hg] Lillian Verhoff PA-C Work Phone: [facility] 09-05-2023 10:20-0400 Heart rate 54 /min Lillian Verhoff PA-C Work Phone: [facility] 09-05-2023 10:20-0400 Respiratory rate 20 /min Lillian Verhoff PA-C Work Phone[facility] 09-05-2023 10:20-0400 Systolic blood pressure 183 mm[Hg] Lillian Verhoff PA-C Work Phone: [facility] 08-08-2023 10:58-0500 Body mass index (BMI) [Ratio] 53.36 kg/m2 Malcolm Dejesus FLOOR INSPECTOR-DEPUTY HARBORMASTER Work Phone: [facility] 08-08-2023 10:58-0500 Body weight 138.8 kg Malcolm Dejesus FLOOR INSPECTOR-DEPUTY HARBORMASTER Work Phone: [facility] 08-08-2023 10:58-0500 Diastolic blood pressure 74 mm[Hg] Malcolm Deejsus FLOOR INSPECTOR-DEPUTY HARBORMASTER Work Phone: [facility] 08-08-2023 10:58-0500 Heart rate 72 /min Malcolm Dejesus FLOOR INSPECTOR-DEPUTY HARBORMASTER Work Phone: [facility] 08-08-2023 10:58-0500 Respiratory rate 18 /min Malcolm Dejesus APRN-DEPUTY HARBORMASTER Work Phone: [facility] 08-08-2023 10:58-0500 Systolic blood pressure 132 mm[Hg] Malcolm Dejesus APRN-DEPUTY HARBORMASTER Work Phone: [facility] 08-03-2023 13:51-0500 Body height 161.3 cm Ruben Burton MD Work Phone: [facility] 08-03-2023 13:51-0500 Body mass index (BMI) [Ratio] 53.18 kg/m2 Ruben Burton MD Work Phone: [facility] 08-03-2023 13:51-0500 Body weight 138.35 kg Ruben Burton MD Work Phone: [facility] 08-03-2023 13:51-0500 Diastolic blood pressure 90 mm[Hg] Ruben Burton MD Work Phone: [facility] 08-03-2023 13:51-0500 Heart rate 59 /min Ruben Burton MD Work Phone: [facility] 08-03-2023 13:51-0500 SaO2% (BldA) [Mass fraction] 95 % Ruben Burton MD Work Phone: [facility] 08-03-2023 13:51-0500 Systolic blood pressure 170 mm[Hg] Ruben Burton MD Work Phone: [facility] 01-09-2020 13:45-0400 BP Diastolic 63 mm[Hg] [address] 01-09-2020 13:45-0400 BP Systolic 164 mm[Hg] [address] 01-09-2020 13:45-0400 Pulse (Heart Rate) 51 /min [address] 01-09-2020 13:45-0400 Pulse Oximetry 96 % [facility] [address] [facility] [place] , [place] 01-09-2020 13:45-0400 Respiratory Rate 18 /min [facility] [address] [facility] [place] Encounters Encounter Date Encounter Type Care Provider Facility Start: 02-12-2024 End: 02-12-2024 Evaluation and management of inpatient [facility] Start: 02-04-2024 End: 02-04-2024 ambulatory ANGELICA Juarez REYNA [facility] Start: 02-02-2024 End: 02-02-2024 ambulatory TASHI NAIR [facility] Start: 01-18-2024 End: 02-02-2024 ambulatory [facility] Start: 01-18-2024 End: 02-01-2024 Evaluation and management of inpatient [facility] Start: 12-25-2023 End: 12-25-2023 ambulatory [facility] Start: 12-23-2023 End: 01-02-2024 [facility] Start: 12-23-2023 End: 12-24-2023 Emergency department patient visit [facility] Start: 12-23-2023 End: 12-23-2023 Emergency department patient [facility] Start: 12-23-2023 End: 12-24-2023 Emergency department patient visit [facility] Start: 11-27-2023 End: 11-27-2023 ambulatory [facility] Ambulatory [facility] Start: 11-24-2023 End: 11-24-2023 Evaluation and management of inpatient FOZIA MCCORMACK [facility] Start: 11-20-2023 End: 11-20-2023 ambulatory LEIA BARGER [facility] Start: 11-20-2023 End: 11-24-2023 Evaluation and management of inpatient ADALGISA ANDERS [facility] Start: 11-20-2023 End: 11-24-2023 Evaluation and management of inpatient HARMEET KANG [facility] Start: 11-20-2023 End: 11-24-2023 Evaluation and management of inpatient ANALY BUTLER [facility] Start: 11-19-2023 End: 11-24-2023 Evaluation and management of inpatient ADALGISA ANDERS [facility] Start: 11-19-2023 End: 11-19-2023 Evaluation and management of inpatient [facility] Start: 11-14-2023 End: 11-24-2023 ambulatory [facility] Start: 10-17-2023 End: 10-17-2023 ambulatory [facility] Start: 09-21-2023 End: 09-21-2023 [facility] Start: 09-19-2023 End: 09-24-2023 ambulatory [facility] Start: 09-13-2023 Telephone encounter Power otero [facility] Work Phone: [facility] Start: 09-12-2023 End: 09-12-2023 Clinical Support [address] Medication Therapy Management Comment on above: 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, with long-term current use of insulin ([facility]) (Primary Dx) Start: 09-10-2023 End: 10-24-2023 ambulatory LILLIAN CASTELLANOS [facility] Start: 09-05-2023 End: 09-05-2023 Office outpatient new 45 minutes Lillian Castellanos PA-C Work Phone: [facility] Comment on above: Lumbar radiculopathy , chronic (Primary Dx); Degenerative disc disease, lumbar; Chronic pain of both knees; Primary osteoarthritis of left hip Start: 09-05-2023 End: 09-05-2023 ambulatory LILLIAN CASTELLANOS [facility] Start: 09-05-2023 End: 09-24-2023 ambulatory [facility] Start: 08-08-2023 Telephone encounter Tiffany Caldwell Ed meneses [facility] Work Phone: [facility] Start: 08-08-2023 End: 08-08-2023 ambulatory [facility] Start: 08-08-2023 End: 08-08-2023 Office outpatient visit 15 minutes [facility] FLOOR INSPECTOR-DEPUTY HARBORMASTER Work Phone: [facility] Comment on above: Primary hypertension (Primary Dx); Obstructive sleep apnea syndrome; 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 disease, with long-term current use of insulin ([facility]); Stage 3 chronic kidney disease, unspecified whether stage 3a or 3b CKD ([facility]); Coronary artery calcification; BMI 50.0-59.9, adult ([facility]); Degenerative disc disease, lumbar; Chronic pain of both knees Start: 08-03-2023 End: 08-03-2023 Office outpatient visit 15 minutes Flor Jaimes MD Work Phone: [facility] Comment on above: Chronic coronary art bridger disease (Primary Dx); Primary hypertension Start: 08-03-2023 End: 08-03-2023 [facility] Start: 08-02-2023 Telephone encounter Verenice Bentley [facility] Start: 06-01-2023 End: 06-25-2023 ambulatory [facility] Start: 11-30-2020 End: 12-01-2020 ambulatory SHALOM CARLSONJARET [facility] Start: 11-30-2020 End: 11-30-2020 Subsequent hospital visit by physician Dennise Rubin DO [facility] Comment on above: Malignant neoplasm o f colon, unspecified part of colon (HCC); Low grade B-cell lymphoma (HCC) Start: 01-09-2020 End: 01-12-2020 Patient encounter procedure SHALOM WILSON [facility] Start: 01-09-2020 End: 01-11-2020 Subsequent hospital visit by physician [facility] Ir Nurse 1 [facility] Special Procedures Comment on above: Malignant neoplasm o f colon, unspecified part of colon (HCC) Start: 01-05-2020 End: 01-10-2020 Patient encounter procedure MUSTAPHA SPAIN [facility] Start: 01-05-2020 End: 01-09-2020 Subsequent hospital visit by physician [facility] Covid19 Pat Screening Schedule STCZ Pre-Admit Testing Start: 12-09-2019 End: 12-10-2019 [facility] Start: 12-09-2019 End: 12-09-2019 Subsequent hospital visit by physician Florida Magallanes Med Onc Chair 10 [facility] On[facility] Comment on above: Arrived Procedures Date Procedure Procedure Detail Performing Clinician Start: 11-27-2023 Follow-up visit Follow-up LIZZETH LO Start: 08-03-2023 Follow-up visit Follow-up MATT BURTON Start: 01-23-2023 Adult depression scr eening assessment Verenice Bentley SAP ANALYST Start: 01-09-2020 NOTIFY PHYSICIAN (SPECIFY) MUSTAPHA SPAIN Start: 01-09-2020 Rmvl ben ctr vad w/s ubq port/school inspector ctr/prph insj MUSTAPHA SPAIN Start: 01-09-2020 IR REMOVE TUNNELED V AD W PORT Shalom Wilson Work Phone: Start: 01-06-2020 COVID-19 MUSTAPHA NICHOLE Start: 01-05-2020 COVID-19 Mustapha sarkar Work Phone: Start: 01-05-2020 COVID-19 MUSTAPHA NICHOLE Start: 10-15-2018 Colonoscopy Verenice workman SAP ANALYST Plan of Treatment Date Care Activity Detail Author Start: 10-21-2028 Screening for malign ant neoplasm of colon Colon cancer screen colonoscopy [facility] [place] Start: 09-04-2024 Adult BMI Screening Adult BMI Screen ing [facility] Start: 09-04-2024 Tobacco Screening Tobacco Screening [facility] Start: 08-08-2024 Adult BMI Follow Up Plan Adult BMI F ollow Up Plan [facility] Start: 08-08-2024 Adult BMI Screening Adult BMI Screen ing [facility] Start: 08-08-2024 Tobacco Screening Tobacco Screening [facility] Start: 08-03-2024 Tobacco Screening Tobacco Screening [facility] Start: 02-06-2024 End: 02-06-2024 Patient encounter procedure 02/06/2024 11:00 AM EDT Office Visit [facility] [address] [place] [address] Malcolm Dejesus, FLOOR INSPECTOR-DEPUTY HARBORMASTER [address] [place] [address] [facility] Start: 01-28-2024 End: 01-28-2024 Patient encounter procedure 01/28/2024 9:30 AM EDT Office Visit [facility] [address] [place] [address] Malcolm Dejesus, FLOOR INSPECTOR-DEPUTY HARBORMASTER [address] [place] [address] [facility] Family [facility] Start: 01-24-2024 Adult BMI Follow Up Plan Adult BMI F ollow Up Plan [facility] Start: 01-24-2024 Adult BMI Screening Adult BMI Screen ing [facility] Start: 01-24-2024 Depression Screening Depression Scre ening [facility] Start: 01-24-2024 Fall Risk Screening Fall Risk Screen ing [facility] Start: 01-24-2024 Medicare Annual Well ness Visit Medicare Annual Wellness Visit [facility] Start: 01-24-2024 Tobacco Screening Tobacco Screening [facility] Start: 12-26-2023 End: 12-26-2023 Patient encounter procedure 12/26/2023 9:45 AM EDT Office Visit [facility] [address] [place] [address] Lizzeth Lo MD [address] [place] [address] [facility] Start: 10-11-2023 End: 10-11-2023 Patient encounter procedure 10/11/2023 1:00 PM EDT Appointment [facility] [address] [place] [phone] Degenerative disc disease, lumbar; Chronic pain of both knees; Lumbar radiculopathy, chronic; Primary osteoarthritis of left hip [facility] Comment on above: Degenerative disc di sease, lumbar; Chronic pain of both knees; Lumbar radiculopathy, chronic; Primary osteoarthritis of left hip Start: 09-21-2023 End: 09-21-2023 Patient encounter procedure 09/21/2023 9:15 AM EDT Appointment [facility] [address] [place] [phone] Lillian Castellanos, PAThad [address] [place] [address] [facility] Start: 09-12-2023 End: 09-12-2023 Clinical Support 09/12/2023 9:30 AM EDT Clinical Support [facility] Therapy Management [address] [place] [address] [facility] Start: 09-05-2023 End: 09-04-2024 MR Lumbar spine WO and W contrast IV MR lumbar spine with and without contrast Imaging Routine Lumbar radiculopathy, chronic Expected: 09/05/2023, Expires: 09/04/[address] [facility] Comment on above: Expected: 09/05/2023 , Expires: 09/04/2024 Start: 08-21-2023 End: 08-21-2023 Patient encounter procedure 08/21/2023 1:15 PM EST Office Visit [facility] [address] [place] [address] [place] [phone] Lizzeth Lo MD [address] [place] [address] [facility] Start: 08-08-2023 End: 08-08-2023 Patient encounter procedure 08/08/2023 10:45 AM EST Office Visit [facility] [address] [place] [phone] Malcolm Dejesus, FLOOR INSPECTOR-DEPUTY HARBORMASTER [address] [place], [place] [phone] [facility] Start: 08-03-2023 End: 08-03-2023 Patient encounter procedure 08/03/2023 2:15 PM EST Office Visit [facility] [address] [phone] Flor Jaimes MD [address] [place] [address] Ruben Burton MD [address] [place] [address] [facility] Start: 02-23-2023 COVID-19 Vaccine ( season) COVID-19 Vaccine ( season) [facility] Start: 12-01-2021 End: 12-01-2021 Patient encounter procedure 12/01/2021 Office Visit Oncology Shalom Wilson MD [address] [place], [place] [id number] [facility] Start: 10-15-2021 Screening for malign ant neoplasm of colon Colonoscopy [facility] Start: 02-23-2021 Influenza vaccination Flu vacc ine (Season Ended) [facility] Work Phone: Start: 02-24-2020 Influenza vaccination [place] Start: 01-20-2020 End: 01-20-2020 Appointment 01/20/2020 Appointment Infusion [facility] Start: 12-15-2018 Annual Wellness Visi t (AWV) Annual Wellness Visit (AWV) [place], [place] Start: 01-23-2018 Creatinine measurement Creatinine mo nitoring [place] Start: 01-23-2018 Potassium monitoring Potassium monit oring [place] Start: 05-06-2016 Pneumococcal 65+ yrs at Risk Vaccine (2 of 2 - PPSV23) Pneumococcal 65+ yrs at Risk Vaccine (2 of 2 - PPSV23) [place] Start: 02-26-2009 Pneumococcal 65+ yea rs Vaccine (1 of 1 - PPSV23) Pneumococcal 65+ years Vaccine (1 of 1 - PPSV23) [place] Start: 02-26-1999 Screening for osteoporosis DEXA (modify frequency per FRAX score) [place] Start: 02-26-1994 Shingles Vaccine (1 of 2) Shingles Vaccine (1 of 2) [place] Start: 1984 Lipid panel Lipid screen [place], [place] Start: 02-26-1963 Administration of varicella zoster vaccine Zoster (Shingles) Vaccine (1 of 2) [facility] Start: 02-26-1963 DTaP,Tdap and Td Vaccines (1 - Tdap) DTaP,Tdap and Td Vaccines (1 - Tdap) [facility] Start: 02-26-1963 DTaP/Tdap/Td vaccine (1 - Tdap) DTaP/Tdap/Td vaccine (1 - Tdap) [place], [place] Start: 1944 Hepatitis C screening Hepatitis C sc tawanna [facility] Work Phone: End: 01-05-2020 COVID-19 COVID-19 Lab Routine One Time for 1 Occurrences starting 01/05/2020 until 01/05/2020 [place] Comment on above: One Time for 1 Occur rences starting 01/05/2020 until 01/05/2020 End: 09-04-2024 XR Lumbar spine 2 or 3 Views X-ray spine lumbar 2 or 3 views Imaging Routine Degenerative disc disease, lumbar Lumbar radiculopathy, chronic 1 Occurrences starting 09/05/2023 until 09/04/[address] [facility] Comment on above: 1 Occurrences starti ng 09/05/2023 until 09/04/2024 End: 09-04-2024 XR Pelvis and Hip - left 2 Views X-ray hip left 2-3 views with or without pelvis Imaging Routine Primary osteoarthritis of left hip 1 Occurrences starting 09/05/2023 until 09/04/2024 [facility] Work Phone: Comment on above: 1 Occurrences starti ng 09/05/2023 until 09/04/2024 Immunizations Immunization Date Immunization Notes Care Provider Cyndie pina 05-03-2022 Influenza, High-dose , Quadrivalent Verenice Bentley [facility] 05-11-2021 Influenza, High-dose , Quadrivalent Verenice Bentley [facility] 09-17-2020 COVID-19, mRNA, LNP- S, PF, 100mcg/0.5mL Dose Verenicechapito Bentley [facility] 08-20-2020 COVID-19, mRNA, LNP- S, PF, 100mcg/0.5mL Dose Verenicealisia Bentley [facility] 04-06-2020 Influenza Vaccine, Quadrivalent, Adjuvanted Verenice Bentley [facility] 04-14-2019 influenza, high dose seasonal, preservative-free Verenice Bentley [facility] 03-26-2018 influenza, injectabl e, quadrivalent, preservative free Verenice Bentley [facility] 05-06-2015 pneumococcal conjuga te vaccine, [address] [facility] Payers Date Payer Category Payer Medicare MEDICARE MEDICAR E PART A AND B [id number] 2014-Present [phone] [place] [address] [id number] 2014 Medicare xxxxxxxxxxx [id number] 2014 Private Health Insurance [facility] MEDICARE SUPP [id number] 2014-Present [phone] [address] [place] [address] [id number] .[id number] 2009 Medicare MEDICARE MEDICAR E PART A & B [id number] 2009-Present [phone] [address] [place] [address] [id number] .[id number] 2009 Private Health Insurance [facility] SUPPLEMENT [id number] 2009-Present [phone] [address] [place] [address] [id number] .[id number] 2009 Medicare [id number] 2009 Private Health Insurance [id number] 1944 Unknown [id number] 2.16.840.1.894957.3.579.2 .176 1944 Unknown [id number] 2.16.840.1.850012.3.579.2 .176 1944 Unknown [id number] 2.16.840.1.835795.3.579.2 .175 1944 Unknown [id number] 2.16.840.1.720449.3.579.2 .175 1944 Unknown [id number] 2.16.840.1.285251.3.579.2 .1286 1944 Unknown [id number] 2.16.840.1.689908.3.579.2 .1285 1944 Unknown [id number] 2.16.840.1.028639.3.579.2 .1285 1944 Unknown [id number] 2.16.840.1.159968.3.579.2 .1285 1944 Unknown [id number] 2.16.840.1.248139.3.579.2 .1285 1944 Unknown [id number] 2.16.840.1.002788.3.579.2 .1285 1944 Unknown [id number] 2.16.840.1.524953.3.579.2 .1285 1944 Unknown [id number] 2.16.840.1.644835.3.579.2 .1285 1944 Unknown [id number] 2.16840.1.680307.3.579.2 .1285 1944 Unknown [id number] 2.16.840.1.625398.3.579.2 .1285 1944 Unknown [id number] 2.16.840.1.379549.3.579.2 .1285 1944 Unknown [id number] 2.16.840.1.260310.3.579.2 .1285 1944 Unknown [id number] 2.16.840.1.556620.3.579.2 .1285 1944 Unknown [id number] 2.16.840.1.908646.3.579.2 .1285 1944 Unknown [id number] 2.16.840.1.791172.3.579.2 .1285 1944 Unknown [id number] 2.16.840.1.030267.3.579.2 .1285 1944 Unknown [id number] 2.16.840.1.994065.3.579.2 .1285 1944 Unknown [id number] 2.16.840.1.905808.3.579.2 .1285 1944 Unknown [id number] 2.16.840.1.590670.3.579.2 .1285 1944 Unknown [id number] 2.16.840.1.344768.3.579.2 .1285 1944 Unknown [id number] 2.16.840.1.151152.3.579.2 .1285 1944 Unknown [id number] 2.16.840.1.175371.3.579.2 .1285 1944 Unknown [id number] 2.16.840.1.932139.3.579.2 .1285 1944 Unknown [id number] 2.840.1.730143.3.579.2 .1285 1944 Unknown [id number] 2.840.1.731242.3.579.2 .1285 1944 Unknown [id number] 2.840.1.841169.3.579.2 .1285 1944 Unknown [id number] 2.840.1.579224.3.579.2 .1285 1944 Unknown [id number] 2.840.1.820267.3.579.2 .1285 1944 Unknown [id number] 2.16840.1.861275.3.579.2 .1285 1944 Unknown [id number] 2.16.840.1.445936.3.579.2 .1285 1944 Unknown [id number] 2.16.840.1.572178.3.579.2 .1285 1944 Unknown [id number] 2.16.840.1.303415.3.579.2 .1285 1944 Unknown [id number] 2.16.840.1.703648.3.579.2 .1286 1944 Unknown [id number] 2.16.840.1.944839.3.579.2 .1286 1944 Unknown [id number] 2.16.840.1.381609.3.579.2 .1286 1944 Unknown [id number] 2.16.840.1.633226.3.579.2 .128 1944 Unknown [id number] 2.16.840.1.072967.3.579.2 .128 1944 Unknown [id number] 2.16.840.1.228239.3.579.2 .1286 Social History Date Type Detail Facility Start: 12-09-2019 End: 04-20-2022 Tobacco smoking status NHIS Never smoker [place] Start: 12-09-2019 End: 04-20-2022 Tobacco use and exposure Never used [place], [place] Start: 12-09-2019 End: 09-05-2023 Alcohol intake Current non-drinker of alcohol (finding) [place], [place] Start: 1945 Sex Assigned At Not on file [place] Start: 08-23-2018 End: 07-07-2020 History of Social function [facility] Start: 08-23-2018 End: 07-07-2020 Alcohol Use Disorder Identification Test - Consumption [AUDIT-C] [facility] Frequency of Alcohol Consumption Never [facility] Start: 1945 Sex Assigned At Female [facility] Start: 09-10-2023 Gender identity Identifies as female gender (finding) [facility] Start: 09-10-2023 Sexual orientation Heterosexual (finding) [facility] Medical Equipment Procedure Code Equipment Code Equipment Origin al Text Equipment Identifier Dates Lens Iol Ultrase rt 21.0d - [id number] - [id number] Start: 06-02-2021 Lens Iol Ultrase rt 20.5d - [id number] - [id number] Start: 06-23-2021 Use to inject insulin under the skin twice a day. [id number] Start: 03-08-2023 End: 08-08-2023 Use to inject insulin BID [id number] Start: 08-08-2023 Goals Date Patient Goal Desired Activity /State Personal health goal Comment on above: Formatting of this n ote might be different from the original. Evaluation of progress towards goal: in process of securing [facility] Clinical Notes 08-02-2023 to 12-25-2023 Telephone Encounter - Power Bates, [facility] 09/13/2023 11:44 AM EDTTelephone Encounter - Power Jana, [facility] 09/13/2023 11:44 AM EDTChmac Bates, [facility] 09/12/2023 9:30 AM EDT Note Date & Type Note Facility 12-25-2023 Note IR THORACENTESIS W G UIDE LT DATE: 12/25/2023 3:57 PM PROCEDURE: Thoracentesis, left RADIOLOGIST: Mann Knox MD. INDICATION: pleural / pneumonic effusion PROCEDURE: Informed written consent was obtained following discussion of risks benefits and alternatives to the procedure; all questions were answered, and teachback occurred. Patient was taken to the procedure suite and positioned [id number]-colk decubitus in her ICU bed. Critical pause with patient identification, site, and procedural verification was performed with assisting personnel just prior to the procedure; the patient's identity was confirmed using 2 identifiers. Ultrasound was used to roseline a site for fluid drainage in the left posterior chest. Color Doppler imaging was utilized to ensure that there were no large vessels in the subcutaneous tissue along the path of the drainage catheter. An area around the skin marking was prepped and draped in usual sterile fashion. Lidocaine 1% was used to anesthetize the skin and superficial tissues. A small skin ron was made with a scalpel. The drainage catheter was inserted while aspirating, until pleural fluid was obtained. This was done under direct ultrasound guidance. The catheter was advanced into the fluid space, and connected to sequential vacuum bottles. After completion of aspiration, the catheter was removed and a sterile dressing was applied. FLUID: Serosanguineous/marta-colored QUANTITY: 500 ml SPECIMEN(S): Lab as requested EBL: minimal (less than 5 ml). COMPLICATIONS: No immediate. The patient tolerated the procedure well. There were no immediate complications. Blood loss was minimal. Patient condition was stable, unchanged. Orders as appropriate were written in the chart. SUPPLIES USED: Aspiration catheter. Biopsy kit. Vacuum bottles. DOCUMENTATION: A postprocedure note was placed in the medical record. COMPLICATIONS: There was no immediate complication. PATIENT CONDITION: After the procedure, the patient's condition was unchanged. SUPERVISION: Dr. Knox was present / immediately available for the entire procedure. ESTIMATED BLOOD LOSS: 2 ml IMPRESSION: 1. Uncomplicated ultrasound guided left thoracentesis. See detailed fluid description above. Finalized by Mann Knox MD on 12/25/2023 3:58 PM [facility] 11-20-2023 Note FL FLUOROSCOPY UP TO 1 HOUR History: Fluoroscopic guided procedure. Obstructing left UPJ calculus Impression: AP views of the left abdomen and right neck and upper chest from intraoperative fluoroscopy for left retrograde pyelogram, left ureteral stent insertion, and attempted right jugular central line insertion. The reference air Kerma was 34.19 mGy. A radiologist was not present. Questions regarding this exam should be directed to the clinical service that performed the procedure. This dictation was generated for documentation purposes for the fluoroscopic equipment utilization. Finalized by Ollie Putnam MD on 11/20/2023 1:40 PM [facility] 11-20-2023 Note FL UROGRAPHY RETRO O PERATIVE W OR WO KUB History: Fluoroscopic guided procedure. Obstructing left UPJ calculus Impression: AP views of the left abdomen and right neck and upper chest from intraoperative fluoroscopy for left retrograde pyelogram, left ureteral stent insertion, and attempted right jugular central line insertion. The reference air Kerma was 34.19 mGy. A radiologist was not present. Questions regarding this exam should be directed to the clinical service that performed the procedure. This dictation was generated for documentation purposes for the fluoroscopic equipment utilization. Finalized by Ollie Putnam MD on 11/20/2023 1:40 PM [facility] 09-13-2023 Miscellaneous Notes 24: Sent a letter to Dr Jules that patient wanted me to check with the doctor if he approves that we add Ozempic for patient's diabetes. I faxed at letter to Dr Jules's office on 09.12.23 with the recommendation, and I just called the Dr's office at [phone] to follow up on the fax, and had to leave a message at Option [employer], Dr Jules's medical staff. Their message stated someone would call back. I left [phone] as the number to call me back at with Dr Jlues's decision documented in this encounter [facility] 09-13-2023 Telephone encounter Note 09.13.23: Sent a letter to Dr Jules that patient wanted me to check with the doctor if he approves that we add Ozempic for patient's diabetes. I faxed at letter to Dr Jules's office on 09.12.23 with the recommendation, and I just called the Dr's office at [phone] to follow up on the fax, and had to leave a message at Option [employer], Dr Jules's medical staff. Their message stated someone would call back. I left [phone] as the number to call me back at with Dr Jules's decision [facility] center[facility] Work Phone: 09-12-2023 History of Presen t illness Narrative Images from the original note were not included. [facility] [address] [facility] [address] Phone: Subjective SUBJECTIVE: Referring Provider: GERRY Vick [employer] Referring Provider: Yes Consult Agreement: Yes Employee Program:No Riaz Kearney is a 78 y.o. (White or [1]) female who presents for a follow up [facility] visit of Type 2 Diabetes Mellitus. Riaz Teran Shekhar is accompanied by her visitor. Patient reports she received Farxiga from the typing bookkeeper and presents with CGM for teaching. INTERIM HX: AT LAST APPT 05.04.23 A1c of 7.0% on 03/30/23. Most recent 2 week blood glucose average on Dexcom was 162 mg/dL Patient reported her kelp gatherer advised her to stop Farxiga as it was causing decline in kidney function. After stopping Farxiga in March 2023, eGFR increased from 17 to 40. Advised patient to call [facility] to stop Farxiga rx. Glucose was going slightly hypoglcyemic overnight while patient sleeps. And Post prandial glucose remains elevated - we increased AM Humulin NPH to 37 units QAM, Decreased PM dose to 23 units QPM. TODAY: The decrease in PM NPH dose appears to have resolved pt's middle of the night hypo On 08.08.23 Patient expresses to PCP desire to change from NPH pens to vial d/t cost - pt currently using pens, but has the vials also, so is in the middle of that transition Pertinent current medications include: Humulin NPH 37 in the morning and 23 in the evening Pertinent previous medications include: Previously was on Humulin R- stopped for unknown reason Medications with contraindications: Metformin- last eGFR= 28 Farxiga - Mar 2023 - GFR decreased to 17 while on it PERTINENT PAST MEDICAL HISTORY: Chronic Kidney Disease: Yes Atherosclerotic Cardiovascular Disease (ASCVD): No Heart Failure with Reduced/Preserved Ejection Fraction: No Pancreatitis/Gastroparesis: No Medullary Thyroid Carcinoma: No Bariatric Surgery: No; Colon cancer; patient reports she currently has a pouch Genitourinary Fungal Infections: No DIET Breakfast: Hamburger/Veal Bethany w/bun w/lettuce Lunch: Iceburg lettuce Salad w/hamburger/chicken, carrots, tomatoes Dinner: Hamburger, Vegetable (green beans,carrots), cheese, occasional potatoes Snacks: Fruit, Few chips Drinks: Water w/crystal light, body armour, sparkling water, diet ocean spray Diabetic Friendly snack list and Diabetic Plate Method information provided previously Patient able to discuss diet in depth. She is aware of startchy/non-starchy vegetables as well as her dietary limitations with other disease states EXERCISE: Not assessed TESTING Home blood glucose: Patient checks blood glucose 3x daily. Blood Glucose Device Brand: Dexcom G7 Diabetic Supplier: [facility] [employer] [facility] [employer] Objective OBJECTIVE: Vitals: There were no vitals taken for this visit. *Pt's wheelchair did not fit in the room - unable to check vitals Caffeine intake within 60 minutes: No Height: Weight: Wt Readings from Last 3 Encounters: 09/05/23 (!) 137.4 kg (303 lb) 08/08/23 (!) 138.8 kg (306 lb) 08/03/23 (!) 138.3 kg (305 lb) Weight Trend: Not assessed. BMI: There is no height or weight on file to calculate BMI. A1c: Lab Results Component Value Date HGBA1C 7.2 (H) 09/12/2023 HGBA1C 7.0 (H) 03/30/2023 HGBA1C 6.7 (H) 01/23/2023 HGBA1C 6.5 (H) 06/01/2022 HGBA1C 6.7 (H) 10/25/2021 Lab Results Component Value Date FFMZCCA6L 5.8 05/23/2018 @RESUDAST(POCA1C:5)@ No results found for: [id number] SCr: Lab Results Component Value Date CREATININE 1.55 (H) 09/12/2023 GFR: GFR MDRD Af Amer Date Value Ref Range Status 01/19/2022 50 (L) >59 ml/min/1.73sq.m Final GFR MDRD Non Af Amer Date Value Ref Range Status 01/19/2022 41 (L) >59 ml/min/1.73sq.m Final UACR: Alb/creat ratio Date/Time Value Ref Range Status 09/12/2023 07:45 AM 88.9 (H) 0.0 - 30.0 mg/g creat Final 03/30/2023 02:00 PM 27.9 0.0 - 30.0 mg/g creat Final No results found for: EXTPOCALB No results found for: EXTUMICOR No components found for: PROTCREATRA No results found for: UPROCRTRAT Vitamin B12 Level: No results found for: [id number] Lipid Management: Lab Results Component Value Date CHOL 94 (L) 09/12/2022 CHOL 146 (L) 06/01/2022 No results found for: EXTCHOL No results found for: EXTPOCCHO Lab Results Component Value Date HDL 38 (L) 09/12/2022 HDL 38 (L) 06/01/2022 No results found for: EXTCHOHDL No results found for: EXTPOCHDL Lab Results Component Value Date LDLCALC 37 09/12/2022 LDLCALC 86 06/01/2022 No results found for: EXTLDL No results found for: EXTPOCLDL Lab Results Component Value Date TRIG 96 09/12/2022 TRIG 108 06/01/2022 No results found for: EXTRIG No results found for: EXTPOCTRIG ADA Diabetes Quality Measures: - A1c: Up to date 01/23/23 - Kidney Screening: - SCr: Up to date 12/27/2022 - UACR: Up to date 12/27/2022 - Lipid Screening: Up to date 09/12/2022 - Eye Exam: Overdue over a year ago - Foot Exam: Up to date PCP Checks also see DPM - Dental Exam: Unknown - Tobacco User: No - On Aspirin: Yes - On SULEIMAN/ARB: Yes- losartan 25 mg daily - On Statin: Yes- atorvastatin 20 mg daily - Immunizations: Influenza Complete: Yes Pneumonia Complete: Yes; Due for -23 Hepatitis B Complete: No Shingles Complete: No Tdap Complete: No Covid Complete: Yes Immunization History Administered Date(s) Administered COVID-19, mRNA, LNP-S, PF, 100mcg/0.5mL Dose 08/20/2020, 09/17/2020, 12/13/2021 Influenza High Dose Preservative Free IM 04/14/2019 Influenza Vaccine, Quadrivalent, Adjuvanted 04/06/2020 Influenza, High-dose, Quadrivalent 05/11/2021, 05/03/2022 Influenza, Injectable, quadrivalent (PF) 03/26/2018 Pneumococcal Conjugate 13-Valent 05/06/2015 ASSESSMENT/PLAN: ASSESSMENT: Type 2 Diabetes Mellitus: uncontrolled as evidenced by hemoglobin A1c of 7.2 % on 09.12.23 up further from 7.0% in Mar 2023. Increase in pain and lack of a DM medication that addresses post meal BG levels are the garces reasons for pt's recent BG increase. Most recent 2 week blood glucose average: 172, up from 162 mg/dL at last appt EDUCATION / ADA MEASURES: Reviewed general diabetes pathophysiology and management Reviewed A1C and blood glucose goals Reviewed signs and symptoms of hyperglycemia/hypoglycemia and how to treat Reviewed diabetes medication dosing, route, frequency, and side effects Encouraged using the Plate Method for healthy eating Provided educational handouts Requested to bring in blood sugar readings to next visit MEDICATION PLAN: Continue Humulin NPH to 37 units QAM, Decrease to 23 units QPM Will ask nephro about adding Ozempic 0.25mg Weekly x4 weeks, then increase to 0.5mg Weekly - will advise pt to assess the need to decrease insulin dose when Ozempic dose goes up to 0.5mg *If Ozempic use, or if PAP not approved, will change pt's NPH insulin BID to 70/30 BID so that she gets at least some post meal coverage from a mix insulin Refills needed on pertinent current medications/supplies: Yes, new Ozempic rx to PAP Patient Assistance, Plasterer Tender Coupon, or Prior Authorization: Yes, submit for Ozempic PAP MONITORING: CGM: YES Glucometer Testing: As needed with CGM FOLLOW UP: Next PCP visit: 02.06.24 Next Pharmacist visit: ?? Will call to schedule after determine which DM med change we will make once hear back from nephro - Power Bates RPH 09/12/23 3:45 PM 30 minute [id number] follow-up appointment. Power Bates RPH 09/12/23 1604 documented in this encounter [facility] 09-05-2023 History of Presen t illness Narrative [facility] [address] [place] [address] Patient: Riaz Kearney Sex: female : 1945 Age: 78 y.o. PCP: Malcolm Dejesus APRN-[employer] 09/05/2023 Riaz Kearney is here for a(n) initial consultation for lumbar pain and bilateral knee pain. Patient would like to treat and focus on lumbar pain. Chief Complaint Patient presents with Back Pain HPI: [facility] This is a chronic problem. Episode onset: since fall in 11/2021, resolved but pain returned. The problem occurs intermittently. The problem has been gradually worsening since onset. The pain is present in the lumbar spine. The quality of the pain is described as aching, stabbing and shooting. Radiates to: bilateral legs, to ankles. Pain scale: 6/10 but increases to 9/10 with ADLs. The pain is severe. Worse during: with activities. Exacerbated by: sitting, standing, walking, stairs, bending, lifting, cough/sneeze, transitioning. Stiffness is present: bilateral knees lock up Associated symptoms include weakness (bilateral legs). Pertinent negatives include no chest pain or fever. Risk factors include sedentary lifestyle, poor posture, obesity and lack of exercise. Treatments tried: tylenol with moderate relief; lidocaine patches with some relief. The effect of pain on patient's ADLS: Moderate Impairment. Past Medical History: Diagnosis Date Allergic Anemia Anxiety Arthritis Bilateral chronic knee pain Cancer ([facility]) rectal cancer Cancer of kidney ([facility]) 1990 Cataract no surgery Chronic kidney disease 1 removed/2 of other working Colostomy in place ([facility]) Dental disease caps Diabetes mellitus ([facility]) Diabetes mellitus type 2, controlled ([facility]) 1977 Difficult intravenous access Dizziness OLGUIN (dyspnea on exertion) Fractures 2017 foot Hernia of abdominal wall navel Hypertension Joint pain Low back pain Non Hodgkin's lymphoma ([facility]) 2006 Obesity PONV (postoperative nausea and vomiting) Psoriasis Sleep apnea uses c pap Visual impairment glasses Past Surgical History: Procedure Laterality Date APPENDECTOMY 1968 BOWEL RESECTION 2008 twisted bowel CARDIAC CATHETERIZATION Cardiac catheterization CORS LV GRAM PRESS 28851 N/A 11/17/2022 Performed by Parul Lagos MD at [facility] CARDIAC CATH LABS CARDIAC SURGERY 1993 dr damico CARPAL TUNNEL RELEASE CHOLECYSTECTOMY 1994 COLON SURGERY 2013 ostomy, rectal cancer COLONOSCOPY N/A 10/15/2018 Performed by Shelia Grewal MD at [facility] COLONOSCOPY AND POLYPECTOMY Left 10/15/2018 Performed by Shelia Grewal MD at [facility] CYSTOSCOPY N/A 08/15/2022 Performed by Lizzeth Lo MD at [facility] CATARACT INTRAOCULAR LENS Right 06/23/2021 Performed by Niru Anders MD at [facility] EXTRACTION CATARACT INTRAOCULAR LENS Left 06/02/2021 Performed by Niru Anders MD at [facility] HYSTERECTOMY 1972 Intravascular Coronary /each additional vessel N/A 11/17/2022 Performed by Parul Lagos MD at [facility] CARDIAC CATH LABS Intravascular pressure measurement first vessel each additional vessel (fractional flow reserve) N/A 11/17/2022 Performed by Parul Lagos MD at [facility] CARDIAC CATH LABS Intravascular pressure measurement first vessel(fractional flow reserve) N/A 11/17/2022 Performed by Parul Lagos MD at [facility] CARDIAC CATH LABS Intravascular ultrasound initial vessel N/A 11/17/2022 Performed by Parul Lagos MD at [facility] CARDIAC CATH LABS KIDNEY SURGERY Right 1994 removed OOPHORECTOMY 1992 OVARIAN CYST SURGERY 1991 SHOULDER ARTHROSCOPY Right 2004 SMALL INTESTINE SURGERY Allergies Allergen Reactions Clonazepam Other (See Comments) Clonidine HISTORY OF KIDNEY CANCER Codeine Swelling FACIAL SWELLING Lisinopril HISTORY OF KIDNEY CANCER Pentazocine Lactate Other (See Comments) Talwin Compound GI Disturbance Tramadol GI Disturbance Tyloxapol GI Disturbance Adhesive Rash Family History Problem Relation Age of Onset Hypertension Mother Diabetes Mother Hypertension Father Diabetes Father Hypertension Sister Stroke Sister Diabetes Sister Hypertension Brother Colon cancer Brother Diabetes Brother Diabetes Sister Breast cancer Maternal Grandmother Social History Socioeconomic History Marital status: Spouse name: Not on file Number of children: Not on file Years of education: Not on file Highest education level: Not on file Occupational History Not on file Tobacco Use Smoking status: Never Smokeless tobacco: Never Vaping Use Vaping Use: Never used Substance and Sexual Activity Alcohol use: No Drug use: No Sexual activity: Defer Other Topics Concern Caffeine Use No Social History Narrative Not on file Social Determinants of Health Financial Resource Strain: Not on file Food Insecurity: No Food Insecurity (09/05/2023) Hunger Screening Food Insecurity - Worry: Never True Food Insecurity - Inability: Never True Transportation Needs: Not on file Physical Activity: Not on file Stress: Not on file Social Connections: Not on file Interpersonal Safety: Not on file Housing Instability: Not on file Review of Systems Constitutional: Negative. Negative for chills, fatigue and fever. HENT: Negative. Eyes: Negative. Respiratory: Negative. Negative for cough and wheezing. Cardiovascular: Negative. Negative for chest pain and palpitations. Gastrointestinal: Negative. Endocrine: Negative. Genitourinary: Negative. Musculoskeletal: Positive for back pain. Allergic/Immunologic: Negative. Neurological: Positive for weakness (bilateral legs). Hematological: Negative. Psychiatric/Behavioral: Negative. Vital Signs: BP 183/75 (BP Site: Right Arm, BP Postition: Sitting) Pulse 54 Resp 20 Ht 161.3 cm (5' 3.5 ) Wt (!) 137.4 kg (303 lb) BMI 52.83 kg/m Physical Exam: GENERAL - Healthy patient that appears stated age. HEENT - Normocephalic / Atraumatic, Extraoccular movements intact, trachea midline, thyroid within normal limits. CV - pulse regular, Warm extremities with appropriate color of nailbeds. RESP - No obvious wheezing, No Shortness of Breath, No overexertion response to exam maneuvers. COORDINATION - remains intact. PSYCH - Alert and Oriented x4, Attentive and appropriate, constitutionally normal, displays normal mood and affect per situation, answered questions appropriately during examination, demonstrated appropriate attention during discussion, demonstrated appropriate cognitive reasoning and understanding of the medical condition by asking appropriate questions regarding the diagnosis and risks/benefits/alternatives of treatment modalities. No obvious deficits in memory, reasoning, or intellect. Lumbar: SKIN - No rashes or bruising in the area of the patient s pain. LYMPH NODES - demonstrate no obvious enlargement. EXTREMITIES - Lower extremities are warm, with minimal edema and palpable pulses. Tenderness to palpation noted in the lumbar spine and paraspinal musculature. Pain is elicited with flexion, extension, and lateral rotation of the lumbar spine. Range of motion is diminished with these motions due to pain. Facet palpation is noted to be somewhat tender and facet loading maneuvers are mildly positive, but not concordant with the patient s normal pain complaints. STRENGTH - noted to be 5 out of 5 all muscle groups bilateral lower extremities including muscles involving hip flexion and abduction, knee flexion and extension, as well as foot dorsiflexion and plantarflexion. No notable atrophy, fasciculations or spasm. SENSORY - No notable sensory deficits in the bilateral lower extremities to touch or pinprick in all dermatomal distributions . Straight Leg Raise is Positive on the Left Tenderness to palpation noted over the Left Hip Joint. Pain is elicited with internal and external rotation of the hip and hip provocative maneuvers are positive and consistent with some of the patient s normal pain. No obvious ligamental laxity is noted. Gait is antalgic and assisted with ambulatory aid(s): W/C. Assessment/Treatment Plan: Riaz was seen today for back pain. Diagnoses and all orders for this visit: Lumbar radiculopathy, chronic - X-ray spine lumbar 2 or 3 views; Future - Ambulatory referral to Physical Therapy; Future - MR lumbar spine with and without contrast; Future Degenerative disc disease, lumbar - [facility] [place], [place] - X-ray spine lumbar 2 or 3 views; Future - Ambulatory referral to Physical Therapy; Future Chronic pain of both knees - [facility] [place], [place] - Ambulatory referral to Physical Therapy; Future Primary osteoarthritis of left hip - X-ray hip left 2-3 views with or without pelvis; Future - Ambulatory referral to Physical Therapy; Future Lumbar spine and Left Hip xrays Imaging/Diagnostic Testing - It is felt that additional diagnostic testing is necessary to further evaluate the patients current pain pathology. For this reason, we will order additional imaging/diagnostic testing noted above. It is hopeful that this study will identify a significant pain generator that will be amenable to therapy. It is felt that this modality is necessary due to the severity and chronicity of symptoms and physical exam findings combined with the lack of recent imaging/diagnostic testing of the area. Physical/Aquatic Therapy - It is felt that the patient will benefit from a course of physical therapy focusing on the above mentioned diagnosis. We will recommend that the physical therapist fully evaluate and treat at their discretion considering the modalities that are most useful for the condition being treated. This may include modalities of comfort including moist heat, ultrasound, and TENS therapy. It may also utilize manual therapy and myofascial release for the myofascial component of the patient s pain. It will likely advance to modalities aimed at stabilizing and strengthing the target area while improving range of motion as well. We are also requesting that the physical therapist send notes that will keep our clinic updated to the patient s progress. Lumbar spine MRI - It is felt that additional diagnostic testing is necessary to further evaluate the patients current pain pathology. For this reason, we will order additional imaging noted above. It is hopeful that this study will identify a significant pain generator that will be amenable to therapy. It is felt that this modality is necessary due to the severity and chronicity of symptoms and physical exam findings combined with the lack of recent imaging of the area. An MRI is specifically felt to be necessary due to the physical exam findings noted above and the patient s description of refractory pain in a neuropathic distribution that is not relieved by change in body position and interferes with the patient s activities of daily living Follow up after testing The medications prescribed have been reviewed for medication interactions/contraindications and/or for upcoming procedures: continue current medication regimen without any changes. DISCUSSION: Treatment options discussed with patient and all questions answered to patient's satisfaction. Discussed the rules and regulations surrounding prescription of opioids and compliance at length. Failure to follow the rules and regulation will result in tapering and discontinuation of medications if applicable. Prescribed medication that requires intensive monitoring for toxicity We do not currently prescribe any controlled substance from this practice. Treatment plans discussed but not opted for at this time: Hip injection. Patient would like to proceed with the current outlined treatment plan before moving forward with any other options. The spine model was demonstrated and Xray and MRI was reviewed and used to explain the condition. Chronic conditions not treated during this visit that affected my overall medical decision making: Obesity, Diabetes and Anxiety OARRS: Reviewed. Scribe Statement: Scribed for and in the presence of LILLIAN CASTELLANOS PA-C by Claudia Fritz CNA. Provider Statement: I, LILLIAN CASTELLANOS PA-C, personally performed the services described in the documentation, as scribed by Claudia Fritz CNA in my presence, and it is both accurate and complete. Claudia Fritz CNA 09/05/23 1318 Lillian Castellanos PA-C 09/05/23 1353 documented in this encounter [facility] 08-08-2023 Miscellaneous Notes Patient expresses to PCP desire to change from NPH pens to vial d/t cost. New orders sent for insulin and syringes. Patient is overdue with [facility]. PCP office to instruct patient to call to schedule. Tiffany Galvan PharmD, BCPS August 08, 2023 11:10 AM documented in this encounter [facility] 08-08-2023 Telephone encounter Note Patient expresses to PCP desire to change from NPH pens to vial d/t cost. New orders sent for insulin and syringes. Patient is overdue with [facility]. PCP office to instruct patient to call to schedule. Tiffany Galvan PharmD, [facility] August 08, 2023 11:10 AM [facility] [employer] 08-08-2023 History of Presen t illness Narrative Images from the original note were not included. [id number] [facility] [id number] SUBJECTIVE: Patient ID: Riaz Kearney is a 78 y.o. female. Patient presents to the office for routine check up. Has a history of type two diabetes, colon cancer, hypertension, CKD, . Patient follows with nephrology, cardiology and diabetes management. Patient is having a lot of knee and back pain. Will refer her to pain management for possible injections. The following portions of the patient's history were reviewed and updated as appropriate: allergies, current medications, past family history, past medical history, past social history, past surgical history and problem list. REVIEW OF SYSTEMS: Review of Systems Constitutional: Negative for fatigue, fever and unexpected weight change. HENT: Negative for congestion, ear pain, sinus pressure, sinus pain and sore throat. Eyes: Negative for photophobia, pain, discharge and visual disturbance. Respiratory: Negative for cough and shortness of breath. Cardiovascular: Negative for chest pain, palpitations and leg swelling. Gastrointestinal: Negative for abdominal pain, diarrhea, nausea and vomiting. Endocrine: Negative for polydipsia, polyphagia and polyuria. Genitourinary: Negative for difficulty urinating, frequency, hematuria and urgency. Musculoskeletal: Positive for arthralgias and back pain. Negative for gait problem, joint swelling and neck pain. Skin: Negative for pallor and rash. Neurological: Negative for dizziness, weakness, light-headedness and numbness. Psychiatric/Behavioral: Negative for sleep disturbance. The patient is not nervous/anxious. PHYSICAL EXAMINATION: Vitals: 08/08/23 1058 BP: 132/74 Pulse: 72 Resp: 18 Weight: (!) 138.8 kg (306 lb) Physical Exam Constitutional: Appearance: She is well-developed. HENT: Head: Normocephalic and atraumatic. Right Ear: External ear normal. Left Ear: External ear normal. Eyes: Conjunctiva/sclera: Conjunctivae normal. Pupils: Pupils are equal, round, and reactive to light. Cardiovascular: Rate and Rhythm: Normal rate and regular rhythm. Heart sounds: Normal heart sounds. Pulmonary: Effort: Pulmonary effort is normal. Breath sounds: Normal breath sounds. Musculoskeletal: Cervical back: Normal range of motion. Skin: General: Skin is warm and dry. Neurological: Mental Status: She is alert and oriented to person, place, and time. Psychiatric: Mood and Affect: Mood normal. ASSESSMENT/PLAN: Riaz was seen today for follow-up. Diagnoses and all orders for this visit: Primary hypertension Obstructive sleep apnea syndrome 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 disease, with long-term current use of insulin ([facility]) Stage 3 chronic kidney disease, unspecified whether stage 3a or 3b CKD ([facility]) Coronary artery calcification BMI 50.0-59.9, adult ([facility]) Degenerative disc disease, lumbar - [facility] [place], [place]; Future Chronic pain of both knees - [facility] [place], [place]; Future Follow-up: Referral pain management ADA diet Keep routine appointments with specialist Follow up with me in six months or as needed Patient noted to have elevated BMI and the following intervention(s) were applied: encouragement to exercise. GERRY Vick 08/08/23 1117 documented in this encounter [facility] 08-03-2023 History of Presen t illness Narrative Riaz Kearney Date of visit: 08/03/2023 Date of : 1945 Age: 78 y.o. Patient Active Problem List Diagnosis Diabetes mellitus type 2, controlled (CMS-HCC) Hypertension Non Hodgkin's lymphoma ([facility]) Chronic kidney disease Anxiety Colon cancer ([facility]) Sleep apnea Cellulitis of left lower extremity Cellulitis Generalized weakness Unsteady gait History of fall Asymptomatic microscopic hematuria Chest pain Abnormal stress test Allergies Allergen Reactions Clonazepam Other (See Comments) Clonidine HISTORY OF KIDNEY CANCER Codeine Swelling FACIAL SWELLING Lisinopril HISTORY OF KIDNEY CANCER Pentazocine Lactate Other (See Comments) Talwin Compound GI Disturbance Tramadol GI Disturbance Tyloxapol GI Disturbance Adhesive Rash Current Outpatient Medications Medication Sig Dispense Refill ascorbic acid, vitamin C, (VITAMIN C) 250 mg tablet Take 1 tablet (250 mg total) by mouth in the morning. 30 tablet 0 aspirin 81 mg Take 1 tablet (81 mg total) by mouth in the morning. 30 tablet 0 atorvastatin (LIPITOR) 20 mg tablet Take 1 tablet (20 mg total) by mouth in the morning. 90 tablet 1 carvediloL (COREG) 12.5 mg tablet Take 1 tablet (12.5 mg total) by mouth in the morning and 1 tablet (12.5 mg total) before bedtime. take 2 tabs 6.25 mg each twice a day by mouth. 60 tablet 0 chlorthalidone (HYGROTON) 25 mg tablet Take 1 tablet (25 mg total) by mouth daily. 30 tablet 0 clobetasoL (TEMOVATE) 0.05 % cream Apply 1 Application topically in the morning and 1 Application before bedtime. 60 g 5 ergocalciferol (VITAMIN D2) 1,250 mcg (50,000 unit) capsule Take 1 capsule (50,000 Units total) by mouth every 30 (thirty) days. pt. to take one pill by mouth once every 30 days. 1 capsule 0 ferrous sulfate 325 (65 FE) mg tablet Take 1 tablet (325 mg total) by mouth daily with breakfast. pt. to take one tablet daily by mouth 30 tablet 0 insulin NPH isoph U-100 human (HumuLIN N NPH Insulin KwikPen) 100 unit/mL (3 mL) insulin pen Inject 35 units in the morning and 25 units in the evening [facility] 30 mL 5 isosorbide mononitrate (IMDUR) 30 mg 24 hr tablet Take 1 tablet (30 mg total) by mouth 2 (two) times a day. 180 tablet 3 losartan (COZAAR) 25 mg tablet Take 4 tablets (100 mg total) by mouth in the morning. omega 5-exf-eew-fish oil (FISH OIL) 1,000 mg (120 mg-180 mg) capsule Take 1 capsule by mouth daily. 90 capsule 1 pen needle, diabetic (BD ULTRA-FINE MINI PEN NEEDLE) 31 gauge x 3/16 needle Use to inject insulin under the skin twice a day. 100 each 2 pyridoxine, vitamin B6, (B-6) 100 mg tablet Take 1 tablet (100 mg total) by mouth daily. 90 tablet 1 nitroglycerin (NITROSTAT) 0.[address] 1 tablet (0.4 mg total) under the tongue every 5 (five) minutes as needed for chest pain. 90 tablet 0 No current facility-administered medications for this visit. Chief Complaint Patient presents with Follow-up EST PT F/U 6 MS NO TESTS SCHED W/ PT L/S KBS History of Present Illness Patient with history of severe multivessel coronary disease treated medically as patient declined CABG, hypertension, solitary kidney/CKD, morbid obesity. Here for follow-up visit. Last seen in office. Patient stated that she is doing fairly well. No active complaints apart from having back and hip pain issues. Stated that she has not had any chest pain problems or shortness of breath. Able to clean the house, cook and do her laundry with no help and no cardiac symptoms. Does not do much exercise or strenuous activities apart from feeling house. Stated when she is sweeping the house she has to rest every once in awhile due to her hip hurting or her back hurting although not the breathing. Denies any palpitations or dizziness or orthopnea or PND or syncope or presyncope. Stated that usually her CPAP machine almost nightly. No tobacco use. Vitals stable. No p.r.n. available at home. Past Medical History: Diagnosis Date Allergic Anemia Anxiety Arthritis Cancer ([facility]) rectal cancer Cancer of kidney ([facility]) 1990 Cataract no surgery Chronic kidney disease 1 removed//2 of other working Colostomy in place ([facility]) Dental disease caps Diabetes mellitus ([facility]) Diabetes mellitus type 2, controlled ([facility]) 1977 Difficult intravenous access Dizziness OLGUIN (dyspnea on exertion) Fractures 2017 foot Hernia of abdominal wall navel Hypertension Non Hodgkin's lymphoma ([facility]) 2005 Obesity PONV (postoperative nausea and vomiting) Psoriasis Sleep apnea uses c pap Visual impairment glasses No data recorded No data recorded No data recorded Past Surgical History: Procedure Laterality Date APPENDECTOMY 1968 BOWEL RESECTION 2008 twisted bowel CARDIAC CATHETERIZATION Cardiac catheterization CORS LV GRAM PRESS [id number] N/A 11/17/2022 Performed by Parul Lagos MD at [facility] CARDIAC CATH LABS CARDIAC SURGERY 1993 dr damico CARPAL TUNNEL RELEASE CHOLECYSTECTOMY 1994 COLON SURGERY 2013 ostomy, rectal cancer COLONOSCOPY N/A 10/15/2018 Performed by Shelia Grewal MD at [facility] COLONOSCOPY AND POLYPECTOMY Left 10/15/2018 Performed by Shelia Grewal MD at [facility] CYSTOSCOPY N/A 08/15/2022 Performed by Lizzeth Lo MD at [facility] EXTRACTION CATARACT INTRAOCULAR LENS Right 06/23/2021 Performed by Niru Anders MD at [facility] EXTRACTION CATARACT INTRAOCULAR LENS Left 06/02/2021 Performed by Niru Anders MD at [facility] HYSTERECTOMY 1972 Intravascular Coronary /each additional vessel N/A 11/17/2022 Performed by Parul Lagos MD at [facility] CARDIAC CATH LABS Intravascular pressure measurement first vessel each additional vessel (fractional flow reserve) N/A 11/17/2022 Performed by Parul Lagos MD at [facility] CARDIAC CATH LABS Intravascular pressure measurement first vessel(fractional flow reserve) N/A 11/17/2022 Performed by Parul Lagos MD at [facility] CARDIAC CATH LABS Intravascular ultrasound initial vessel N/A 11/17/2022 Performed by Parul Lagos MD at [facility] CARDIAC CATH LABS KIDNEY SURGERY Right 1994 removed OOPHORECTOMY 1992 OVARIAN CYST SURGERY 1991 SHOULDER ARTHROSCOPY Right 2004 SMALL INTESTINE SURGERY Family History Problem Relation Age of Onset Hypertension Mother Diabetes Mother Hypertension Father Diabetes Father Hypertension Sister Stroke Sister Diabetes Sister Hypertension Brother Colon cancer Brother Diabetes Brother Diabetes Sister Breast cancer Maternal Grandmother Social History Socioeconomic History Marital status: Spouse name: Not on file Number of children: Not on file Years of education: Not on file Highest education level: Not on file Occupational History Not on file Tobacco Use Smoking status: Never Smokeless tobacco: Never Vaping Use Vaping Use: Never used Substance and Sexual Activity Alcohol use: No Drug use: No Sexual activity: Defer Other Topics Concern Caffeine Use No Social History Narrative Not on file Social Determinants of Health Financial Resource Strain: Not on file Food Insecurity: No Food Insecurity (08/03/2023) Hunger Screening Food Insecurity - Worry: Never True Food Insecurity - Inability: Never True Transportation Needs: Not on file Physical Activity: Not on file Stress: Not on file Social Connections: Not on file Interpersonal Safety: Not on file Housing Instability: Not on file Review of Systems Review of Systems Respiratory: Negative for cough, hemoptysis and wheezing. Musculoskeletal: Positive for arthritis and joint pain. Gastrointestinal: Negative for abdominal pain, change in bowel habit and hematochezia. Genitourinary: Negative for dysuria and hematuria. Neurological: Negative for focal weakness, headaches and paresthesias. CARDIOVASCULAR: Please review HPI. Physical Examination General appearance: Alert, oriented and cooperative. In no acute distress. Skin: Warm and dry to touch. Head: Normocephalic, without obvious abnormality, atraumatic. Ears, Nose, Mouth, Throat: Throat clear without erythema or exudate. Dentition intact. Eyes: Conjunctivae unremarkable, EOM intact. Neck: No JVD, No carotid bruit. Neck supple, trachea midline. Respiratory: Clear to auscultation bilaterally, no use of accessory muscles. Cardiovascular: RRR with normal S1 and S2 with no murmurs. Gastrointestinal: Soft, non-tender. Bowel sounds normal. Musculoskeletal: No peripheral edema. Neurologic: Oriented to time, person and place, affect appropriate. No focal/major motor defects noted. Psychiatric: Appropriate mood, memory and judgement. VITAL SIGNS: BP 170/90 (BP Site: Left Arm, BP Postition: Sitting) Pulse 59 Ht 161.3 cm (5' 3.5 ) Wt (!) 138.3 kg (305 lb) SpO2 95% BMI 53.18 kg/m Orders Placed or Reconciled This Encounter Medications nitroglycerin (NITROSTAT) 0.4 MG SL tablet Sig: Place 1 tablet (0.4 mg total) under the tongue every 5 (five) minutes as needed for chest pain. Dispense: 90 tablet Refill: 0 Medications Discontinued During This Encounter Medication Reason FARXIGA 10 mg tablet IMPRESSIONS/PLAN 1. Chronic coronary artery disease 2. Primary hypertension Previous cardiac related labs and test results were reviewed and discussed with the patient. Severe multivessel CAD including severe dLM stenosis, severe prox-mid LAD dx - patient declined CABG, treated medically [facility] 10/2022 Normal EF TTE 08/2022 and LV gram 10/2022 Hypertension Lipids 08/2022: Total cholesterol 94, HDL 38, LDL 37, triglycerides 96 Solitary kidney CKD Hx of colon cancer s/p resection and chemo (about 10 yrs ago) w/ colostomy bag JERMAINE/CPAP compliant Morbid obesity, BMI 50 Patient here for routine follow-up. Stable from a cardiac standpoint. Euvolemic on exam. No cardiac testing ordered today. Prescribe p.r.n. sublingual nitro as patient does not have it at home. Educated how to use it. No change in current cardiac regimen. Follow-up in 6 months or sooner if needed. Patient to call us with any cardiac questions or concerns. TODAYS ORDERS No orders of the defined types were placed in this encounter. FOLLOW UP Return in about 6 months (around 02/01/2024). PCP: GERRY Vick Referring Physician: GERRY Vick [address] [place] [address] documented in this encounter [facility] 08-02-2023 Miscellaneous Notes Called patient to remind them to bring their most current copy of their medication list with them to their appt. Patient verbalizes understanding. documented in this encounter [facility] 08-02-2023 Telephone encounter Note Called patient to remind them to bring their most current copy of their medication list with them to their appt. Patient verbalizes understanding. [facility] Evaluation note Diagnosis Malignant neoplasm of colon, unspecified part of colon (HCC) Low grade B-cell lymphoma (HCC) Other malignant lymphomas, unspecified site, extranodal and solid organ sites documented in this encounter [facility] Phone: evaluation note* Diagnosis Chronic coronary artery disease- Primary Coronary atherosclerosis of unspecified type of vessel, [place] or graft Primary hypertension Unspecified essential hypertension [facility] Diagnosis Primary hypertension- Primary Unspecified essential hypertension Obstructive sleep apnea syndrome Obstructive sleep apnea (adult) (pediatric) 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 disease, with long-term current use of insulin ([facility]) Stage 3 chronic kidney disease, unspecified whether stage 3a or 3b CKD ([facility]) Coronary artery calcification BMI 50.0-59.9, adult ([facility]) Degenerative disc disease, lumbar Chronic pain of both knees documented [facility] this [facility] Diagnosis 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 disease, with long-term current use of insulin ([facility])- Primary [facility]* Diagnosis Lumbar radiculopathy, chronic- Primary Degenerative disc disease, lumbar Chronic pain of both knees Primary osteoarthritis of left hip [facility]* Diagnosis 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 disease, with long-term current use of insulin ([facility])- Primary Degenerative disc disease, lumbar Chronic pain of both knees Lumbar radiculopathy, chronic Primary osteoarthritis of left hip documented [facility] encounter [facility]InstructionsNot on filedocumented in this encounter [facility]InstructionsNot on filedocumented in this encounter [facility]* Attachments The following attachments cannot be sent through Care Everywhere. * Diabetes and diet (Icelandic) documented in this encounterPro[facility] HospitalInstructionsNot on file documented in this encounterMer[facility] HospitalInstructionsNot on file documented in this encounterMer[facility] HospitalInstructionsNot on file documented in this encounterMer[facility] St[facility] HospitalReason for referral (narrative)* Consultation (Routine) - Authorized Specialty Diagnoses / Procedures Referred By Contlos t Referred To Contact Diagnoses Degenerative disc disease, lumbar Chronic pain of both knees Malcolm Dejesus APRN-CNP [address] [place] [address] Davin Suggs MD [address] [place] [address] Referral ID Status Reason Start Date Expiration Date Visits Requested Visits Authorized [id number] Authorized Specialty Services Required 08/08/2023 08/07/2024 [address] [facility] Summary Purpose Family History No Family History Records FoundNo Family History Records FoundNo Family History Records FoundNo Family History Records FoundNo Family History Records FoundNo Family History Records Found Advance Directives No Advanced Directives Records FoundDocuments on File Type Date Recorded Patient Filler Feeder Expl anation Advance Directives and Living Will Power of Rose Grower Documents on File Type Date Recorded Patient Filler Feeder Expl anation Advance Directives and Living Will Power of Rose Grower Documents on File Type Date Recorded Patient Filler Feeder Expl anation ACP-Advance Directive ACP-Power of Rose Grower Documents on File Type Date Recorded Patient Filler Feeder Expl anation DNR Physician Order 02/01/2023 9:52 AM DNR FORM 01/23/23 Latest Code Status on File Code Status Date Activated Date Inactivated Comments DNR Comfort Care (DNRCC) [place] 02/01/2023 9:51 AM This order was creat ed through External Result Entry Code Status History Code Status Date Activated Date Inactivated Comments Full Code 10/25/2021 5:14 PM 10/28/2021 3:57 PM Full Code 10/25/2021 12:49 AM 10/25/2021 2:58 PM Documents on File Type Date Recorded Patient Filler Feeder Expl anation DNR Physician Order 02/01/2023 9:52 AM DNR FORM 01/23/23 Latest Code Status on File Code Status Date Activated Date Inactivated Comments DNR Comfort Care (DNRCC) [place] 02/01/2023 9:51 AM This order was creat ed through External Result Entry Code Status History Code Status Date Activated Date Inactivated Comments Full Code 10/25/2021 5:14 PM 10/28/2021 3:57 PM Full Code 10/25/2021 12:49 AM 10/25/2021 2:58 PM Reason for Referral Status Reason Specialty Diagnoses / Procedures Referre d By Contact Referred To Contact Open Radiology Diagnoses Malignant neoplasm of colon, unspecified part of colon (HCC) Procedures IR REMOVE TUNNELED CVAD W SQ PORT/PUMP INSERT Shalom Wilson MD [address] [place] [address] Specialty Diagnoses / Procedures Referred By Contac t Referred To Contact Radiology Diagnoses Lumbar radiculopathy, chronic Procedures MR lumbar spine with and without contrast Lillian Castellanos PA-C [address], [address] [place] [id number] Referral ID Status Reason Start Date Expiration Date V isits Requested Visits Authorized [id number] Pending Review 09/05/2023 09/04/2024 1 1 Specialty Diagnoses / Procedures Referred By Contac t Referred To Contact Rehabilitation Diagnoses Degenerative disc disease, lumbar Chronic pain of both knees Lumbar radiculopathy, chronic Primary osteoarthritis of left hip Lillian Castellanos PA-C [address], [address] [place] [id number] [facility] [address] [place] [address] Referral ID Status Reason Start Date Expiration Date Visits Requested Visits Authorized [id number] Authorized Specialty Services Required 09/05/2023 09/04/2024 1 1 History of Present Illness * Maite Campos RN - 01/09/2020 1:48 PM EDT Right chest port removed per Dr Burks, internal and external sutures in place and dermabond glue inplace to right upper chest. Pt discharged via wheel chair. No distress noted. * Maite Campos RN - 01/09/2020 12:43 PM EDT The patient was counseled at length about the risks of cyn Covid-19 during their perioperative period and any recovery window from their procedure. The patient was made aware that contractingCovid-19 may worsen their prognosis for recovering from their procedure and lend to a higher morbidity and/or mortality risk. All material risks, benefits, and reasonable alternatives including postponing the procedure were discussed. The patient does wish to proceed with the procedure at this time. documented in this encounter Assessments Diagnosis Malignant neoplasm of colon, unspecified part of colon (HCC) Additional Source Comments INFORMATION SOURCE (unrecogn ized section and content) DATE CREATED AUTHOR 01/16/2020 [facility] DATE CREATED AUTHOR AUTHOR'S ORGANIZ ATION 12/01/2020 [facility] DATE CREATED AUTHOR AUTHOR'S ORGANIZ ATION 11/28/2023 [facility] Ambulatory [facility] DATE CREATED AUTHOR AUTHOR'S ORGANIZ ATION 01/08/2024 [facility] DATE CREATED AUTHOR AUTHOR'S ORGANIZ ATION 02/04/2024 [facility] DATE CREATED AUTHOR AUTHOR'S ORGANIZ ATION 02/13/2024 [facility] Reason for Visit (unrecogniz ed section and content) Status Reason Specialty Diagnoses / Procedures Referred By Contact Referred To Contact Pending Review Specialty Services Required Oncology Diagnoses Malignant neoplasm of colon, unspecified part of colon (HCC) Low grade B-cell lymphoma (HCC) Shalom Wilson MD [address] [place] [address] [facility] [address] [place] [address] Reason Comments Follow-up EST PT F/U 6 MS NO T ESTS SCHED W/ PT L/S KBS Reason Comments Follow-up Reason Comments Back Pain Specialty Diagnoses / Procedures Referred By Contac t Referred To Contact Diagnoses Degenerative disc disease, lumbar Chronic pain of both knees Malcolm Dejesus APRN-CNP [address] [place] [address] Davin Suggs MD [address] [place] [address] Referral ID Status Reason Start Date Expiration Date V isits Requested Visits Authorized [id number] Closed Specialty Services Required 08/08/2023 08/07/2024 1 1 Reason Comments MTM Follow-up Visit Care Teams (unrecognized sec tion and content) Business Intelligence Analyst Relationship Specialty Start Date End Date Malcolm Dejesus APRN-CNP [address] [place] [address] PCP - General Family Medicine 04/11/19 Business Intelligence Analyst Relationship Specialty Start Date End Date Malcolm Dejesus APRN-CNP [address] [place] [address] PCP - General Family Medicine 04/11/19 Business Intelligence Analyst Relationship Specialty Start Date End Date Malcolm Dejesus APRN-CNP [address] [place] [address] PCP - General Family Medicine 04/11/19 Business Intelligence Analyst Relationship Specialty Start Date End Date Anjelica Malcolm, QUINN-DEJON [address] [place] [address] PCP - General Family Medicine 04/11/19 Business Intelligence Analyst Relationship Specialty Start Date End Date Malcolm Dejesus FLOOR INSPECTOR-[employer] [address] [place] [address] PCP - General Family Medicine 04/11/19 Business Intelligence Analyst Relationship Specialty Start Date End Date OcblossomMalcolm perezQUINN-DEPUTY HARBORMASTER [address] [place] [address] PCP - General Family Medicine 04/11/19 FOR RECORDS PERTAINING TO PATIENTS WHO ARE OR HAVE BEEN ENROLLED IN A CHEMICAL DEPENDENCY/SUBSTANCEABUSE PROGRAM, SOME INFORMATION MAY BE OMITTED. This clinical summary was aggregated from multiple sources. Caution should be exercised in using it in the provision of clinical care. This summary normalizes information from multiple sources, and as a consequence, information in this document may materially change the coding, format and clinical context of patient data. In addition, data may be omitted in some cases. CLINICAL DECISIONS SHOULD BE BASED ON THE PRIMARY CLINICAL RECORDS. [facility] [employer] [facility]. provides no warranty or guarantee of the accuracy or completeness of information in this document.
[2024-04-10 11:10] LABS: Anion Gap 16.2; BUN Creatinine Ratio 33.9; Calcium 9.9 mg/dL (8.5-10.1); Carbon Dioxide 25.2 mmol/L (21.0-32.0); Chloride 103 mmol/L (98-107); Estimated GFR (African America 35 (>=60 mL/min/1.73m^2); Estimated GFR (Non-African Ame 29 (>=60 mL/min/1.73m^2); Glucose 274 mg/dL (74-106); Potassium 4.4 mmol/L (3.5-5.1); Sodium 140 mmol/L (136-145)
== END 2024-04-10 10:51 | disposition home or self-care (01) ==
PROVIDERS: Visit Provider Nurse Practitioner Adult Health
DX: N18.32 Chronic kidney disease, stage 3b (principal); Z79.01 Long term (current) use of anticoagulants
CPT/HCPCS: 36415; 80048

== ENCOUNTER 2024-05-21 12:39 | Outpatient (OUT) | payer MEDICARE, SELFPAY ==
[2024-05-21 13:16] LABS: Hematocrit 37.3 % (36.0-48.0); Hemoglobin 11.7 g/dL (12.0-16.0); Mean Corpuscular HGB Conc 31.4 g/dL (29.9-35.2); Mean Corpuscular Hemoglobin 30.2 pg (26.7-34.0); Mean Corpuscular Volume 96.4 fL (81.0-99.0); Mean Platelet Volume 12.5 fL (9.5-13.5); Platelet Count 211 10^3/uL (150-450); Red Blood Count 3.87 10^6/uL (4.20-5.40); Red Cell Distribution Width 14.2 % (11.0-15.0); White Blood Count 2.8 10^3/uL (4.0-11.0)
[2024-05-21 13:21] LABS: Anion Gap 13.4; BUN Creatinine Ratio 21.5; Calcium 9.7 mg/dL (8.5-10.1); Carbon Dioxide 23.4 mmol/L (21.0-32.0); Chloride 106 mmol/L (98-107); Estimated GFR (African America 48 (>=60 mL/min/1.73m^2); Estimated GFR (Non-African Ame 39 (>=60 mL/min/1.73m^2); Glucose 170 mg/dL (74-106); Potassium 4.8 mmol/L (3.5-5.1); Sodium 138 mmol/L (136-145)
[2024-05-21 13:41] LABS: Lymphocytes Absolute Manual 0.78 10^3/uL (1.20-3.80)
[2024-05-21 13:42] LABS: Basophils Abs Manual 0.05 10^3/uL (0.00-0.10); Eosinophils Absolute Manual 0.25 10^3/uL (0.00-0.70); Monocytes Absolute Manual 0.67 10^3/uL (0.30-0.80)
== END 2024-05-21 12:40 | disposition home or self-care (01) ==
PROVIDERS: PCP Family Medicine; Visit Provider Nurse Practitioner Adult Health
DX: R41.82 Altered mental status, unspecified (principal); N18.32 Chronic kidney disease, stage 3b; N17.9 Acute kidney failure, unspecified
CPT/HCPCS: 36415; 80048; 85007; 85027